=== PATIENT | female | born 1940 | race Caucasian/White ===

== ENCOUNTER 2016-07-25 11:01 | Inpatient (IN) | payer OTHER, MEDICARE ==
[~2016-07-25] VITALS: Ht 149.9 cm; Wt 68.0 kg
[~2016-07-25 11:01] MED LIST: ACEPHEN650 M1 PR; ATHENOL325 MG PO; AUGMENTIN 500-1 EACH PO; BISACODYL10 M1 RC; CEFTRIAXONE500 MG IM; FERROUS SULFAT325 M3 PO; FLEET ENEMA133 ML RC; GAS RELIEF125 M1 PO; GAS-X125 MG PO; GLUCAGON EMERGEN1 M1 IM; IPRAT-ALBUT 0.5-3 ML INH; JANUVIA100 M1 PO; LEVEMIR100 UNIT/1 SC; LEVOTHYROXINE25 MCG PO; LOSARTAN POTAS100 M1 PO; LYRICA75 M1 PO; MECLIZINE HCL12.5 M1 PO; METFORMIN HCL500 M3 PO; MILK OF MA400 MG/52 PO; MONTELUKAST SOD10 M1 PO; NOVOLOG100 UNIT/2 SC; OMEPRAZOLE20 M2 PO; PREDNISONE1 MG PO; SERTRALINE HCL25 MG PO; SERTRALINE HCL50 MG PO; SPIRIVA18 MCG INH; TRAZODONE HCL100 M1 PO; TRAZODONE HCL50 M1 PO; VERAPAMIL HCL120 M3 PO; VITAMIN D3400 UNI1 PO; XANAX0.25 M1 PO; ZOCOR10 M1 PO
--- NOTE | 2016-07-25 11:34 | ED GI/GU/ABDOMINAL COMPLAINT ---
History of Present Illness General Chief Complaint: General Adult Stated Complaint: BIBA FROM ECF FOR ABNORMAL LABS Source: patient, old records Exam Limitations: poor historian Allergies Coded Allergies: oxycodone (RASH 12/08/15) Triage Note: PT BROUGHT IN BY AMBULANCE BY F FOR ABNORMAL LABS AND WATTERY DIARRHEA X7 DAYS. PT OS O2 DEPENDENT AT 3L BY NA. Triage Nurses Notes Reviewed? yes ? N Is pt currently ? No Onset: Gradual Duration: constant Timing: recent history Quality/Severity: sharpness, severe, stabbing Severity Numbers: 8 Location: epigastric Radiation: no radiation HPI: Patient is a 76-year-old female with a past medical history of COPD currently on 3 L of oxygen at all times, CHF, diabetes, hypothyroidism and a recent admission 8 days ago and discharge to [facility] for concerns of altered mental status and encephalopathy secondary to urinary tract infection and sepsis. History is limited due to patient being a poor historian. Patient's presents to emergency room with persistent epigastric and generalized abdominal pain for the past 4 days and loose watery stool diarrhea production for the past 7 days patient currently is on outpatient antibiotics. Patient denies any fever chills is able tolerate by mouth. Denies any change in respiratory complaints denies any worsening shortness of breath chest pain and arm pain jaw pain nausea or vomiting. No blood or melena noted in stools. Patient does state that she has mild nonproductive cough (SANIA KING,MARILU) Vital Signs & Intake/Output Vital Signs & Intake/Output Vital Signs Date Time Temp Pulse Resp B/P Pulse O2 O2 Flow FiO2 Ox Delivery Rate 07/25 1934 97.9 93 16 135/65 95 Nasal 3.0L Cannula 07/25 1742 97.6 92 16 135/64 97 Nasal 3.0L Cannula 07/25 1531 97.6 93 16 140/65 97 Nasal 3.0L Cannula 07/25 1305 97.0 87 16 126/62 94 Nasal 3.0L Cannula 07/25 1111 94 Nasal 3.0L Cannula 07/25 1107 97.9 83 22 122/56 97 Nasal 3.0L Cannula Reconcile Medications Acetaminophen (Acephen) 650 MG SUPP.RECT 1 SUPP ME Q4H PRN PAIN/TEMP>/100 ( Reported) Acetaminophen (Athenol) 325 MG TABLET 2 TAB PO Q4H PRN PAIN/TEMP>/100 ( Reported) Alprazolam (Xanax) 0.25 MG TABLET 1 TAB PO Q6P PRN AGITATION AND ANXIETY ( Reported) Augmentin (Augmentin 500-125 Tablet) 500 MG-125 MG TABLET 1 TAB PO BID urine infection Bisacodyl 10 MG SUPP.RECT 1 SUP RC PRN CONSTIPATION (Reported) Cholecalciferol (Vitamin D3) (Vitamin D3) 400 UNIT TABLET 1 TAB PO DAILY SUPPLEMENT (Reported) Ferrous Sulfate 325 MG (65 MG IRON) TABLET 1 TAB PO DAILY SUPPLEMENT ( Reported) Glucagon,Human Recombinant (Glucagon Emergency Kit) 1 MG KIT 1 MG IM ONCE PRN HYPOGLYCEMIA (Reported) Insulin Aspart (Novolog) 100 UNIT/ML VIAL DM (Reported) based on sliding scale Insulin Detemir (Levemir) 100 UNIT/ML VIAL 30 UNITS SC QAM DM (Reported) Ipratropium/Albuterol Sulfate (Iprat-Albut 0.5-3(2.5) MG/3 Ml) 0.5 MG-3 MG (2.5 MG BASE)/3 ML AMPUL.NEB 3 ML INH Q4H PRN SOB/WHEEZE (Reported) Lactobacillus Acidophilus (Acidophilus) 1 EACH CAPSULE 1 CAP PO BID GI ( Reported) Levothyroxine Sodium 25 MCG TABLET 1 TAB PO DAILY AC THYROID (Reported) Losartan Potassium 100 MG TABLET 1 TAB PO DAILY UNKNOWN (Reported) Magnesium Hydroxide (Milk Of Magnesia) 400 MG/5 ML ORAL.SUSP 30 ML PO DAILY PRN CONSTIPATION (Reported) Meclizine HCl 12.5 MG TABLET 1 TAB PO Q6H PRN VERTIGO (Reported) Metformin HCl 500 MG TABLET 1 TAB PO TID DM (Reported) Montelukast Sodium 10 MG TABLET 1 TAB PO DAILY UNKNOWN (Reported) Na Phos,M-B/Na Phos,Di-Ba (Fleet Enema) 19 GRAM-7 GRAM/118 ML ENEMA 1 E RC DAILY PRN CONSTIPATION (Reported) Omeprazole 20 MG CAPSULE.DR 1 CAP PO DAILY GI (Reported) Prednisone 1 MG TABLET 1.5 TAB PO EOD STEROID (Reported) Pregabalin (Lyrica) 75 MG CAPSULE 1 CAP PO TID NEUROPATHY (Reported) Sertraline HCl 25 MG TABLET 1 TAB PO DAILY MENTAL HEALTH (Reported) Sertraline HCl 50 MG TABLET 1 TAB PO DAILY MENTAL HEALTH (Reported) Simethicone (Gas-X) 125 MG CAPSULE 1 TAB PO TID GAS (Reported) Simethicone (Gas Relief) 125 MG TAB.CHEW 1 TAB PO Q4-6H PRN ABD BLOATING & PAIN (Reported) Simvastatin (Zocor*) 10 MG TABLET 1 TAB PO QPM CHOLESTEROL (Reported) Sitagliptin Phosphate (Januvia) 100 MG TABLET 1 TAB PO DAILY DIABETES ( Reported) Tiotropium [place] (Spiriva) 18 MCG CAP.W.DEV 1 CAP INH DAILY COPD (Reported) Trazodone HCl 50 MG TABLET 1 TAB PO 0800 UNKNOWN (Reported) Trazodone HCl 100 MG TABLET 1 TAB PO QPM UNKNOWN (Reported) Trazodone HCl 50 MG TABLET 12.5 MG PO Q8H PRN ANXIETY (Reported) Verapamil HCl 120 MG TABLET 1 TAB PO DAILY UNKNOWN (Reported) (SEVERIANO ANDREWS,JEET Hernandez) Past History Travel History Traveled to [place] past 21 day No Medical History Any Pertinent Medical History? 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 FATHER (CAD). AUNT (Stroke). DAUGHTER ( from drug overdose). Hx Contributory? No (MARILU LOMBARDI) Review of Systems Review of Systems Constitutional: Reports: see HPI. Denies: chills. EENTM: Reports: no symptoms. Respiratory: Reports: see HPI, cough. Cardiovascular: Reports: no symptoms. GI: Reports: see HPI, abdominal pain, diarrhea. Denies: nausea. Genitourinary: Reports: no symptoms. Musculoskeletal: Reports: no symptoms. Skin: Reports: no symptoms. Neurological/Psychological: Reports: no symptoms. Hematologic/Endocrine: Reports: no symptoms. Immunologic/Allergic: Reports: no symptoms. All Other Systems: Reviewed and Negative (SANIA KING,MARILU) Physical Exam Physical Exam General Appearance: well developed/nourished, no apparent distress, alert Gastrointestinal: normal bowel sounds, soft, MILD EPIGASTRIC POINT TENDERNESS NO RIGHT LOWER QUADRANT TENDERNESS NO PERITONEAL SIGNS NO REBOUND TENDERNESS Comments: Well-developed well-nourished person in no acute distress HEENT: Normal EENT exam, Neck: Supple, no lymphadenopathy, normal range of motion without pain or tenderness Back: Nontender, no CVA tenderness. Cardiovascular: Regular rate and rhythms no murmurs rubs or gallops, normal JVP Respiratory: Chest nontender. No respiratory distress.breath sounds clear to auscultation bilaterally Extremity: No edema, no calf tenderness to palpation, normal and equal pulses. Neuro: Alert oriented, motor sensory normal, Skin: No appreciable rash on exposed skin, skin is warm and dry. Psych: Mood and affect is normal, memory and judgment is normal. Core Measures Severe Sepsis Present: No Septic Shock Present: No (SANIA KING,MARILU) Progress Differential Diagnosis: AAA, AMI, appendicitis, biliary colic, bowel obstruction , colon cancer, cholecystitis, diverticulitis, endometritis, esophageal varices, gastritis, hepatitis, hernia, hemorrhoids, ischemic bowel, inflamm bowel dis, kidney stone, Jihan-Gregorio tear, ovarian cyst, ovarian torsion, pancreatitis, PID/cervicitis, peptic ulcer, PUD/GERD, perforated viscous, SBO, threatened AB, UTI/pyelo Diagnostic Imaging: Viewed by Me: CT Scan. Radiology Impression: SEE COMMENTS Initial ED EK BPM , LAD Comments: PATIENT: KIMBERLY SHERIDAN PRESENT AGE: 76 PATIENT ACCOUNT NO: [id number] : 41 LOCATION: [facility] ORDERING PHYSICIAN: MARILU KING SERVICE DATE: 07/25/163341 EXAM TYPE: CAT - CT ABD & PELVIS W/O IV CONTRAS; CT CHEST WO IV CONTRAST EXAMINATION: CT ABD PELVIS W/O IV CONTRAS, CT CHEST WO IV CONTRAST CLINICAL INFORMATION: Abdominal pain. Acute kidney injury. 76-year-old female. COMPARISON: Chest x-rays done 08/06/2013 and 07/14/2016. CT the abdomen and pelvis on 03/06/2013. TECHNIQUE: Noncontrast enhanced CT of the chest abdomen and pelvis without IV contrast. Coronal and sagittal reformats obtained at the acquisition workstation. FINDINGS: Lungs: Both lungs demonstrate a mosaic subsegmental pattern of groundglass opacities consistent with small airways disease. There is early peripheral fibrosis involving the lower hemithoraces more pronounced on the right than left. No consolidation or mass lesion is detected. Mediastinum: There is multinodular enlargement of the left lobe of the thyroid gland. Small subcentimeter mediastinal nodes are present. The lulu are unremarkable. Coronary artery calcifications are seen in otherwise normal-appearing heart. Pleura: Posterolateral pleural thickening but no evident effusion. Chest wall: Small lymph nodes are seen in both axillae. Abdomen/pelvis: The liver shows no focal disease or bile duct dilatation. The patient's gallbladder is surgically removed. The extrahepatic biliary ducts are not dilated. The pancreas is normal. The spleen is unremarkable. Both adrenal glands are normal. Neither kidney shows evidence of hydronephrosis or stone formation. A 2 cm cyst arises from the mid polar region of the left kidney. Another exophytic cyst arises from the upper pole. This cyst measures 2.1 cm. There is mild bilateral perinephric streaking felt to be chronic. The ureters are unremarkable. The bladder is normal in appearance. The stomach is not distended. The small intestine is normal in caliber and appearance. The appendix is normal. The colon is normal. There is no evidence of lymphadenopathy. Calcific plaques are seen throughout the abdominal aorta as well as the thoracic aorta. Uterus is postmenopausal in size and shape. The adnexa are normal. No free air or free fluid is seen. Osseous system: There is complete collapse of the vertebral body at T8. (Vertebral plana. Associated endplate destruction with bony sclerosis involves both the superior endplate of T8 and the inferior endplate of T7. This appearance is consistent with discitis. There is no paraspinal soft tissue mass at this time. The last x-ray of the T-spine dated 08/07/2013 did not show these findings. There is chronic degenerative disc disease at L4-L5 with mild anterolisthesis of L4 on L5. IMPRESSION: 1. Normal appearance of the biliary system in a post cholecystectomy patient. 2. Small airways disease in both lungs. (Subsegmental was a groundglass opacities). 3. Renal cysts. Perinephric stranding right greater than left. 4. Multinodular enlargement of the left lobe of the thyroid gland. 5. Significant discitis at T7-T8 with vertebral plana at T8 and endplate bone destruction involving T7. A T-spine x-ray in 2013 was normal. (SANIA KING,MARILU) Plan of Care: Orders Procedure Date/time Status Regular Diet 07/26 B Active OXYGEN SETUP (GEN) 07/25 1934 Active Saline Lock 07/25 1934 Active Vital Signs 07/25 1934 Active Activity/Ambulation 07/25 1934 Active Code Status 07/25 1934 Active Patient Data 07/25 1838 Active Straight Cath 07/25 1809 Active Admit to inpatient 07/25 1747 Active BLOOD CULTURE 07/25 1622 Active EKG 07/25 1508 Active CULTURE,URINE 07/25 1501 Active URINALYSIS 07/25 1501 Complete LACTIC ACID 07/25 1437 Active Intake & Output 07/25 1252 Active CULTURE,STOOL 07/25 1137 Active C.DIFFICILE 07/25 1137 Active THYROID STIMULATING HORMONE 07/25 1137 Complete TROPONIN LEVEL 07/25 1137 Complete MAGNESIUM 07/25 1137 Complete LIPASE 07/25 1137 Complete LACTIC ACID 07/25 1137 Complete FREE T4 07/25 1137 Complete COMPREHENSIVE METABOLIC PANEL 07/25 1137 Complete CBC WITHOUT DIFFERENTIAL 07/25 1137 Complete AMYLASE 07/25 1137 Complete Laboratory Tests 07/25/16 1635: Urine Color YEL, Urine Clarity CLEAR, Urine pH 6.0, Ur Specific [place] >= 1.030 , Urine Protein TRACE H, Urine Ketones NEG, Urine Nitrite NEG, Urine Bilirubin NEG, Urine Urobilinogen 0.2, Ur Leukocyte Esterase NEG, Ur Microscopic SEDIMENT EXAMINED, Urine RBC 1-3, Urine WBC RARE, Urine Hemoglobin TRACE-INTACT, Urine Glucose NEG 07/25/16 1248: Anion Gap 11, Estimated GFR 21 L, BUN/Creatinine Ratio 8.3, Glucose 96, Lactic Acid 0.7, Calcium 7.7 L, Magnesium 1.3 L, Total Bilirubin 0.6, AST 27, ALT 37, Alkaline Phosphatase 118, Troponin I < 0.01, Total Protein 7.0, Albumin 3.2 L, Globulin 3.8, Albumin/Globulin Ratio 0.8 L, Amylase 37, Lipase 105, TSH 1.290, Free T4 1.32, CBC w Diff NO MAN DIFF REQ, RBC 3.92 L, MCV 83.2, MCH 26.7 L, RDW 15.7 H, MPV 9.1, Gran % 84.2 H, Lymphocytes % 11.5 L, Monocytes % 3.0, Eosinophils % 0.9, Basophils % 0.4, PUBS MCHC 32.1 L, Absolute Granulocytes 11.9 H, Absolute Lymphocytes 1.6, Absolute Monocytes 0.4, Absolute Eosinophils 0.1, Absolute Basophils 0.1 Microbiology 07/25 1650 BLOOD: Blood Culture - RECD 07/25 1639 BLOOD: Blood Culture - RECD 07/25 1635 URINE ROUT: Urine Culture - RECD 07/25 113 STOOL: Clostridium difficile Toxin A & B - ORD 07/25 1137 STOOL: Stool Culture - ORD Initially patient had epigastric tenderness in which she described as severe in which she was given morphine for her symptoms. Patient did note to have leukocytosis and mild concerns on CT chest of airspace [place] and airspace disease in which patient was given antibiotics. Patient also has concerns of acute kidney injury in which patient will be admitted for concerns of this. I discussed admission with power of assistant county attorney who is aware and I discussed personally 1 patient's power of assistant county attorney presented to the emergency room of concerns of acute kidney injury. I discussed patient's admission with Dr. TORRES who agrees with general medicine admission. C. difficile and stool cultures currently still pending. Patient currently is in no apparent distress prior to admission (MARILU LOMBARDI) Departure Departure Disposition: STILL A PATIENT Condition: Stable Clinical Impression Primary Impression: SOCORRO (acute kidney injury) Secondary Impressions: Pneumonia Referrals: SHANAE GARCIA MD (PCP/Family) Referred to [facility] as new patient No Departure Forms: Customer Survey General Discharge Information Admission Note Spoke With: YANETH TORRES MD Documentation of Exam: Documentation of any treatments & extenuating circumstances including Concerns Regarding Discharge (functional status, medication knowledge or non-compliance, living conditions, etc.) that warrant an admission rather than observation: [ Discussed patient with Dr. TORRES who agrees with general medicine admission for concerns of SOCORRO and pneumonia. Patient requires IV fluid resuscitation, gentle hydration, repeat labs, IV antibiotics, Outpatient treatment at this time would be medically harmful due to reoccurrence of kidney dysfunction] (MARILU LOMBARDI) PA/REPLACER Co-Sign Statement Statement: ED Attending supervision documentation- [X] I saw and evaluated the patient. I have also reviewed all the pertinent lab results and diagnostic results. I agree with the findings and the plan of care as documented in the PA's/REPLACER's documentation. [] I have reviewed the ED Record and agree with the PA's/REPLACER's documentation. [] Additions or exceptions (if any) to the PAs/REPLACER's note and plan are summarized below: [] (SEVERIANO ANDREWS,JEET Hernandez)
[2016-07-25] MEDS ORDERED: ACIDOPHILUS1 EACH PO (11:49)
--- NOTE | 2016-07-25 12:24 | NUR ---
RECEIVED PT FROM EMS, PER PAPERWORK PT HAS HAD WATERY DIARRHEA X7 DAYS. PT DENIES NAUSEA OR VOMITING. PT REPORTS ABDOMINAL PAIN WHEN PALPATED, WORSE IN EPIGASTRIC REGION.
--- NOTE | 2016-07-25 12:51 | NUR ---
IV ESTABLISHED IN LEFT A/C WITH #20. 500ML NORMAL SALINE STARTED.
[2016-07-25 12:54] LABS: ABSOLUTE BASOPHIL COUNT 0.1 /CUMM (0.0-0.2); ABSOLUTE EOSINOPHIL COUNT 0.1 /CUMM (0.0-0.7); ABSOLUTE GRANULOCYTE CT 11.9 /CUMM (1.4-6.5); ABSOLUTE LYMPH COUNT 1.6 /CUMM (1.2-3.4); ABSOLUTE MONOCYTE COUNT 0.4 /CUMM (0.10-0.60); BASOPHIL % 0.4 % (0.0-2.0); EOSINOPHIL % 0.9 % (0-5); HEMATOCRIT 32.6 % (37-47); MEAN CORPUSCULAR HGB 26.7 PG (27.0-31.0); MEAN CORPUSCULAR HGB CONC 32.1 G/DL (33.0-37.0); MEAN CORPUSCULAR VOLUME 83.2 FL (81.0-99.0); MEAN PLATELET VOLUME 9.1 FL (7.4-10.4); RBC DISTRIBUTION WIDTH 15.7 % (11.5-14.5); RED BLOOD CELL CT 3.92 /CUMM (4.20-5.40); WHITE BLOOD CELL COUNT 14.1 /CUMM (4.8-10.8)
[2016-07-25 13:07] LABS: GRANULOCYTE % 84.2 % (42.2-75.2); PLATELET COUNT 420 /CUMM (130-400)
--- NOTE | 2016-07-25 14:53 | NUR ---
PT SLEEPING BUT AWOKE WHEN SPOKEN TO. PT REPORTS BILATERAL KNEE PAIN /. PT REPORTS BEING THIRSTY. PT CALM AND COOPERATIVE.
--- NOTE | 2016-07-25 15:04 | NUR ---
PER FERNANDO LUI, DO NOT DO REPEAT LACTIC ACID
--- NOTE | 2016-07-25 15:13 | NUR ---
PT TO CAT SCAN
--- NOTE | 2016-07-25 16:09 | CT SCAN REPORT ---
EXAMINATION: CT ABD PELVIS W/O IV CONTRAS, CT CHEST WO IV CONTRAST CLINICAL INFORMATION: Abdominal pain. Acute kidney injury. 76-year-old female. COMPARISON: Chest x-rays done 08/06/2013 and 07/14/2016. CT the abdomen and pelvis on 03/06/2013. TECHNIQUE: Noncontrast enhanced CT of the chest abdomen and pelvis without IV contrast. Coronal and sagittal reformats obtained at the acquisition workstation. FINDINGS: Lungs: Both lungs demonstrate a mosaic subsegmental pattern of groundglass opacities consistent with small airways disease. There is early peripheral fibrosis involving the lower hemithoraces more pronounced on the right than left. No consolidation or mass lesion is detected. Mediastinum: There is multinodular enlargement of the left lobe of the thyroid gland. Small subcentimeter mediastinal nodes are present. The lulu are unremarkable. Coronary artery calcifications are seen in otherwise normal-appearing heart. Pleura: Posterolateral pleural thickening but no evident effusion. Chest wall: Small lymph nodes are seen in both axillae. Abdomen/pelvis: The liver shows no focal disease or bile duct dilatation. The patient's gallbladder is surgically removed. The extrahepatic biliary ducts are not dilated. The pancreas is normal. The spleen is unremarkable. Both adrenal glands are normal. Neither kidney shows evidence of hydronephrosis or stone formation. A 2 cm cyst arises from the mid polar region of the left kidney. Another exophytic cyst arises from the upper pole. This cyst measures 2.1 cm. There is mild bilateral perinephric streaking felt to be chronic. The ureters are unremarkable. The bladder is normal in appearance. The stomach is not distended. The small intestine is normal in caliber and appearance. The appendix is normal. The colon is normal. There is no evidence of lymphadenopathy. Calcific plaques are seen throughout the abdominal aorta as well as the thoracic aorta. Uterus is postmenopausal in size and shape. The adnexa are normal. No free air or free fluid is seen. Osseous system: There is complete collapse of the vertebral body at T8. (Vertebral plana. Associated endplate destruction with bony sclerosis involves both the superior endplate of T8 and the inferior endplate of T7. This appearance is consistent with discitis. There is no paraspinal soft tissue mass at this time. The last x-ray of the T-spine dated 08/07/2013 did not show these findings. There is chronic degenerative disc disease at L4-L5 with mild anterolisthesis of L4 on L5. IMPRESSION: 1. Normal appearance of the biliary system in a post cholecystectomy patient. 2. Small airways disease in both lungs. (Subsegmental was a groundglass opacities). 3. Renal cysts. Perinephric stranding right greater than left. 4. Multinodular enlargement of the left lobe of the thyroid gland. 5. Significant discitis at T7-T8 with vertebral plana at T8 and endplate bone destruction involving T7. A T-spine x-ray in 2012 was normal.
--- NOTE | 2016-07-25 16:39 | NUR ---
URINE TRIO SENT TO LAB
--- NOTE | 2016-07-25 16:54 | NUR ---
JADA [phone]
--- NOTE | 2016-07-25 17:44 | NUR ---
PT LYING ON STRETCHER DROWSY BUT AROUSABLE. PT CALM AND COOPERATIVE. PT REPORTS SHE IS THIRSTY.
--- NOTE | 2016-07-25 19:17 | NUR ---
PT'S GRANDDAUGHTER AT BEDSIDE. PT GIVEN PRINCE VIPLU. ROCEPHIN AND ZITHROMAX IV COMPLETE.
--- NOTE | 2016-07-25 19:49 | NUR ---
PT HAS BED ASSIGNMENT [phone]
--- NOTE | 2016-07-25 20:04 | History & Physical ---
RUDDY RIVAS 07/25/16 2003: General Information and HPI MD Statement: I have seen and personally examined KIMBERLY BLAND and documented this H&P. The patient is a 76 year old F who presented with a patient stated chief complaint of diarrhea and lethargy Source of Information: patient, family, old records, nurse at extended care facility Exam Limitations: clinical condition History of Present Illness: 76-year-old woman with past medical history of COPD on 3 L of home oxygen, stage II diastolic CHF, type 2 diabetes mellitus complicated with neuropathy and gastroparesis, hypothyroidism, arthritis, depression, hyperlipidemia, chronic renal failure, GERD, diverticulosis coli, recently admitted to [facility] on 07/14/16 for altered mental status secondary UTI and acute kidney injury and was discharged on 07/17/16 on course of augmentin, brought today by granddaughter for concerns of altered mental status. Per the nurse (Ally) taking care of her at [facility], patient has been having episodes of diarrhea since last . Yesterday she wasn't "herself" she was looking very lethargic and she was also incontinent of both bowel and bladder which is not like her. No fever was documented. Per the nurse her Augmentin was stopped due to diarrhea on Sunday, however the W10 states that she has completed the course. Granddaughter has concerns regarding her care at the extended care facility which was brought up during the last admission. Patient reports non radiating dull lower abdominal pain. Denies fever, chills, nausea, vomitting, dysuria, chest pain, shortness of breath. Allergies/Medications Allergies: Coded Allergies: oxycodone (RASH 12/08/15) Home Med list Acetaminophen (Acephen) 650 MG SUPP.RECT 1 SUPP TN Q4H PRN PAIN/TEMP>/100 ( Reported) Acetaminophen (Athenol) 325 MG TABLET 2 TAB PO Q4H PRN PAIN/TEMP>/100 ( Reported) Alprazolam (Xanax) 0.25 MG TABLET 1 TAB PO Q6P PRN AGITATION AND ANXIETY ( Reported) Augmentin (Augmentin 500-125 Tablet) 500 MG-125 MG TABLET 1 TAB PO BID urine infection Bisacodyl 10 MG SUPP.RECT 1 SUP RC PRN CONSTIPATION (Reported) Cholecalciferol (Vitamin D3) (Vitamin D3) 400 UNIT TABLET 1 TAB PO DAILY SUPPLEMENT (Reported) Ferrous Sulfate 325 MG (65 MG IRON) TABLET 1 TAB PO DAILY SUPPLEMENT ( Reported) Glucagon,Human Recombinant (Glucagon Emergency Kit) 1 MG KIT 1 MG IM ONCE PRN HYPOGLYCEMIA (Reported) Insulin Aspart (Novolog) 100 UNIT/ML VIAL DM (Reported) based on sliding scale Insulin Detemir (Levemir) 100 UNIT/ML VIAL 30 UNITS SC QAM DM (Reported) Ipratropium/Albuterol Sulfate (Iprat-Albut 0.5-3(2.5) MG/3 Ml) 0.5 MG-3 MG (2.5 MG BASE)/3 ML AMPUL.NEB 3 ML INH Q4H PRN SOB/WHEEZE (Reported) Lactobacillus Acidophilus (Acidophilus) 1 EACH CAPSULE 1 CAP PO BID GI ( Reported) Levothyroxine Sodium 25 MCG TABLET 1 TAB PO DAILY AC THYROID (Reported) Losartan Potassium 100 MG TABLET 1 TAB PO DAILY UNKNOWN (Reported) Magnesium Hydroxide (Milk Of Magnesia) 400 MG/5 ML ORAL.SUSP 30 ML PO DAILY PRN CONSTIPATION (Reported) Meclizine HCl 12.5 MG TABLET 1 TAB PO Q6H PRN VERTIGO (Reported) Metformin HCl 500 MG TABLET 1 TAB PO TID DM (Reported) Montelukast Sodium 10 MG TABLET 1 TAB PO DAILY UNKNOWN (Reported) Na Phos,M-B/Na Phos,Di-Ba (Fleet Enema) 19 GRAM-7 GRAM/118 ML ENEMA 1 E RC DAILY PRN CONSTIPATION (Reported) Omeprazole 20 MG CAPSULE.DR 1 CAP PO DAILY GI (Reported) Prednisone 1 MG TABLET 1.5 TAB PO EOD STEROID (Reported) Pregabalin (Lyrica) 75 MG CAPSULE 1 CAP PO TID NEUROPATHY (Reported) Sertraline HCl 50 MG TABLET 1 TAB PO DAILY MENTAL HEALTH (Reported) Simethicone (Gas Relief) 125 MG TAB.CHEW 1 TAB PO Q4-6H PRN ABD BLOATING & PAIN (Reported) Simvastatin (Zocor*) 10 MG TABLET 1 TAB PO QPM CHOLESTEROL (Reported) Sitagliptin Phosphate (Januvia) 100 MG TABLET 1 TAB PO DAILY DIABETES ( Reported) Tiotropium [place] (Spiriva) 18 MCG CAP.W.DEV 1 CAP INH DAILY COPD (Reported) Trazodone HCl 50 MG TABLET 1 TAB PO 0800 UNKNOWN (Reported) Trazodone HCl 100 MG TABLET 1 TAB PO QPM UNKNOWN (Reported) Trazodone HCl 50 MG TABLET 12.5 MG PO Q8H PRN ANXIETY (Reported) Verapamil HCl 120 MG TABLET 1 TAB PO DAILY UNKNOWN (Reported) Compliance With Home Meds: GOOD Past History Travel History Traveled to [place] past 21 day No Medical History Neurological: dizziness, vertigo, DEMENTIA-MILD EENT: allergies Cardiovascular: CHF Respiratory: COPD, emphysema Gastrointestinal: GERD, lactose intolerance Hepatic: NONE Renal: UTI Musculoskeletal: osteoporosis, ARTHRITIS Psychiatric: anxiety, bipolar disease, depression Endocrine: diabetes, hypothyroidism, obesity Blood Disorders: NONE Cancer(s): NONE LEAK DETECTOR/Reproductive: NONE History of MRSA: No History of VRE: No History of CDIFF: No Surgical History Surgical History: X3 SURGICAL PROCEDURE TO HEAD FOR VERTIGO TONSILLECTOMY Past Family/Social History Family History Relations & Conditions if any MOTHER (Alzheimers). FATHER (CAD). AUNT (Stroke). DAUGHTER ( from drug overdose). Psychosocial History Where do you live? Extended Care Facility Services at Home: Nursing Smoking Status: Former Smoker ETOH Use: denies use Functional Ability ADLs Needs Assist: dressing, eating, toileting, bathing. Ambulation: wheelchair Review of Systems Review of Systems Constitutional: Denies: chills, diaphoresis, fever, malaise, weakness, unexplained weight loss. Cardiovascular: Denies: chest pain, edema, orthopena, palpitations, peripheral edema, syncope. Respiratory: Denies: cough, hemoptysis, orthopnea, short of breath, sputum production, stridor, wheezing. GI: Denies: abdominal pain, bloating, constipation, diarrhea, distention, bowel incontinence, melena, nausea, bloody stool, changes in stool, vomiting, steatorrhea. Genitourinary: Denies: discharge, dysuria, frequency, hematuria, hesitation, nocturia, pain, urgency. Exam & Diagnostic Data Last 24 Hrs of Vital Signs/I&O Vital Signs Date Time Temp Pulse Resp B/P Pulse O2 O2 Flow FiO2 Ox Delivery Rate 07/25 2104 98.8 72 22 150/68 92 Nasal 3.0L Cannula 07/25 2043 Nasal 3.0L Cannula 07/25 1934 97.9 93 16 135/65 95 Nasal 3.0L Cannula 11/22 1742 97.6 92 16 135/64 97 Nasal 3.0L Cannula 07/25 1531 97.6 93 16 140/65 97 Nasal 3.0L Cannula 07/25 1305 97.0 87 16 126/62 94 Nasal 3.0L Cannula 07/25 1111 94 Nasal 3.0L Cannula 07/25 1107 97.9 83 22 122/56 97 Nasal 3.0L Cannula Intake & Output 07/25 1600 07/25 0800 07/25 0000 Intake Total 1000 Output Total Balance 1000 Intake, IV 1000 Physical Exam General Appearance Alert, Oriented X3, Cooperative, No Acute Distress HEENT Atraumatic, PERRLA, EOMI, Mucous Membr. moist/pink Neck Supple Cardiovascular Normal S1, Normal S2 Lungs Clear to Auscultation, Normal Air Movement Abdomen Soft, hyperactive bowel sounds, tenderness to palpation in Right and left lower quadrants Extremities No Edema Last 24 Hrs of Labs/Rehan: Laboratory Tests 07/25/16 1635: Urine Color YEL, Urine Clarity CLEAR, Urine pH 6.0, Ur Specific Ruth >= 1.030 , Urine Protein TRACE H, Urine Ketones NEG, Urine Nitrite NEG, Urine Bilirubin NEG, Urine Urobilinogen 0.2, Ur Leukocyte Esterase NEG, Ur Microscopic SEDIMENT EXAMINED, Urine RBC 1-3, Urine WBC RARE, Urine Hemoglobin TRACE-INTACT, Urine Glucose NEG 07/25/16 1437: Lactic Acid Cancelled 07/25/16 1248: Anion Gap 11, Estimated GFR 21 L, BUN/Creatinine Ratio 8.3, Glucose 96, Lactic Acid 0.7, Calcium 7.7 L, Magnesium 1.3 L, Total Bilirubin 0.6, AST 27, ALT 37, Alkaline Phosphatase 118, Troponin I < 0.01, Total Protein 7.0, Albumin 3.2 L, Globulin 3.8, Albumin/Globulin Ratio 0.8 L, Amylase 37, Lipase 105, TSH 1.290, Free T4 1.32, CBC w Diff NO MAN DIFF REQ, RBC 3.92 L, MCV 83.2, MCH 26.7 L, RDW 15.7 H, MPV 9.1, Gran % 84.2 H, Lymphocytes % 11.5 L, Monocytes % 3.0, Eosinophils % 0.9, Basophils % 0.4, PUBS MCHC 32.1 L, Absolute Granulocytes 11.9 H, Absolute Lymphocytes 1.6, Absolute Monocytes 0.4, Absolute Eosinophils 0.1, Absolute Basophils 0.1 Microbiology 07/25 1650 BLOOD: Blood Culture - RECD 07/25 1639 BLOOD: Blood Culture - RECD 07/25 1635 URINE ROUT: Urine Culture - RECD 07/25 1137 STOOL: Clostridium difficile Toxin A & B - ORD 07/25 113 STOOL: Stool Culture - ORD Diagnostic Data EKG Results NSR Other Results CT ABD & PELVIS W/O IV CONTRAS; CT CHEST WO IV CONTRAST IMPRESSION: 1. Normal appearance of the biliary system in a post cholecystectomy patient. 2. Small airways disease in both lungs. (Subsegmental was a groundglass opacities). 3. Renal cysts. Perinephric stranding right greater than left. 4. Multinodular enlargement of the left lobe of the thyroid gland. 5. Significant discitis at T7-T8 with vertebral plana at T8 and endplate bone destruction involving T7. A T-spine x-ray in 2013 was normal. Assessment/Plan Assessment: 76-year-old woman with past medical history of COPD on 3 L of home oxygen, stage II diastolic CHF, type 2 diabetes mellitus complicated with neuropathy and gastroparesis, hypothyroidism, arthritis, depression, hyperlipidemia, chronic renal failure, GERD, diverticulosis, brought today by granddaughter for concerns of altered mental status. As Ranked By This Provider Problem List: 1. Diarrhea Assessment/Plan Increased wbc, normal lactic acid, afebrile no pertinant findings on CTabd/pelvis d/d c.difficile vs gastroenteritis send for c.difficile, blood cultures will keep off antibiotics for now. hydration with IVF at 100ml/hr 2. Diabetes Assessment/Plan monitor fingersticks continue levemir and ISS diabetic diet 3. COPD Assessment/Plan continue supplemental oxygen TRC/nebs 4. SOCORRO (acute kidney injury) Assessment/Plan most likely pre renal azotemia will hydrate and continue to monitor BUN/creatinine. 5. Hyperkalemia Assessment/Plan possible secondary to SOCORRO continue to monitor. 6. Hypertension Assessment/Plan Losartan held in view of SOCORRO will continue with Verapamil 7. Hypothyroidism Assessment/Plan continue levothyroxine 8. DVT prophylaxis Assessment/Plan sc heparin 9. Full code status Core Measures/Miscellaneous Acute Coronary Syndrome ACS Diagnosis: No Cerebrovascular Accident CVA/TIA Diagnosis: No Congestive Heart Failure CHF Diagnosis: No Venous Thromboembolism VTE Risk Factors: Age > 40, Immobility, paresis VTE Prophylaxis Ordered Inpt: Mechanical (ALPS/TEDS) No Mech VTE prophylaxis d/t: No contraindications No VTE Pharm Prophylaxis d/t: No contraindications VTE Diagnosis: No VTE Type: NONE VTE Confirmed by (Test): NONE Severe Sepsis Severe Sepsis Present: No Septic Shock Septic Shock Present: No Miscellaneous Documentation Attending Case Discussed With: SUSHILA CASTELLANO MD Primary Care Physician: SHANAE GARCIA MD Patient sees these Specialists none Level of Patient Care: General Medicine DANIEL JOSEPH 07/25/162022: Resident Review Statement Resident Statement: examined this patient, discussed with management retail intern, agreed with management retail intern Other Findings: MS Bland is a 76-year-old woman With past medical history of COPD on 3 L of home oxygen, stage II diastolic CHF, type 2 diabetes mellitus complicated with neuropathy, hypothyroidism, arthritis, depression, hyperlipidemia, chronic renal failure, further disorder, GERD, diverticulosis coli, recently discharged from 07/14/2016 to 07/17/2016 after being treated for metabolic encephalopathy secondary to UTI, acute shortness of breath secondary to COPD exacerbation and acute kidney injury was [facility] for aabnormal labs and watery diarrhea for past 7 days. History is limited due to patient being a poor historian. Apparently the patient was discharged 07/17/2016 after being treated for COPD and acute, has been having persistent epigastric and generalized abdominal pain for last 4 days and loose watery stool for past 7 days, she was started on outpatient antibiotics however the diarrhea continued at the same constant rate. She denied any fever, chills, she is able to tolerate by mouth, denied nausea, vomiting, shortness of breath, chest pain, PND, constipation, melena. She does report that she has mild nonproductive cough. Vitals at the emergency department temperature of 97.9, pulse of 83, respiration of 20, blood pressure of 140/65, 94-97% on 3 L of nasal cannula. Labs white count of 14.1, H/H of 10.5/32.6, platelet count of 420. 11 chemistries potassium of 5.4, BUN/creatinine of 19/2.3 (baseline creatinine 1.3) lactic acid negative at 0.7, potassium of 7.7, magnesium of 1.3.Initial set of troponins less than 0.01. Ct Chest/Abdominal and Pelvis showed normal appearance of the biliary system status post cholecystectomy, small airway disease in bilateral lungs, some segmental versus groundglass opacities, perinephric stranding right renal region of the left renal area with renal cyst. Multilobular enlargement of the left lobe of the thyroid, significant discitis at T7-T8. Problem List alongwith Assesment and plan : Problem #1 Persistent diarrhea. Patient has been on antibiotic nitrofurantoin recently. We will check stool for C. difficile, stool culture and fluid, continue IV fluids. And tinea to monitor intake and output. Continue IV hydration. Continue monitor CBCs and electrolytes. #2 acute on chronic kidney disease stage IIIa And creatinine 2.3 (baseline 1.1), a CT PE renal secondary to dehydration. Next and continue IV hydration. We will hold losartan and metformin for today. Will not dose verapamil today however we will start verapamil from tomorrow. Avoid any nephrotoxic medications. Continue to monitor electrolytes and kidney functions. #3 thoracic discitis at T7-T8. Bed to previous x-ray, this is a new finding. We will check ESR and C-reactive protein. If elevated consider MRI of the spine to rule out osteomyelitis. #4 elevated white count. This is possibly secondary to chronic steroid use as well as reactive secondary to diarrhea. Patient does have some small airway disease on the chest x-ray but there was no evidence of any kind of infection pneumonia/consolidation. Patient did receive one time of IV ceftriaxone and azithromycin. We will not continue any more antibiotics for now as our suspicion for any kind of infection is not very high. Patient is afebrile as well. Continue to monitor white count. #4 hyperKalemia. Patient did have some mildly elevated T waves, however we think that the high potassium is secondary to a KI. We'll hold losartan for now. We'll continue to monitor potassium with a.m. labs. Continue IV hydration. #5 hypomagnesemia. We'll repeat IV magnesium. Continue to monitor #[address] steroids #7 multilobular left thyroid enlargement. Thyroid function tests are within normal limits. We will continue levothyroxine at the current dosage. Patient can follow up outpatient on discharge for further management of the thyroid lobe enlargement. #9 Continue sertraline,lyrica,xanax at home dosage. #10 Disposition plans : Granddaughter does not want the patient to get discharged to [facility] this time. She was very on P with the care given.. She said that she took her chances last time by sending her back but at admission she want to look into other options and does not want to her grandmother to go back to [facility]. Case management consult placed. We talked with the daughter at length and further seek Case management to discuss her grandmother's disposition plans. Dvt Px with heparin PP / FC Regular diet BRIAN ANDREWS, [facility] 07/26/16 0417: Attending MD Review Statement Attending Statement Attending MD Statement: examined this patient, discuss w/resident/PA/BLOCK MACHINE OPERATOR, agreed w/resident/PA/BLOCK MACHINE OPERATOR, discussed with family Attending Assessment/Plan: 76 yo F, resident of [facility], with h/o HTN, T2DM with neuropathy, dementia, CKD stage 3A, vertigo, temporal arteritis on prednisone, BPD, asthma/ COPD on 3L O2, diastolic dysfunction, discharged on Jul 17 from [facility] after being treated for AMS/UTI on Augmentin (Day 04/12), was sent in from [facility] today for diarrhea for past 1 week, abdominal discomfort, with poor PO intake, lethargy and leukocytosis on bloodwork. Patient does not provide accurate history. She apparently loves to eat ice-cream but is lactose intolerant, though the nurse at [facility] confirmed that the ice cream is lactose free. Patient is mostly wheelchair or bed bound. Granddaughter reports that patient had a fall last week, and another instance where patient was incontinent of urine/feces. VSS. Exam: AAO, dry mucous membranes, Chest b/l reduced air entry, Heart S1S2 regular, Abd soft, NT, Extremities: trace pedal edema. Neuro grossly intact, but limited exam and unable to assess her back for spinal tenderness. Labs: WBC 14.1, K 5.4, BUN 19, creat 2.3 (baseline 0.9 - 1.1), Ca 7.7, Mag 1.3, trop neg, lipase neg, TSH/free T4 normal. UA clear. CT C/A/P: small airways disease, early peripheral fibrosis, no consolidation. Multinodular enlargement left thyroid lobe. Renal cyst with perinephric stranding R>L. Thoracic discitis T7-8. EKG: SR. Echo (2013): EF > 65%, stage 2 diastolic dysfunction. 1. Diarrhea in the setting of recent antibiotic use. GM admit, IV fluids, check stool studies and Cdiff. Hold off further antibiotics. In case hypotensive, would consider stress dose steroids as patient is on chronic steroids. 2. Acute on CKD stage 3A 2/2 diarrhea and poor PO intake. IV fluids and trend renal functions. Hold losartan and metformin. 3. Leukocytosis in the setting of chronic steroid use. No evidence of pneumonia (small airway disease, but no consolidation). No UTI. Patient received IV ceftriaxone and azithro for possible pneumonia, would hold off on antibiotics for now. CT shows thoracic discitis (T7-8), no paraspinal soft tissue mass this finding is new, unclear chronicity, was not evident on Xray of 2013. Check ESR and CRP. Consider MRI or dedicated CT spine to further assess this. We need to discuss this further with patient's granddaughter as well. 4. Hyperkalemia 2/2 renal failure. 5. Hypomagnesemia. Please replete with IV mag. 6. Temporal arteritis. Continue prednisone. 7. Multinodular left thyroid lobe enlargement, normal TFTs. Continue synthroid. Outpatient follow up with Endocrine and possible thyroid ultrasound. 8. Recurrent falls. Maintain fall precautions, PT eval and therapy. Case management and social work consult. DVT ppx Hep SC. Full code. Granddaughter is very upset with the care at [facility] and had expressed this during the last admission as well. She would like to look at alternative options for ECF. She has some issues with the night staff at [facility]. She feels they do not offer help with meals although patient reports she is able to eat herself. Granddaughter plans to lodge a complaint with State about [facility].
--- NOTE | 2016-07-25 20:29 | NUR ---
CALLED REPORT TO 2NB, SPOKE WITH [facility] CALLED TRANSPORT
[2016-07-25 21:04] VITALS: BP 150/68
--- NOTE | 2016-07-25 23:02 | Admission Certification ---
Admission Certification Certification Statement - As attending physician, I certify that at the time of - admission, based on clinical presentation, severity of - symptoms, need for further diagnostic testing and - therapeutic interventions, and risk of adverse outcomes - without in-hospital treatment, in my clinical assessment, - this patient requires an acute hospital stay for a minimum - of two nights or longer. I have also considered psychsocial - factors such as support system, advanced age, financial - issues, cognitive issues, and failed out-patient treatments, - past re-admission history, safety of patient, and lack of - compliance as applicable. Specific rationale supporting this admission is: Acute on chronic renal failure, diarrhea.
--- NOTE | 2016-07-25 23:40 | NUR ---
NURSE NOTE: PT ARRIVED TO FLOOR AT 2042 FROM ED. REPORT RECIEVED FROM TERESA. PT CAME TO FLOOR WITH GRAND DAUGHTER AND TRANSPORT. PT ON 3LC NC. AAOX1 ORIENTED TO SELF ONLY. PT DENIES PAIN AT THIS TIME. ORIENTED TO THE ROOM AND FLOOR. VITALS: 150/68, HR 72, 98.8 TEMP, 22 RESP, AND O2 SAT 92% ON 3LNC. ASSESSMENT COMPETED. RAISED RASH TO R HIP, ASKED DOCTOR TO LOOK AT IT AND RULED OUT SHINGLES. PT STATES SHE IS COMFORTABLE.
[2016-07-25 23:46] VITALS: BP 148/72
--- NOTE | 2016-07-26 00:11 | NUR ---
NURSE NOTE: AT THIS TIME, PT REFUSES FLU AND PNA VACCINE. SAID SHE WOULD RATHER GET TOMORROW IN AM.
--- NOTE | 2016-07-26 06:42 | PN- Housestaff ---
Subjective Follow-up For: AMS Diarrhea Subjective: Patient was seen and examined this morning. She reports continued abdominal distention and discomfort. Patient states that she has pain in her back. Located in the thoracic area. Patient states that the pain is not new and has been present for the past few months. Patient also states that she's continued to have multiple bowel movements overnight. She is unable to keep track of how many bowel movements she had. Patient states she was brought in from [place] Patient denies any fever, chills, nausea, vomiting. Review of Systems Constitutional: Reports: see HPI. Objective Last 24 Hrs of Vital Signs/I&O Vital Signs Date Time Temp Pulse Resp B/P Pulse O2 O2 Flow FiO2 Ox Delivery Rate 07/26 1751 95 Nasal 3.0L Cannula 07/26 1032 87 150/70 07/26 0934 98.4 87 20 150/70 93 Nasal 3.0L Cannula 07/26 0800 Nasal 3.0L Cannula 07/26 0000 Nasal 3.0L Cannula 07/25 2346 98.2 74 20 148/72 96 Room Air 07/25 2104 98.8 72 22 150/68 92 Nasal 3.0L Cannula 07/25 2043 Nasal 3.0L Cannula 07/25 1934 97.9 93 16 135/65 95 Nasal 3.0L Cannula Intake & Output 07/26 1600 07/26 0800 07/26 0000 Intake Total 2260 1100 500 Output Total 400 Balance 1860 1100 500 Intake, IV 1000 500 500 Intake, Oral 1260 600 Number 5 Bowel Movements Output, Urine 400 Patient 68.039 kg Weight Physical Exam General Appearance: Alert, Oriented X3, Cooperative, Mild Distress Lymphatic: Cervical nl Cardiovascular: Regular Rate, Normal S1, Normal S2 Lungs: Clear to Auscultation Abdomen: Normal Bowel Sounds, Soft, No Tenderness, Distended Abdomen Neurological: Normal Speech Current Medications: Current Medications Sig/Desiree Start time Last Medication Dose Route Stop Time Status Admin Acetaminophen 650 MG Q6P PRN 07/25 2015 AC PO Alprazolam 0.25 MG Q6P PRN 07/25 2345 AC PO 08/01 2344 Atorvastatin Calcium 10 MG 1700 07/26 1700 AC 07/26 PO 1700 Azithromycin 500 MG Q24H 07/26 1000 DC Sodium Chloride 250 ML IV Ceftriaxone Sodium 1,000 MG DAILY 07/26 1000 CAN IV Cholecalciferol 400 IU DAILY 07/26 1000 AC 07/26 PO 1021 Ferrous Sulfate 325 MG DAILY 07/26 1000 AC 07/26 PO 1020 Heparin Sodium 5,000 UNIT Q8 07/25 2200 AC 07/26 (Porcine) SC 1458 Influenza Virus 0.5 ML 1000 07/26 1000 DC Vaccine IM 07/26 1001 Levothyroxine Sodium 0.025 MG DAILY AC 07/26 0700 AC 07/26 PO 0550 Magnesium Sulfate 1 GM Q2H 07/26 0545 DC 07/26 Dextrose/Water 100 ML IV 07/26 0944 1019 Montelukast Sodium 10 MG DAILY 07/26 1000 AC 07/26 PO 1020 Omeprazole 20 MG DAILY AC 07/26 0700 AC 07/26 PO 0550 Oxycodone HCl 5 MG Q6 PRN 07/25 2015 DC PO Patient Medication 1 ED .STK-MED ONE 07/26 1334 DC Teaching ED 07/26 1335 Pneumococcal 0.5 ML 1000 07/26 1000 DC Polyvalent Vaccine IM 07/26 1001 Prednisone 1.5 MG DAILY 07/26 1000 AC 07/26 PO 1021 Pregabalin 25 MG TID 07/25 2346 AC 07/26 PO 1700 Sertraline HCl 50 MG DAILY 07/26 1000 AC 07/26 PO 1021 Sodium Chloride 1,000 ML CONTINOUS INFUSION 07/25 2015 DC 07/26 IV 07/26 1614 0200 Sodium Chloride 500 ML BOLUS ONE 07/25 1815 DC 07/25 IV 07/25 1914 1809 Verapamil HCl 120 MG DAILY 07/26 1000 AC 07/26 PO 1032 Vitamin A/Vitamin D 1 LORENA BID PRN 07/25 2345 07/26 TOP 1019 Zinc Oxide 1 LORENA BID 07/25 2335 07/26 TOP 1019 Last 24 Hrs of Lab/Rehan Results Last 24 Hrs of Labs/Mics: Laboratory Tests 07/26/16 0700: Anion Gap 10, Estimated GFR 27 L, BUN/Creatinine Ratio 8.3, C-Reactive Prot, Quant 4.1 H, CBC w Diff NO MAN DIFF REQ, RBC 3.38 L, MCV 85.6, MCH 27.4, RDW 16.2 H, MPV 9.8, Gran % 68.1, Lymphocytes % 22.2, Monocytes % 6.7, Eosinophils % 2.3, Basophils % 0.7, PUBS MCHC 32.0 L, Absolute Granulocytes 7.0 H, Absolute Lymphocytes 2.3, Absolute Monocytes 0.7 H, Absolute Eosinophils 0.2, Absolute Basophils 0.1 Microbiology 07/26 7366 STOOL: Stool Culture - COLB 07/26 730 STOOL: Clostridium difficile Toxin A & B - RES 07/26 730 STOOL: Stool Culture - RES Orders Radiology Findings: EXAM TYPE: US - US-RENAL/KIDNEY EXAMINATION: US RETROPERITONEAL COMPLETE (RENAL) CLINICAL INFORMATION: Follow-up renal cysts. COMPARISON: CT abdomen and pelvis dated 07/25/2016; abdominal ultrasound dated 03/21/2010. TECHNIQUE: Real-time imaging of the kidneys and bladder. FINDINGS: RIGHT KIDNEY: 10.0 x 4.8 x 4.6 cm (SAG x AP x TRV). The kidney is normal in size, contour, and echogenicity. Renal cortical thickness is normal. No calculi or focal parenchymal lesions. No hydronephrosis. LEFT KIDNEY: 10.2 x 4.8 x 4.5 cm (SAG x AP x TRV). The kidney is normal in size, contour, and echogenicity. Renal cortical thickness is normal. At the interpolar aspect, a hypoechoic 2.3 x 2.0 x 2.6 cm cyst is seen. At the lower pole, a hypoechoic 2.5 x 2.3 x 2.1 cm cyst is seen. These were of both clearly of low, fluid attenuation on the recent CT examination (2:58 and 65). No calculi or hydronephrosis. BLADDER: Well-distended and normal. Bilateral ureteral jets are demonstrated. IMPRESSION: Bilateral renal simple cysts are redemonstrated, consistent with the CT findings dated 07/25/2016. Of note, these are of fluid attenuation on the CT examination. The cysts are somewhat suboptimally evaluated on the present ultrasound examination secondary to body habitus. DICTATED BY: JUN BE MD Assessment/Plan Assessment: 76-year-old patient was brought to the emergency department from [facility] after experiencing altered mental status change. Patient was recently discharged from [facility] where she was been treated for UTI. #Diarrhea 2/2 C differential versus gastroenteritis is enteritis versus lactose intolerant. Patiently was receiving on an antibiotic. We will discontinue any antibiotics and check for C. difficile. In the event that significant as needed would repeat stool cultures. Continue IV fluids. Monitor ins and outs. Continue IV hydration. On his CBC name and BEP in AM. Magnesium in Am. #Acute on chronic kidney disease stage IIIa And creatinine 2.3 (baseline 1.1), a CT PE renal secondary to dehydration. . Hold arm and metformin for 2 days asleep kidney to lactic acidosis. Reassess in the a.m. once creatinine function with a return to baseline. Avoid any nephrotoxic medications. Evidence from renal ultrasound did show simple cysts. Urologist consult has been obtained and Dr. Jiménez will see the patient in the a.m. #Thoracic discitis at T7-T8. Evidence from imaging on admission shows discitis. We will order a MRI to rule out any ostial myelitis. In the event that ostial myelitis is indeed found patient will need intervention by IR for aspirate. Monitor inflammatory markets markers ESR and CRP to rule out any inflammatory conditions. #Leukocytosis. Patient is chronically on prednisone 1.5 mg this is likely contribution into leukocytosis picture. We'll continue to monitor for any evidence in signs of infection. Patient currently is afebrile CBC in a.m. #Hypomagnesemia. We will repeat magnesium in AM. #Temporal arteirtis Continue steroids. 1.5 mg prednisone. #Multilobular left thyroid enlargement. Thyroid function tests are within normal limits. We will continue levothyroxine at the current dosage. Patient can follow up outpatient on discharge for further management of the thyroid lobe enlargement. #DVT prophylaxis Heparin subcutaneous #Diet Consistent carbohydrate #Code Full code Problem List: 1. Diarrhea 2. Chronic respiratory failure 3. Hyperkalemia 4. SOCORRO (acute kidney injury) Pain Ratin Pain Location: Thoracic Pain Goal: Remain pain free Pain Plan: Acetaminophne as needed Tomorrow's Labs & Rationales: BEP CBC Patient's Concerns: Problem #1 Persistent diarrhea. Patient has been on antibiotic nitrofurantoin recently. We will check stool for C. difficile, stool culture and fluid, continue IV fluids. And tinea to monitor intake and output. Continue IV hydration. Continue monitor CBCs and electrolytes. #2 acute on chronic kidney disease stage IIIa And creatinine 2.3 (baseline 1.1), a CT PE renal secondary to dehydration. Next and continue IV hydration. We will hold losartan and metformin for today. Will not dose verapamil today however we will start verapamil from tomorrow. Avoid any nephrotoxic medications. Continue to monitor electrolytes and kidney functions. #3 thoracic discitis at T7-T8. Bed to previous x-ray, this is a new finding. We will check ESR and C-reactive protein. If elevated consider MRI of the spine to rule out osteomyelitis. #4 elevated white count. This is possibly secondary to chronic steroid use as well as reactive secondary to diarrhea. Patient does have some small airway disease on the chest x-ray but there was no evidence of any kind of infection pneumonia/consolidation. Patient did receive one time of IV ceftriaxone and azithromycin. We will not continue any more antibiotics for now as our suspicion for any kind of infection is not very high. Patient is afebrile as well. Continue to monitor white count. #4 hyperKalemia. Patient did have some mildly elevated T waves, however we think that the high potassium is secondary to a KI. We'll hold losartan for now. We'll continue to monitor potassium with a.m. labs. Continue IV hydration. #5 hypomagnesemia. We'll repeat IV magnesium. Continue to monitor #[address] steroids #7 multilobular left thyroid enlargement. Thyroid function tests are within normal limits. We will continue levothyroxine at the current dosage. Patient can follow up outpatient on discharge for further management of the thyroid lobe enlargement. #9 Continue sertraline,lyrica,xanax at home dosage.
[2016-07-26 07:46] LABS: ABSOLUTE BASOPHIL COUNT 0.1 /CUMM (0.0-0.2); ABSOLUTE EOSINOPHIL COUNT 0.2 /CUMM (0.0-0.7); ABSOLUTE LYMPH COUNT 2.3 /CUMM (1.2-3.4); ABSOLUTE MONOCYTE COUNT 0.7 /CUMM (0.10-0.60); BASOPHIL % 0.7 % (0.0-2.0); EOSINOPHIL % 2.3 % (0-5); GRANULOCYTE % 68.1 % (42.2-75.2); MEAN CORPUSCULAR HGB 27.4 PG (27.0-31.0); MEAN CORPUSCULAR VOLUME 85.6 FL (81.0-99.0); MEAN PLATELET VOLUME 9.8 FL (7.4-10.4); PLATELET COUNT 330 /CUMM (130-400); RBC DISTRIBUTION WIDTH 16.2 % (11.5-14.5); RED BLOOD CELL CT 3.38 /CUMM (4.20-5.40); WHITE BLOOD CELL COUNT 10.3 /CUMM (4.8-10.8)
[2016-07-26 09:34] VITALS: BP 150/70
--- NOTE | 2016-07-26 10:23 | NUR ---
Physical Therapy: Consult received and chart reviewed. Pt is a retirement care resident at an [facility]. She is w/c bound at baseline. 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
--- NOTE | 2016-07-26 11:03 | NUR ---
NSG NOTE: PT HAD 5 BM THIS AM BUT HAS NOT VOIDED; THIS RN BLADDER SCANNED 110 ML; PT DENIES PAIN AT THIS TIME; WILL CONT TO MONITOR
--- NOTE | 2016-07-26 12:15 | NUR ---
NSG NOTE: PT LEFT FLOOR VIA STRETCHER ACCOMPANIED BY DISTRIBUTION; A/OX1, 3LNC, MAG SULFATE INFUSING AT 50 ML/HR; PT C/D/I AT THIS TIME; WILL AWAIT FOR PT RETURN;
--- NOTE | 2016-07-26 15:05 | PN- Att Addend ---
Attending Addendum Attending Brief Note Patient seen and examined, she did complain of some lower back pain. She 76- year-old female who was admitted with altered mental state likely secondary to metabolic encephalopathy from dehydration. She also had diarrhea but her C. difficile is negative. Vital Signs Date Time Temp Pulse Resp B/P Pulse O2 O2 Flow FiO2 Ox Delivery Rate 07/26 1032 87 150/70 07/26 0934 98.4 87 20 150/70 93 Nasal 3.0L Cannula 07/26 0000 Nasal 3.0L Cannula 07/25 2346 98.2 74 20 148/72 96 Room Air 07/25 2104 98.8 72 22 150/68 92 Nasal 3.0L Cannula 07/25 2043 Nasal 3.0L Cannula 07/25 1934 97.9 93 16 135/65 95 Nasal 3.0L Cannula 07/25 1742 97.6 92 16 135/64 97 Nasal 3.0L Cannula 07/25 1531 97.6 93 16 140/65 97 Nasal 3.0L Cannula on exam; awake, nad. cv; s1,s2, rrr. resp; clear. abd; soft, nt, bs+. ext; no edema. Laboratory Tests 07/26 07/25 0700 1635 Chemistry Sodium (137 - 145 mmol/L) 142 Potassium (3.5 - 5.1 mmol/L) 4.9 Chloride (98 - 107 mmol/L) 108 H Carbon Dioxide (22 - 30 mmol/L) 23 Anion Gap (5 - 16) 10 BUN (7 - 17 mg/dL) 15 Creatinine (0.5 - 1.0 mg/dL) 1.8 H Estimated GFR (>60 ml/min) 27 L BUN/Creatinine Ratio (7 - 25 %) 8.3 C-Reactive Prot, Quant (<1.0 mg/dL) 4.1 H Hematology CBC w Diff NO MAN DIFF REQ WBC (4.8 - 10.8 /CUMM) 10.3 RBC (4.20 - 5.40 /CUMM) 3.38 L Hgb (12.0 - 16.0 G/DL) 9.3 L Hct (37 - 47 %) 29.0 L MCV (81.0 - 99.0 FL) 85.6 MCH (27.0 - 31.0 PG) 27.4 RDW (11.5 - 14.5 %) 16.2 H Plt Count (130 - 400 /CUMM) 330 MPV (7.4 - 10.4 FL) 9.8 Gran % (42.2 - 75.2 %) 68.1 Lymphocytes % (20.5 - 51.1 %) 22.2 Monocytes % (1.7 - 9.3 %) 6.7 Eosinophils % (0 - 5 %) 2.3 Basophils % (0.0 - 2.0 %) 0.7 PUBS MCHC (33.0 - 37.0 G/DL) 32.0 L Immunology Absolute Granulocytes (1.4 - 6.5 /CUMM) 7.0 H Absolute Lymphocytes (1.2 - 3.4 /CUMM) 2.3 Absolute Monocytes (0.10 - 0.60 /CUMM) 0.7 H Absolute Eosinophils (0.0 - 0.7 /CUMM) 0.2 Absolute Basophils (0.0 - 0.2 /CUMM) 0.1 Urines Urine Color (YEL,AMB,STR) YEL Urine Clarity (CLEAR) CLEAR Urine pH (5.0 - 8.0) 6.0 Ur Specific [place] (1.001 - 1.035) >= 1.030 Urine Protein (NEG,<30 MG/DL) TRACE H Urine Ketones (NEG) NEG Urine Nitrite (NEG) NEG Urine Bilirubin (NEG) NEG Urine Urobilinogen (0.1 - 1.0 EU/dl) 0.2 Ur Leukocyte Esterase (NEG) NEG Ur Microscopic SEDIMENT EXAMINED Urine RBC (0 - 5 /HPF) 1-3 Urine WBC (0 - 2 /HPF) RARE Urine Hemoglobin (NEG) TRACE-INTACT Urine Glucose (N MG/DL) NEG A/p; 76 y/ F with pmh sig for ch resp failure, COPD on 3 L of home oxygen, stage II diastolic CHF, type 2 diabetes mellitus complicated with neuropathy and gastroparesis, hypothyroidism, arthritis, depression, hyperlipidemia, chronic renal failure, GERD, diverticulosis, admitted with altered mental status likely secondary to minimal encephalopathy from dehydration, acute on chronic renal failure, diarrhea. C. difficile negative. Follow-up another stool studies. Creatinine improving with IV gentle hydration. Reviewed results of CT abdomen and pelvis. There is a new renal cyst and there is a T7-T8 discitis. Renal ultrasound. If there is a cyst, patient will need a urology consult. We will get an MRI of the thoracic spine. If there is evidence of discitis, patient will need IR guided biopsy. I did speak with interventional radiologist about this. Continue other current meds. DVT prophylaxis: Heparin subcutaneous. Discussed with patient's granddaughter over the phone.
--- NOTE | 2016-07-26 15:31 | NUR ---
WOUND CARE: REQUESTED TO EVAL PT FOR SKIN ALTERATION TO BUTTOCKS, HIPS, AND COCCYX - HX REVIEWED WITH PT AND NURSING STAFF - PER STAFF PT HAS HAD MULTIPLE EPISODES OF LOOSE STOOLS AND URINARY INC - STOOL CULTURE PENDING UPON ASSESSMENT, PT NOTED WTIH EXCORIATION SIGNIFICANT TO INCONTINENT ASSOCIATED DERMATITIS TO ANI BUTTOCKS, RIGHT HIP AND THIGH, EXTENDING ACROSS COCCYX AREA - SKIN INTACT AT THIS TIME DESPITE BRIGHT REDF ERYTHEMA AND AREAS OF SATELITE LESIONS TO THE PERIPHERY - NO C/O VOICED IMPRESSION: EXCORIATION DUE TO IAD RECOMMEDNATION: APPLY DESITIN OINTMENT QS AND PRN AFTER INC EPISODES
--- NOTE | 2016-07-26 15:39 | NUR ---
NSG NOTE: PT LEFT FLOOR VIA MRI STRETCHER (TO MRI) ACCOMPANIED BY DISTRIBUTION; PT A/O (CONFUSED), 3LNC,IVF DISCONNECTED PER MRI PROTOCOL; PT TO GO TO ROOM 174-1 AFTER MRI DISTRIBUTION AWARE; PT BELONGINGS BAGGED AND SENT TO ROOM BY ASHLEIGH PONCE; REPORT TO BE GIVEN TO Sonya TENORIO
--- NOTE | 2016-07-26 16:08 | ULTRASOUND REPORT ---
EXAMINATION: US RETROPERITONEAL COMPLETE (RENAL) CLINICAL INFORMATION: Follow-up renal cysts. COMPARISON: CT abdomen and pelvis dated 07/25/2016; abdominal ultrasound dated 03/21/2010. TECHNIQUE: Real-time imaging of the kidneys and bladder. FINDINGS: RIGHT KIDNEY: 10.0 x 4.8 x 4.6 cm (SAG x AP x TRV). The kidney is normal in size, contour, and echogenicity. Renal cortical thickness is normal. No calculi or focal parenchymal lesions. No hydronephrosis. LEFT KIDNEY: 10.2 x 4.8 x 4.5 cm (SAG x AP x TRV). The kidney is normal in size, contour, and echogenicity. Renal cortical thickness is normal. At the interpolar aspect, a hypoechoic 2.3 x 2.0 x 2.6 cm cyst is seen. At the lower pole, a hypoechoic 2.5 x 2.3 x 2.1 cm cyst is seen. These were of both clearly of low, fluid attenuation on the recent CT examination (2:58 and 65). No calculi or hydronephrosis. BLADDER: Well-distended and normal. Bilateral ureteral jets are demonstrated. IMPRESSION: Bilateral renal simple cysts are redemonstrated, consistent with the CT findings dated 07/25/2016. Of note, these are of fluid attenuation on the CT examination. The cysts are somewhat suboptimally evaluated on the present ultrasound examination secondary to body habitus.
--- NOTE | 2016-07-26 16:28 | NUR ---
NSG NOTE: REPORT GIVEN TO SHAZIA TENORIO IN 1NORTH;
--- NOTE | 2016-07-26 17:33 | MRI REPORT ---
EXAMINATION: MR THORACIC SPINE WITHOUT CONTRAST Only senior communications specialist imaging was obtained. Patient refused to have the examination performed. When compared to the CT study from 07/25/2016, collapse of the superior endplate of T8 is again visible with bony retropulsion and erosion of the T7-T8 endplates from presumed age indeterminate discitis/osteomyelitis. The marrow signal is heterogeneous with fatty endplate changes. Thoracic kyphosis noted.
--- NOTE | 2016-07-26 19:35 | NUR ---
CALLED GABRIEL Mays/Gonzalez DU TO FINE OUT IF PT HAD FLU AND PNA VACCINE ALREADY. SHE PROMISED TO RETURN THE CALL TO HITESH.
[2016-07-26 23:00] VITALS: BP 142/72
[2016-07-27 07:53] LABS: ABSOLUTE BASOPHIL COUNT 0.1 /CUMM (0.0-0.2); ABSOLUTE EOSINOPHIL COUNT 0.2 /CUMM (0.0-0.7); ABSOLUTE GRANULOCYTE CT 5.6 /CUMM (1.4-6.5); ABSOLUTE LYMPH COUNT 2.2 /CUMM (1.2-3.4); ABSOLUTE MONOCYTE COUNT 0.6 /CUMM (0.10-0.60); BASOPHIL % 0.9 % (0.0-2.0); EOSINOPHIL % 2.1 % (0-5); GRANULOCYTE % 64.2 % (42.2-75.2); HEMATOCRIT 29.6 % (37-47); MEAN CORPUSCULAR HGB 27.5 PG (27.0-31.0); MEAN CORPUSCULAR HGB CONC 32.3 G/DL (33.0-37.0); MEAN CORPUSCULAR VOLUME 85.3 FL (81.0-99.0); MEAN PLATELET VOLUME 10.1 FL (7.4-10.4); PLATELET COUNT 359 /CUMM (130-400); RBC DISTRIBUTION WIDTH 15.8 % (11.5-14.5); RED BLOOD CELL CT 3.47 /CUMM (4.20-5.40); WHITE BLOOD CELL COUNT 8.8 /CUMM (4.8-10.8)
[2016-07-27 08:19] VITALS: BP 144/76
--- NOTE | 2016-07-27 08:20 | PN- Housestaff ---
JEREMY ANDREWS,[facility] 07/27/16 0819: Subjective Follow-up For: ?osteomyelitis diarrhea Subjective: Pt complained of left leg pain and right leg pain. Neuro exams normal in strength and sensation. 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 She just complains of pain everywhere including the back, right leg, left leg, and abdomen. Called for orthopedic consult. Dr Crum called back and was recommending neurosurgery involvement and biopsy. Discussed with neurosurgeon, whom reccommended CT guided biopsy, repeat BCX2, getting ESR, have ID on board, and hold abx pending cultures. We also considered IR for biopsy. However pt adamently refused biopsy at this point. Will try again tomorrow and will discuss with her daughter as well. Currently has glazier supervisor due to agitation and she keeps trying to get out of bed, then get back into bed. SHe appears very uncomfortable no matter what position she is in. She keeps saying she is cold. She had 5 episodes of green diarrhea since 7am, each time smaller bm than before. c diff negative. Review of Systems Constitutional: Reports: see HPI. Objective Last 24 Hrs of Vital Signs/I&O Vital Signs Date Time Temp Pulse Resp B/P Pulse O2 O2 Flow FiO2 Ox Delivery Rate 07/27 0819 97.7 86 20 144/76 97 Nasal 2.0L Cannula 07/27 0000 Nasal 3.0L Cannula 07/26 2300 98.9 88 24 142/72 98 Nasal 3.0L Cannula 07/26 1751 95 Nasal 3.0L Cannula 07/26 1032 87 150/70 Intake & Output 07/27 1600 07/27 0800 07/27 0000 Intake Total 100 400 Output Total 350 250 Balance -250 150 Intake, IV 0 0 Intake, Oral 100 400 Number 2 2 Bowel Movements Output, Urine 350 250 Physical Exam General Appearance: Moderate Distress Skin: redness on the perianal area HEENT: Atraumatic Cardiovascular: Normal S1, Normal S2 Lungs: Clear to Auscultation, Normal Air Movement Abdomen: Normal Bowel Sounds, tender to palpation Neurological: Strength at 5/5 X4 Ext, Sensation Intact Extremities: No Edema Vascular: Normal Pulses Current Medications: Current Medications Sig/Desiree Start time Last Medication Dose Route Stop Time Status Admin Acetaminophen 650 MG Q6P PRN 07/25 2015 AC PO Alprazolam 0.25 MG Q6P PRN 07/25 2345 AC PO 08/01 2344 Atorvastatin Calcium 10 MG 1700 07/26 1700 AC 07/26 PO 1700 Azithromycin 500 MG Q24H 07/26 1000 DC Sodium Chloride 250 ML IV Cholecalciferol 400 IU DAILY 07/26 1000 AC 07/26 PO 1021 Ferrous Sulfate 325 MG DAILY 07/26 1000 AC 07/26 PO 1020 Heparin Sodium 5,000 UNIT Q8 07/25 2200 AC 07/27 (Porcine) SC 0556 Influenza Virus 0.5 ML 1000 07/26 1000 DC Vaccine IM 07/26 1001 Levothyroxine Sodium 0.025 MG DAILY AC 07/26 0700 AC 07/27 PO 0557 Magnesium Sulfate 1 GM Q2H 07/26 0545 DC 07/26 Dextrose/Water 100 ML IV 07/26 0944 1019 Montelukast Sodium 10 MG DAILY 07/26 1000 AC 07/26 PO 1020 Omeprazole 20 MG DAILY AC 07/26 0700 AC 07/27 PO 0557 Patient Medication 1 ED .STK-MED ONE 07/26 1334 DC Teaching ED 07/26 1335 Pneumococcal 0.5 ML 1000 07/26 1000 DC Polyvalent Vaccine IM 07/26 1001 Prednisone 1.5 MG DAILY 07/26 1000 AC 07/26 PO 1021 Pregabalin 25 MG TID 07/25 2346 AC 07/26 PO 2138 Sertraline HCl 50 MG DAILY 07/26 1000 AC 07/26 PO 1021 Sodium Chloride 1,000 ML CONTINOUS INFUSION 07/25 2015 DC 07/26 IV 07/26 1614 0200 Verapamil HCl 120 MG DAILY 07/26 1000 AC 07/26 PO 1032 Vitamin A/Vitamin D 1 LORENA BID PRN 07/25 2345 AC 07/26 TOP 1019 Zinc Oxide 1 LORENA BID 07/25 2335 AC 07/26 TOP 2138 Last 24 Hrs of Lab/Rehan Results Last 24 Hrs of Labs/Mics: Laboratory Tests 07/27/16 0625: Anion Gap 11, Estimated GFR 40 L, BUN/Creatinine Ratio 7.7, Magnesium 1.5 L, CBC w Diff NO MAN DIFF REQ, RBC 3.47 L, MCV 85.3, MCH 27.5, RDW 15.8 H, MPV 10.1, Gran % 64.2, Lymphocytes % 25.6, Monocytes % 7.2, Eosinophils % 2.1, Basophils % 0.9, PUBS MCHC 32.3 L, Absolute Granulocytes 5.6, Absolute Lymphocytes 2.2, Absolute Monocytes 0.6, Absolute Eosinophils 0.2, Absolute Basophils 0.1 Microbiology 07/26 0690 STOOL: Stool Culture - COLB Assessment/Plan Assessment: 76-year-old patient was brought to the emergency department from [facility] after experiencing altered mental status change. Patient was recently discharged from [facility] where she was been treated for UTI. 07/27: Pt has inconsistent pain presentation, cannot describe her pain. She just complains of pain everywhere including the back, right leg, left leg, and abdomen. Called for orthopedic consult. Dr Crum called back and was recommending neurosurgery involvement and biopsy. Discussed with neurosurgeon, whom reccommended CT guided biopsy, repeat BCX2, getting ESR, have ID on board, and hold abx pending cultures. We also considered IR for biopsy. However pt adamently refused biopsy at this point. Will try again tomorrow and will discuss with her daughter as well. Currently has glazier supervisor due to agitation and she keeps trying to get out of bed, then get back into bed. SHe appears very uncomfortable no matter what position she is in. She keeps saying she is cold. She had 5 episodes of green diarrhea since 7am, each time smaller bm than before. c diff negative. Update 1230pm: pt now seems more agreeable to MRI and CT guided biopsy if necessary. I have put in the order for tomorrow, and will keep her NPO past midnight in anticipation of sedation need during procedure. Will give her IVF while she is NPO if she needs it. #Diarrhea 2/2 C differential versus gastroenteritis is enteritis versus lactose intolerant. Patiently was receiving on an antibiotic. We will discontinue any antibiotics and check for C. difficile. In the event that significant as needed would repeat stool cultures. Continue IV fluids. Monitor ins and outs. Continue IV hydration. On his CBC name and BEP in AM. Magnesium in Am. #Acute on chronic kidney disease stage IIIa And creatinine 2.3 (baseline 1.1), a CT PE renal secondary to dehydration. . Hold arm and metformin for 2 days asleep kidney to lactic acidosis. Reassess in the a.m. once creatinine function with a return to baseline. Avoid any nephrotoxic medications. Evidence from renal ultrasound did show simple cysts. Urologist consult has been obtained and Dr. Jiménez will see the patient in the a.m. #Thoracic discitis at T7-T8. Evidence from imaging on admission shows discitis. We will order a MRI to rule out any ostial myelitis. In the event that ostial myelitis is indeed found patient will need intervention by IR for aspirate. Monitor inflammatory markets markers ESR and CRP to rule out any inflammatory conditions. #Leukocytosis. Patient is chronically on prednisone 1.5 mg this is likely contribution into leukocytosis picture. We'll continue to monitor for any evidence in signs of infection. Patient currently is afebrile CBC in a.m. #Hypomagnesemia. We will repeat magnesium in AM. #Temporal arteirtis Continue steroids. 1.5 mg prednisone. #Multilobular left thyroid enlargement. Thyroid function tests are within normal limits. We will continue levothyroxine at the current dosage. Patient can follow up outpatient on discharge for further management of the thyroid lobe enlargement. #DVT prophylaxis Heparin subcutaneous #Diet Consistent carbohydrate #Code Full code Problem List: 1. Osteomyelitis 2. Discitis 3. Diarrhea Pain Ratin Pain Location: legs, back, abdomen Pain Goal: Pain 4 or less Pain Plan: tylenol gabapentin Tomorrow's Labs & Rationales: bep for hyperkalemia and henny mg for hypomag cbc for leukocytosis DVT/Prophylaxis: mechanical, pharmacological ELIA ANDREWS,[facility] 07/27/16 1148: Attending MD Review Statement Attending Statement Attending MD Statement: examined this patient, discuss w/resident/PA/THIRD GRADE TEACHER, agreed w/resident/PA/THIRD GRADE TEACHER, reviewed EMR data (avail), discussed with nursing, discussed with case mgmt, reviewed images, amended to note Attending Assessment/Plan: Patient seen and examined, still slightly confused. She sometimes complains of pain in her right otic 70 sometimes in the left otic stomach. She has chronic back pain. MRI of the thoracic spine was not a good study as patient did not cooperate well. Vital Signs Date Time Temp Pulse Resp B/P Pulse O2 O2 Flow FiO2 Ox Delivery Rate 07/27 0944 86 144/76 07/27 0819 97.7 86 20 144/76 97 Nasal 2.0L Cannula 07/27 0000 Nasal 3.0L Cannula 07/26 2300 98.9 88 24 142/72 98 Nasal 3.0L Cannula 07/26 1751 95 Nasal 3.0L Cannula on exam; awake, still somewaht confused. cv; s1,s2 rrr. resp; clear abd; soft, nt, bs+. ext; trace edema. Laboratory Tests 07/27 06 Chemistry Sodium (137 - 145 mmol/L) 142 Potassium (3.5 - 5.1 mmol/L) 4.9 Chloride (98 - 107 mmol/L) 108 H Carbon Dioxide (22 - 30 mmol/L) 23 Anion Gap (5 - 16) 11 BUN (7 - 17 mg/dL) 10 Creatinine (0.5 - 1.0 mg/dL) 1.3 H Estimated GFR (>60 ml/min) 40 L BUN/Creatinine Ratio (7 - 25 %) 7.7 Magnesium (1.6 - 2.3 mg/dL) 1.5 L Hematology CBC w Diff NO MAN DIFF REQ WBC (4.8 - 10.8 /CUMM) 8.8 RBC (4.20 - 5.40 /CUMM) 3.47 L Hgb (12.0 - 16.0 G/DL) 9.5 L Hct (37 - 47 %) 29.6 L MCV (81.0 - 99.0 FL) 85.3 MCH (27.0 - 31.0 PG) 27.5 RDW (11.5 - 14.5 %) 15.8 H Plt Count (130 - 400 /CUMM) 359 MPV (7.4 - 10.4 FL) 10.1 Gran % (42.2 - 75.2 %) 64.2 Lymphocytes % (20.5 - 51.1 %) 25.6 Monocytes % (1.7 - 9.3 %) 7.2 Eosinophils % (0 - 5 %) 2.1 Basophils % (0.0 - 2.0 %) 0.9 PUBS MCHC (33.0 - 37.0 G/DL) 32.3 L Immunology Absolute Granulocytes (1.4 - 6.5 /CUMM) 5.6 Absolute Lymphocytes (1.2 - 3.4 /CUMM) 2.2 Absolute Monocytes (0.10 - 0.60 /CUMM) 0.6 Absolute Eosinophils (0.0 - 0.7 /CUMM) 0.2 Absolute Basophils (0.0 - 0.2 /CUMM) 0.1 A/p: 76 y/ F with pmh sig for ch resp failure, COPD on 3 L of home oxygen, stage II diastolic CHF, type 2 diabetes mellitus complicated with neuropathy and gastroparesis, hypothyroidism, arthritis, depression, hyperlipidemia, chronic renal failure, GERD, diverticulosis, admitted with altered mental status likely secondary to minimal encephalopathy from dehydration, acute on chronic renal failure, diarrhea. n C. difficile negative. Renal ultrasound obtained for renal cyst shows simple renal cysts and neurology evaluation was obtained with mentions no further workup. 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 The marrow signal is heterogeneous with fatty endplate changes. Thoracic kyphosis noted. We consulted orthopedics and they did not recommend doing any intervention. Will consult neurosurgery and likely consult interventional radiology tomorrow. Patient remains afebrile and has no leukocytosis. Creatinine has improved significantly, IV fluids have been stopped. DVT px: hep sq.
--- NOTE | 2016-07-27 09:07 | Cons- Urology ---
General Information and HPI Consulting Request Date of Consult: 07/27/16 Requested By: medical BELA Liang MD Reason for Consult: Renal cysts Source of Information: old records Exam Limitations: unable to give history, not alert/orientated History of Present Illness: This patient, who has multiple medical problems, was admitted about 2 weeks ago with mental status changes felt to be due to UTI. She was treated with abx and improved. She is now admitted with diarrhea. A CT of the abd and pelvis showed bilateral renal lesions felt to be cysts and mild, chronic appearing, bilateral perinephric stranding R>L. The renal lesions were confirmed to be cysts on a f/ u renal ultrasound. Allergies/Medications Allergies: Coded Allergies: oxycodone (RASH 12/08/15) Home Med List: Acetaminophen (Acephen) 650 MG SUPP.RECT [address] Q4H PRN PAIN/TEMP>/100 ( Reported) Acetaminophen (Athenol) 325 MG TABLET 2 TAB PO Q4H PRN PAIN/TEMP>/100 ( Reported) Alprazolam (Xanax) 0.25 MG TABLET 1 TAB PO Q6P PRN AGITATION AND ANXIETY ( Reported) Augmentin (Augmentin 500-125 Tablet) 500 MG-125 MG TABLET 1 TAB PO BID urine infection Bisacodyl 10 MG SUPP.RECT 1 SUP RC PRN CONSTIPATION (Reported) Cholecalciferol (Vitamin D3) (Vitamin D3) 400 UNIT TABLET 1 TAB PO DAILY SUPPLEMENT (Reported) Ferrous Sulfate 325 MG (65 MG IRON) TABLET 1 TAB PO DAILY SUPPLEMENT ( Reported) Glucagon,Human Recombinant (Glucagon Emergency Kit) 1 MG KIT 1 MG IM ONCE PRN HYPOGLYCEMIA (Reported) Insulin Aspart (Novolog) 100 UNIT/ML VIAL DM (Reported) based on sliding scale Insulin Detemir (Levemir) 100 UNIT/ML VIAL 30 UNITS SC QAM DM (Reported) Ipratropium/Albuterol Sulfate (Iprat-Albut 0.5-3(2.5) MG/3 Ml) 0.5 MG-3 MG (2.5 MG BASE)/3 ML AMPUL.NEB 3 ML INH Q4H PRN SOB/WHEEZE (Reported) Lactobacillus Acidophilus (Acidophilus) 1 EACH CAPSULE 1 CAP PO BID GI ( Reported) Levothyroxine Sodium 25 MCG TABLET 1 TAB PO DAILY AC THYROID (Reported) Losartan Potassium 100 MG TABLET 1 TAB PO DAILY UNKNOWN (Reported) Magnesium Hydroxide (Milk Of Magnesia) 400 MG/5 ML ORAL.SUSP 30 ML PO DAILY PRN CONSTIPATION (Reported) Meclizine HCl 12.5 MG TABLET 1 TAB PO Q6H PRN VERTIGO (Reported) Metformin HCl 500 MG TABLET 1 TAB PO TID DM (Reported) Montelukast Sodium 10 MG TABLET 1 TAB PO DAILY UNKNOWN (Reported) Na Phos,M-B/Na Phos,Di-Ba (Fleet Enema) 19 GRAM-7 GRAM/118 ML ENEMA 1 E RC DAILY PRN CONSTIPATION (Reported) Omeprazole 20 MG CAPSULE.DR 1 CAP PO DAILY GI (Reported) Prednisone 1 MG TABLET 1.5 TAB PO EOD STEROID (Reported) Pregabalin (Lyrica) 75 MG CAPSULE 1 CAP PO TID NEUROPATHY (Reported) Sertraline HCl 50 MG TABLET 1 TAB PO DAILY MENTAL HEALTH (Reported) Simethicone (Gas Relief) 125 MG TAB.CHEW 1 TAB PO Q4-6H PRN ABD BLOATING & PAIN (Reported) Simvastatin (Zocor*) 10 MG TABLET 1 TAB PO QPM CHOLESTEROL (Reported) Sitagliptin Phosphate (Januvia) 100 MG TABLET 1 TAB PO DAILY DIABETES ( Reported) Tiotropium [place] (Spiriva) 18 MCG CAP.W.DEV 1 CAP INH DAILY COPD (Reported) Trazodone HCl 50 MG TABLET 1 TAB PO 0800 UNKNOWN (Reported) Trazodone HCl 100 MG TABLET 1 TAB PO QPM UNKNOWN (Reported) Trazodone HCl 50 MG TABLET 12.5 MG PO Q8H PRN ANXIETY (Reported) Verapamil HCl 120 MG TABLET 1 TAB PO DAILY UNKNOWN (Reported) Current Medications: Current Medications Sig/Desiree Start time Last Medication Dose Route Stop Time Status Admin Acetaminophen 650 MG Q6P PRN 07/25 2015 AC PO Alprazolam 0.25 MG Q6P PRN 07/25 2345 AC PO 08/01 2344 Atorvastatin Calcium 10 MG 1700 07/26 1700 AC 07/26 PO 1700 Azithromycin 500 MG Q24H 07/26 1000 DC Sodium Chloride 250 ML IV Cholecalciferol 400 IU DAILY 07/26 1000 AC 07/26 PO 1021 Ferrous Sulfate 325 MG DAILY 07/26 1000 AC 07/26 PO 1020 Heparin Sodium 5,000 UNIT Q8 07/25 2200 AC 11/24 (Porcine) [place] 0556 Influenza Virus 0.5 ML 1000 07/26 1000 DC Vaccine IM 07/26 1001 Levothyroxine Sodium 0.025 MG DAILY AC 07/26 0700 AC 07/27 PO 0557 Magnesium Sulfate 1 GM Q2H 07/26 0545 DC 07/26 Dextrose/Water 100 ML IV 07/26 0944 1019 Montelukast Sodium 10 MG DAILY 07/26 1000 AC 07/26 PO 1020 Omeprazole 20 MG DAILY AC 07/26 0700 AC 07/27 PO 0557 Patient Medication 1 ED .STK-MED ONE 07/26 1334 DC Teaching ED 07/26 1335 Pneumococcal 0.5 ML 1000 07/26 1000 DC Polyvalent Vaccine IM 07/26 1001 Prednisone 1.5 MG DAILY 07/26 1000 AC 07/26 PO 1021 Pregabalin 25 MG TID 07/25 2346 AC 07/26 PO 2138 Sertraline HCl 50 MG DAILY 07/26 1000 AC 07/26 PO 1021 Sodium Chloride 1,000 ML CONTINOUS INFUSION 07/25 2015 DC 07/26 IV 07/26 1614 0200 Verapamil HCl 120 MG DAILY 07/26 1000 AC 07/26 PO 1032 Vitamin A/Vitamin D 1 LORENA BID PRN 07/25 2345 AC 07/26 TOP 1019 Zinc Oxide 1 LORENA BID 07/25 2335 AC 07/26 TOP 2138 Past History Medical History Neurological: dizziness, vertigo, DEMENTIA-MILD EENT: allergies Cardiovascular: CHF Respiratory: COPD, emphysema Gastrointestinal: GERD, lactose intolerance Hepatic: NONE Renal: UTI Musculoskeletal: osteoporosis, ARTHRITIS Psychiatric: anxiety, bipolar disease, depression Endocrine: diabetes, hypothyroidism, obesity Blood Disorders: NONE Cancer(s): NONE LINE RUNNER/Reproductive: NONE Surgical History Pertinent Surgical History: X3 SURGICAL PROCEDURE TO HEAD FOR VERTIGO TONSILLECTOMY Family History Relations & Conditions If Any: MOTHER (Alzheimers). FATHER (CAD). AUNT (Stroke). DAUGHTER ( from drug overdose). Psychosocial History Where Do You Live? Extended Care Facility Services at Home: Nursing Smoking Status: Former Smoker ETOH Use: denies use Functional Ability ADLs Needs Assist: dressing, eating, toileting, bathing. Ambulation: wheelchair Exam & Diagnostic Data Vital Signs and I&O Vital Signs Date Time Temp Pulse Resp B/P Pulse O2 O2 Flow FiO2 Ox Delivery Rate 07/27 0819 97.7 86 20 144/76 97 Nasal 2.0L Cannula 07/27 0000 Nasal 3.0L Cannula 07/26 2300 98.9 88 24 142/72 98 Nasal 3.0L Cannula 07/26 1751 95 Nasal 3.0L Cannula 07/26 1032 87 150/70 07/26 0934 98.4 87 20 150/70 93 Nasal 3.0L Cannula Intake & Output 07/27 1600 07/27 0800 07/27 0000 07/26 1600 07/26 0800 07/26 0000 Intake Total 599 103 6146 1100 500 Output Total 350 250 400 Balance -761 015 1935 1100 500 Intake, IV 0 0 1000 500 500 Intake, Oral 906 929 8325 600 Number 2 2 5 Bowel Movements Output, Urine 350 250 400 Patient 150 lb Weight No acute distress Back: No CVA tenderness Abd: soft and nontender Laboratory Tests 07/27 0625 Chemistry Sodium (137 - 145 mmol/L) 142 Potassium (3.5 - 5.1 mmol/L) 4.9 Chloride (98 - 107 mmol/L) 108 H Carbon Dioxide (22 - 30 mmol/L) 23 Anion Gap (5 - 16) 11 BUN (7 - 17 mg/dL) 10 Creatinine (0.5 - 1.0 mg/dL) 1.3 H Estimated GFR (>60 ml/min) 40 L BUN/Creatinine Ratio (7 - 25 %) 7.7 Magnesium (1.6 - 2.3 mg/dL) 1.5 L Hematology CBC w Diff NO MAN DIFF REQ WBC (4.8 - 10.8 /CUMM) 8.8 RBC (4.20 - 5.40 /CUMM) 3.47 L Hgb (12.0 - 16.0 G/DL) 9.5 L Hct (37 - 47 %) 29.6 L MCV (81.0 - 99.0 FL) 85.3 MCH (27.0 - 31.0 PG) 27.5 RDW (11.5 - 14.5 %) 15.8 H Plt Count (130 - 400 /CUMM) 359 MPV (7.4 - 10.4 FL) 10.1 Gran % (42.2 - 75.2 %) 64.2 Lymphocytes % (20.5 - 51.1 %) 25.6 Monocytes % (1.7 - 9.3 %) 7.2 Eosinophils % (0 - 5 %) 2.1 Basophils % (0.0 - 2.0 %) 0.9 PUBS MCHC (33.0 - 37.0 G/DL) 32.3 L Immunology Absolute Granulocytes (1.4 - 6.5 /CUMM) 5.6 Absolute Lymphocytes (1.2 - 3.4 /CUMM) 2.2 Absolute Monocytes (0.10 - 0.60 /CUMM) 0.6 Absolute Eosinophils (0.0 - 0.7 /CUMM) 0.2 Absolute Basophils (0.0 - 0.2 /CUMM) 0.1 Urine C&S negative Assessment/Plan Assessment/Plan Imp: Bilateral renal cysts Hx of UTI Plan: No further w/u or treatment needed for renal cysts Consult Acknowledgment - Thank you for your consult request.
--- NOTE | 2016-07-27 12:02 | Cons- Neurosurgical ---
General Information and HPI Consulting Request Date of Consult: 07/27/16 Requested By: BELA RODRIGEZ MD Reason for Consult: discitis seen on CT scan Source of Information: EMS Exam Limitations: unable to give history History of Present Illness: Mrs. Bland is a 76 year old female with a past medical history significant for COPD on 3LNC oxygen, stage II diastolic CHF, DM-II with associated neuropathy and gastroparesis, hypothyroidism, arthritis, depression, hyperlipidemia, chronic renal failure, GERD, temporal arteritis on chronic prednisone therapy and diverticulosis. She was recently hospitalized at from 07/14/16-07/17/16 for a UTI/metabolic encephalopathy and was discharged on Augmentin. She returned to on 07/25/16 accompanied by her granddaughter with complaints of altered mental status/watery diarrhea. Ciff was negative on admission. A CT scan of the abdomen/pelvis on admission revealed discitis at T7-8 with associated bony destruction at T7. An MRI was unable to be performed due to patient non-compliance (unable to keep still), but dental technologist film taken did reveal indeterminite discitis/osteomyelitis. Neurosurgery called for evaluation. Unable to obtain interm history as patient has continued altered mental status. Of note, the patient received Zithromax and Ceftriaxone (one dose of each) in the emergency room on admission. Allergies/Medications Allergies: Coded Allergies: oxycodone (RASH 12/08/15) Home Med List: Acetaminophen (Acephen) 650 MG SUPP.RECT 1 SUPP CO Q4H PRN PAIN/TEMP>/100 ( Reported) Acetaminophen (Athenol) 325 MG TABLET 2 TAB PO Q4H PRN PAIN/TEMP>/100 ( Reported) Alprazolam (Xanax) 0.25 MG TABLET 1 TAB PO Q6P PRN AGITATION AND ANXIETY ( Reported) Augmentin (Augmentin 500-125 Tablet) 500 MG-125 MG TABLET 1 TAB PO BID urine infection Bisacodyl 10 MG SUPP.RECT 1 SUP RC PRN CONSTIPATION (Reported) Cholecalciferol (Vitamin D3) (Vitamin D3) 400 UNIT TABLET 1 TAB PO DAILY SUPPLEMENT (Reported) Ferrous Sulfate 325 MG (65 MG IRON) TABLET 1 TAB PO DAILY SUPPLEMENT ( Reported) Glucagon,Human Recombinant (Glucagon Emergency Kit) 1 MG KIT 1 MG IM ONCE PRN HYPOGLYCEMIA (Reported) Insulin Aspart (Novolog) 100 UNIT/ML VIAL DM (Reported) based on sliding scale Insulin Detemir (Levemir) 100 UNIT/ML VIAL 30 UNITS SC QAM DM (Reported) Ipratropium/Albuterol Sulfate (Iprat-Albut 0.5-3(2.5) MG/3 Ml) 0.5 MG-3 MG (2.5 MG BASE)/3 ML AMPUL.NEB 3 ML INH Q4H PRN SOB/WHEEZE (Reported) Lactobacillus Acidophilus (Acidophilus) 1 EACH CAPSULE 1 CAP PO BID GI ( Reported) Levothyroxine Sodium 25 MCG TABLET 1 TAB PO DAILY AC THYROID (Reported) Losartan Potassium 100 MG TABLET 1 TAB PO DAILY UNKNOWN (Reported) Magnesium Hydroxide (Milk Of Magnesia) 400 MG/5 ML ORAL.SUSP 30 ML PO DAILY PRN CONSTIPATION (Reported) Meclizine HCl 12.5 MG TABLET 1 TAB PO Q6H PRN VERTIGO (Reported) Metformin HCl 500 MG TABLET 1 TAB PO TID DM (Reported) Montelukast Sodium 10 MG TABLET 1 TAB PO DAILY UNKNOWN (Reported) Na Phos,M-B/Na Phos,Di-Ba (Fleet Enema) 19 GRAM-7 GRAM/118 ML ENEMA 1 E RC DAILY PRN CONSTIPATION (Reported) Omeprazole 20 MG CAPSULE.DR 1 CAP PO DAILY GI (Reported) Prednisone 1 MG TABLET 1.5 TAB PO EOD STEROID (Reported) Pregabalin (Lyrica) 75 MG CAPSULE 1 CAP PO TID NEUROPATHY (Reported) Sertraline HCl 50 MG TABLET 1 TAB PO DAILY MENTAL HEALTH (Reported) Simethicone (Gas Relief) 125 MG TAB.CHEW 1 TAB PO Q4-6H PRN ABD BLOATING & PAIN (Reported) Simvastatin (Zocor*) 10 MG TABLET 1 TAB PO QPM CHOLESTEROL (Reported) Sitagliptin Phosphate (Januvia) 100 MG TABLET 1 TAB PO DAILY DIABETES ( Reported) Tiotropium [place] (Spiriva) 18 MCG CAP.W.DEV 1 CAP INH DAILY COPD (Reported) Trazodone HCl 50 MG TABLET 1 TAB PO 0800 UNKNOWN (Reported) Trazodone HCl 100 MG TABLET 1 TAB PO QPM UNKNOWN (Reported) Trazodone HCl 50 MG TABLET 12.5 MG PO Q8H PRN ANXIETY (Reported) Verapamil HCl 120 MG TABLET 1 TAB PO DAILY UNKNOWN (Reported) Past History Medical History Neurological: dizziness, vertigo, DEMENTIA-MILD EENT: allergies Cardiovascular: CHF Respiratory: COPD, emphysema Gastrointestinal: GERD, lactose intolerance Hepatic: NONE Renal: UTI Musculoskeletal: osteoporosis, ARTHRITIS Psychiatric: anxiety, bipolar disease, depression Endocrine: diabetes, hypothyroidism, obesity Blood Disorders: NONE Cancer(s): NONE SECURITIES UNDERWRITER/Reproductive: NONE Surgical History Pertinent Surgical History: X3 SURGICAL PROCEDURE TO HEAD FOR VERTIGO TONSILLECTOMY Family History Relations & Conditions If Any: MOTHER (Alzheimers). FATHER (CAD). AUNT (Stroke). DAUGHTER ( from drug overdose). Psychosocial History Where Do You Live? Extended Care Facility Services at Home: Nursing Smoking Status: Former Smoker ETOH Use: denies use Functional Ability ADLs Needs Assist: dressing, eating, toileting, bathing. Ambulation: wheelchair Review of Systems Review of Systems: n/a Exam & Diagnostic Data Vital Signs and I&O Vital Signs Date Time Temp Pulse Resp B/P Pulse O2 O2 Flow FiO2 Ox Delivery Rate 07/27 0944 86 144/76 07/27 08 97.7 86 20 144 97 Nasal 2.0L Cannula 07/27 0000 Nasal 3.0L Cannula 07/26 2300 98.9 88 24 142/72 98 Nasal 3.0L Cannula 07/26 1751 95 Nasal 3.0L Cannula Intake & Output 07/27 1600 07/27 0800 07/27 0000 07/26 1600 07/26 0800 07/26 0000 Intake Total 278 733 0571 1100 500 Output Total 350 250 400 Balance -843 370 0418 1100 500 Intake, IV 0 0 1000 500 500 Intake, Oral 306 244 3358 600 Number 2 2 5 Bowel Movements Output, Urine 350 250 400 Patient 150 lb Weight Physical Exam: Gen: AAOx1 in NAD Cor: S1+S2+ Lungs: CTA leyda Abd: soft, NT, ND, +BS x4 Back: tenderness to palpation over spinal processes of lower back and over paraspinal muscles to both left and right. Ext: no edema or calf tenderness to leyda lower extremities. Palpable DP pulses leyda. Feet warm. Dorsi and plantar flexion intact. Sensation grossly intact leyda. Upper extremities grossly intact with motor/sensation exam. Imaging Results: EXAM TYPE: CAT - CT ABD & PELVIS W/O IV CONTRAS; CT CHEST WO IV CONTRAST EXAMINATION: CT ABD PELVIS W/O IV CONTRAS, CT CHEST WO IV CONTRAST CLINICAL INFORMATION: Abdominal pain. Acute kidney injury. 76-year-old female. COMPARISON: Chest x-rays done 08/06/2013 and 07/14/2016. CT the abdomen and pelvis on 03/06/2013. TECHNIQUE: Noncontrast enhanced CT of the chest abdomen and pelvis without IV contrast. Coronal and sagittal reformats obtained at the acquisition workstation. FINDINGS: Lungs: Both lungs demonstrate a mosaic subsegmental pattern of groundglass opacities consistent with small airways disease. There is early peripheral fibrosis involving the lower hemithoraces more pronounced on the right than left. No consolidation or mass lesion is detected. Mediastinum: There is multinodular enlargement of the left lobe of the thyroid gland. Small subcentimeter mediastinal nodes are present. The lulu are unremarkable. Coronary artery calcifications are seen in otherwise normal-appearing heart. Pleura: Posterolateral pleural thickening but no evident effusion. Chest wall: Small lymph nodes are seen in both axillae. Abdomen/pelvis: The liver shows no focal disease or bile duct dilatation. The patient's gallbladder is surgically removed. The extrahepatic biliary ducts are not dilated. The pancreas is normal. The spleen is unremarkable. Both adrenal glands are normal. Neither kidney shows evidence of hydronephrosis or stone formation. A 2 cm cyst arises from the mid polar region of the left kidney. Another exophytic cyst arises from the upper pole. This cyst measures 2.1 cm. There is mild bilateral perinephric streaking felt to be chronic. The ureters are unremarkable. The bladder is normal in appearance. The stomach is not distended. The small intestine is normal in caliber and appearance. The appendix is normal. The colon is normal. There is no evidence of lymphadenopathy. Calcific plaques are seen throughout the abdominal aorta as well as the thoracic aorta. Uterus is postmenopausal in size and shape. The adnexa are normal. No free air or free fluid is seen. Osseous system: There is complete collapse of the vertebral body at T8. (Vertebral plana. Associated endplate destruction with bony sclerosis involves both the superior endplate of T8 and the inferior endplate of T7. This appearance is consistent with discitis. There is no paraspinal soft tissue mass at this time. The last x-ray of the T-spine dated 08/07/2013 did not show these findings. There is chronic degenerative disc disease at L4-L5 with mild anterolisthesis of L4 on L5. IMPRESSION: 1. Normal appearance of the biliary system in a post cholecystectomy patient. 2. Small airways disease in both lungs. (Subsegmental was a groundglass opacities). 3. Renal cysts. Perinephric stranding right greater than left. 4. Multinodular enlargement of the left lobe of the thyroid gland. 5. Significant discitis at T7-T8 with vertebral plana at T8 and endplate bone destruction involving T7. A T-spine x-ray in 2013 was normal. DICTATED BY: TRIXIE QUINONEZ MD DATE/TIME DICTATED:07/25/161536 TRAFFIC SIGNAL MECHANIC:OPAL DATE/TIME TRANSCRIBED:07/25/161536 EXAM TYPE: MRI - MRI-THORACIC SPINE EXAMINATION: MR THORACIC SPINE WITHOUT CONTRAST Only dental technologist imaging was obtained. Patient refused to have the examination performed. When compared to the CT study from 07/25/2016, collapse of the superior endplate of T8 is again visible with bony retropulsion and erosion of the T7-T8 endplates from presumed age indeterminate discitis/osteomyelitis. The marrow signal is heterogeneous with fatty endplate changes. Thoracic kyphosis noted. DICTATED BY: ELEUTERIO BRADY MD DATE/TIME DICTATED:07/26/161725 TRAFFIC SIGNAL MECHANIC:OPAL DATE/TIME TRANSCRIBED:07/26/161725 CONFIDENTIAL, DO NOT COPY WITHOUT APPROPRIATE AUTHORIZATION. <Electronically signed in Other Vendor System> SIGNED BY: ELEUTERIO BRADY MD [id number] Assessment/Plan Assessment/Plan A: 76 year old female with a litany of medical history admitted on 07/25/16 for altered mental status. Initial working diagnosis was metabolic encephalopathy due to dehydration from diarrhea but CT scan of abd/pelvis revealed discitis with confirmation on MRI dental technologist film. AVSS at present. Patient did have one dose of both Zithromax and Ceftriaxone in ED on admission. Plan: Discussed with Dr. Burt. Would obtain ESR. CRP already performed. F/U AM CBC. NO antibiotics. Try to obtain MRI tomorrow morning with sedation. Consult IR for CT guided biopsy of disc space to eval for osteomyelitis. May be performed tomorrow-not imperative to be done today. F/U blood cultures. Would consult Infectious Disease for management. Please call with questions/concerns. Consult Acknowledgment - Thank you for your consult request.
--- NOTE | 2016-07-27 16:00 | NUR ---
ADDITION TO FIRST NURSING ENTRY: PT NOTED TO HAVE REDNESS TO R BUTTOCK, DESITIN CREAM APPLIED.
--- NOTE | 2016-07-27 16:00 | NUR ---
RECEIVED REPORT FROM DAY RN, UPON THIS RNS ASSESSMENT, PT A/V/OX1. PT CONFUSED AT BASELINE. ON RA 02 SAT 97%. NO RESP DISTRESS NOTED. +BS, TOLERATING DIET WELL. PT HAD ONE LOOSE GREEN BM, NEGATIVE GUAIC. PT STATES SHE HAS AN ACHING PAIN IN HER BACK. SITTER IN PLACE AND EDUCATED ON NEED FOR SITTER. PT HAS HX OF DIABETES, ACCUCHECKS STARTED ON PT. PT OFFERS NO COMPLAINTS, LAYING COMFORTABLY IN BED. WILL CONTINUE TO MONITOR.
[2016-07-27 16:08] VITALS: BP 138/64
--- NOTE | 2016-07-27 16:16 | NUR ---
Patient's history noted to have diabetic history. Accu checks ordered, diet changed, and insulin to be ordered per home/outpatient med schedule. Patient denies complaints. Continuing to monitor.
[2016-07-27 22:00] VITALS: BP 188/86
[2016-07-27 23:23] VITALS: BP 190/80
[2016-07-28] VITALS: BP 142/68
[2016-07-28 01:00] VITALS: BP 140/60
[2016-07-28 06:04] LABS: ABSOLUTE BASOPHIL COUNT 0.1 /CUMM (0.0-0.2); ABSOLUTE EOSINOPHIL COUNT 0.1 /CUMM (0.0-0.7); ABSOLUTE GRANULOCYTE CT 4.8 /CUMM (1.4-6.5); ABSOLUTE MONOCYTE COUNT 0.7 /CUMM (0.10-0.60); BASOPHIL % 0.9 % (0.0-2.0); EOSINOPHIL % 1.3 % (0-5); GRANULOCYTE % 55.4 % (42.2-75.2); HEMATOCRIT 30.3 % (37-47); MEAN CORPUSCULAR HGB 26.7 PG (27.0-31.0); MEAN CORPUSCULAR HGB CONC 31.8 G/DL (33.0-37.0); MEAN CORPUSCULAR VOLUME 83.9 FL (81.0-99.0); MEAN PLATELET VOLUME 9.2 FL (7.4-10.4); PLATELET COUNT 395 /CUMM (130-400); RBC DISTRIBUTION WIDTH 16.3 % (11.5-14.5); RED BLOOD CELL CT 3.61 /CUMM (4.20-5.40); WHITE BLOOD CELL COUNT 8.6 /CUMM (4.8-10.8)
--- NOTE | 2016-07-28 06:14 | PN- Housestaff ---
LIN ANDREWS,[facility] 07/28/16 0613: Subjective Follow-up For: ?Osteomylitis Diarrhea Subjective: She was seen twice this morning. First time visit she was asleep and so decided to come back. Upon the second time the patient was somewhat somnolent. She is alert however not oriented to place. She continues to complain of back pain. Pain is rated at an 8 out of 10 in severity. Described as a dull pain. Patient states nothing makes the pain better or worse. Patient states repeatedly that she is tired and would like to sleep. Patient reports no other complaints. She states that her diarrhea may have resolved however is unsure how many bowel movements she has had over the last 24 hours. Patient is currently nothing by mouth a she scheduled to go for an MRI. Patient declined to have a physical exam this morning stating that she was not comfortable and would like to rest. Review of Systems Constitutional: Reports: see HPI. Objective Last 24 Hrs of Vital Signs/I&O Vital Signs Date Time Temp Pulse Resp B/P Pulse O2 O2 Flow FiO2 Ox Delivery Rate 07/28 1418 Room Air 2.0L 07/28 1038 72 132/80 07/28 0800 98.6 83 20 140/80 93 Room Air 07/28 0100 140/60 07/28 0000 142/68 07/27 2323 80 190/80 07/27 2200 98.1 80 20 188/86 95 Room Air Intake & Output 07/28 1600 07/28 0800 07/28 0000 Intake Total 20 640 Output Total 200 Balance 20 440 Intake, Oral 20 640 Number 2 1 2 Bowel Movements Output, Urine 200 Physical Exam General Appearance: Alert, Cooperative Current Medications: Current Medications Sig/Desiree Start time Last Medication Dose Route Stop Time Status Admin Acetaminophen 650 MG .STK-MED ONE 07/27 231 DC PO 07/27 231 Acetaminophen 650 MG Q6P PRN 07/25 2015 AC 07/27 PO 231 Alprazolam 0.25 MG Q6P PRN 07/25 2345 AC 07/28 PO 08/01 2344 1513 Atorvastatin Calcium 10 MG 1700 07/26 1700 AC 07/27 PO 1659 Cholecalciferol 400 IU DAILY 07/26 1000 AC 07/28 PO 1032 Dextrose/Sodium 1,000 ML Q13H 07/28 0645 AC 07/28 Chloride IV 0700 Ferrous Sulfate 325 MG DAILY 07/26 1000 AC 07/28 PO 1032 Heparin Sodium 5,000 UNIT Q8 07/25 2200 AC 07/28 (Porcine) SC 1334 Insulin Aspart 0 TIDAC 07/27 1700 DC SC 07/27 1900 Insulin Human Regular 0 Q6 07/27 2359 AC 07/28 SC 1327 Levothyroxine Sodium 0.025 MG DAILY AC 07/26 0700 AC 07/28 PO 0610 Losartan Potassium 100 MG DAILY 07/29 1000 AC PO Magnesium Sulfate 1 GM Q2H 07/28 0915 DC 07/28 Dextrose/Water 100 ML IV 07/28 1314 1335 Metoprolol Tartrate 5 MG ONCE ONE 07/28 2345 CAN IV 07/28 2346 Montelukast Sodium 10 MG DAILY 07/26 1000 AC 07/28 PO 1032 Omeprazole 20 MG DAILY AC 07/26 0700 AC 07/28 PO 0610 Prednisone 1.5 MG DAILY 07/26 1000 AC 07/28 PO 1038 Pregabalin 25 MG TID 07/25 2346 AC 07/28 PO 1038 Sertraline HCl 50 MG DAILY 07/26 1000 AC 07/28 PO 1031 Verapamil HCl 120 MG DAILY 07/26 1000 AC 07/28 PO 1038 Vitamin A/Vitamin D 1 LORENA BID PRN 07/25 2345 07/26 TOP 1019 Zinc Oxide 1 LORENA BID 07/25 2335 07/28 TOP 1039 Last 24 Hrs of Lab/Rehan Results Last 24 Hrs of Labs/Mics: Laboratory Tests 07/28/16 1029: PT 12.1, INR 1.15 07/28/16 0525: Anion Gap 12, Estimated GFR 48 L, BUN/Creatinine Ratio 9.1, Magnesium 1.3 L, CBC w Diff NO MAN DIFF REQ, RBC 3.61 L, MCV 83.9, MCH 26.7 L, RDW 16.3 H, MPV 9.2, Gran % 55.4, Lymphocytes % 34.8, Monocytes % 7.6, Eosinophils % 1.3, Basophils % 0.9, PUBS MCHC 31.8 L, Absolute Granulocytes 4.8, Absolute Lymphocytes 3.0, Absolute Monocytes 0.7 H, Absolute Eosinophils 0.1, Absolute Basophils 0.1 Microbiology 07/28 1650 BODY FLUID: Body Fluid Culture - ORD 07/28 1650 BODY FLUID: Gram Stain - ORD Assessment/Plan Assessment: 76-year-old patient was brought to the emergency department from [facility] after experiencing altered mental status change. Patient was recently discharged from [facility] where she was been treated for UTI. 07/28: After extensive consultation the granddaughter all the patient Gerry was agreeable to the patient going for CT-guided biopsy under IR. The patient is currently at IR undergoing biopsy. Once we have the results of this biopsy and culture we will be able to adequately diagnose and treat based on appropriate antibiotic choices for questionable osteomyelitis. ID was consulted this morning states that it would be recommended that we have biopsy results prior to initiating antibiotic therapy. Given the patient was hypertensive overnight we will also continue losartan from 07/29/2016. If the patient is hypertensive overnight losartan can be started this evening. 07/27: Pt has inconsistent pain presentation, cannot describe her pain. She just complains of pain everywhere including the back, right leg, left leg, and abdomen. Called for orthopedic consult. Dr Crum called back and was recommending neurosurgery involvement and biopsy. Discussed with neurosurgeon, whom reccommended CT guided biopsy, repeat BCX2, getting ESR, have ID on board, and hold abx pending cultures. We also considered IR for biopsy. However pt adamently refused biopsy at this point. Will try again tomorrow and will discuss with her daughter as well. Currently has furnace repairer helper due to agitation and she keeps trying to get out of bed, then get back into bed. SHe appears very uncomfortable no matter what position she is in. She keeps saying she is cold. She had 5 episodes of green diarrhea since 7am, each time smaller bm than before. c diff negative. Update 1230pm: pt now seems more agreeable to MRI and CT guided biopsy if necessary. I have put in the order for tomorrow, and will keep her NPO past midnight in anticipation of sedation need during procedure. Will give her IVF while she is NPO if she needs it. #Diarrhea 2/2 C differential versus gastroenteritis is enteritis versus lactose intolerant. Patiently was receiving on an antibiotic. We will discontinue any antibiotics and check for C. difficile. In the event that significant as needed would repeat stool cultures. Continue IV fluids. Monitor ins and outs. Continue IV hydration. On his CBC name and BEP in AM. Magnesium in Am. #Acute on chronic kidney disease stage IIIa And creatinine 2.3 (baseline 1.1), a CT PE renal secondary to dehydration. . Hold arm and metformin for 2 days asleep kidney to lactic acidosis. Reassess in the a.m. once creatinine function with a return to baseline. Avoid any nephrotoxic medications. Evidence from renal ultrasound did show simple cysts. Urologist consult has been obtained and Dr. iJménez will see the patient in the a.m. #Thoracic discitis at T7-T8. Evidence from imaging on admission shows discitis. We will order a MRI to rule out any ostial myelitis. In the event that ostial myelitis is indeed found patient will need intervention by IR for aspirate. Monitor inflammatory markets markers ESR and CRP to rule out any inflammatory conditions. #Leukocytosis. Patient is chronically on prednisone 1.5 mg this is likely contribution into leukocytosis picture. We'll continue to monitor for any evidence in signs of infection. Patient currently is afebrile CBC in a.m. #Hypomagnesemia. We will repeat magnesium in AM. Magnesium was repleted this morning. We will check levels tomorrow. #Temporal arteirtis Continue steroids. 1.5 mg prednisone. #Multilobular left thyroid enlargement. Thyroid function tests are within normal limits. We will continue levothyroxine at the current dosage. Patient can follow up outpatient on discharge for further management of the thyroid lobe enlargement. #DVT prophylaxis Heparin subcutaneous #Diet Consistent carbohydrate #Code Full code Problem List: 1. Osteomyelitis 2. Discitis Pain Ratin Pain Location: Back. Thoracic Area Pain Goal: Remain pain free Pain Plan: Tylenol as needed Tomorrow's Labs & Rationales: CBC : Rule out worsening leukocytosis due to questionable osteomyelitis BEP monitor patient's creatinine given the fact the patient has Sakshi. Magnesium patient had low magnesium levels and will likely be need to be repleted. ELIA ANDREWS,BELA 07/28/16 1214: Attending MD Review Statement Attending Statement Attending MD Statement: examined this patient, discuss w/resident/PA/QUILL CLEANER, agreed w/resident/PA/QUILL CLEANER, discussed with family, reviewed EMR data (avail), discussed with nursing, discussed with case mgmt, reviewed images, amended to note Attending Assessment/Plan: Patient seen and examined, denies any complaints today. Her repeat MRI thoracic spine did show osteomyelitis/discitis. Vital Signs Date Time Temp Pulse Resp B/P Pulse O2 O2 Flow FiO2 Ox Delivery Rate 07/28 1038 72 132/80 07/28 0800 98.6 83 20 140/80 93 Room Air 07/28 0100 140/60 07/28 0000 142/68 07/27 2323 80 190/80 07/27 2200 98.1 80 20 188/86 95 Room Air 07/27 1645 95 Room Air 07/27 1608 97.8 88 20 138/64 93 on exam; aox3, nad. cv; s1,s2 rr. resp; clear abd; soft, nt, bs+. ext; no edema. Laboratory Tests 07/28 07/28 1029 0525 Chemistry Sodium (137 - 145 mmol/L) 143 Potassium (3.5 - 5.1 mmol/L) 4.6 Chloride (98 - 107 mmol/L) 107 Carbon Dioxide (22 - 30 mmol/L) 25 Anion Gap (5 - 16) 12 BUN (7 - 17 mg/dL) 10 Creatinine (0.5 - 1.0 mg/dL) 1.1 H Estimated GFR (>60 ml/min) 48 L BUN/Creatinine Ratio (7 - 25 %) 9.1 Magnesium (1.6 - 2.3 mg/dL) 1.3 L Coagulation PT (9.4 - 12.5 SEC) 12.1 INR (0.90 - 1.19) 1.15 Hematology CBC w Diff NO MAN DIFF REQ WBC (4.8 - 10.8 /CUMM) 8.6 RBC (4.20 - 5.40 /CUMM) 3.61 L Hgb (12.0 - 16.0 G/DL) 9.6 L Hct (37 - 47 %) 30.3 L MCV (81.0 - 99.0 FL) 83.9 MCH (27.0 - 31.0 PG) 26.7 L RDW (11.5 - 14.5 %) 16.3 H Plt Count (130 - 400 /CUMM) 395 MPV (7.4 - 10.4 FL) 9.2 Gran % (42.2 - 75.2 %) 55.4 Lymphocytes % (20.5 - 51.1 %) 34.8 Monocytes % (1.7 - 9.3 %) 7.6 Eosinophils % (0 - 5 %) 1.3 Basophils % (0.0 - 2.0 %) 0.9 PUBS MCHC (33.0 - 37.0 G/DL) 31.8 L Immunology Absolute Granulocytes (1.4 - 6.5 /CUMM) 4.8 Absolute Lymphocytes (1.2 - 3.4 /CUMM) 3.0 Absolute Monocytes (0.10 - 0.60 /CUMM) 0.7 H Absolute Eosinophils (0.0 - 0.7 /CUMM) 0.1 Absolute Basophils (0.0 - 0.2 /CUMM) 0.1 A/p: 76 y/ F with pmh sig for ch resp failure, COPD on 3 L of home oxygen, stage II diastolic CHF, type 2 diabetes mellitus complicated with neuropathy and gastroparesis, hypothyroidism, arthritis, depression, hyperlipidemia, chronic renal failure, GERD, diverticulosis, admitted with altered mental status likely secondary to metabolic encephalopathy from dehydration, acute on chronic renal failure, diarrhea. n C. difficile negative. Patient has T7-T8 osteomyelitis/ discitis as per thoracic spine MRI. Neurosurgery involved. They're recommending CT-guided biopsy. We also talked with Abelardo Quiñones MD. Patient's granddaughter who is her power of energy attorney is refusing the biopsy for now but she is going to think about it again. I spoke with infectious disease and no empiric and biotics should be started at this time. I also spoke with Dr. Burt from neurosurgery, he strongly recommend CT-guided biopsy. He will also speak with the patient's granddaughter. At this point we are going to watch her off of antibiotics. Magnesium will be repleted. Patient's granddaughter is against sending her to [place] [facility] again. She wants to speak with the case worker about finding another rehabilitation. 3;30 pm: spoke with grand daughter again who had sppoken with neurosurg as well as patient. Now she is willing for CT guided boen bx. Notified IR who is trying to arrang to the procedure today.
--- NOTE | 2016-07-28 06:35 | NUR ---
LATE ENTRY AT 2200 PT BP 188/86, MD FOX NOTIFIED AND BP RECHECKED AT 2320. FOUND TO BE 190/80. MD TO THE BEDSIDE, 5MG IV LOPRESSOR ORDERED. BP RECHECKED BY MD WITH LARGE CUFF AND FOUND TO BE 142/68. LOPRESSOR HELD. PT ASYMPTOMATIC. BP AT 0100 140/60 WITH LARGE CUFF. WILL CONTINUE TO CLOSELY MONITOR.
[2016-07-28 08:00] VITALS: BP 140/80
--- NOTE | 2016-07-28 10:05 | PN- Neurosurgical ---
Surgical Brief Attending Note Brief Attending Note: aware of ESR and CRP, which are concerning for infection. He is aware the MRI has been completed, which he has reviewed himself. He recommends CT guided biopsy, which apparentely is pending family discussion/consent. He recommended ID consult, which the resident informed me is involved. will f/u cxs and labs following d/w resident, pager #[phone]
--- NOTE | 2016-07-28 10:31 | MRI REPORT ---
EXAMINATION: MR THORACIC SPINE WITHOUT CONTRAST CLINICAL INFORMATION: CT scan showed evidence of discitis. COMPARISON: Chest CT from 07/25/2016. TECHNIQUE: MRI of the thoracic spine without contrast was obtained. FINDINGS: As noted on the recent studies there is severe vertebral body height loss at T8 with associated superior endplate erosion. There is marrow edema throughout the T8 vertebral body and there is mild superior T8 endplate retropulsion. There is also mild marrow edema, cortical irregularity, an inferior endplate cortical erosion at T7 that is better demonstrated on the recent CT study. No paravertebral soft tissue edema is appreciated. The remaining vertebral body heights are maintained. Severe disc volume loss at T7-T8. No additional bone marrow edema is appreciated within the thoracic spine. Thoracic cord morphology is normal. No thoracic cord signal abnormality is appreciated. The conus terminates at the L1-L2 disc level. There is a partially imaged large cyst or nodule within the left thyroid lobe measuring up to 2.8 cm in diameter that should be further assessed with a thyroid ultrasound. Superior endplate retropulsion at T8 contributes to mild to moderate central canal stenosis and severe bilateral foraminal stenosis at the T7-T8 level. No cord compression. No significant thoracic disc herniations are appreciated. IMPRESSION: - Severe superior endplate compression deformity at T8 with mild superior endplate retropulsion and marrow edema throughout the T8 vertebral body. As noted on the recent chest CT there are opposing endplate erosive changes at T7-T8 concerning for the presence of superimposed osteomyelitis discitis. No paravertebral collections are identified and there is no epidural abscess. - Superior endplate retropulsion at T8 contributes to mild to moderate central canal stenosis and severe bilateral foraminal stenosis at the T7-T8 level. No cord compression. - There is a partially imaged large cyst or nodule within the left thyroid lobe measuring up to 2.8 cm in diameter that should be further assessed with a thyroid ultrasound.
[2016-07-28 11:49] LABS: PT 12.1 SEC (9.4-12.5)
--- NOTE | 2016-07-28 13:46 | PN- Neurosurgical ---
Subjective Subjective: The patient was seen and examined at bedside with the patient's granddaughter present who is the [id number]. The CT scan and MRI findings along with a prolonged C reactive protein and ESR strongly suggest a disc space infection with osteo myelitis. Objective Vital Signs and I&Os Vital Signs Date Time Temp Pulse Resp B/P Pulse O2 O2 Flow FiO2 Ox Delivery Rate 07/28 1038 72 132/80 07/28 0800 98.6 83 20 140/80 93 Room Air 07/28 0100 140/60 07/28 0000 142/68 07/27 2323 80 190/80 07/27 2200 98.1 80 20 188/86 95 Room Air 07/27 1645 95 Room Air 07/27 1608 97.8 88 20 138/64 93 Intake & Output 07/28 1600 07/28 0807/28 0000 07/27 1600 07/27 0000 Intake Total 20 640 400 100 400 Output Total 200 350 350 250 Balance 20 440 50 -250 150 Intake, IV 0 0 Intake, Oral 20 640 400 100 400 Number 1 2 4 2 2 Bowel Movements Output, Urine 200 350 350 250 Physical Exam: The patient has tenderness in the thoracolumbar junction. Motor and sensation is intact in both lower extremities. Assessment/Plan Assessment/Plan I had a lengthy conversation with the patient's granddaughter about her current situation. I have strongly recommended that she undergo a CT scan guided biopsy before initiation of any further treatment. I have reviewed these risks and benefits of this procedure and the fact that this may need to be repeated if the results did not yield any suggestive findings. The granddaughter states that she will think about it and let us know her decision as soon as possible. Attending MD Review Statement Attending Statement Attending MD Statement: examined this patient, discussed with family
--- NOTE | 2016-07-28 15:41 | Event Note ---
Event Note Event Note: This is a 76 years old lady who was admitted 3 days ago from [facility] to rehabilitation facility presented with altered mental status diarrhea nausea and vomiting. She had a CT scan of abdomen and pelvis on admission which had incidental finding of discitis around T7-T8. Further imaging of the thoracic spine with MRI showed features highly suggestive of osteomyelitis. It was recommended for the patient to have CT-guided biopsy of the vertebral body to rule out osteomyelitis before starting antibiotics. The grand daughter of the patient who is the POA was told about the information and initially she requested more time to think about the decision. After multiple calls from the intervention radiologist, neurosurgeon on attending and house staff later in the course of the day around 2:40 PM she agreed for the procedure. The plan is to go ahead to try to get the biopsy while patient is still antibiotic free.
--- NOTE | 2016-07-28 16:35 | NUR ---
PATIENT OFF FLOOR FOR BONE BIOPSY; SITTER ACCOMPANYING PATIENT
--- NOTE | 2016-07-28 17:22 | CT SCAN REPORT ---
PROCEDURE: CT GUIDED BIOPSY, BONE/DISC HISTORY: 76-year-old female with imaging findings concerning for osteomyelitis discitis at T7/T8. Specimen requested culture. INTERVENTIONAL RADIOLOGIST: Stephen Connell M.D. MODERATE SEDATION: Moderate sedation was not required for today's procedure. 50 mcg of fentanyl was administered intravenously by dedicated radiology nurse under my direct supervision. 1% local lidocaine was also administered. DLP: 1089 PRIOR IMAGING: Same day thoracic spine MRI and CT of chest, abdomen and pelvis 07/25/2016 PROCEDURE IN DETAIL: Informed consent was obtained from the patient's granddaughter (power of litigation attorney associate) prior to the procedure. During this process, the procedure and potential alternatives were explained along with the intended outcome and benefits. The risks of the procedure including the possibility of an unsuccessful procedure, as well as the risk of not doing the procedure were discussed. The patient's granddaughter was given the opportunity to ask questions regarding the procedure and appeared competent to make decisions. A signed consent form which documents this discussion was placed in the medical record. A time out procedure was performed. Following informed consent, the patient was placed prone on the CT scanner table. Multiple preliminary images were obtained of the region of concern (T7/T8). The entry site was marked and then the area was prepped and draped in usual sterile fashion. Following the administration of 1% lidocaine, a 17-gauge coaxial biopsy needle was advanced via the left T7/T8 costovertebral junction. An 18-gauge core biopsy was attempted at this location, however, the [employer] biopsy was not strong enough to penetrate the bone at this location. For this reason, the 17-gauge coaxial biopsy needle was removed and an 11-gauge coaxial biopsy needle was introduced at the same location. The needle was followed throughout its course using CT imaging. The battery powered drill was used to advance the stylet into the vertebral/disc space. The inner stylette was removed and three 18-gauge core biopsies were then obtained utilizing the [employer] biopsy system. The specimen was sent to pathology for indicated analysis. The specimen was marked appropriately before sending to the laboratory. Final interpretation is pending. Pressure was held for approximately 5 minutes. Hemostasis was achieved. Dermabond and a sterile bandage were placed. No immediate complications. Patient was returned to the floor in stable condition. IMPRESSION: Successful CT guided bone/disc biopsy at T7/T8. Final pathologic interpretation is pending.
[2016-07-28 19:19] VITALS: BP 134/80
[2016-07-28 23:42] VITALS: BP 130/70
--- NOTE | 2016-07-29 06:41 | PN- Housestaff ---
LIN ANDREWS,[facility] [place] 07/29/16 0639: Subjective Follow-up For: OSTEOMYLITIS Subjective: Patient was seen and examined this morning. She is resting comfortably in bed. Patient states that she continues to have abdominal pain. Abdominal pains rated an 8 out of 10 in severity. Described as a dull pain. Patient states that this pain might be attributed due to increased gas. Patient states that over the last 24 hours she hasn't really felt any better or worse. Patient is unsure about how many bowels movements she had overnight. She is alert however not oriented to time or place. She denies any fever, chills, nausea, vomiting. Nurse looking after the patient the patient states that she normally is like this until later in the day. Review of Systems Constitutional: Reports: see HPI. Objective Last 24 Hrs of Vital Signs/I&O Vital Signs Date Time Temp Pulse Resp B/P Pulse O2 O2 Flow FiO2 Ox Delivery Rate 07/29 1611 98.0 63 18 158/72 93 Room Air 07/29 1136 98.6 154/72 07/29 0828 172/80 07/29 0828 172/80 07/29 0808 98.2 85 16 183/88 94 Room Air 07/28 2342 97.7 75 20 130/70 92 Room Air 07/28 1919 98.4 78 20 134/80 94 Intake & Output 07/29 1600 07/29 0800 07/29 0000 Intake Total 471 198 1907 Output Total Balance 027 563 7760 Intake, IV 600 600 Intake, Oral 120 120 480 Number 1 Bowel Movements Patient 68.039 kg Weight Physical Exam General Appearance: Alert, No Acute Distress, Limited Exam Due to Patient Condition Cardiovascular: Regular Rate, Normal S1, Normal S2 Lungs: Clear to Auscultation Abdomen: Normal Bowel Sounds, Soft, No Tenderness Neurological: Normal Speech Extremities: No Clubbing, No Cyanosis, No Edema Vascular: Normal Pulses Current Medications: Current Medications Sig/Desiree Start time Last Medication Dose Route Stop Time Status Admin Acetaminophen 650 MG Q6P PRN 07/25 2015 AC 07/29 PO 110 Alprazolam 0.25 MG Q6P PRN 07/255 AC 07/28 PO 08/01 234 1513 Atorvastatin Calcium 10 MG 1700 07/26 1700 AC 07/29 PO 1723 Cholecalciferol 400 IU DAILY 07/26 1000 AC 07/29 PO 0826 Dextrose/Sodium 1,000 ML Q13H 07/28 0645 AC 07/29 [place] 0610 Ferrous Sulfate 325 MG DAILY 07/26 1000 AC 07/29 PO 0826 Heparin Sodium 5,000 UNIT Q8 07/25 2200 AC 07/29 (Porcine) SC 1349 Insulin Aspart 0 TIDAC 07/29 0800 CAN SC Insulin Aspart 0 TIDAC 07/29 0800 AC 07/29 SC 0825 Insulin Aspart 0 AT BEDTIME 07/28 2200 AC SC Levothyroxine Sodium 0.025 MG DAILY AC 07/26 0700 AC 07/29 PO 0607 Losartan Potassium 100 MG DAILY 07/29 1000 AC 07/29 PO 0828 Magnesium Sulfate 1 GM Q2H 07/29 1015 DC 07/29 Dextrose/Water 100 ML IV 07/29 1414 1349 Montelukast Sodium 10 MG DAILY 07/26 1000 AC 07/29 PO 0826 Omeprazole 20 MG DAILY AC 07/26 0700 AC 07/29 PO 0607 Prednisone 1.5 MG DAILY 07/26 1000 AC 07/29 PO 0825 Pregabalin 25 MG TID 07/25 2346 AC 07/29 PO 1723 Sertraline HCl 50 MG DAILY 07/26 1000 AC 07/29 PO 0826 Verapamil HCl 120 MG DAILY 07/26 1000 AC 07/29 PO 0828 Vitamin A/Vitamin D 1 LORENA BID PRN 07/25 2345 AC 07/26 TOP 1019 Zinc Oxide 1 LORENA BID 07/25 2335 AC 07/29 TOP 0831 Last 24 Hrs of Lab/Rehan Results Last 24 Hrs of Labs/Mics: Laboratory Tests 07/29/16 0630: Anion Gap 12, Estimated GFR > 60, BUN/Creatinine Ratio 8.9, Magnesium 1.4 L, CBC w Diff NO MAN DIFF REQ, RBC 3.69 L, MCV 84.0, MCH 27.5, RDW 15.6 H, MPV 9.9, Gran % 76.3 H, Lymphocytes % 16.0 L, Monocytes % 6.7, Eosinophils % 0.4, Basophils % 0.6, PUBS MCHC 32.7 L, Absolute Granulocytes 8.3 H, Absolute Lymphocytes 1.7, Absolute Monocytes 0.7 H, Absolute Eosinophils 0, Absolute Basophils 0.1 Orders Miscellaneous Findings: PATIENT: KIMBERLY SHERIDAN PRESENT AGE: 76 PATIENT ACCOUNT NO: [id number] : 41 LOCATION: [facility] ORDERING PHYSICIAN: CINDI LUNA MD SERVICE DATE: 07/28/16 EXAM TYPE: CAT - CT BONE BIOPSY PROCEDURE: CT GUIDED BIOPSY, BONE/DISC HISTORY: 76-year-old female with imaging findings concerning for osteomyelitis discitis at T7/T8. Specimen requested culture. INTERVENTIONAL RADIOLOGIST: Naima Connell M.D. MODERATE SEDATION: Moderate sedation was not required for today's procedure. 50 mcg of fentanyl was administered intravenously by dedicated radiology nurse under my direct supervision. 1% local lidocaine was also administered. DLP: 1089 PRIOR IMAGING: Same day thoracic spine MRI and CT of chest, abdomen and pelvis 07/25/2016 PROCEDURE IN DETAIL: Informed consent was obtained from the patient's granddaughter (power of commercial litigation attorney) prior to the procedure. During this process, the procedure and potential alternatives were explained along with the intended outcome and benefits. The risks of the procedure including the possibility of an unsuccessful procedure, as well as the risk of not doing the procedure were discussed. The patient's granddaughter was given the opportunity to ask questions regarding the procedure and appeared competent to make decisions. A signed consent form which documents this discussion was placed in the medical record. A time out procedure was performed. Following informed consent, the patient was placed prone on the CT scanner table. Multiple preliminary images were obtained of the region of concern (T7/T8). The entry site was marked and then the area was prepped and draped in usual sterile fashion. Following the administration of 1% lidocaine, a 17-gauge coaxial biopsy needle was advanced via the left T7/T8 costovertebral junction. An 18-gauge core biopsy was attempted at this location, however, the Temno biopsy was not strong enough to penetrate the bone at this location. For this reason, the 17-gauge coaxial biopsy needle was removed and an 11-gauge coaxial biopsy needle was introduced at the same location. The needle was followed throughout its course using CT imaging. The battery powered drill was used to advance the stylet into the vertebral/disc space. The inner stylette was removed and three 18-gauge core biopsies were then obtained utilizing the [employer] biopsy system. The specimen was sent to pathology for indicated analysis. The specimen was marked appropriately before sending to the laboratory. Final interpretation is pending. Pressure was held for approximately 5 minutes. Hemostasis was achieved. Dermabond and a sterile bandage were placed. No immediate complications. Patient was returned to the floor in stable condition. IMPRESSION: Successful CT guided bone/disc biopsy at T7/T8. Final pathologic interpretation is pending. DICTATED BY: NAIMA CONNELL MD Assessment/Plan Assessment: 76-year-old patient was brought to the emergency department from [facility] after experiencing altered mental status change. Patient was recently discharged from [facility] where she was been treated for UTI. 07/29: Patient went in for CT-guided biopsy yesterday she tolerated the procedure well. We'll currently waiting for results and biopsy cultures to adequately guide appropriate management and antibiotic choice. 07/28: After extensive consultation the granddaughter all the patient Gerry was agreeable to the patient going for CT-guided biopsy under IR. The patient is currently at IR undergoing biopsy. Once we have the results of this biopsy and culture we will be able to adequately diagnose and treat based on appropriate antibiotic choices for questionable osteomyelitis. ID was consulted this morning states that it would be recommended that we have biopsy results prior to initiating antibiotic therapy. Given the patient was hypertensive overnight we will also continue losartan from 07/29/2016. If the patient is hypertensive overnight losartan can be started this evening. 07/27: Pt has inconsistent pain presentation, cannot describe her pain. She just complains of pain everywhere including the back, right leg, left leg, and abdomen. Called for orthopedic consult. Dr Crum called back and was recommending neurosurgery involvement and biopsy. Discussed with neurosurgeon, whom reccommended CT guided biopsy, repeat BCX2, getting ESR, have ID on board, and hold abx pending cultures. We also considered IR for biopsy. However pt adamently refused biopsy at this point. Will try again tomorrow and will discuss with her daughter as well. Currently has inner tube inserter due to agitation and she keeps trying to get out of bed, then get back into bed. SHe appears very uncomfortable no matter what position she is in. She keeps saying she is cold. She had 5 episodes of green diarrhea since 7am, each time smaller bm than before. c diff negative. Update 1230pm: pt now seems more agreeable to MRI and CT guided biopsy if necessary. I have put in the order for tomorrow, and will keep her NPO past midnight in anticipation of sedation need during procedure. Will give her IVF while she is NPO if she needs it. #Diarrhea 2/2 C differential versus gastroenteritis is enteritis versus lactose intolerant. Patiently was receiving on an antibiotic. We will discontinue any antibiotics and check for C. difficile. In the event that significant as needed would repeat stool cultures. Continue IV fluids. Monitor ins and outs. Continue IV hydration. On his CBC name and BEP in AM. Magnesium in Am. #Acute on chronic kidney disease stage IIIa And creatinine 2.3 (baseline 1.1), a CT PE renal secondary to dehydration. . Hold arm and metformin for 2 days asleep kidney to lactic acidosis. Reassess in the a.m. once creatinine function with a return to baseline. Avoid any nephrotoxic medications. Evidence from renal ultrasound did show simple cysts. Urologist consult has been obtained and Dr. Jiménez will see the patient in the a.m. #Thoracic discitis at T7-T8. Evidence from imaging on admission shows discitis. We will order a MRI to rule out any ostial myelitis. In the event that ostial myelitis is indeed found patient will need intervention by IR for aspirate. Monitor inflammatory markets markers ESR and CRP to rule out any inflammatory conditions. #Leukocytosis. Patient is chronically on prednisone 1.5 mg this is likely contribution into leukocytosis picture. We'll continue to monitor for any evidence in signs of infection. Patient currently is afebrile CBC in a.m. #Hypomagnesemia. We will repeat magnesium in AM. Magnesium was repleted this morning. We will check levels tomorrow. #Temporal arteirtis Continue steroids. 1.5 mg prednisone. #Multilobular left thyroid enlargement. Thyroid function tests are within normal limits. We will continue levothyroxine at the current dosage. Patient can follow up outpatient on discharge for further management of the thyroid lobe enlargement. #DVT prophylaxis Heparin subcutaneous #Diet Consistent carbohydrate #Code Full code Problem List: 1. Discitis 2. Osteomyelitis 3. Diarrhea Pain Ratin Pain Location: Abdomen Pain Goal: Remain pain free Pain Plan: TYLENOL NEEDED Tomorrow's Labs & Rationales: CBC: Monitor signs of infection, osteo vs Discitis BEP: Monitor electrolyte derangements 2/2 ams MG: patient was hypomagnesemic ELIA ANDREWS,BELA 07/29/16 1410: Attending MD Review Statement Attending Statement Attending MD Statement: examined this patient, discuss w/resident/PA/DIRECTOR TALENT, agreed w/resident/PA/DIRECTOR TALENT, reviewed EMR data (avail), discussed with nursing, discussed with case mgmt, reviewed images, amended to note Attending Assessment/Plan: Patient seen and examined, did not offer any complaints this morning. She just wanted to sleep. Her blood pressure was slightly high this morning but he was receiving her blood pressure medications. She had CT-guided thoracic spine biopsy done yesterday. So far cultures are pending. No antibiotics have been started. Will consult she's tomorrow. We will wait for the culture results. Continue all other current medications. Has a slight increase in white blood cell count today, will monitor. Patient is on heparin subcutaneous for DVT prophylaxis.
[2016-07-29 08:08] VITALS: BP 183/88
[2016-07-29 08:44] LABS: ABSOLUTE BASOPHIL COUNT 0.1 /CUMM (0.0-0.2); ABSOLUTE EOSINOPHIL COUNT 0 /CUMM (0.0-0.7); ABSOLUTE GRANULOCYTE CT 8.3 /CUMM (1.4-6.5); ABSOLUTE LYMPH COUNT 1.7 /CUMM (1.2-3.4); ABSOLUTE MONOCYTE COUNT 0.7 /CUMM (0.10-0.60); BASOPHIL % 0.6 % (0.0-2.0); EOSINOPHIL % 0.4 % (0-5); GRANULOCYTE % 76.3 % (42.2-75.2); MEAN CORPUSCULAR HGB 27.5 PG (27.0-31.0); MEAN CORPUSCULAR HGB CONC 32.7 G/DL (33.0-37.0); MEAN PLATELET VOLUME 9.9 FL (7.4-10.4); PLATELET COUNT 430 /CUMM (130-400); RBC DISTRIBUTION WIDTH 15.6 % (11.5-14.5); RED BLOOD CELL CT 3.69 /CUMM (4.20-5.40); WHITE BLOOD CELL COUNT 10.9 /CUMM (4.8-10.8)
[2016-07-29 11:36] VITALS: BP 154/72
--- NOTE | 2016-07-29 11:37 | NUR ---
PATIENT REPORTS ABD PAIN; UNABLE TO QUANTIFY OR DESCRIBE; STATES "I JUST WANT TO LIE DOWN AND SLEEP"; FAMILY AT BEDSIDE; DR. ADAM CEBALLOS NOTIFIED AND WILL COME TO REASSESS PATIENT; WILL MONITOR
[2016-07-29 16:11] VITALS: BP 158/72
--- NOTE | 2016-07-29 23:20 | NUR ---
NURSING NOTE: PT ARRIVED TO FLOOR @ 2200 FROM 1NA. A/CONFUSED, VSS, IVF PER ORDER, SITTER AT BEDSIDE, BED ALARM IN PLACE. WILL CONTINUE TO MONITOR.
[2016-07-30 00:03] VITALS: BP 170/82
--- NOTE | 2016-07-30 00:23 | NUR ---
NURSING NOTE: MOD # 299 MADE AWARE OF PT'S BP 170/82. WILL CONTINUE TO MONITOR
[2016-07-30 00:29] VITALS: BP 160/78
--- NOTE | 2016-07-30 07:00 | PN- Housestaff ---
LIN ANDREWS,[facility] 07/30/16 0659: Subjective Follow-up For: Ostemylitis Vs Discitis Subjective: Patient was seen and examined this morning. She is resting comfortably in bed. Patient is alert however continues to be not oriented to time place or person. Patient continues to state that she has abdominal pain, back pain, and right eye pain. Patient states that the pain has largely been unchanged over the last 24 hours. Patient states that the back pain is worse than the abdominal pain. Patient states that the back pain is rated at an 8 out of 10 in severity. Located in the mid back. Patient does not report any appetite and would like to rest. Patient denies any fever, chills, nausea, vomiting or shortness of breath. Review of Systems Constitutional: Denies: chills, fever, weakness. Cardiovascular: Denies: chest pain, orthopena, palpitations. Respiratory: Denies: cough, short of breath, sputum production. Gastrointestinal: Reports: abdominal pain. Denies: constipation, diarrhea, distention, nausea, vomiting. Genitourinary: Denies: discharge, dysuria, frequency. Musculoskeletal: Reports: back pain. Objective Last 24 Hrs of Vital Signs/I&O Vital Signs Date Time Temp Pulse Resp B/P Pulse O2 O2 Flow FiO2 Ox Delivery Rate 07/30 0800 97.4 76 20 132/80 93 Room Air 07/30 0029 160/78 07/30 0003 97.6 75 20 170/82 92 07/29 1611 98.0 63 18 158/72 93 Room Air 07/29 1136 98.6 154/72 Intake & Output 07/30 1600 07/30 0800 07/30 0000 Intake Total 720 75 Output Total 350 Balance 370 75 Intake, IV 600 75 Intake, Oral 120 Output, Urine 350 Physical Exam General Appearance: Alert, Cooperative, No Acute Distress Cardiovascular: Regular Rate, Normal S1, Normal S2 Lungs: Clear to Auscultation Abdomen: Normal Bowel Sounds, Soft, Tenderness in Right Upper Quadrant. No Rigidity. No guarding. Neurological: Normal Speech Extremities: No Cyanosis, No Edema Vascular: Normal Pulses Current Medications: Current Medications Sig/Desiree Start time Last Medication Dose Route Stop Time Status Admin Acetaminophen 650 MG .STK-MED ONE 07/29 1921 DC PO 07/29 1922 Acetaminophen 650 MG Q6P PRN 07/25 2015 AC 07/29 PO 1924 Alprazolam 0.25 MG Q6P PRN 07/25 2345 AC 07/28 PO 08/01 2344 1513 Atorvastatin Calcium 10 MG 1700 07/26 1700 AC 07/29 PO 1723 Cholecalciferol 400 IU DAILY 07/26 1000 AC 07/29 PO 0826 Dextrose/Sodium 1,000 ML Q13H 07/28 0645 AC 07/29 Chloride IV 2228 Ferrous Sulfate 325 MG DAILY 07/26 1000 AC 07/29 PO 0826 Heparin Sodium 5,000 UNIT Q8 07/25 2200 AC 07/30 (Porcine) SC 0602 Insulin Aspart 0 TIDAC 07/29 0800 AC 07/29 SC 0825 Insulin Aspart 0 AT BEDTIME 07/28 2200 AC SC Levothyroxine Sodium 0.025 MG DAILY AC 07/26 0700 AC 07/30 PO 0559 Losartan Potassium 100 MG DAILY 07/29 1000 AC 07/29 PO 0828 Magnesium Sulfate 1 GM Q2H 07/29 1015 DC 07/29 Dextrose/Water 100 ML IV 07/29 1414 1349 Montelukast Sodium 10 MG DAILY 07/26 1000 AC 07/29 PO 0826 Omeprazole 20 MG DAILY AC 07/26 0700 AC 07/30 PO 0559 Prednisone 1.5 MG DAILY 07/26 1000 AC 07/29 PO 0825 Pregabalin 25 MG TID 07/25 2346 AC 07/29 PO 205 Sertraline HCl 50 MG DAILY 07/26 1000 AC 07/29 PO 0826 Verapamil HCl 120 MG DAILY 07/26 1000 AC 07/29 PO 0828 Vitamin A/Vitamin D 1 LORENA BID PRN 07/25 2345 AC 07/26 TOP 1019 Zinc Oxide 1 LORENA BID 07/25 2335 AC 07/29 TOP 205 Last 24 Hrs of Lab/Rehan Results Last 24 Hrs of Labs/Mics: Laboratory Tests 07/30/16 0625: Sodium Pending, Potassium Pending, Chloride Pending, Carbon Dioxide Pending, Anion Gap Pending, BUN Pending, Creatinine Pending, BUN/Creatinine Ratio Pending , Magnesium Pending, CBC w Diff Pending, WBC Pending, RBC Pending, Hgb Pending, Hct Pending, MCV Pending, MCH Pending, RDW Pending, Plt Count Pending, MPV Pending, PUBS MCHC Pending Assessment/Plan Assessment: 76-year-old patient was brought to the emergency department from [facility] after experiencing altered mental status change. Patient was recently discharged from [facility] where she was been treated for UTI. 07/30/2016: We scheduled the patient for an abdominal ultrasound. This showed no acute pathology and ruled out any intra-abdominal acute changes. Patient's LFTs were also within normal limits. Spoke with the granddaughter extensively this afternoon who was concerned that the patient's grandmother continues to be somnolent (She is also concerned about disposition plans and is very hesitant about sending the patient back to [place]. ) Assured her that we waiting for culture and sensitivities after CT-guided biopsy prior to initiating any antibiotics. The patient was able to tolerate minor by mouth intake we have discontinued the patient's IV fluids. 07/29: Patient went in for CT-guided biopsy yesterday she tolerated the procedure well. We'll currently waiting for results and biopsy cultures to adequately guide appropriate management and antibiotic choice. 07/28: After extensive consultation the granddaughter all the patient Gerry was agreeable to the patient going for CT-guided biopsy under IR. The patient is currently at IR undergoing biopsy. Once we have the results of this biopsy and culture we will be able to adequately diagnose and treat based on appropriate antibiotic choices for questionable osteomyelitis. ID was consulted this morning states that it would be recommended that we have biopsy results prior to initiating antibiotic therapy. Given the patient was hypertensive overnight we will also continue losartan from 07/29/2016. If the patient is hypertensive overnight losartan can be started this evening. 07/27: Pt has inconsistent pain presentation, cannot describe her pain. She just complains of pain everywhere including the back, right leg, left leg, and abdomen. Called for orthopedic consult. Dr Crum called back and was recommending neurosurgery involvement and biopsy. Discussed with neurosurgeon, whom reccommended CT guided biopsy, repeat BCX2, getting ESR, have ID on board, and hold abx pending cultures. We also considered IR for biopsy. However pt adamently refused biopsy at this point. Will try again tomorrow and will discuss with her daughter as well. Currently has equipment monitor phototypesetting due to agitation and she keeps trying to get out of bed, then get back into bed. SHe appears very uncomfortable no matter what position she is in. She keeps saying she is cold. She had 5 episodes of green diarrhea since 7am, each time smaller bm than before. c diff negative. Update 1230pm: pt now seems more agreeable to MRI and CT guided biopsy if necessary. I have put in the order for tomorrow, and will keep her NPO past midnight in anticipation of sedation need during procedure. Will give her IVF while she is NPO if she needs it. #Diarrhea 2/2 C differential versus gastroenteritis is enteritis versus lactose intolerant. Patiently was receiving on an antibiotic. We will discontinue any antibiotics and check for C. difficile. In the event that significant as needed would repeat stool cultures. Simethicone for flatulence #Acute on chronic kidney disease stage IIIa And creatinine 2.3 (baseline 1.1), a CT PE renal secondary to dehydration. . Hold arm and metformin for 2 days asleep kidney to lactic acidosis. Reassess in the a.m. once creatinine function with a return to baseline. Avoid any nephrotoxic medications. Evidence from renal ultrasound did show simple cysts. Urologist consult has been obtained and Dr. Jiménez will see the patient in the a.m. #Thoracic discitis at T7-T8. Evidence from imaging on admission shows discitis. We will order a MRI to rule out any ostial myelitis. In the event that ostial myelitis is indeed found patient will need intervention by IR for aspirate. Monitor inflammatory markets markers ESR and CRP to rule out any inflammatory conditions. #Leukocytosis. Patient is chronically on prednisone 1.5 mg this is likely contribution into leukocytosis picture. We'll continue to monitor for any evidence in signs of infection. Patient currently is afebrile CBC in a.m. #Hypomagnesemia. We will repeat magnesium in AM. Magnesium was repleted this morning. We will check levels tomorrow. #Temporal arteirtis Continue steroids. 1.5 mg prednisone. #Multilobular left thyroid enlargement. Thyroid function tests are within normal limits. We will continue levothyroxine at the current dosage. Patient can follow up outpatient on discharge for further management of the thyroid lobe enlargement. #DVT prophylaxis Heparin subcutaneous #Diet Consistent carbohydrate #Code Full code Problem List: 1. Discitis 2. Osteomyelitis 3. Diarrhea Pain Ratin Pain Location: Abdomen/ Back Pain Goal: Remain pain free Pain Plan: Tylenol As needed Tomorrow's Labs & Rationales: CBC monitor H&H due to infection. BEP monitor any electrolyte derangements due to decreased oral intake. MG patient has been hypomagnesemic. ELIA ANDREWS,BELA 07/30/16 1238: Attending MD Review Statement Attending Statement Attending MD Statement: examined this patient, discuss w/resident/PA/INSULATION POWER UNIT TENDER, agreed w/resident/PA/INSULATION POWER UNIT TENDER, reviewed EMR data (avail), discussed with nursing, discussed with case mgmt, reviewed images, amended to note Attending Assessment/Plan: Patient seen and examined, was complaining of some abdominal pain this morning. She was containing of pain in the right upper quadrant and it was slightly tender in the right upper quadrant. Vital signs are stable. Patient still has some pain in the back. A/p: 76 y/o F with pmh sig for ch resp failure, COPD on 3 L of home oxygen, stage II diastolic CHF, type 2 diabetes mellitus complicated with neuropathy and gastroparesis, hypothyroidism, arthritis, depression, hyperlipidemia, chronic renal failure, GERD, diverticulosis, admitted with altered mental status likely secondary to minimal encephalopathy from dehydration, acute on chronic renal failure, diarrhea. C. difficile was negative. On imaging studies, patient found to have T7-T8 vertebral discitis/possible ostial myelitis. Patient is status post vertebral biopsy 2 days ago. So far cultures are negative. We obtained a right upper quadrant ultrasound and LFTs secondary to patient's complaint. Those studies did not show anything but fatty liver. LFTs are also normal. Please resume her simethicone that she takes at home for gas. Please consult infectious disease. Encourage by mouth intake and DC IV fluids. Continue all other current medications. DVT prophylaxis: Heparin subcutaneous.
--- NOTE | 2016-07-30 07:45 | NUR ---
PT C/O ABDOMINAL PAIN 9/10 ON PAIN SCALE. +BS X4. ABDOMEN DISTENDED BUT SOFT- OBESE. LBM NOTED 07/29/16. REPORTS TENDERNESS TO RLQ. POOR APPETITE CONTINUES. DR. CEBALLOS NOTIFIED. SNO. WILL CONT TO MONITOR.
[2016-07-30 08:00] VITALS: BP 132/80
[2016-07-30 08:47] LABS: ABSOLUTE BASOPHIL COUNT 0.1 /CUMM (0.0-0.2); ABSOLUTE EOSINOPHIL COUNT 0.1 /CUMM (0.0-0.7); ABSOLUTE GRANULOCYTE CT 7.3 /CUMM (1.4-6.5); ABSOLUTE LYMPH COUNT 2.2 /CUMM (1.2-3.4); ABSOLUTE MONOCYTE COUNT 0.7 /CUMM (0.10-0.60); BASOPHIL % 0.7 % (0.0-2.0); EOSINOPHIL % 0.8 % (0-5); GRANULOCYTE % 70.2 % (42.2-75.2); HEMATOCRIT 31.6 % (37-47); MEAN CORPUSCULAR HGB 27.6 PG (27.0-31.0); MEAN CORPUSCULAR HGB CONC 32.8 G/DL (33.0-37.0); MEAN CORPUSCULAR VOLUME 84.3 FL (81.0-99.0); MEAN PLATELET VOLUME 9.8 FL (7.4-10.4); PLATELET COUNT 396 /CUMM (130-400); RBC DISTRIBUTION WIDTH 15.8 % (11.5-14.5); RED BLOOD CELL CT 3.75 /CUMM (4.20-5.40); WHITE BLOOD CELL COUNT 10.4 /CUMM (4.8-10.8)
--- NOTE | 2016-07-30 09:40 | PN- Neurosurgical ---
Subjective Subjective: Awaiting Bx and Cx results from 07/28. Review of Systems Constitutional: Reports: see HPI. Objective Vital Signs and I&Os Vital Signs Date Time Temp Pulse Resp B/P Pulse O2 O2 Flow FiO2 Ox Delivery Rate 07/30 08 97.4 76 20 132/80 93 Room Air 07/30 0029 160/78 07/30 0003 97.6 75 20 170/82 92 07/29 1611 98.0 63 18 158/72 93 Room Air 07/29 1136 98.6 154/72 Intake & Output 07/30 1600 07/30 0800 07/30 0000 07/29 1600 07/29 0800 07/29 0000 Intake Total 720 75 746 816 3893 Output Total 350 Balance 370 75 704 752 2499 Intake, IV 600 75 600 600 Intake, Oral 120 120 120 480 Number 1 Bowel Movements Output, Urine 350 Patient 150 lb Weight Physical Exam: unchanged Assessment/Plan Assessment/Plan Awaiting Bx and Cx results Problem List: 1. Osteomyelitis 2. Discitis Attending MD Review Statement Attending Statement Attending MD Statement: discuss w/resident/PA/SHOPFITTER, agreed w/resident/PA/SHOPFITTER Attending Assessment/Plan: Awaiting Bx and Cx results, ID consult
--- NOTE | 2016-07-30 11:23 | NUR ---
PT OFF THE FLOOR FOR U/S ABDOMEN. SITTER REMAINS AT SIDE FOR SAFETY. WILL CONT TO MONITOR.
--- NOTE | 2016-07-30 12:14 | ULTRASOUND REPORT ---
EXAMINATION: US ABDOMEN COMPLETE CLINICAL INFORMATION: Abdominal pain and right upper quadrant tenderness. COMPARISON: Renal ultrasound dated 07/26/2016; CT abdomen and pelvis dated 03/06/2013 and the abdominal ultrasound dated 03/21/2010. TECHNIQUE: Real-time imaging of the abdominal viscera. Limited examination secondary to body habitus and inability of the patient to fully comply with the technologist's breathing instructions. FINDINGS: PANCREAS: The visualized pancreatic head and proximal body are normal in appearance. The remainder of the pancreas is obscured from visualization by the overlying bowel gas. ABDOMINAL AORTA: The proximal segment is normal in caliber. INFERIOR VENA CAVA: Visualized portions are normal. LIVER: The liver demonstrates normal size, contour and generalized increase in echogenicity. No focal lesion or intrahepatic biliary duct dilatation. GALLBLADDER: Surgically absent. COMMON BILE DUCT: Nonvisualized with certainty secondary to artifact from overlapping bowel gas. RIGHT KIDNEY: Normal. No hydronephrosis. No renal calculi or focal parenchymal lesions. The kidney measures 10.1 cm in maximum dimension. LEFT KIDNEY: At the interpolar aspect, a 2.0 cm simple cyst is seen, and at the lower pole 2.2 cm of simple cyst is seen. No hydronephrosis. No renal calculi or focal parenchymal lesions. The kidney measures 9.3 cm in maximum dimension. SPLEEN: Normal. The spleen measures 10.8 cm in maximum dimension. FREE FLUID: None. IMPRESSION: 1. There is generalized increase in hepatic echotexture, consistent with fatty infiltration or hepatocellular disease. Please correlate clinically. No focal hepatic mass or intrahepatic biliary dilatation is seen. 2. Simple left renal cysts are incidentally noted. 3. Limited ultrasound examination of the pancreas and common bile duct.
--- NOTE | 2016-07-30 13:37 | Cons- Infect Disease ---
General Information and HPI Consulting Request Date of Consult: 07/30/16 Requested By: BELA RODRIGEZ MD Reason for Consult: Rule out discitis/osteomyelitis T7-T8 Source of Information: patient, old records Exam Limitations: unable to give history, poor historian History of Present Illness: This is a 76-year-old woman, correction resident, with COPD, maintained on 3 L of oxygen, diabetes with neuropathy and gastroparesis, polymyalgia rheumatica, maintained on prednisone 1.5 mg every 24-48 hours, hospitalized 10 days prior to admission with sepsis of urologic origin secondary to Escherichia coli, with one blood culture positive for coag negative Staph, treated with Ceftriaxone and discharged on Augmentin, which was apparently discontinued several days prior to admission because of diarrhea, status post a fall approximately one week prior to admission, admitted on July 25 after she was sent to the emergency room with 5 days of diarrhea, incontinence of stool and urine, and lethargy. On admission she was afebrile. Laboratory data revealed a white blood cell count of 14,000, BUN/creatinine 19 and 2.3, with normal liver enzymes. Urinalysis 1-3 RBC/rare WBCs. CT of the chest, abdomen and pelvis revealed small airway disease in both lungs, perinephric stranding right greater than left and significant discitis at T7-T8, with complete collapse of the vertebral body at T8 with endplate destruction with bony sclerosis involving both the superior endplate of T8 and inferior endplate of T7, with no paraspinal soft tissue mass. She was given Ceftriaxone and Azithromycin in the emergency room, but this was discontinued by the next day and she has been followed off antibiotics since. On July 28 she underwent an MRI of the thoracic spine which confirmed the suspicion on CT of a discitis/osteomyelitis T7-T8, and she underwent a biopsy of the T7-T8 vertebra/disc space. Her white blood cell count normalized on July 26 and she has remained afebrile since admission. She has had intermittent diarrhea. She reports multiple complaints including low back pain, right knee pain and eye pain. Allergies/Medications Allergies: Coded Allergies: oxycodone (RASH 12/08/15) Home Med List: Acetaminophen (Acephen) 650 MG SUPP.RECT 1 SUPP NE Q4H PRN PAIN/TEMP>/100 ( Reported) Acetaminophen (Athenol) 325 MG TABLET 2 TAB PO Q4H PRN PAIN/TEMP>/100 ( Reported) Alprazolam (Xanax) 0.25 MG TABLET 1 TAB PO Q6P PRN AGITATION AND ANXIETY ( Reported) Augmentin (Augmentin 500-125 Tablet) 500 MG-125 MG TABLET 1 TAB PO BID urine infection Bisacodyl 10 MG SUPP.RECT 1 SUP RC PRN CONSTIPATION (Reported) Cholecalciferol (Vitamin D3) (Vitamin D3) 400 UNIT TABLET 1 TAB PO DAILY SUPPLEMENT (Reported) Ferrous Sulfate 325 MG (65 MG IRON) TABLET 1 TAB PO DAILY SUPPLEMENT ( Reported) Glucagon,Human Recombinant (Glucagon Emergency Kit) 1 MG KIT 1 MG IM ONCE PRN HYPOGLYCEMIA (Reported) Insulin Aspart (Novolog) 100 UNIT/ML VIAL DM (Reported) based on sliding scale Insulin Detemir (Levemir) 100 UNIT/ML VIAL 30 UNITS SC QAM DM (Reported) Ipratropium/Albuterol Sulfate (Iprat-Albut 0.5-3(2.5) MG/3 Ml) 0.5 MG-3 MG (2.5 MG BASE)/3 ML AMPUL.NEB 3 ML INH Q4H PRN SOB/WHEEZE (Reported) Lactobacillus Acidophilus (Acidophilus) 1 EACH CAPSULE 1 CAP PO BID GI ( Reported) Levothyroxine Sodium 25 MCG TABLET 1 TAB PO DAILY AC THYROID (Reported) Losartan Potassium 100 MG TABLET 1 TAB PO DAILY UNKNOWN (Reported) Magnesium Hydroxide (Milk Of Magnesia) 400 MG/5 ML ORAL.SUSP 30 ML PO DAILY PRN CONSTIPATION (Reported) Meclizine HCl 12.5 MG TABLET 1 TAB PO Q6H PRN VERTIGO (Reported) Metformin HCl 500 MG TABLET 1 TAB PO TID DM (Reported) Montelukast Sodium 10 MG TABLET 1 TAB PO DAILY UNKNOWN (Reported) Na Phos,M-B/Na Phos,Di-Ba (Fleet Enema) 19 GRAM-7 GRAM/118 ML ENEMA 1 E RC DAILY PRN CONSTIPATION (Reported) Omeprazole 20 MG CAPSULE.DR 1 CAP PO DAILY GI (Reported) Prednisone 1 MG TABLET 1.5 TAB PO EOD STEROID (Reported) Pregabalin (Lyrica) 75 MG CAPSULE 1 CAP PO TID NEUROPATHY (Reported) Sertraline HCl 50 MG TABLET 1 TAB PO DAILY MENTAL HEALTH (Reported) Simethicone (Gas Relief) 125 MG TAB.CHEW 1 TAB PO Q4-6H PRN ABD BLOATING & PAIN (Reported) Simvastatin (Zocor*) 10 MG TABLET 1 TAB PO QPM CHOLESTEROL (Reported) Sitagliptin Phosphate (Januvia) 100 MG TABLET 1 TAB PO DAILY DIABETES ( Reported) Tiotropium Foreman (Spiriva) 18 MCG CAP.W.DEV 1 CAP INH DAILY COPD (Reported) Trazodone HCl 50 MG TABLET 1 TAB PO 0800 UNKNOWN (Reported) Trazodone HCl 100 MG TABLET 1 TAB PO QPM UNKNOWN (Reported) Trazodone HCl 50 MG TABLET 12.5 MG PO Q8H PRN ANXIETY (Reported) Verapamil HCl 120 MG TABLET 1 TAB PO DAILY UNKNOWN (Reported) Past History Travel History Traveled to [place] past 21 day No Medical History Neurological: dementia, dizziness, vertigo, DEMENTIA-MILD EENT: allergies Cardiovascular: CHF, hypertension Respiratory: COPD, emphysema Gastrointestinal: GERD, lactose intolerance Hepatic: NONE Renal: chronic kidney disease, UTI Musculoskeletal: osteoporosis, ARTHRITIS, polymyalgia rheumatica Psychiatric: anxiety, bipolar disease, depression Endocrine: diabetes, hypothyroidism, obesity, B12 deficiency Blood Disorders: NONE Cancer(s): NONE 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 FATHER (CAD). AUNT (Stroke). DAUGHTER ( from drug overdose). Psychosocial History Where Do You Live? Extended Care Facility Services at Home: Nursing Smoking Status: Former Smoker ETOH Use: denies use Functional Ability ADLs Needs Assist: dressing, eating, toileting, bathing. Ambulation: wheelchair Review of Systems Review of Systems EENTM: Reports: eye pain. Respiratory: Reports: no symptoms. Genitourinary: Reports: no symptoms. Musculoskeletal: Reports: back pain, joint pain. Neurological/Psychological: Reports: headache. All Other Systems: Reviewed and Negative Exam & Diagnostic Data Last 24 Hrs of Vital Signs/I&O Vital Signs Date Time Temp Pulse Resp B/P Pulse O2 O2 Flow FiO2 Ox Delivery Rate 07/30 0935 76 132/80 07/30 0935 76 132/80 07/30 0800 97.4 76 20 132/80 93 Room Air 07/30 0029 160/78 07/30 0003 97.6 75 20 170/82 92 07/29 1611 98.0 63 18 158/72 93 Room Air Intake & Output 07/30 1600 07/30 0800 07/30 0000 Intake Total 720 75 Output Total 350 Balance 370 75 Intake, IV 600 75 Intake, Oral 120 Output, Urine 350 Physical Exam Other Physical Findings: She is awake and alert in no acute distress. She is afebrile on steroids. Skin reveals no rash. HEENT exam is negative. Neck is supple with no adenopathy. Lungs are clear. Heart regular rhythm with no murmur. Abdomen is soft, questionable tenderness on palpation diffusely, with no guarding or rebound, positive bowel sounds. Back no CVA tenderness. Extremities no cyanosis, clubbing or edema; no joint inflammation. Neuro is without focality. Last 24 Hours of Lab Results: Laboratory Tests 07/30 0625 Chemistry Sodium (137 - 145 mmol/L) 140 Potassium (3.5 - 5.1 mmol/L) 3.8 Chloride (98 - 107 mmol/L) 105 Carbon Dioxide (22 - 30 mmol/L) 24 Anion Gap (5 - 16) 11 BUN (7 - 17 mg/dL) 7 Creatinine (0.5 - 1.0 mg/dL) 1.3 H Estimated GFR (>60 ml/min) 40 L BUN/Creatinine Ratio (7 - 25 %) 5.4 L Magnesium (1.6 - 2.3 mg/dL) 1.7 Total Bilirubin (0.2 - 1.3 mg/dL) 0.4 Direct Bilirubin (< 0.4 mg/dL) 0.3 AST (14 - 36 U/L) 20 ALT (9 - 52 U/L) 31 Alkaline Phosphatase (<127 U/L) 122 Total Protein (6.3 - 8.2 g/dL) 6.6 Albumin (3.5 - 5.0 g/dL) 3.0 L Hematology CBC w Diff NO MAN DIFF REQ WBC (4.8 - 10.8 /CUMM) 10.4 RBC (4.20 - 5.40 /CUMM) 3.75 L Hgb (12.0 - 16.0 G/DL) 10.4 L Hct (37 - 47 %) 31.6 L MCV (81.0 - 99.0 FL) 84.3 MCH (27.0 - 31.0 PG) 27.6 RDW (11.5 - 14.5 %) 15.8 H Plt Count (130 - 400 /CUMM) 396 MPV (7.4 - 10.4 FL) 9.8 Gran % (42.2 - 75.2 %) 70.2 Lymphocytes % (20.5 - 51.1 %) 21.2 Monocytes % (1.7 - 9.3 %) 7.1 Eosinophils % (0 - 5 %) 0.8 Basophils % (0.0 - 2.0 %) 0.7 PUBS MCHC (33.0 - 37.0 G/DL) 32.8 L Immunology Absolute Granulocytes (1.4 - 6.5 /CUMM) 7.3 H Absolute Lymphocytes (1.2 - 3.4 /CUMM) 2.2 Absolute Monocytes (0.10 - 0.60 /CUMM) 0.7 H Absolute Eosinophils (0.0 - 0.7 /CUMM) 0.1 Absolute Basophils (0.0 - 0.2 /CUMM) 0.1 Last 24 Hours of Rehan Results: Blood cultures July 25 negative Blood cultures July 27 negative Stool C. difficile July 26 negative Urine culture July 25 greater than 100,000 colonies of yeast T7-T8 disc space culture July 28 no growth after 2 days, with gram stain revealing rare white blood cells and no organisms Diagnostic Data Recent Imaging Findings: CT of the chest, abdomen and pelvis July 25 revealed small airway disease in both lungs, perinephric stranding, right greater than left, and significant discitis at T7-T8, with complete collapse of the vertebral body at T8 with endplate destruction with bony sclerosis involving both the superior endplate of T8 and inferior endplate of T7, with no paraspinal soft tissue mass. MRI of the thoracic spine July 28 revealed severe superior endplate compression deformity at T8 with mild superior endplate retropulsion and marrow edema throughout the vertebral body, with opposing endplate erosive changes at T7-T8 concerning for superimposed osteomyelitis/discitis; no paravertebral collections or epidural abscess Abdominal ultrasound July 30 no acute process Assessment/Plan Assessment/Plan Impression: This is a 76-year-old woman with COPD, maintained on 3 L of oxygen, polymyalgia rheumatica, maintained on low-dose prednisone, diabetes, and chronic back pain, recently hospitalized with sepsis of urologic origin, with urine culture positive for Escherichia coli and blood culture x1 positive for coag negative Staph, admitted on July 25 with diarrhea and abdominal pain, found to be afebrile with a mild leukocytosis, which has resolved, and with an incidental finding on CT scan of the abdomen and pelvis of a discitis/osteomyelitis T7-T8. The significance of this finding is unclear. The possibility of seeding from her recent sepsis must be considered, though seeding by a gram-negative bacteria is unusual and the coag-negative Staph from one blood culture likely represented a contaminant. There was a report of a recent fall, which could have resulted in direct seeding of the spine, though there is no report or evidence of any break in the skin to support this. A noninfectious process could also be considered, particularly with her history of polymyalgia rheumatica, for which she is on steroids. The culture of the recent biopsy is so far negative, and pathology, if sent, is pending. At this point she is stable and can be followed off antibiotics. Note she was on Augmentin prior to admission and received Ceftriaxone and Azithromycin on admission, which could have affected the results ; therefore if the final culture of the disc space is negative a repeat aspiration/biopsy will be necessary. The candiduria likely represent contamination or colonization and should not require treatment. Suggestion: 1. Follow-up final culture of the T7-T8 disc space aspirate 2. Follow-up pathology from the recent aspirate if submitted 3. Will need to consider repeat aspiration/biopsy if the final culture is negative 4. Continue to follow off antibiotics pending above Consult Acknowledgment - Thank you for your consult request.
--- NOTE | 2016-07-30 14:57 | NUR ---
LATE ENTRY NOTE: PT MEDICATED YESTERDAY WITH 650MG TYLENOL. PT C/O HEADACHE 04/12. NO OTHER ANALGESICS ON EMAR. PT WAS DROSWY AND CONFUSED THROUGHOUT THE DAY, AND UNABLE TO FOLLOW DIRECTIONS. UPON REASSESSMENT, PT WAS SLEEPING. NO FURTHER COMPLAINTS OF PAIN FOR REST OF SHIFT.
[2016-07-30 15:33] VITALS: BP 162/90
--- NOTE | 2016-07-30 15:54 | NUR ---
LATE ENTRY: PT REFUSING ALPS. RISKS DISCUSSED. DR. CEBALLOS NOTIFIED. ALSO, PT'S IV FLUIDS NOTED TO BE D/C'D. PT WITH POOR PO INTAKE. DR. CEBALLOS CONTACTED. PENDING CALL BACK. EVENING RN TO FOLLOW.
--- NOTE | 2016-07-30 15:55 | NUR ---
PT'S [facility] STATING SHE HAD BROUGHT IN "[employer]OSSW[employer]OOKS AND CHOCOLATE"- PT TRANSFERRED FROM TELE LAST NIGHT. NO ITEMS MENTIONED NOTED IN ROOM. RN CONTACTED TELE X2 REGARDING THE REPORTED MISSING ITEMS, PENDING RETURN CALL. FAMILY UPDATED. WILL CONT TO MONITOR.
[2016-07-30 23:35] VITALS: BP 174/102
[2016-07-31 05:34] VITALS: BP 160/80
--- NOTE | 2016-07-31 05:46 | PN- Housestaff ---
See Addendum Subjective Follow-up For: Discitis Vs Ostemylitis Subjective: Patient seen and examined this morning. Resting comfortably in bed. Patient continues to be somnolent and asks to be revisited. Upon second visit patient still continues to be somnolent and states that she would like to sleep. She denies the presence of any acute events overnight although states that her head, back, abdomen still continue to pain. States the head is rated at a 10 out of 10 in severity. Patient states that she is not hungry and states that she absolutely has no appetite. Patient does report that she's very cold. Patient's denies any fever, chills, nausea, vomiting. Review of Systems Constitutional: Reports: see HPI. Objective Last 24 Hrs of Vital Signs/I&O Vital Signs Date Time Temp Pulse Resp B/P Pulse O2 O2 Flow FiO2 Ox Delivery Rate 07/31 0808 97.9 73 20 154/84 92 Room Air 07/31 0534 160/80 07/30 2335 98.4 71 19 174/102 93 Room Air 07/30 1533 98.2 73 20 162/90 93 07/30 0935 76 132/80 07/30 0935 76 132/80 Intake & Output 07/31 1600 07/31 0800 07/31 0000 Intake Total 50 600 Output Total 400 Balance 50 200 Intake, IV 525 Intake, Oral 50 75 Output, Urine 400 Physical Exam General Appearance: Alert, Cooperative, No Acute Distress Cardiovascular: Regular Rate, Normal S1, Normal S2, No Murmurs Lungs: Clear to Auscultation Abdomen: Normal Bowel Sounds, Soft, No Tenderness Neurological: Normal Speech Extremities: No Clubbing, No Cyanosis, No Edema Current Medications: Current Medications Sig/Desiree Start time Last Medication Dose Route Stop Time Status Admin Acetaminophen 650 MG .STK-MED ONE 07/30 2250 DC PO 07/30 225 Acetaminophen 650 MG .STK-MED ONE 07/30 0945 DC PO 07/30 0946 Acetaminophen 650 MG Q6P PRN 07/25 2015 AC 07/30 PO 225 Alprazolam 0.25 MG Q6P PRN 07/25 2345 AC 07/28 PO 08/01 2344 1513 Atorvastatin Calcium 10 MG 1700 07/26 1700 AC 07/30 PO 1700 Cholecalciferol 400 IU DAILY 07/26 1000 AC 07/30 PO 0933 Dextrose/Sodium 1,000 ML Q13H 07/30 1800 DC 07/30 Chloride IV 07/31 0659 1757 Dextrose/Sodium 1,000 ML Q13H 07/28 0645 DC 07/30 Chloride IV 1217 Ferrous Sulfate 325 MG DAILY 07/26 1000 AC 07/30 PO 0935 Heparin Sodium 5,000 UNIT Q8 07/25 2200 AC 07/31 (Porcine) SC 0624 Insulin Aspart 0 TIDAC 07/29 0800 AC 07/30 SC 1700 Insulin Aspart 0 AT BEDTIME 07/28 2200 AC SC Levothyroxine Sodium 0.025 MG DAILY AC 07/26 0700 AC 07/31 PO 0634 Losartan Potassium 100 MG DAILY 07/29 1000 AC 07/30 PO 0935 Montelukast Sodium 10 MG DAILY 07/26 1000 AC 07/30 PO 0933 Omeprazole 20 MG DAILY AC 07/26 0700 AC 07/31 PO 0634 Prednisone 1.5 MG Q48 07/31 1000 AC PO Prednisone 1.5 MG DAILY 07/26 1000 DC 07/29 PO 0825 Pregabalin 25 MG TID 07/25 2346 AC 07/30 PO 2114 Sertraline HCl 50 MG DAILY 07/26 1000 AC 07/30 PO 0934 Simethicone 80 MG Q6P PRN 07/30 1339 AC 07/30 PO 1445 Verapamil HCl 120 MG DAILY 07/26 1000 AC 07/30 PO 0935 Vitamin A/Vitamin D 1 LORENA BID PRN 07/25 2345 AC 07/26 TOP 1019 Zinc Oxide 1 LORENA BID 07/25 2335 07/30 TOP 2116 Last 24 Hrs of Lab/Rehan Results Last 24 Hrs of Labs/Mics: Laboratory Tests 07/31/16 0710: Anion Gap 10, Estimated GFR 44 L, BUN/Creatinine Ratio 5.0 L, Magnesium 1.3 L , CBC w Diff NO MAN DIFF REQ, RBC 3.86 L, MCV 84.0, MCH 27.3, RDW 16.2 H, MPV 9.1, Gran % 57.3, Lymphocytes % 32.1, Monocytes % 8.5, Eosinophils % 1.5, Basophils % 0.6, PUBS MCHC 32.5 L, Absolute Granulocytes 4.9, Absolute Lymphocytes 2.8, Absolute Monocytes 0.7 H, Absolute Eosinophils 0.1, Absolute Basophils 0 Orders Miscellaneous Findings: 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 Head CT from 08/06/2013. TECHNIQUE: Contiguous axial imaging was performed from the skull base to vertex without intravenous administration of contrast. DLP: 529 mGy-cm. FINDINGS: There is equivocal asymmetric hypoattenuation involving the cortex and subcortical white matter in the right occipital lobe. A small evolving infarct in this locale would be hard to exclude. This was not present on the 2012 study. Some progressive hypoattenuation in the high left frontoparietal subcortical white matter also appears new from the prior. There is stable mild generalized volume loss with prominence of the ventricles, sulci, and extra-axial CSF spaces. There is scattered hypoattenuation in the periventricular, deep, and subcortical white matter. The posterior fossa appears grossly unremarkable. No extra-axial collections, significant mass effect, or shift of the normally midline structures. No acute osseous abnormalities. The imaged paranasal sinuses, mastoid air cells and middle ear cavities are clear. The temporal mid tibial joints articulate normally. No acute soft tissue abnormalities. There have been bilateral ocular lens extractions. The patient is edentulous. IMPRESSION: Vague hypoattenuation in the right lateral occipital lobe, new from 2013. New asymmetric hypoattenuation in the subcortical high left frontoparietal lobe. If there is concern for acute brain ischemia, further evaluation with MRI of the brain is suggested. Mild chronic microangiopathy and volume loss. No intracranial hemorrhage. DICTATED BY: TRACEY BEATTY MD Assessment/Plan Assessment: 76-year-old patient was brought to the emergency department from [facility] after experiencing altered mental status change. Patient was recently discharged from [facility] where she was been treated for UTI. 08/01/2016. Patient conitnued to be somnolent and complaining of a headache. CT Scan revealed no intracranial acute pathology, we have ordered an MRI for additional guidance regarding patients delierium Culture results still pending. Pathology of the bone (cytology) ordered and are expected on 08/01/2016. We are continuing to watch the patient off ABX. 07/30/2016: We scheduled the patient for an abdominal ultrasound. This showed no acute pathology and ruled out any intra-abdominal acute changes. Patient's LFTs were also within normal limits. Spoke with the granddaughter extensively this afternoon who was concerned that the patient's grandmother continues to be somnolent (She is also concerned about disposition plans and is very hesitant about sending the patient back to [place]. ) Assured her that we waiting for culture and sensitivities after CT-guided biopsy prior to initiating any antibiotics. The patient was able to tolerate minor by mouth intake we have discontinued the patient's IV fluids. 07/29: Patient went in for CT-guided biopsy yesterday she tolerated the procedure well. We'll currently waiting for results and biopsy cultures to adequately guide appropriate management and antibiotic choice. 07/28: After extensive consultation the granddaughter all the patient Gerry was agreeable to the patient going for CT-guided biopsy under IR. The patient is currently at IR undergoing biopsy. Once we have the results of this biopsy and culture we will be able to adequately diagnose and treat based on appropriate antibiotic choices for questionable osteomyelitis. ID was consulted this morning states that it would be recommended that we have biopsy results prior to initiating antibiotic therapy. Given the patient was hypertensive overnight we will also continue losartan from 07/29/2016. If the patient is hypertensive overnight losartan can be started this evening. 07/27: Pt has inconsistent pain presentation, cannot describe her pain. She just complains of pain everywhere including the back, right leg, left leg, and abdomen. Called for orthopedic consult. Dr Crum called back and was recommending neurosurgery involvement and biopsy. Discussed with neurosurgeon, whom reccommended CT guided biopsy, repeat BCX2, getting ESR, have ID on board, and hold abx pending cultures. We also considered IR for biopsy. However pt adamently refused biopsy at this point. Will try again tomorrow and will discuss with her daughter as well. Currently has campus monitor due to agitation and she keeps trying to get out of bed, then get back into bed. SHe appears very uncomfortable no matter what position she is in. She keeps saying she is cold. She had 5 episodes of green diarrhea since 7am, each time smaller bm than before. c diff negative. Update 1230pm: pt now seems more agreeable to MRI and CT guided biopsy if necessary. I have put in the order for tomorrow, and will keep her NPO past midnight in anticipation of sedation need during procedure. Will give her IVF while she is NPO if she needs it. #Diarrhea 2/2 C differential versus gastroenteritis is enteritis versus lactose intolerant. Patiently was receiving on an antibiotic. We will discontinue any antibiotics and check for C. difficile. In the event that significant as needed would repeat stool cultures. Simethicone for flatulence #Acute on chronic kidney disease stage IIIa And creatinine 2.3 (baseline 1.1), a CT PE renal secondary to dehydration. . Hold arm and metformin for 2 days asleep kidney to lactic acidosis. Reassess in the a.m. once creatinine function with a return to baseline. Avoid any nephrotoxic medications. Evidence from renal ultrasound did show simple cysts. Urologist consult has been obtained and Dr. Jiménez will see the patient in the a.m. #Thoracic discitis at T7-T8. Evidence from imaging on admission shows discitis. We will order a MRI to rule out any ostial myelitis. In the event that ostial myelitis is indeed found patient will need intervention by IR for aspirate. Monitor inflammatory markets markers ESR and CRP to rule out any inflammatory conditions. #Leukocytosis. Patient is chronically on prednisone 1.5 mg this is likely contribution into leukocytosis picture. We'll continue to monitor for any evidence in signs of infection. Patient currently is afebrile CBC in a.m. #Hypomagnesemia. We will repeat magnesium in AM. Magnesium was repleted this morning. We will check levels tomorrow. #Temporal arteirtis Continue steroids. 1.5 mg prednisone. #Multilobular left thyroid enlargement. Thyroid function tests are within normal limits. We will continue levothyroxine at the current dosage. Patient can follow up outpatient on discharge for further management of the thyroid lobe enlargement. #DVT prophylaxis Heparin subcutaneous #Diet Consistent carbohydrate #Code Full code Problem List: 1. Discitis 2. Osteomyelitis 3. Chronic respiratory failure 4. Delirium Pain Ratin Pain Location: Back Pain Goal: Remain pain free Pain Plan: tylenol as needed Tomorrow's Labs & Rationales: BEP: Due to hypokalemia and Hypomagnesemia
[2016-07-31 07:54] LABS: ABSOLUTE BASOPHIL COUNT 0 /CUMM (0.0-0.2); ABSOLUTE EOSINOPHIL COUNT 0.1 /CUMM (0.0-0.7); ABSOLUTE GRANULOCYTE CT 4.9 /CUMM (1.4-6.5); ABSOLUTE LYMPH COUNT 2.8 /CUMM (1.2-3.4); ABSOLUTE MONOCYTE COUNT 0.7 /CUMM (0.10-0.60); BASOPHIL % 0.6 % (0.0-2.0); EOSINOPHIL % 1.5 % (0-5); GRANULOCYTE % 57.3 % (42.2-75.2); HEMATOCRIT 32.4 % (37-47); MEAN CORPUSCULAR HGB 27.3 PG (27.0-31.0); MEAN CORPUSCULAR HGB CONC 32.5 G/DL (33.0-37.0); MEAN PLATELET VOLUME 9.1 FL (7.4-10.4); PLATELET COUNT 379 /CUMM (130-400); RBC DISTRIBUTION WIDTH 16.2 % (11.5-14.5); RED BLOOD CELL CT 3.86 /CUMM (4.20-5.40); WHITE BLOOD CELL COUNT 8.6 /CUMM (4.8-10.8)
[2016-07-31 08:08] VITALS: BP 154/84
--- NOTE | 2016-07-31 10:06 | Discharge Summary ---
Visit Information Visit Dates Admission Date: 07/25/16 Discharge Date: 08/30/16 Hospital Course Course Attending Physician: Dr. Mcdaniel Primary Care Physician: SHANAE GARCIA MD Other Care Providers: Dr. Quiñones Consulting Request: 1 Consulting Specialty: Infectious Disease Consulting Physician: Dr. Quiñones Reason for Consult: Discitis/Osteomyelitis Consulting Request: 2 Consulting Specialty: Neurosurgery Consulting Physician: Discitis/Osteomyelitis T7-8 Reason for Consult: Dr. Burt Consulting Request: 3 Consulting Specialty: Neurology Consulting Physician: Reason for Consult: Posterior Reversible Encephalopathy Syndrome Hospital Course: 76-year-old woman with past medical history of COPD on 3 L of home oxygen, stage II diastolic CHF, type 2 diabetes mellitus complicated with neuropathy and gastroparesis, hypothyroidism, arthritis, depression, hyperlipidemia, chronic renal failure, GERD, diverticulosis, brought by granddaughter from extended living facility for concerns of altered mental status on presentation. She was found to have discitis/osteomyelitis of the thoracic spine and underwent CT guided biopsy. She was transferred to [facility] on Aug 01 due to headaches and BP of 220/110 with MRI findings consistent with PRES. Upon arrival to the telemetry floor she developed seizures proceeded by right arm weakness and right eyelid droop. She was transferred to the ICU for further monitoring and BP control. The patient spent 3 days in the ICU before been transferred back to Telemetry where she spent two days before transfer back to General Medicine floor. Posterior Reversible Encephalopathy Syndrome (PRES) Presented with seizure, right arm weakness and right eyelid droop in the setting of elevated BP, with MRI consistent with PRES. Per neurology the patient was started on Keppra loading dose and then maintained on 750 twice a day with tight blood pressure control (with the goal of 140-160). EEG was normal, prolactin elevated. Doppler of the carotids did not reveal significant stenosis. Cardiology was consulted for further management of uncontrolled BP. Weakness in the right arm as well as right eyelid droop resolved over the 48h period. The patient had a repeat MRI which showed improvement of the PRES phenomenon. She also has a significant improvement on the PRES phenomena. Patient will need to follow with neurologist postdischarge . Antiseizure medication was stopped per neurology recommendations Uncontrolled BP Patient takes losartan and verapamil at home. After diagnosis of breast the patient's blood pressure was very high and remained to be very high. Her antihypertensive medication was finished with increase her amlodipine to 10 mg daily she was started on hydralazine 25 mg 3 times a day and Labetolol 100 mg twice a day. Subsequent days blood pressure was more controlled and remained fairly stable. She was reviewed by plasma center nurse Dr. Ayon during this admission. Patient will be discharged on these new medications for control of hypertension. Altered mental status on presentation the granddaughter reported that the patient mentation had deteriorated from baseline. We initially thought that this can be a result of infection however her UA was negative and did not had any active foci of infection. Patient mentation improved slightly throughout the course of the state to her baseline. We'll continue to avoid delirium inducing medications at some point the patient required a quality assurance monitor body because of unsafe behavior. Her behavior is much better and she is much more calm and cooperative now. She was seen by psychiatry and she is on Depakene 750 twice a day for mood stabilization. Diarrhea 2/2 C differential versus gastroenteritis is enteritis versus lactose intolerant. Patiently had recent history of antibiotic exposure which puts her at risk for development C. difficile. However on assessment of stool for C. difficile which was negative. Patient was not treated for C. difficile during the course of this admission. She had slightly increased WBC of 14.1 on admission however on the next day decreased swiftly to normal level of 10.3. The diarrhea resolved and the patient continued to have normal bowel movements. Acute on chronic kidney disease Patient who was admitted with creatinine of 2. [address] above her baseline of 1.1. She received IV hydration for fluid replacement and had progressive decrease of creatinine to her baseline values. During the course of the admission we have avoided nephrotoxic medications. CT scan of the abdomen showed features suggestive of a renal cyst and during the course of this admission the patient had renal ultrasound which showed the cyst clearly. The patient was reviewed by urologist Dr. Jiménez who determined that the cyst does not require more follow-up post discharge. Thoracic discitis at T7-T8. Evidence from imaging on admission shows discitis. The inflammatory markers ESR was raised at 112 and CRP was high at 4.1. Patient had an MRI which confirmed presence of discitis/osteomyelitis and because of this the patient had a CT- guided vertebral biopsy and sample was sent for microbiology and histology. There was no evidence of osteomyelitis from the bone biopsy. Patient was seen by ROLAND Quiñones MD who recommended a repeat of the bone biopsy and the family rejected the idea of repeating biopsy site in that the patient mentation has improved and does not warrant any further workup. Consider repeat an MRI in 3-4 weeks to look at the T7-T8 area and follow-up on the suspected questionable discitis Hypomagnesemia. On admission the patient had hypomagnesemia and through the course of admission and required multiple doses of magnesium. She was kept on low-dose maintenance magnesium and will discharge the patient on this medication to ensure adequate magnesium levels. Hypothyroidism. Thyroid function tests are within normal limits. We continued levothyroxine at her current dosage. There was an incidental finding of thyroid nodule. Patient has been given instruction to follow up with nuclear technologist for further workup of the thyroid nodule. Anxiety Patient has history of anxiety and is on Depakene and trazodone. Benzos were weaned off and she needs close outpatient psychiatry follow-up. Giant cell arteritis Patient has history of giant cell arteritis and is on 1.5 mg of prednisone on a every 48 hours as medication. We continued the medication during the course of the admission and patient is discharged home on the same dose. Complications: None Allergies: Coded Allergies: oxycodone (RASH 12/08/15) Disposition Summary Disposition Principal Diagnosis: Altered mental status, neurocognitive decline with delerium Posterior reversible encephalopathy syndrome Suspected Discitis Diarrhea Hypomagnesemia Additional Diagnosis: Giant cell arteritis with low dose steroid dependance Diabetes mellitus Hypertension Discharge Disposition: SNF Discharge Instructions General Discharge Information Code Status: Full Code Patient's Diet: Heart health diet Patient's Activity: As tolerated Follow-Up Instructions/Appts: 1. Please call and make a follow-up with your nuclear technologist for assessment of thyroid nodules. 2. Please don't neurology follow-up for follow-up of PRES 3. Patient needs a follow-up MRI in about 3-4 weeks to follow-up on the area of suspected discitis. 4. Patient needs close outpatient psychiatry/geropsychiatry follow-up. Medications at Discharge Discharge Medications: Stop taking the following medications: Losartan Potassium (Losartan Potassium) 100 MG TABLET ORAL DAILY Qty = 30 Verapamil HCl (Verapamil HCl) 120 MG TABLET ORAL DAILY Qty = 30 Sertraline HCl (Sertraline HCl) 50 MG TABLET ORAL DAILY Qty = 30 Insulin Detemir (Levemir) 100 UNIT/ML VIAL Inject into fatty tissue Every Morning Trazodone HCl (Trazodone HCl) 50 MG TABLET ORAL DAILY @8 AM Metformin HCl (Metformin HCl) 500 MG TABLET ORAL THREE TIMES DAILY Qty = 90 Pregabalin (Lyrica) 75 MG CAPSULE ORAL THREE TIMES DAILY Trazodone HCl (Trazodone HCl) 100 MG TABLET ORAL Every night Trazodone HCl (Trazodone HCl) 50 MG TABLET ORAL Q8H as needed for ANXIETY Sitagliptin Phosphate (Januvia) 100 MG TABLET ORAL DAILY Alprazolam (Xanax) 0.25 MG TABLET ORAL EVERY SIX HOURS NEEDED as needed for AGITATION AND ANXIETY Augmentin (Augmentin 500-125 Tablet) 500 MG-125 MG TABLET ORAL TWICE DAILY Qty = 20 Continue taking these medications: Insulin Aspart (Novolog) 100 UNIT/ML VIAL Units Inject into fatty tissue THREE TIMES DAILY Instructions: based on sliding scale Comments: Last Taken: 07/18/16 Time: 0800AM Omeprazole (Omeprazole) 20 MG CAPSULE.DR 1 Capsule ORAL DAILY Qty = 30 Comments: Last Taken: 07/18/16 Time: 9AM Levothyroxine Sodium (Levothyroxine Sodium) 25 MCG TABLET 1 Tablet ORAL DAILY BEFORE BREAKFAST Qty = 14 Comments: Last Taken: 07/18/16 Time: 630AM Montelukast Sodium (Montelukast Sodium) 10 MG TABLET 1 Tablet ORAL DAILY Qty = 30 Comments: Last Taken: 07/18/16 Time: 9AM Tiotropium [place] (Spiriva) 18 MCG CAP.W.DEV 1 Capsule Inhale through mouth DAILY Qty = 30 Comments: Last Taken: 07/18/16 Time: 9AM Cholecalciferol (Vitamin D3) (Vitamin D3) 400 UNIT TABLET 1 Tablet ORAL DAILY Comments: NOT GIVEN IN HOSPITAL Ferrous Sulfate (Ferrous Sulfate) 325 MG (65 MG IRON) TABLET 1 Tablet ORAL DAILY Comments: NOT GIVEN IN HOSPITAL Prednisone (Prednisone) 1 MG TABLET 1.5 Tablet ORAL Every other day Comments: Last Taken: 07/17/16 Time: 9AM Simvastatin (Zocor*) 10 MG TABLET 1 Tablet ORAL Every night Comments: Last Taken: 07/17/16 Time: 1640PM Acetaminophen (Acephen) 650 MG SUPP.RECT 1 SUPPOSITORY RECTALLY Q4H as needed for PAIN/TEMP>/100 Comments: NOT GIVEN IN HOSPITAL Acetaminophen (Athenol) 325 MG TABLET 2 Tablet ORAL Q4H as needed for PAIN/TEMP>/100 Comments: Last Taken: 07/18/16 Time: 630AM Na Phos,M-B/Na Phos,Di-Ba (Fleet Enema) 19 GRAM-7 GRAM/118 ML ENEMA 1 Enema RECTAL DAILY as needed for CONSTIPATION Comments: NOT GIVEN IN HOSPITAL Bisacodyl (Bisacodyl) 10 MG SUPP.RECT 1 Suppository RECTAL as needed for CONSTIPATION Comments: NOT GIVEN IN HOSPITAL Magnesium Hydroxide (Milk Of Magnesia) 400 MG/5 ML ORAL.SUSP 30 Milliliters ORAL DAILY as needed for CONSTIPATION Comments: NOT GIVEN IN HOSPITAL Meclizine HCl (Meclizine HCl) 12.5 MG TABLET 1 Tablet ORAL Q6H as needed for VERTIGO Comments: NOT GIVEN IN HOSPITAL Ipratropium/Albuterol Sulfate (Iprat-Albut 0.5-3(2.5) MG/3 Ml) 0.5 MG-3 MG (2.5 MG BASE)/3 ML AMPUL.NEB 3 Milliliters Inhale through mouth Q4H as needed for SOB/WHEEZE Comments: NOT GIVEN IN HOSPITAL Simethicone (Gas Relief) 125 MG TAB.CHEW 1 Tablet ORAL Q4-6H as needed for ABD BLOATING & PAIN Comments: NOT GIVEN IN HOSPITAL Glucagon,Human Recombinant (Glucagon Emergency Kit) 1 MG KIT 1 Milligram INTRAMUSC GIVE ONCE as needed for HYPOGLYCEMIA Comments: NOT GIVEN IN HOSPITAL Lactobacillus Acidophilus (Acidophilus) 1 EACH CAPSULE 1 Capsule ORAL TWICE DAILY Start taking the following new medications: Hydralazine HCl (Hydralazine HCl) 25 MG TABLET 25 Milligram ORAL THREE TIMES DAILY Days = 30 No Refills Labetalol HCl (Labetalol HCl) 100 MG TABLET 100 Milligram ORAL TWICE DAILY Days = 30 No Refills Amlodipine Besylate (Norvasc) 10 MG TABLET 10 Milligram ORAL DAILY Days = 30 No Refills Tramadol HCl (Tramadol HCl) 50 MG TABLET 50 Milligram ORAL EVERY SIX HOURS as needed for arthritis pain Qty = 10 No Refills Trazodone HCl (Trazodone HCl) 50 MG TABLET 50 Milligram ORAL AT BEDTIME NEEDED as needed for SLEEP Days = 30 No Refills Albuterol Sulfate (Albuterol Sulfate) 2.5 MG/3 ML (0.083 %) VIAL.NEB 3 Milliliters Inhale through mouth EVERY 4 HOURS NEEDED as needed for WHEEZING Qty = 30 No Refills Gabapentin (Gabapentin) 300 MG CAPSULE 300 Milligram ORAL THREE TIMES DAILY Qty = 30 No Refills Valproic Acid (As Sodium Salt) (Valproic Acid) 250 MG/5 ML (5 ML) SOLUTION 750 Milligram ORAL TWICE DAILY Qty = 30 No Refills Magnesium Chloride (Slow-Mag) 71.5 MG TABLET. 128 Milligram ORAL TWICE DAILY Qty = 30 No Refills Copies To: JOANNE ANDREWS,SHAUN; CHUCK ANDREWS,[place]IR[place]; LISA ANDREWS,CAMILLE Arteaga; MEG ANDREWS,ADITYA
--- NOTE | 2016-07-31 11:25 | NUR ---
NSG NOTE: PT REMAINS A/OX1-2 W/ CONFUSION; VSS, CONTINUES TO BE LETHARGIC; PT CONTINUES TO HAVE VERY POOR PO INTAKE; PT STATES SHE HAS A HEADACHE BUT DOES NOT WANT TYLENOL; PT DOWN FOR CT SCAN OF HEAD W/O CONTRAST AT THIS TIME; THIS RN PAGED HANIF #[phone] REGARDING PATIENT SITTER (DIRECTOR ELECTRICAL ENGINEERING); REPORT GIVEN TO AIDA TENORIO AND WILL CONT TO MONITOR;
--- NOTE | 2016-07-31 12:02 | CT SCAN REPORT ---
EXAMINATION: CT HEAD WITHOUT CONTRAST CLINICAL INFORMATION: Altered mental status COMPARISON: MRI of the brain from 08/07/2013. Head CT from 08/06/2013. TECHNIQUE: Contiguous axial imaging was performed from the skull base to vertex without intravenous administration of contrast. DLP: 529 mGy-cm. FINDINGS: There is equivocal asymmetric hypoattenuation involving the cortex and subcortical white matter in the right occipital lobe. A small evolving infarct in this locale would be hard to exclude. This was not present on the 2013 study. Some progressive hypoattenuation in the high left frontoparietal subcortical white matter also appears new from the prior. There is stable mild generalized volume loss with prominence of the ventricles, sulci, and extra-axial CSF spaces. There is scattered hypoattenuation in the periventricular, deep, and subcortical white matter. The posterior fossa appears grossly unremarkable. No extra-axial collections, significant mass effect, or shift of the normally midline structures. No acute osseous abnormalities. The imaged paranasal sinuses, mastoid air cells and middle ear cavities are clear. The temporal mid tibial joints articulate normally. No acute soft tissue abnormalities. There have been bilateral ocular lens extractions. The patient is edentulous. IMPRESSION: Vague hypoattenuation in the right lateral occipital lobe, new from 2013. New asymmetric hypoattenuation in the subcortical high left frontoparietal lobe. If there is concern for acute brain ischemia, further evaluation with MRI of the brain is suggested. Mild chronic microangiopathy and volume loss. No intracranial hemorrhage.
--- NOTE | 2016-07-31 12:56 | NUR ---
CT SCAN RESULTS NOTED. DR. CEBALLOS NOTIFIED. WILL CONT TO MONITOR.
--- NOTE | 2016-07-31 14:24 | NUR ---
PT REFUSING ALPS. DR. CEBALLOS NOTIFIED. PT EDUCATED OF RISKS.
--- NOTE | 2016-07-31 15:00 | NUR ---
LATE ENTRY: U/A NEEDED ON PT. RN PLACED HAT IN PT'S BSC. PT UP TO USE BEDSIDE COMMODE BUT VOIDED AND HAD SOME STOOL PASS IN HAT WELL. DR. CEBALLOS AWARE. TO CONT TO ATTEMPT URINE COLLECTION FOR U/A.
--- NOTE | 2016-07-31 15:36 | PN- Infect Dx ---
Subjective Subjective: Afebrile. She complains of eye pain and low back pain. Objective Last 24 Hrs of Vital Signs/I&O Vital Signs Date Time Temp Pulse Resp B/P Pulse O2 O2 Flow FiO2 Ox Delivery Rate 07/31 0915 73 154/84 07/31 0915 73 154/84 07/31 0808 97.9 73 20 154/84 92 Room Air 07/31 0800 92 Room Air 07/31 0534 160/80 07/30 2335 98.4 71 19 174/102 93 Room Air 07/30 1533 98.2 73 20 162/90 93 Intake & Output 07/31 1600 07/31 0800 07/31 0000 Intake Total 160 50 600 Output Total 400 Balance 160 50 200 Intake, IV 10 525 Intake, Oral 150 50 75 Output, Urine 400 Physical Exam Other Physical Findings: She is lethargic, but arousable, in no acute distress HEENT questionable photophobia Back no thoracic tenderness Results Last 24 Hours of Lab Results: Laboratory Tests 07/31 0710 Chemistry Sodium (137 - 145 mmol/L) 141 Potassium (3.5 - 5.1 mmol/L) 3.6 Chloride (98 - 107 mmol/L) 107 Carbon Dioxide (22 - 30 mmol/L) 25 Anion Gap (5 - 16) 10 BUN (7 - 17 mg/dL) 6 L Creatinine (0.5 - 1.0 mg/dL) 1.2 H Estimated GFR (>60 ml/min) 44 L BUN/Creatinine Ratio (7 - 25 %) 5.0 L Magnesium (1.6 - 2.3 mg/dL) 1.3 L Hematology CBC w Diff NO MAN DIFF REQ WBC (4.8 - 10.8 /CUMM) 8.6 RBC (4.20 - 5.40 /CUMM) 3.86 L Hgb (12.0 - 16.0 G/DL) 10.5 L Hct (37 - 47 %) 32.4 L MCV (81.0 - 99.0 FL) 84.0 MCH (27.0 - 31.0 PG) 27.3 RDW (11.5 - 14.5 %) 16.2 H Plt Count (130 - 400 /CUMM) 379 MPV (7.4 - 10.4 FL) 9.1 Gran % (42.2 - 75.2 %) 57.3 Lymphocytes % (20.5 - 51.1 %) 32.1 Monocytes % (1.7 - 9.3 %) 8.5 Eosinophils % (0 - 5 %) 1.5 Basophils % (0.0 - 2.0 %) 0.6 PUBS MCHC (33.0 - 37.0 G/DL) 32.5 L Immunology Absolute Granulocytes (1.4 - 6.5 /CUMM) 4.9 Absolute Lymphocytes (1.2 - 3.4 /CUMM) 2.8 Absolute Monocytes (0.10 - 0.60 /CUMM) 0.7 H Absolute Eosinophils (0.0 - 0.7 /CUMM) 0.1 Absolute Basophils (0.0 - 0.2 /CUMM) 0 Last 24 Hours of Rehan Results: Aspiration/biopsy of T7-T8 disc space/bone culture July 28 negative Blood cultures July 27 negative Blood cultures July 25 negative Recent Imaging Studies: CT of the head July 31 vague hypoattenuation in the right lateral occipital lobe, with new asymmetric hypoattenuation in the subcortical high left frontoparietal lobe Assessment/Plan Impression: Overall stable off antibiotics with temperatures and white blood cell count remaining normal. The etiology of the findings on MRI involving the T7-T8 disc space is unclear, with the recent aspirate negative and with no history of trauma or focus of infection elsewhere to suggest an infection; nevertheless the yield of CT-guided aspirates is often low and, therefore, a repeat procedure may be necessary. Empiric antibiotics cannot be recommended given the absence of a diagnosis. Suggestion: 1. Follow-up pathology from the recent aspirate 2. Repeat T7-T8 aspirate/biopsy by IR if pathology suggests osteomyelitis 3. Continue to follow off antibiotics pending above
[2016-07-31 16:14] VITALS: BP 172/84
--- NOTE | 2016-07-31 16:28 | NUR ---
PT OFF THE FLOOR FOR MRI. PENDING RETURN TO FLOOR.
--- NOTE | 2016-07-31 16:30 | NUR ---
PT OFF THE FLOOR TO MRI. PENDING RETURN TO FLOOR.
--- NOTE | 2016-07-31 17:26 | NUR ---
PT RETURNED TO FLOOR FROM MRI. PENDING RESULTS.
--- NOTE | 2016-07-31 18:07 | MRI REPORT ---
EXAMINATION: MR BRAIN WITHOUT AND WITH CONTRAST CLINICAL INFORMATION: Confusion and headaches with worsening pain. COMPARISON: Head CT from earlier in the afternoon on the same day. TECHNIQUE: Multiplanar, multisequence imaging of the brain was performed before and after the intravenous administration of 14 mL of OptiMARK. FINDINGS: There is patchy and confluent T2 hyperintense signal change in the subcortical white matter involving the left frontoparietal lobes at the vertex on the left side and also affecting the parietal-occipital lobes is asymmetric distribution from the high convexity to the level of the tentorium inferiorly. No mass effect is seen. No acute ischemic changes are identified on diffusion imaging. T2 shine through phenomenon is noted on diffusion imaging at sites of aforementioned signal abnormality. The ventricles are normal in size. No mass effect or midline shift is seen. Mild chronic white matter microangiopathic changes are noted with generalized parenchymal volume loss. No extra-axial fluid collections are seen. The brainstem and cerebellum are normal. Although significantly limited due to motion artifacts, no definite abnormal parenchymal or leptomeningeal enhancement is seen. A small chronic focus of presumed hemosiderin versus mineralization is again noted in the high left frontal lobe without change. The craniovertebral junction, marrow signal, and midline structures are normal. The major intracranial flow voids at the level of the hoh of Miguel are preserved. The dural venous sinus flow voids are maintained. There is a mild amount of mucosal thickening in the ethmoid sinuses. There is trace fluid in the mastoid air cells. IMPRESSION: Imaging findings suspected to be due to posterior reversible encephalopathy syndrome. Please note that postcontrast imaging is fairly motion degraded and limited for evaluation. Findings discussed with Dr. Asencio at 6:00 PM on 07/31/2016.
--- NOTE | 2016-07-31 20:01 | NUR ---
MRI RESULTS NOTED. MD FOX PAGED TO DISCUSS RESULTS. PENDING RETURN CALL. NIGHT COBY DE LOS SANTOS TO FOLLOW.
--- NOTE | 2016-07-31 20:08 | NUR ---
MD HARDING COVERING FOR MD FOX. RN NOTIFIED MD OF CONCERNS R/T PT AND MRI RESULTS. NIGHT RN TO FOLLOW.
[2016-07-31 21:24] VITALS: BP 196/88
[2016-07-31 22:15] VITALS: BP 186/78
--- NOTE | 2016-07-31 22:32 | NUR ---
PTS BLOOD PRESSURE HAS BEEN TRENDING UPWARD OVER THE LAST SEVERAL DAYS. UPON COMING ONTO SHIFT PTS BLOOD PRESSURE WAS 196/88. MD LI MADE AWARE. HYDRALAZINE WAS ORDERED AND GIVEN. BP WAS RECHECKED WITHIN 30 MIN AND WAS 186/78. MD LI CALLED AGAIN AND WILL BE COMING UP TO FLOOR TO ASSESS PT. PT PULLED HER IV OUT AND A NEW ONE WAS PLACED BY HYDROMETALLURGICAL ENGINEER. AFTER 1 HOUR PT WAS AGITATED AND PULLED IV OUT AGAIN. PT REFUSING TO ALLOW FOR A NEW IV TO BE PLACED. MD LI WAS MADE AWARE OF THIS EVENT AND WILL BE COMING UP TO FLOOR TO TALK TO PT. SAFETY MONITOR AT BEDSIDE, CALL العلي IN REACH, WILL CONTINUE TO MONITOR.
[2016-07-31 23:00] VITALS: BP 174/68
[2016-08-01 00:13] VITALS: BP 180/90
[2016-08-01 01:00] VITALS: BP 220/100
--- NOTE | 2016-08-01 03:08 | Event Note ---
Event Note Event Note: Patient was admitted for altered mental status, diarrhea, acute kidney injury. * Patient was transferred to telemetry from general medicine floor around 1:45 AM because of uncontrolled blood pressure, headache, MRI findings alarming for progressive reversible encephalopathy syndrome. Blood pressure was 170/90 at around 9:30pm and patient received 10 mg oral hydralazine. Blood pressures were still uncontrolled 220/110. So the patient was transferred to telemetry. * In the telemetry floor patient blood pressure was 212/102, received IV hydralazine 5 mg 1 dose at 2.05 AM. Rapid response was called at 2:15 AM. Patient had an episode of tonic-clonic seizure around 2:15 AM. Lasted for 1 minute. She was shaking her right arm. After that she couldn't lift her right arm and she couldn't open right eye. right side upgoing plantars. remaining neuro exam was normal. After 5 minutes patient had one more episode of tonic - clonic seizure which lasted for couple of minutes and she was shaking her right arm again. She did receive 1 mg of Ativan after the second episode. Blood pressure was 190/90. Stroke alert was anounced. Spoke with Dr. Silver neurologist supervisor education. He thought it could be todds paralysis and hypertensive encephalopathy. According to his recommendations, * Transfer to ICU * Recommended CAT scan head stat. Patient was taken for cat scan immediately. * Advised to start Keppra loading dose and maintenance dose if patient experiences next seizure. * lorazepam PRN FOR SEIZURES. * NO TPA. * Goal blood pressure - systolic bp 160. Attending Dr. Cheng was also there at that time and according to her recommendations, * Aspirin 300 mg per rectum if CT HEAD NEGATIVE FOR BLEED. * Atorvastatin dose was increased to 80 mg from 10 mg. * Nothing by mouth * Swallow evaluation * Echocardiogram * EEG * Cardiology consult for uncontrolled blood pressure. * pt/ot evaluation * fall/seizure precautions. Patient was transferred to ICU. * She had one more episode of seizure. * Received IV 1 mg Ativan. * patient was started on IV Keppra loading dose thousand milligrams IV once and maintenance dose Keppra 500 mg twice a day IV. * Given IV labetalol 10 mg once as BP was 212/104. * CAT scan head was negative, aspirin 300 mg per rectum was given. Patients granddaughter was notified immediately about all the events. General medicine resident spoke with granddaughter in detail and explained to her about the current situation. She was notified about the elevated blood pressure, seizure episode and MRI head findings. ICU resident spoke with granddaughter again in detail at 3.45 am in the morning. Will keep her updated.
--- NOTE | 2016-08-01 03:08 | CT SCAN REPORT ---
EXAMINATION: CT HEAD WITHOUT CONTRAST CLINICAL INFORMATION: Right arm weakness. Altered mental status. COMPARISON: 07/31/2016. TECHNIQUE: Contiguous helical images of the brain were obtained without IV contrast. Multiplanar reconstructions were performed. DLP: 1201 mGy-cm. FINDINGS: There are no pathologic extra-axial fluid collections. The lateral, third, fourth ventricles are mildly prominent, but stable, age-appropriate and concordant with the appearance of the sulci. There is no evidence for acute intraparenchymal hemorrhage or infarct. There is periventricular low-attenuation present indicative of small vessel disease. There is neither mass nor mass effect. There is no shift of midline structures. The paranasal sinuses and mastoid air cells are clear. There are no osseous lesions. IMPRESSION: No evidence for acute intracranial injury. Stable age-appropriate appearance of the brain.
--- NOTE | 2016-08-01 03:17 | NUR ---
PT TRANSFERRED FROM [facility] FOR HTN, ABOUT 10 MINUTES AFTER ARRIVAL, RAPID RESPONSE CALLED WHEN PT HAD SEIZURE LIKE ACTIVITY, WHICH LASTED FOR ABOUT ONE MINUTE. PT UNABLE TO OPEN EYES, TURN HEAD TO THE LEFT OR MOVE RIGHT ARM. SECOND SEIZURE WITNESSED DURING RAPID RESPONSE, IV ATIVAN GIVEN WITH RELIEF OF SYMPTOMS. PT TAKEN FOR CT OF HEAD STAT VIA STRETCHER AND BROUGHT TO ICU ROOM 108. REPORT GIVEN TO COBY VALENZUELA.
[2016-08-01 04:53] LABS: ABSOLUTE BASOPHIL COUNT 0 /CUMM (0.0-0.2); ABSOLUTE EOSINOPHIL COUNT 0.1 /CUMM (0.0-0.7); ABSOLUTE GRANULOCYTE CT 5.4 /CUMM (1.4-6.5); ABSOLUTE LYMPH COUNT 1.9 /CUMM (1.2-3.4); ABSOLUTE MONOCYTE COUNT 0.7 /CUMM (0.10-0.60); BASOPHIL % 0.6 % (0.0-2.0); GRANULOCYTE % 66.5 % (42.2-75.2); HEMATOCRIT 29.9 % (37-47); MEAN CORPUSCULAR HGB 27.4 PG (27.0-31.0); MEAN CORPUSCULAR HGB CONC 32.8 G/DL (33.0-37.0); MEAN CORPUSCULAR VOLUME 83.8 FL (81.0-99.0); PLATELET COUNT 349 /CUMM (130-400); RBC DISTRIBUTION WIDTH 16.6 % (11.5-14.5); RED BLOOD CELL CT 3.57 /CUMM (4.20-5.40); WHITE BLOOD CELL COUNT 8.1 /CUMM (4.8-10.8)
--- NOTE | 2016-08-01 05:04 | NUR ---
@0252 PT ARRIVED IN UNIT S/P RR ON 1NORTH FROM CT SCAN OF HEAD TO R/O STROKE. PT ARRIVES ALERT TO PERSON AND PLACE OFF ON TIME, PT MOVING ALL EXTREMETIES EXCEPT RIGHT ARM, NIH SCALE 13 MD AWARE. BP ON ARRIVAL 228/108 HR SR 80'S, PT BEGAN TO HAVE SLIGHT TWITCHING WHICH BECAME MORE PRONOUNCED MORE LIKE SEIZURE ACTIVITY BUT SPEAKING THROUGHOUT "HELP ME STOP SHAKING", MD ODOM AND AIDEE PAGED AND TO BEDSIDE, ATIVAN 1MG IV GIVEN WITH GOOD EFFECT. DISCUSSED WITH NEUROLOGIST PET TRAINER DR. BRASHER, SEE EMAR FOR MEDS GIVEN. PT WAS INCONTINENT OF URINE AND PERIAREA VERY EXCORIATED. PT HAS SAFETY MONITOR FOR AGITATION AND ATTEMPTING TO GET OUT OF BED. PT TRANSFERED SAFELY.
--- NOTE | 2016-08-01 05:17 | NUR ---
PT BECOMING MORE AGITATED ATTEMPTING TO GET OUT OF BED, "I HAVE TO GET OUT OF BED", EXPLAINED MULTIPLE TIMES TO PATIENT THAT AT THIS TIME IT IS NOT SAFE WITH RECENT EVENTS. PT VERY DISGRUNTLED SWEARING AT STAFF. PLACED PT ON BEDPAN, DID NOT GO, THEN BECAME INCONTINENT OF BOTH URINE AND STOOL, CLEANSED AND MOUTH CARE DONE, DENTURES BRUSHED AND PLACED BACK IN. PT CONTINUES TO ATTEMPT TO GET OUT OF BED, NOTIFIED MD HOSKINS, ATIVAN 1MG IV ORDERED WITH MINIMAL EFFECT.
--- NOTE | 2016-08-01 06:13 | PN- Housestaff ---
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 after experiencing altered mental status change. Patient was recently discharged from [facility] where she was been treated for UTI. 08/01/2016. Patient conitnued to be somnolent and complaining of a headache. CT Scan revealed no intracranial acute pathology, we have ordered an MRI for additional guidance regarding patients delierium Culture results still pending. Pathology of the bone (cytology) ordered and are expected on 08/01/2016. We are continuing to watch the patient off ABX. 07/30/2016: We scheduled the patient for an abdominal ultrasound. This showed no acute pathology and ruled out any intra-abdominal acute changes. Patient's LFTs were also within normal limits. Spoke with the granddaughter extensively this afternoon who was concerned that the patient's grandmother continues to be somnolent (She is also concerned about disposition plans and is very hesitant about sending the patient back to [place]. ) Assured her that we waiting for culture and sensitivities after CT-guided biopsy prior to initiating any antibiotics. The patient was able to tolerate minor by mouth intake we have discontinued the patient's IV fluids. 07/29: Patient went in for CT-guided biopsy yesterday she tolerated the procedure well. We'll currently waiting for results and biopsy cultures to adequately guide appropriate management and antibiotic choice. 07/28: After extensive consultation the granddaughter all the patient Gerry was agreeable to the patient going for CT-guided biopsy under IR. The patient is currently at IR undergoing biopsy. Once we have the results of this biopsy and culture we will be able to adequately diagnose and treat based on appropriate antibiotic choices for questionable osteomyelitis. ID was consulted this morning states that it would be recommended that we have biopsy results prior to initiating antibiotic therapy. Given the patient was hypertensive overnight we will also continue losartan from 07/29/2016. If the patient is hypertensive overnight losartan can be started this evening. 07/27: Pt has inconsistent pain presentation, cannot describe her pain. She just complains of pain everywhere including the back, right leg, left leg, and abdomen. Called for orthopedic consult. Dr Crum called back and was recommending neurosurgery involvement and biopsy. Discussed with neurosurgeon, whom reccommended CT guided biopsy, repeat BCX2, getting ESR, have ID on board, and hold abx pending cultures. We also considered IR for biopsy. However pt adamently refused biopsy at this point. Will try again tomorrow and will discuss with her daughter as well. Currently has sld inclusion teacher due to agitation and she keeps trying to get out of bed, then get back into bed. SHe appears very uncomfortable no matter what position she is in. She keeps saying she is cold. She had 5 episodes of green diarrhea since 7am, each time smaller bm than before. c diff negative. Update 1230pm: pt now seems more agreeable to MRI and CT guided biopsy if necessary. I have put in the order for tomorrow, and will keep her NPO past midnight in anticipation of sedation need during procedure. Will give her IVF while she is NPO if she needs it. #Diarrhea 2/2 C differential versus gastroenteritis is enteritis versus lactose intolerant. Patiently was receiving on an antibiotic. We will discontinue any antibiotics and check for C. difficile. In the event that significant as needed would repeat stool cultures. Simethicone for flatulence #Acute on chronic kidney disease stage IIIa And creatinine 2.3 (baseline 1.1), a CT PE renal secondary to dehydration. . Hold arm and metformin for 2 days asleep kidney to lactic acidosis. Reassess in the a.m. once creatinine function with a return to baseline. Avoid any nephrotoxic medications. Evidence from renal ultrasound did show simple cysts. Urologist consult has been obtained and Dr. Jiménez will see the patient in the a.m. #Thoracic discitis at T7-T8. Evidence from imaging on admission shows discitis. We will order a MRI to rule out any ostial myelitis. In the event that ostial myelitis is indeed found patient will need intervention by IR for aspirate. Monitor inflammatory markets markers ESR and CRP to rule out any inflammatory conditions. #Leukocytosis. Patient is chronically on prednisone 1.5 mg this is likely contribution into leukocytosis picture. We'll continue to monitor for any evidence in signs of infection. Patient currently is afebrile CBC in a.m. #Hypomagnesemia. We will repeat magnesium in AM. Magnesium was repleted this morning. We will check levels tomorrow. #Temporal arteirtis Continue steroids. 1.5 mg prednisone. #Multilobular left thyroid enlargement. Thyroid function tests are within normal limits. We will continue levothyroxine at the current dosage. Patient can follow up outpatient on discharge for further management of the thyroid lobe enlargement. #DVT prophylaxis Heparin subcutaneous #Diet Consistent carbohydrate #Code Full code Consulting Request: Consulting Specialty: Neurosurgery Consulting Physician: Discitis/Osteomyelitis T7-8 Reason for Consult: Dr. Burt
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
[2016-08-01 08:00] VITALS: BP 120/62
--- NOTE | 2016-08-01 12:02 | ULTRASOUND REPORT ---
EXAMINATION: DUPLEX BILATERAL CAROTID ULTRASOUND CLINICAL INFORMATION: Right upper extremity weakness. COMPARISON: None. TECHNIQUE: Duplex bilateral carotid US was performed using real-time ultrasound and Doppler techniques (integrating B-mode 2D vascular images, Doppler spectral analysis and color flow Doppler imaging). These techniques were utilized to interrogate the extracranial carotid and vertebral arteries bilaterally. The degree of stenosis is based off criteria similar to NASCET. Note: Very limited exam. The patient requested to terminate exam midway through evaluation of the right carotid system. Limited evaluation of the left carotid system, due to patient's inability to tolerate the exam. FINDINGS: Limited evaluation demonstrates no clear plaque is identified at the carotid bifurcations or within the internal carotid arteries. Within the limits of the exam, velocities appear to be within normal limits. The vertebral arteries were not sufficiently evaluated. IMPRESSION: Limited exam due to patient's inability to tolerate the procedure. No clear hemodynamically significant stenoses are identified on this limited exam. Recommend repeat exam when patient is able to tolerate the procedure.
--- NOTE | 2016-08-01 14:09 | Event Note ---
Event Note Event Note: I talked to the patient's granddaughter on the phone this morning (Gerry [phone]), she is the power of state attorney. I updated her about the events overnight and patient's current status. She initially asked us to transfer the patient to [facility]. Dr. Bailey contacted [facility], however they did not have an available bed in the ICU today. I informed Gerry about this and offered if she wanted us to call [facility] for a transfer to their ICU. Also updated her about the patient's status (BP, mental status and neurologic findings). She agreed to keep the patient at [facility] for now. (Per the trimming caser, estimated cost for the patient in case of transfer according to the family's decision would be $1092 - for the ambulance from [facility] to [facility]). Please call Gerry in case of any changes in the patient's mental status or any event. Also, Dr. Hopson saw the patient this evening and talked to Gerry regarding her condition (PRES syndrome, causes and prognosis for the recovery of neurologic symptoms).
--- NOTE | 2016-08-01 14:32 | PN- Infect Dx ---
Subjective Subjective: Afebrile. Recent events noted with MRI findings suggestive of PRES and with seizure activity prompting transfer to the ICU. She is currently sedated on Ativan. Objective Last 24 Hrs of Vital Signs/I&O Vital Signs Date Time Temp Pulse Resp B/P Pulse O2 O2 Flow FiO2 Ox Delivery Rate 08/01 1052 74 181/66 08/01 1052 75 181/66 08/01 0400 96 Nasal 2.0L Cannula 08/01 0327 74 197/92 08/01 0205 72 212/102 08/01 0100 84 220/100 08/01 0013 98.5 81 20 180/90 93 Room Air 07/31 2300 98.5 52 20 174/68 91 Room Air 07/31 2215 186/78 07/31 2128 196/88 07/31 2124 196/88 07/31 1614 98.1 73 18 172/84 91 Room Air Intake & Output 08/01 1600 08/01 0800 08/01 0000 Intake Total 140 120 Output Total Balance 140 120 Intake, IV 140 Intake, Oral 0 120 Number 1 2 Bowel Movements Physical Exam Other Physical Findings: She is minimally responsive on sedation Neck is supple Lungs are clear Neuro right arm flaccid Results Last 24 Hours of Lab Results: Laboratory Tests 08/01 08/01 0600 0407 Chemistry Sodium (137 - 145 mmol/L) 143 Potassium (3.5 - 5.1 mmol/L) 3.2 L Chloride (98 - 107 mmol/L) 107 Carbon Dioxide (22 - 30 mmol/L) 24 Anion Gap (5 - 16) 12 BUN (7 - 17 mg/dL) 8 Creatinine (0.5 - 1.0 mg/dL) 1.2 H Estimated GFR (>60 ml/min) 44 L Glucose (65 - 99 mg/dL) 126 H Calcium (8.4 - 10.2 mg/dL) 7.9 L Phosphorus (2.5 - 4.5 mg/dL) 4.9 H Magnesium (1.6 - 2.3 mg/dL) Cancelled 1.2 L Total Bilirubin (0.2 - 1.3 mg/dL) 0.4 AST (14 - 36 U/L) 24 ALT (9 - 52 U/L) 31 Albumin (3.5 - 5.0 g/dL) 2.7 L Prolactin (3.0 - 18.6 ng/mL) 22.3 H Hematology CBC w Diff NO MAN DIFF REQ WBC (4.8 - 10.8 /CUMM) 8.1 RBC (4.20 - 5.40 /CUMM) 3.57 L Hgb (12.0 - 16.0 G/DL) 9.8 L Hct (37 - 47 %) 29.9 L MCV (81.0 - 99.0 FL) 83.8 MCH (27.0 - 31.0 PG) 27.4 RDW (11.5 - 14.5 %) 16.6 H Plt Count (130 - 400 /CUMM) 349 MPV (7.4 - 10.4 FL) 9.0 Gran % (42.2 - 75.2 %) 66.5 Lymphocytes % (20.5 - 51.1 %) 23.8 Monocytes % (1.7 - 9.3 %) 8.1 Eosinophils % (0 - 5 %) 1.0 Basophils % (0.0 - 2.0 %) 0.6 PUBS MCHC (33.0 - 37.0 G/DL) 32.8 L Immunology Absolute Granulocytes (1.4 - 6.5 /CUMM) 5.4 Absolute Lymphocytes (1.2 - 3.4 /CUMM) 1.9 Absolute Monocytes (0.10 - 0.60 /CUMM) 0.7 H Absolute Eosinophils (0.0 - 0.7 /CUMM) 0.1 Absolute Basophils (0.0 - 0.2 /CUMM) 0 Last 24 Hours of Rehan Results: No recent cultures Recent Imaging Studies: MRI of the head July 31 reveals findings consistent with posterior reversible encephalopathy syndrome (PRES) Assessment/Plan Impression: Recent events noted with hypertension and seizures and with MRI suggestive of posterior reversible encephalopathy syndrome. She remains afebrile off antibiotics with temperatures and white blood cell count remaining normal, status post aspiration of the T7-T8 disc space for MRI findings suggestive of discitis/osteomyelitis, with culture negative. Suggestion: 1. Further management of PRES per Medicine 2. Follow-up pathology from the recent aspirate 3. Will need to consider repeat T7-T8 aspirate/biopsy by IR 4. Continue to follow off antibiotics
--- NOTE | 2016-08-01 15:49 | RADIOLOGY REPORT ---
EXAMINATION: XR SHOULDER, RIGHT CLINICAL INFORMATION: Bruising and pain. COMPARISON: CXR from 07/14/2016 TECHNIQUE: Right shoulder, 3 views FINDINGS: Large body habitus. The acromioclavicular joint measures up to 1.2 cm wide, and it was widened on the chest radiograph of 07/14/2016, as well. Therefore, this may lack significance for the current presentation and could be a sign of a more remote acromiocoracoid sprain. The coracoclavicular and acromiohumeral distances are normal. The humeral head is well-positioned over the intact glenoid. Mild osteophyte formation of the glenohumeral joint. No acute fracture. IMPRESSION: 1. Mild osteoarthritis of the glenohumeral joint. 2. Acromioclavicular joint space measures up to 1.2 cm wide, and it was also widened on the recent chest radiograph of 07/14/2016, which raises the question regarding its significance on the current presentation.
[2016-08-01 16:00] VITALS: BP 160/80
--- NOTE | 2016-08-01 16:17 | Cons- Neurology ---
General Information and HPI Consulting Request Date of Consult: 08/01/16 Requested By: BELA RODRIGEZ MD History of Present Illness: 75-year-old female who yesterday seizure and right sided weakness Patient was originally admitted to [facility] 14 of July due to mental status change secondary to UTI She was readmitted 111 with mental status change Is also a persistent diarrhea. The hospital she developed uncontrolled blood pressure complained of headache She then was observed to have a number of episodes of seizure and right upper extremity shaking Was elevated blood pressure systolic of 190 She was transferred to ICU for improved blood pressure control; she had one subsequent episode of seizure and was loaded with intravenous is compatible with breast syndrome levetiracetam Allergies/Medications Allergies: Coded Allergies: oxycodone (RASH 12/08/15) Home Med List: Acetaminophen (Acephen) 650 MG SUPP.RECT 1 SUPP LA Q4H PRN PAIN/TEMP>/100 ( Reported) Acetaminophen (Athenol) 325 MG TABLET 2 TAB PO Q4H PRN PAIN/TEMP>/100 ( Reported) Alprazolam (Xanax) 0.25 MG TABLET 1 TAB PO Q6P PRN AGITATION AND ANXIETY ( Reported) Augmentin (Augmentin 500-125 Tablet) 500 MG-125 MG TABLET 1 TAB PO BID urine infection Bisacodyl 10 MG SUPP.RECT 1 SUP RC PRN CONSTIPATION (Reported) Cholecalciferol (Vitamin D3) (Vitamin D3) 400 UNIT TABLET 1 TAB PO DAILY SUPPLEMENT (Reported) Ferrous Sulfate 325 MG (65 MG IRON) TABLET 1 TAB PO DAILY SUPPLEMENT ( Reported) Glucagon,Human Recombinant (Glucagon Emergency Kit) 1 MG KIT 1 MG IM ONCE PRN HYPOGLYCEMIA (Reported) Insulin Aspart (Novolog) 100 UNIT/ML VIAL DM (Reported) based on sliding scale Insulin Detemir (Levemir) 100 UNIT/ML VIAL 30 UNITS SC QAM DM (Reported) Ipratropium/Albuterol Sulfate (Iprat-Albut 0.5-3(2.5) MG/3 Ml) 0.5 MG-3 MG (2.5 MG BASE)/3 ML AMPUL.NEB 3 ML INH Q4H PRN SOB/WHEEZE (Reported) Lactobacillus Acidophilus (Acidophilus) 1 EACH CAPSULE 1 CAP PO BID GI ( Reported) Levothyroxine Sodium 25 MCG TABLET 1 TAB PO DAILY AC THYROID (Reported) Losartan Potassium 100 MG TABLET 1 TAB PO DAILY UNKNOWN (Reported) Magnesium Hydroxide (Milk Of Magnesia) 400 MG/5 ML ORAL.SUSP 30 ML PO DAILY PRN CONSTIPATION (Reported) Meclizine HCl 12.5 MG TABLET 1 TAB PO Q6H PRN VERTIGO (Reported) Metformin HCl 500 MG TABLET 1 TAB PO TID DM (Reported) Montelukast Sodium 10 MG TABLET 1 TAB PO DAILY UNKNOWN (Reported) Na Phos,M-B/Na Phos,Di-Ba (Fleet Enema) 19 GRAM-7 GRAM/118 ML ENEMA 1 E RC DAILY PRN CONSTIPATION (Reported) Omeprazole 20 MG CAPSULE.DR 1 CAP PO DAILY GI (Reported) Prednisone 1 MG TABLET 1.5 TAB PO EOD STEROID (Reported) Pregabalin (Lyrica) 75 MG CAPSULE 1 CAP PO TID NEUROPATHY (Reported) Sertraline HCl 50 MG TABLET 1 TAB PO DAILY MENTAL HEALTH (Reported) Simethicone (Gas Relief) 125 MG TAB.CHEW 1 TAB PO Q4-6H PRN ABD BLOATING & PAIN (Reported) Simvastatin (Zocor*) 10 MG TABLET 1 TAB PO QPM CHOLESTEROL (Reported) Sitagliptin Phosphate (Januvia) 100 MG TABLET 1 TAB PO DAILY DIABETES ( Reported) Tiotropium Jolley (Spiriva) 18 MCG CAP.W.DEV 1 CAP INH DAILY COPD (Reported) Trazodone HCl 50 MG TABLET 1 TAB PO 0800 UNKNOWN (Reported) Trazodone HCl 100 MG TABLET 1 TAB PO QPM UNKNOWN (Reported) Trazodone HCl 50 MG TABLET 12.5 MG PO Q8H PRN ANXIETY (Reported) Verapamil HCl 120 MG TABLET 1 TAB PO DAILY UNKNOWN (Reported) Current Medications: Current Medications Sig/Desiree Start time Last Medication Dose Route Stop Time Status Admin Acetaminophen 1,000 MG ONCE ONE 08/01 0645 VT 08/01 N/A 1 UNIT IV 08/01 0659 0638 Acetaminophen 650 MG .STK-MED ONE 08/01 0209 DC PO 08/01 0210 Acetaminophen 650 MG .STK-MED ONE 07/31 2130 DC PO 07/31 2131 Acetaminophen 650 MG .STK-MED ONE 07/31 174 DC PO 07/31 174 Acetaminophen 650 MG Q6P PRN 07/25 2015 AC 07/31 PO 174 Alprazolam 0.25 MG Q6P PRN 07/25 2345 AC 07/28 PO 08/01 2344 1513 Aspirin 300 MG ONCE ONE 08/01 0330 DC 08/01 LA 08/01 0331 0426 Atorvastatin Calcium 80 MG 1700 08/01 1700 AC PO Atorvastatin Calcium 10 MG 1700 07/26 1700 DC 07/31 PO 1747 Cholecalciferol 400 IU DAILY 07/26 1000 AC 08/01 PO 1153 Ferrous Sulfate 325 MG DAILY 07/26 1000 AC 08/01 PO 1153 Heparin Sodium 5,000 UNIT Q8 07/25 2200 AC 08/01 (Porcine) SC 1357 Hydralazine HCl 5 MG ONCE ONE 08/01 0200 DC 08/01 IV 08/01 0201 0205 Hydralazine HCl 10 MG ONCE ONE 07/315 DC 07/31 PO 07/31 Insulin Aspart 0 TIDAC 07/29 0800 AC 07/31 SC 1321 Insulin Aspart 0 AT BEDTIME 07/28 2200 AC SC Ketorolac 15 MG ONCE ONE 08/01 1245 DC 08/01 Tromethamine IV 08/01 1246 1301 Labetalol HCl 10 MG ONCE ONE 08/01 0315 DC 08/01 IV 08/01 0316 0327 Levetiracetam 500 MG BID 08/01 1000 AC 08/01 Sodium Chloride 100 ML IV 1054 Levetiracetam 1,000 MG ONCE ONE 08/01 0330 CAN IV 08/01 0331 Levetiracetam 1,000 MG ONCE ONE 08/01 0330 DC 08/01 N/A 1 UNIT IV 08/01 0343 0327 Levothyroxine Sodium 0.025 MG DAILY AC 07/26 0700 AC 07/31 PO 0634 Lorazepam 1 MG ONCE ONE 08/01 0515 DC 08/01 IV 08/01 0516 0502 Lorazepam 1 MG Q6-PRN PRN 08/01 0245 AC 08/01 IV 0310 Lorazepam 1 MG ONCE ONE 08/01 0230 DC 08/01 IV 08/01 0231 0231 Losartan Potassium 100 MG DAILY 07/29 1000 AC 08/01 PO 1052 Magnesium Chloride 64 MG DAILY 07/31 1115 AC 07/31 PO 1322 Magnesium Sulfate 1 GM Q2H 08/01 0815 DC 08/01 Dextrose/Water 100 ML IV 08/01 1214 1357 Magnesium Sulfate 1 GM ONCE ONE 08/01 0800 DC 08/01 N/A 1 UNIT IV 08/01 0959 1040 Magnesium Sulfate 2 GM ONCE ONE 08/01 0800 CAN Dextrose/Water 250 ML IV 08/01 1159 Magnesium Sulfate 1 GM ONCE ONE 08/01 0600 DC 08/01 N/A 1 UNIT IV 08/01 0759 0845 Montelukast Sodium 10 MG DAILY 07/26 1000 AC 08/01 PO 1051 Omeprazole 20 MG DAILY AC 07/26 0700 AC 07/31 PO 0634 Potassium Chloride 10 MEQ Q1H 08/01 0745 DC 08/01 IV 08/01 0846 1248 Potassium Chloride 10 MEQ Q1H 08/01 0545 DC 08/01 IV 08/01 0646 0828 Prednisone 1.5 MG Q48 07/31 1000 AC 07/31 PO 0915 Pregabalin 75 MG TID 08/01 1600 CAN PO Pregabalin 25 MG TID 07/25 2346 DC 08/01 PO 1051 Sertraline HCl 50 MG DAILY 07/26 1000 AC 08/01 PO 1051 Simethicone 80 MG Q6P PRN 07/30 1339 AC 07/31 PO 1537 Tramadol HCl 50 MG Q6 PRN 08/01 1230 DC PO Verapamil HCl 120 MG DAILY 07/26 1000 AC 08/01 PO 1052 Vitamin A/Vitamin D 1 LORENA BID PRN 07/25 2345 AC 08/01 TOP 1052 Zinc Oxide 1 LORENA Q8 08/01 2200 AC TOP Zinc Oxide 1 LORENA BID PRN 08/01 1512 AC TOP Zinc Oxide 1 LORENA BID 08/01 1434 DC TOP Zinc Oxide 1 LORENA BID 07/25 2335 DC 08/01 TOP 1054 Review of Systems Review of Systems: Patient complains of low back pain, chest wall pain, mild SOB no vomitting, swelling denies focal weakness walks with cane no diplopia or vertigo\other systems not reliable Past History Travel History Traveled to [place] past 21 day No Medical History Neurological: dementia, dizziness, vertigo, DEMENTIA-MILD EENT: allergies Cardiovascular: CHF, hypertension Respiratory: COPD, emphysema Gastrointestinal: GERD, lactose intolerance Hepatic: NONE Renal: chronic kidney disease, UTI Musculoskeletal: osteoporosis, ARTHRITIS polymyalgia rheumatica Psychiatric: anxiety, bipolar disease, depression Endocrine: diabetes, hypothyroidism, obesity, B12 deficiency Blood Disorders: NONE Cancer(s): NONE 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 FATHER (CAD). AUNT (Stroke). DAUGHTER ( from drug overdose). Psychosocial History Where Do You Live? Extended Care Facility Services at Home: Nursing Smoking Status: Former Smoker ETOH Use: denies use Functional Ability ADLs Needs Assist: dressing, eating, toileting, bathing. Ambulation: wheelchair Exam & Diagnostic Data Vital Signs and I&O Vital Signs Date Time Temp Pulse Resp B/P Pulse O2 O2 Flow FiO2 Ox Delivery Rate 08/01 1052 74 181/66 08/01 1052 75 181/66 08/01 0400 96 Nasal 2.0L Cannula 08/01 0327 74 197/92 08/01 0205 72 212/102 08/01 0100 84 220/100 08/01 0013 98.5 81 20 180/90 93 Room Air 07/31 2300 98.5 52 20 174/68 91 Room Air 07/31 2215 186/78 07/31 2128 196/88 07/31 2124 196/88 07/31 1614 98.1 73 18 172/84 91 Room Air Intake & Output 08/01 1600 08/01 0800 08/01 0000 Intake Total 140 120 Output Total Balance 140 120 Intake, IV 140 Intake, Oral 0 120 Number 1 2 Bowel Movements awake, mildly uncomfortable initially states she is in [place]; easily reoriended does not know age recall poor EOM: gaze preference to right, pupils reactive equall, morgan: mild neglect to right, no facial weakness, fundi difficult to evaluate, tongue, palate normal; hearing grossly intact Strenght/tone normal, not move rt upper extremity well intact sensation bilat\DTR 1+ bilat coord grossly intact on bed rest Last 48 Hours of Lab Results: Laboratory Tests 08/01 08/01 08/01 1400 0600 0407 Chemistry Sodium (137 - 145 mmol/L) 143 Potassium (3.5 - 5.1 mmol/L) 3.2 L Chloride (98 - 107 mmol/L) 107 Carbon Dioxide (22 - 30 mmol/L) 24 Anion Gap (5 - 16) 12 BUN (7 - 17 mg/dL) 8 Creatinine (0.5 - 1.0 mg/dL) 1.2 H Estimated GFR (>60 ml/min) 44 L Glucose (65 - 99 mg/dL) 126 H Calcium (8.4 - 10.2 mg/dL) 7.9 L Phosphorus (2.5 - 4.5 mg/dL) 4.9 H Magnesium (1.6 - 2.3 mg/dL) Cancelled Cancelled 1.2 L Total Bilirubin (0.2 - 1.3 mg/dL) 0.4 AST (14 - 36 U/L) 24 ALT (9 - 52 U/L) 31 Albumin (3.5 - 5.0 g/dL) 2.7 L Prolactin (3.0 - 18.6 ng/mL) 22.3 H Hematology CBC w Diff NO MAN DIFF REQ WBC (4.8 - 10.8 /CUMM) 8.1 RBC (4.20 - 5.40 /CUMM) 3.57 L Hgb (12.0 - 16.0 G/DL) 9.8 L Hct (37 - 47 %) 29.9 L MCV (81.0 - 99.0 FL) 83.8 MCH (27.0 - 31.0 PG) 27.4 RDW (11.5 - 14.5 %) 16.6 H Plt Count (130 - 400 /CUMM) 349 MPV (7.4 - 10.4 FL) 9.0 Gran % (42.2 - 75.2 %) 66.5 Lymphocytes % (20.5 - 51.1 %) 23.8 Monocytes % (1.7 - 9.3 %) 8.1 Eosinophils % (0 - 5 %) 1.0 Basophils % (0.0 - 2.0 %) 0.6 PUBS MCHC (33.0 - 37.0 G/DL) 32.8 L Immunology Absolute Granulocytes (1.4 - 6.5 /CUMM) 5.4 Absolute Lymphocytes (1.2 - 3.4 /CUMM) 1.9 Absolute Monocytes (0.10 - 0.60 /CUMM) 0.7 H Absolute Eosinophils (0.0 - 0.7 /CUMM) 0.1 Absolute Basophils (0.0 - 0.2 /CUMM) 0 07/31 07/31 1013 0710 Chemistry Sodium (137 - 145 mmol/L) 141 Potassium (3.5 - 5.1 mmol/L) 3.6 Chloride (98 - 107 mmol/L) 107 Carbon Dioxide (22 - 30 mmol/L) 25 Anion Gap (5 - 16) 10 BUN (7 - 17 mg/dL) 6 L Creatinine (0.5 - 1.0 mg/dL) 1.2 H Estimated GFR (>60 ml/min) 44 L BUN/Creatinine Ratio (7 - 25 %) 5.0 L Magnesium (1.6 - 2.3 mg/dL) 1.3 L Hematology CBC w Diff NO MAN DIFF REQ WBC (4.8 - 10.8 /CUMM) 8.6 RBC (4.20 - 5.40 /CUMM) 3.86 L Hgb (12.0 - 16.0 G/DL) 10.5 L Hct (37 - 47 %) 32.4 L MCV (81.0 - 99.0 FL) 84.0 MCH (27.0 - 31.0 PG) 27.3 RDW (11.5 - 14.5 %) 16.2 H Plt Count (130 - 400 /CUMM) 379 MPV (7.4 - 10.4 FL) 9.1 Gran % (42.2 - 75.2 %) 57.3 Lymphocytes % (20.5 - 51.1 %) 32.1 Monocytes % (1.7 - 9.3 %) 8.5 Eosinophils % (0 - 5 %) 1.5 Basophils % (0.0 - 2.0 %) 0.6 PUBS MCHC (33.0 - 37.0 G/DL) 32.5 L Immunology Absolute Granulocytes (1.4 - 6.5 /CUMM) 4.9 Absolute Lymphocytes (1.2 - 3.4 /CUMM) 2.8 Absolute Monocytes (0.10 - 0.60 /CUMM) 0.7 H Absolute Eosinophils (0.0 - 0.7 /CUMM) 0.1 Absolute Basophils (0.0 - 0.2 /CUMM) 0 Urines Urine Color Cancelled Urine Clarity Cancelled Urine pH Cancelled Ur Specific [place] Cancelled Urine Protein Cancelled Urine Ketones Cancelled Urine Nitrite Cancelled Urine Bilirubin Cancelled Urine Urobilinogen Cancelled Ur Leukocyte Esterase Cancelled Ur Microscopic Cancelled Urine Hemoglobin Cancelled Urine Glucose Cancelled Imaging/Other Studies: MRI Brain: IMPRESSION: Imaging findings suspected to be due to posterior reversible encephalopathy syndrome. Please note that postcontrast imaging is fairly motion degraded and limited for evaluation. Assessment/Plan Assessment: seizure, headache,MRI scan all suggestive of PRES syndrome Recommendations: BP control, systolic 140-160 urine or serum for catecholamines continue levetiracetam 750 Q12HR PT Consult Acknowledgment - Thank you for your consult request.
--- NOTE | 2016-08-01 16:43 | Cons- Cardiology ---
General Information and HPI Consulting Request Date of Consult: 08/01/16 Requested By: BELA RODRIGEZ MD Reason for Consult: Poorly controlled hypertension. Source of Information: patient, old records Exam Limitations: clinical condition, poor historian History of Present Illness: Ms. Gabi Bland is a 76-year-old female prison resident with a history of morbid obesity, bipolar disorder, COPD on 3 L of oxygen, hypertension, dyslipidemia, diabetes mellitus with neuropathy/gastroparesis, polymyalgia rheumatica for which she is on prednisone 1.5 mg every 24-48 hours was recently hospitalized here (07/14-07/18/2016) with sepsis of urologic origin (Escherichia coli), with one blood culture positive (coagulase-negative Staphylococcus aureus) that was treated with appropriate antimicrobial therapy which was reportedly discontinued several days prior to admission secondary to diarrhea who again presented to the emergency department on 07/25/2016 with altered mental status, lethargy, poor by mouth intake, diarrhea, incontinence, etc. She also reportedly had a a fall approximately one week prior to presentation. She was initially found to be afebrile with an elevated WBC count and to have an elevated BUN/creatinine. A CT of the chest, abdomen and pelvis revealed significant thoracic spine discitis and was given antimicrobial therapy in the ED which was discontinued the following day . On 07/28/2016 an MRI of the thoracic spine was performed which confirmed the suspicion of a thoracic spine discitis/osteomyelitis and a biopsy was performed. On 07/31/2016 an MRI of the brain was performed given complaints of persistent headache that revealed progressive reversible encephalopathy syndrome (PRES). Her blood pressure was also found to be markedly elevated (212/102 mmHg) which prompted transfer to the telemetry unit for further evaluation/management of her hypertension. At 2:15 AM today she was transferred to the ICU after two tonic-clonic seizures and persistent poorly controlled hypertension. She had been on verapamil 120 mg daily and losartan 100 mg daily as an outpatient, according to the house staff. She received IV hydralazine 10 mg at approximately 9:30 PM last night and another 5 mg at around 2 AM this morning. She also received IV labetalol 10 mg at around 3 AM. After passing a swallowing evaluation she received her verapamil and losartan at approximately 11 AM. At present, she remains confused and her most recent blood pressure is 160/80 mmHg with a regular pulse of 80 bpm. Allergies/Medications Allergies: Coded Allergies: oxycodone (RASH 12/08/15) Home Med List: Acetaminophen (Acephen) 650 MG SUPP.RECT 1 SUPP IL Q4H PRN PAIN/TEMP>/100 ( Reported) Acetaminophen (Athenol) 325 MG TABLET 2 TAB PO Q4H PRN PAIN/TEMP>/100 ( Reported) Alprazolam (Xanax) 0.25 MG TABLET 1 TAB PO Q6P PRN AGITATION AND ANXIETY ( Reported) Augmentin (Augmentin 500-125 Tablet) 500 MG-125 MG TABLET 1 TAB PO BID urine infection Bisacodyl 10 MG SUPP.RECT 1 SUP RC PRN CONSTIPATION (Reported) Cholecalciferol (Vitamin D3) (Vitamin D3) 400 UNIT TABLET 1 TAB PO DAILY SUPPLEMENT (Reported) Ferrous Sulfate 325 MG (65 MG IRON) TABLET 1 TAB PO DAILY SUPPLEMENT ( Reported) Glucagon,Human Recombinant (Glucagon Emergency Kit) 1 MG KIT 1 MG IM ONCE PRN HYPOGLYCEMIA (Reported) Insulin Aspart (Novolog) 100 UNIT/ML VIAL DM (Reported) based on sliding scale Insulin Detemir (Levemir) 100 UNIT/ML VIAL 30 UNITS SC QAM DM (Reported) Ipratropium/Albuterol Sulfate (Iprat-Albut 0.5-3(2.5) MG/3 Ml) 0.5 MG-3 MG (2.5 MG BASE)/3 ML AMPUL.NEB 3 ML INH Q4H PRN SOB/WHEEZE (Reported) Lactobacillus Acidophilus (Acidophilus) 1 EACH CAPSULE 1 CAP PO BID GI ( Reported) Levothyroxine Sodium 25 MCG TABLET 1 TAB PO DAILY AC THYROID (Reported) Losartan Potassium 100 MG TABLET 1 TAB PO DAILY UNKNOWN (Reported) Magnesium Hydroxide (Milk Of Magnesia) 400 MG/5 ML ORAL.SUSP 30 ML PO DAILY PRN CONSTIPATION (Reported) Meclizine HCl 12.5 MG TABLET 1 TAB PO Q6H PRN VERTIGO (Reported) Metformin HCl 500 MG TABLET 1 TAB PO TID DM (Reported) Montelukast Sodium 10 MG TABLET 1 TAB PO DAILY UNKNOWN (Reported) Na Phos,M-B/Na Phos,Di-Ba (Fleet Enema) 19 GRAM-7 GRAM/118 ML ENEMA 1 E RC DAILY PRN CONSTIPATION (Reported) Omeprazole 20 MG CAPSULE.DR 1 CAP PO DAILY GI (Reported) Prednisone 1 MG TABLET 1.5 TAB PO EOD STEROID (Reported) Pregabalin (Lyrica) 75 MG CAPSULE 1 CAP PO TID NEUROPATHY (Reported) Sertraline HCl 50 MG TABLET 1 TAB PO DAILY MENTAL HEALTH (Reported) Simethicone (Gas Relief) 125 MG TAB.CHEW 1 TAB PO Q4-6H PRN ABD BLOATING & PAIN (Reported) Simvastatin (Zocor*) 10 MG TABLET 1 TAB PO QPM CHOLESTEROL (Reported) Sitagliptin Phosphate (Januvia) 100 MG TABLET 1 TAB PO DAILY DIABETES ( Reported) Tiotropium [place] (Spiriva) 18 MCG CAP.W.DEV 1 CAP INH DAILY COPD (Reported) Trazodone HCl 50 MG TABLET 1 TAB PO 0800 UNKNOWN (Reported) Trazodone HCl 100 MG TABLET 1 TAB PO QPM UNKNOWN (Reported) Trazodone HCl 50 MG TABLET 12.5 MG PO Q8H PRN ANXIETY (Reported) Verapamil HCl 120 MG TABLET 1 TAB PO DAILY UNKNOWN (Reported) Review of Systems Review of Systems: Unobtainable as patient cannot give a reliable history at this time. 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 FATHER (CAD). AUNT (Stroke). DAUGHTER ( from drug overdose). Psychosocial History Where Do You Live? Extended Care Facility Services at Home: Nursing Smoking Status: Former Smoker ETOH Use: denies use Functional Ability ADLs Needs Assist: dressing, eating, toileting, bathing. Ambulation: wheelchair Exam & Diagnostic Data Vital Signs and I&O Vital Signs Date Time Temp Pulse Resp B/P Pulse O2 O2 Flow FiO2 Ox Delivery Rate 08/01 1052 74 181/66 08/01 1052 75 181/66 08/01 0400 96 Nasal 2.0L Cannula 08/01 0327 74 197/92 08/01 0205 72 212/102 08/01 0100 84 220/100 08/01 0013 98.5 81 20 180/90 93 Room Air 07/31 2300 98.5 52 20 174/68 91 Room Air 07/31 2215 186/78 07/31 2128 196/88 07/31 2124 19688 Intake & Output 08/01 1600 08/01 0800 08/01 0000 07/31 1600 07/31 0800 07/31 0000 Intake Total 140 120 160 50 600 Output Total 400 Balance 140 120 160 50 200 Intake, IV 140 10 525 Intake, Oral 0 120 150 50 75 Number 1 2 Bowel Movements Output, Urine 400 Physical Exam: Morbidly obese, elderly female in no acute distress with nasal oxygen in place. Vital signs: See above. HEENT: Normocephalic, atraumatic, EOMI, slightly dry mucous membranes. Neck: No JVD, no bruits. Lungs: Clear to auscultation. Heart: S1, S2 (both distant) with no murmur, gallop, or rub appreciated. Abdomen: Soft, nontender, positive bowel sounds. Extremities: No edema. Labs/Rehan Results: Laboratory Tests 08/01 08/01 08/01 1704 1400 0600 Chemistry Magnesium Pending Cancelled Cancelled 08/01 07/31 0407 1013 Chemistry Sodium (137 - 145 mmol/L) 143 Potassium (3.5 - 5.1 mmol/L) 3.2 L Chloride (98 - 107 mmol/L) 107 Carbon Dioxide (22 - 30 mmol/L) 24 Anion Gap (5 - 16) 12 BUN (7 - 17 mg/dL) 8 Creatinine (0.5 - 1.0 mg/dL) 1.2 H Estimated GFR (>60 ml/min) 44 L Glucose (65 - 99 mg/dL) 126 H Calcium (8.4 - 10.2 mg/dL) 7.9 L Phosphorus (2.5 - 4.5 mg/dL) 4.9 H Magnesium (1.6 - 2.3 mg/dL) 1.2 L Total Bilirubin (0.2 - 1.3 mg/dL) 0.4 AST (14 - 36 U/L) 24 ALT (9 - 52 U/L) 31 Albumin (3.5 - 5.0 g/dL) 2.7 L Prolactin (3.0 - 18.6 ng/mL) 22.3 H Hematology CBC w Diff NO MAN DIFF REQ WBC (4.8 - 10.8 /CUMM) 8.1 RBC (4.20 - 5.40 /CUMM) 3.57 L Hgb (12.0 - 16.0 G/DL) 9.8 L Hct (37 - 47 %) 29.9 L MCV (81.0 - 99.0 FL) 83.8 MCH (27.0 - 31.0 PG) 27.4 RDW (11.5 - 14.5 %) 16.6 H Plt Count (130 - 400 /CUMM) 349 MPV (7.4 - 10.4 FL) 9.0 Gran % (42.2 - 75.2 %) 66.5 Lymphocytes % (20.5 - 51.1 %) 23.8 Monocytes % (1.7 - 9.3 %) 8.1 Eosinophils % (0 - 5 %) 1.0 Basophils % (0.0 - 2.0 %) 0.6 PUBS MCHC (33.0 - 37.0 G/DL) 32.8 L Immunology Absolute Granulocytes (1.4 - 6.5 /CUMM) 5.4 Absolute Lymphocytes (1.2 - 3.4 /CUMM) 1.9 Absolute Monocytes (0.10 - 0.60 /CUMM) 0.7 H Absolute Eosinophils (0.0 - 0.7 /CUMM) 0.1 Absolute Basophils (0.0 - 0.2 /CUMM) 0 Urines Urine Color Cancelled Urine Clarity Cancelled Urine pH Cancelled Ur Specific [place] Cancelled Urine Protein Cancelled Urine Ketones Cancelled Urine Nitrite Cancelled Urine Bilirubin Cancelled Urine Urobilinogen Cancelled Ur Leukocyte Esterase Cancelled Ur Microscopic Cancelled Urine Hemoglobin Cancelled Urine Glucose Cancelled 07/31 0710 Chemistry Sodium (137 - 145 mmol/L) 141 Potassium (3.5 - 5.1 mmol/L) 3.6 Chloride (98 - 107 mmol/L) 107 Carbon Dioxide (22 - 30 mmol/L) 25 Anion Gap (5 - 16) 10 BUN (7 - 17 mg/dL) 6 L Creatinine (0.5 - 1.0 mg/dL) 1.2 H Estimated GFR (>60 ml/min) 44 L BUN/Creatinine Ratio (7 - 25 %) 5.0 L Magnesium (1.6 - 2.3 mg/dL) 1.3 L Hematology CBC w Diff NO MAN DIFF REQ WBC (4.8 - 10.8 /CUMM) 8.6 RBC (4.20 - 5.40 /CUMM) 3.86 L Hgb (12.0 - 16.0 G/DL) 10.5 L Hct (37 - 47 %) 32.4 L MCV (81.0 - 99.0 FL) 84.0 MCH (27.0 - 31.0 PG) 27.3 RDW (11.5 - 14.5 %) 16.2 H Plt Count (130 - 400 /CUMM) 379 MPV (7.4 - 10.4 FL) 9.1 Gran % (42.2 - 75.2 %) 57.3 Lymphocytes % (20.5 - 51.1 %) 32.1 Monocytes % (1.7 - 9.3 %) 8.5 Eosinophils % (0 - 5 %) 1.5 Basophils % (0.0 - 2.0 %) 0.6 PUBS MCHC (33.0 - 37.0 G/DL) 32.5 L Immunology Absolute Granulocytes (1.4 - 6.5 /CUMM) 4.9 Absolute Lymphocytes (1.2 - 3.4 /CUMM) 2.8 Absolute Monocytes (0.10 - 0.60 /CUMM) 0.7 H Absolute Eosinophils (0.0 - 0.7 /CUMM) 0.1 Absolute Basophils (0.0 - 0.2 /CUMM) 0 Diagnostic Data EKG Results (07/25/2016) sinus rhythm, borderline leftward axis, and otherwise unremarkable. Assessment/Plan Assessment/Plan Poorly controlled hypertension in this elderly female with multiple other medical issues. Fortunately, while still elevated at pressure has much improved. As she reportedly gets bradycardic when sleeping and needs better blood pressure control would consider switching from the non-dihydropyridine calcium channel antagonist, verapamil 120 mg daily to the dihydropyridine calcium channel antagonist, amlodipine at 5 mg daily to start. This should not cause significant bradycardia and can be titrated up to amlodipine 10 mg daily. Naturally, IV hydralazine can be used for further fine tuning of her blood pressure as needed. Allograft would avoid IV labetalol given concerns of previous bradycardia, unless her pulse is running on the high side. Would also obtain an echocardiogram to assess for left ventricular hypertrophy, left ventricular systolic function, RV function, PA pressures, etc. She did have ventricular ectopy with couplets, and 4 beat run of NSVT noted earlier while on telemetry. It should be noted that both her potassium and magnesium were on the low side earlier. Naturally, her potassium should be repleted with a goal of 4.0-4.5 mg/L. Magnesium should also be repleted and maintain at or above 2.0 per liter. Given her risk equivalent and multiple risk factors for coronary artery disease one has to be concerned about underlying ischemia and this should be further evaluated once her present medical issues have been adequately managed. Consult Acknowledgment - Thank you for your consult request.
--- NOTE | 2016-08-01 17:30 | ECHOCARDIOGRAM REPORT ---
KIMBERLY SHERIDAN Age: 76 : 1940 Gender: F Exam Date: 08/01/2016 10:09 Exam Location: [facility] Ht (in): 59 Wt (lb): 150 BSA: 1.71 BP: 197 / 92 Ordering Physician: SARAH HUDDLESTON MD Referring Physician: SARAH HUDDLESTON MD Technologist: Anand Goodrich LÁZARO Room Number: 108 Indications: STROKE Rhythm: Sinus Technical Quality: poor FINDINGS Left Ventricle Normal global left ventricular size, wall thickness, systolic function with no obvious regional wall motion abnormalities. Normal left ventricular ejection fraction estimated at 60-65%. Right Ventricle Normal right ventricular size and function. Right Atrium Normal right atrial size. Left Atrium Normal left atrial size. Mitral Valve Moderate mitral annular calcification. Trace to mild mitral regurgitation. Aortic Valve Aortic sclerosis. Tricuspid Valve Tricuspid valve not well visualized, grossly normal. Mild tricuspid regurgitation. Pulmonic Valve Pulmonic valve not well visualized, grossly normal. Pericardium No pericardial effusion. Great Vessels Normal size aortic root. CONCLUSIONS Suboptimal Echo window. Normal left and right ventricular systolic function. No significant valvular abnormalities. Ever Julien M.D. (Electronically Signed) Final Date: 01 August 2016 17:29 MEASUREMENTS (Male / Female) Normal Values 2D ECHO LV Diastolic Diameter PLAX 4.6 cm 4.2 - 5.9 / 3.9 - 5.3 cm LV Systolic Diameter PLAX 2.8 cm 2.1 - 4.0 cm LV Fractional Shortening PLAX 39.1 % 25 - 46 % LV Ejection Fraction 2D Teich 69.6 % IVS Diastolic Thickness 0.9 cm LVPW Diastolic Thickness 0.9 cm LV Relative Wall Thickness 0.4 LVOT Diameter 1.8 cm Aortic Root Diameter 2.5 cm LA Systolic Diameter LX 3.2 cm 3.0 - 4.0 / 2.7 - 3.8 cm Ascending Aorta Diameter 3.0 cm DOPPLER AV Peak Velocity 134.0 cm/s AV Peak Gradient 7.2 mmHg AV Mean Velocity 88.1 cm/s AV Mean Gradient 4.0 mmHg AV Velocity Time Integral 27.8 cm LVOT Peak Velocity 105.0 cm/s LVOT Peak Gradient 4.4 mmHg LVOT Mean Velocity 67.8 cm/s LVOT Mean Gradient 2.0 mmHg LVOT Velocity Time Integral 31.5 cm LVOT Stroke Volume 80.2 cm AV Area Cont Eq vti 2.9 cm AV Area Cont Eq pk 2.0 cm MV Peak Velocity 136.0 cm/s MV Peak Gradient 7.4 mmHg MV Mean Velocity 68.1 cm/s MV Mean Gradient 2.0 mmHg Mitral E Point Velocity 85.9 cm/s Mitral A Point Velocity 125.0 cm/s Mitral E to A Ratio 0.7 MV PHT Velocity 105.0 cm/s MV Deceleration [place] 371.0 cm/s MV Pressure Half Time 84.9 ms MV Area PHT 2.6 cm MV Deceleration Time 236.0 ms PV Peak Velocity 110.0 cm/s PV Peak Gradient 4.8 mmHg PV Mean Velocity 78.4 cm/s PV Mean Gradient 3.0 mmHg PV Velocity Time Integral 24.2 cm LV E' Lateral Velocity 6.4 cm/s Mitral E to LV E' Lateral Ratio 13.4 LV E' Septal Velocity 4.7 cm/s Mitral E to LV E' Septal Ratio 18.4
--- NOTE | 2016-08-01 17:36 | Discharge Summary ---
Visit Information Visit Dates Admission Date: 07/25/16 Hospital Course Course Attending Physician: BELA RODRIGEZ MD Primary Care Physician: SHANAE GARCIA MD Consulting Request: Consulting Specialty: Neurosurgery Consulting Physician: Discitis/Osteomyelitis T7-8 Reason for Consult: Dr. 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 According to patient's granddaughter the patient mentation had deteriorated from baseline. We initially thought that this can be a result of infection however UA was negative and did not had any active foci of infection. Patient mentation improved slightly throughout hospitalization to her baseline. ..... She had Diarrhea 2/2 C differential versus gastroenteritis is enteritis versus lactose intolerant. She had recent history of antibiotic exposure which puts her at risk for development C. difficile. However on assessment of stool for C. difficile which was negative. Patient was not treated for C. difficile during the course of this admission. She had slightly increased WBC of 14.1 on admission however on the next day decreased swiftly to normal level of 10.3. The diarrhea resolved and the patient continued to have normal bowel movements. Acute on chronic kidney disease Patient who was admitted with creatinine of 2. [address] above her baseline of 1.1. She received IV hydration for fluid replacement and had progressive decrease of creatinine to her baseline values. During the course of the admission we have attempted nephrotoxic medications. CT scan of the abdomen showed features suggestive of a renal cyst and during the course of this admission the patient had renal ultrasound which showed the cyst clearly. The patient was reviewed by urologist Dr. Jiménez who determined that the cyst does not require more follow-up post discharge. Thoracic discitis at T7-T8. Evidence from imaging on admission shows discitis. The inflammatory markers ESR was raised at 112 and CRP was high at 4.1. Patient had an MRI which confirmed presence of discitis/osteomyelitis and because of this the patient had a CT- guided vertebral biopsy and sample was sent for microbiology and histology. ................ Hypomagnesemia. On admission the patient had hypomagnesemia and through the course of admission and required multiple doses of magnesium. She was kept on low-dose maintenance magnesium and will discharge the patient on this medication to ensure adequate magnesium levels. Continue steroids. 1.5 mg prednisone. Hypothyroidism. Thyroid function tests are within normal limits. We continued levothyroxine at her current dosage. There was an incidental finding of thyroid nodule. Patient has been given instruction to follow up with state's attorney for further workup of the thyroid nodule. Anxiety Patient has history of anxiety and is on alprazolam 0.25 mg every 6 when necessary. During the course of the admission we kept the patient on the medication and we used it intermittently when required for imaging like MRI of the back to control her anxiety. She'll be discharged home with the same medication. Giant cell arteritis Patient has history of giant cell arteritis and is on 1.5 mg of prednisone on a every 48 hours as medication. We continued the medication during the course of the admission and patient is discharged home on the same dose. ICU course: At 08/01/2016 patient transferred to ICU for an episode of Tonic clonic seizure and uncontrolled BP. She had uncontrolled BP up to 220/110 she transfered initially to telemetry floor and received IV hydralazine. Later the patient developed an episode of tonic-clonic seizure lasted for 1 minute. She was shaking her right arm. After that she couldn't lift her right arm and she couldn't open right eye. right side upgoing plantars. remaining neuro exam was normal. After 5 minutes patient had one more episode of tonic - clonic seizure which lasted for couple of minutes and she was shaking her right arm again. She did receive 1 mg of Ativan after the second episode. Blood pressure was 190/90. Dr. Silver neurologist restaurant crew person was contacted ,He thought it could be todds paralysis and hypertensive encephalopathy. patient transferred to ICu, CAT scan head stat obtained which shows: IV Keppra was started, lorazepam PRN FOR SEIZURES, aim systolic BP of 160. (neurologist) is going to see the patient Allergies: Coded Allergies: oxycodone (RASH 12/08/15) Discharge Instructions General Discharge Information Code Status: Full Code Medications at Discharge Discharge Medications: Stop taking the following medications: Losartan Potassium (Losartan Potassium) 100 MG TABLET ORAL DAILY Qty = 30 Verapamil HCl (Verapamil HCl) 120 MG TABLET ORAL DAILY Qty = 30 Sertraline HCl (Sertraline HCl) 50 MG TABLET ORAL DAILY Qty = 30 Insulin Detemir (Levemir) 100 UNIT/ML VIAL Inject into fatty tissue Every Morning Trazodone HCl (Trazodone HCl) 50 MG TABLET ORAL DAILY @8 AM Metformin HCl (Metformin HCl) 500 MG TABLET ORAL THREE TIMES DAILY Qty = 90 Pregabalin (Lyrica) 75 MG CAPSULE ORAL THREE TIMES DAILY Trazodone HCl (Trazodone HCl) 100 MG TABLET ORAL Every night Trazodone HCl (Trazodone HCl) 50 MG TABLET ORAL Q8H as needed for ANXIETY Sitagliptin Phosphate (Januvia) 100 MG TABLET ORAL DAILY Alprazolam (Xanax) 0.25 MG TABLET ORAL EVERY SIX HOURS NEEDED as needed for AGITATION AND ANXIETY Augmentin (Augmentin 500-125 Tablet) 500 MG-125 MG TABLET ORAL TWICE DAILY Qty = 20 Continue taking these medications: Insulin Aspart (Novolog) 100 UNIT/ML VIAL Units Inject into fatty tissue THREE TIMES DAILY Instructions: based on sliding scale Comments: Last Taken: 07/18/16 Time: 0800AM Omeprazole (Omeprazole) 20 MG CAPSULE.DR 1 Capsule ORAL DAILY Qty = 30 Comments: Last Taken: 07/18/16 Time: 9AM Levothyroxine Sodium (Levothyroxine Sodium) 25 MCG TABLET 1 Tablet ORAL DAILY BEFORE BREAKFAST Qty = 14 Comments: Last Taken: 07/18/16 Time: 630AM Montelukast Sodium (Montelukast Sodium) 10 MG TABLET 1 Tablet ORAL DAILY Qty = 30 Comments: Last Taken: 07/18/16 Time: 9AM Tiotropium [place] (Spiriva) 18 MCG CAP.W.DEV 1 Capsule Inhale through mouth DAILY Qty = 30 Comments: Last Taken: 07/18/16 Time: 9AM Cholecalciferol (Vitamin D3) (Vitamin D3) 400 UNIT TABLET 1 Tablet ORAL DAILY Comments: NOT GIVEN IN HOSPITAL Ferrous Sulfate (Ferrous Sulfate) 325 MG (65 MG IRON) TABLET 1 Tablet ORAL DAILY Comments: NOT GIVEN IN HOSPITAL Prednisone (Prednisone) 1 MG TABLET 1.5 Tablet ORAL Every other day Comments: Last Taken: 07/17/16 Time: 9AM Simvastatin (Zocor*) 10 MG TABLET 1 Tablet ORAL Every night Comments: Last Taken: 07/17/16 Time: 1640PM Acetaminophen (Acephen) 650 MG SUPP.RECT 1 SUPPOSITORY RECTALLY Q4H as needed for PAIN/TEMP>/100 Comments: NOT GIVEN IN HOSPITAL Acetaminophen (Athenol) 325 MG TABLET 2 Tablet ORAL Q4H as needed for PAIN/TEMP>/100 Comments: Last Taken: 07/18/16 Time: 630AM Na Phos,M-B/Na Phos,Di-Ba (Fleet Enema) 19 GRAM-7 GRAM/118 ML ENEMA 1 Enema RECTAL DAILY as needed for CONSTIPATION Comments: NOT GIVEN IN HOSPITAL Bisacodyl (Bisacodyl) 10 MG SUPP.RECT 1 Suppository RECTAL as needed for CONSTIPATION Comments: NOT GIVEN IN HOSPITAL Magnesium Hydroxide (Milk Of Magnesia) 400 MG/5 ML ORAL.SUSP 30 Milliliters ORAL DAILY as needed for CONSTIPATION Comments: NOT GIVEN IN HOSPITAL Meclizine HCl (Meclizine HCl) 12.5 MG TABLET 1 Tablet ORAL Q6H as needed for VERTIGO Comments: NOT GIVEN IN HOSPITAL Ipratropium/Albuterol Sulfate (Iprat-Albut 0.5-3(2.5) MG/3 Ml) 0.5 MG-3 MG (2.5 MG BASE)/3 ML AMPUL.NEB 3 Milliliters Inhale through mouth Q4H as needed for SOB/WHEEZE Comments: NOT GIVEN IN HOSPITAL Simethicone (Gas Relief) 125 MG TAB.CHEW 1 Tablet ORAL Q4-6H as needed for ABD BLOATING & PAIN Comments: NOT GIVEN IN HOSPITAL Glucagon,Human Recombinant (Glucagon Emergency Kit) 1 MG KIT 1 Milligram INTRAMUSC GIVE ONCE as needed for HYPOGLYCEMIA Comments: NOT GIVEN IN HOSPITAL Lactobacillus Acidophilus (Acidophilus) 1 EACH CAPSULE 1 Capsule ORAL TWICE DAILY Start taking the following new medications: Hydralazine HCl (Hydralazine HCl) 25 MG TABLET 25 Milligram ORAL THREE TIMES DAILY Days = 30 No Refills Labetalol HCl (Labetalol HCl) 100 MG TABLET 100 Milligram ORAL TWICE DAILY Days = 30 No Refills Amlodipine Besylate (Norvasc) 10 MG TABLET 10 Milligram ORAL DAILY Days = 30 No Refills Tramadol HCl (Tramadol HCl) 50 MG TABLET 50 Milligram ORAL EVERY SIX HOURS as needed for arthritis pain Qty = 10 No Refills Trazodone HCl (Trazodone HCl) 50 MG TABLET 50 Milligram ORAL AT BEDTIME NEEDED as needed for SLEEP Days = 30 No Refills Albuterol Sulfate (Albuterol Sulfate) 2.5 MG/3 ML (0.083 %) VIAL.NEB 3 Milliliters Inhale through mouth EVERY 4 HOURS NEEDED as needed for WHEEZING Qty = 30 No Refills Gabapentin (Gabapentin) 300 MG CAPSULE 300 Milligram ORAL THREE TIMES DAILY Qty = 30 No Refills Valproic Acid (As Sodium Salt) (Valproic Acid) 250 MG/5 ML (5 ML) SOLUTION 750 Milligram ORAL TWICE DAILY Qty = 30 No Refills Magnesium Chloride (Slow-Mag) 71.5 MG TABLET.DR 128 Milligram ORAL TWICE DAILY Qty = 30 No Refills
--- NOTE | 2016-08-01 17:45 | NUR ---
WOUND CARE: REEVAL OF SKIN ALTERATION DUE TO IAD - RESOLVING IAD TO RIGHT THIGH AREA, NO LONGER BRIGHT RED DISCOLORATION - TODAY PRESENTS LIGHT BROWN DISCOLORED HUE - BRIGHT RED ERYTHEMA CONT TO PERSIST TO ANI BUTTOCKS AND PERIRECTAL AREAS, SIMILAR PRESENTATION TO IAD - PT INC SOFT STOOL AT TIME OF ASSESSMENT - INC CARE PROVIDED - PT REMAINS ON SIDELYING POSITION RECOMMENDATION: CONT CURRENT WOUND CARE PREVIOUSLY ORDERED WITH MOISTURE BARRIER DEISITIN
--- NOTE | 2016-08-01 17:46 | Patient Discharge Instructions ---
Discharge Instructions General Discharge Information You were seen/treated for: - Seizure - PRES syndrome (posterior reversible encephalopathy syndrome) - Acute on chronic kidney disease - Gastroenteritis - Discitis/osteomyelitis - Hypomagnesemia - Insomnia - Delirium Watch for these problems: Increased confusion, hypertension, anxiety. Seizure. Special Instructions: - Please follow up with PCP in 1 week. -Please repeat MRI if the back 4 weeks after the discharge . - Need geriatric consultation at the facility. - Please follow up with outpatient psychiatry, neurology, infectious disease, and cardiology as needed. Diet Continue normal diet: Yes Activity Full Activity/No Limits: Yes Acute Coronary Syndrome Inclusion Criteria At DC or during hospital stay patient has or had the following: ACS DIAGNOSIS No Discharge Core Measures Meds if any: Prescribed or Continued at Discharge Meds if any: NOT Prescribed or Continued at Discharge Congestive Heart Failure Inclusion Criteria At DC or during hospital stay patient has or had the following: CHF DIAGNOSIS No Discharge Core Measures Meds if any: Prescribed or Continued at Discharge Meds if any: NOT Prescribed or Continued at Discharge Cerebrovascular accident Inclusion Criteria At DC or during hospital stay patient has or had the following: CVA/TIA Diagnosis No Discharge Core Measures Meds if any: Prescribed or Continued at Discharge Meds if any: NOT Prescribed or Continued at Discharge Venous thromboembolism Inclusion Criteria VTE Diagnosis No VTE Type NONE VTE Confirmed by (Test) NONE Discharge Core Measures - Per Current guidelines, there needs to be overlap - treatment for the first 5 days of Warfarin therapy. - If discharged on Warfarin prior to 5 days of - overlap therapy, the patient will need to be - assessed for post discharge needs including - *Post discharge parental anticoagulation - *Warfarin and/or parental anticoagulation education - *Follow up date to check INR post discharge At least 5 days overlap therapy as Inpatient No Meds if any: Prescribed or Continued at Discharge Note: Overlap Therapy is Warfarin and Anticoagulant Meds if any: NOT Prescribed or Continued at Discharge
[2016-08-02] VITALS: BP 158/75
[2016-08-02 05:13] LABS: ABSOLUTE BASOPHIL COUNT 0.1 /CUMM (0.0-0.2); ABSOLUTE EOSINOPHIL COUNT 0.4 /CUMM (0.0-0.7); ABSOLUTE GRANULOCYTE CT 3.7 /CUMM (1.4-6.5); ABSOLUTE LYMPH COUNT 2.9 /CUMM (1.2-3.4); ABSOLUTE MONOCYTE COUNT 0.6 /CUMM (0.10-0.60); BASOPHIL % 0.9 % (0.0-2.0); EOSINOPHIL % 4.8 % (0-5); GRANULOCYTE % 47.8 % (42.2-75.2); HEMATOCRIT 29.7 % (37-47); MEAN CORPUSCULAR HGB 27.3 PG (27.0-31.0); MEAN CORPUSCULAR HGB CONC 32.5 G/DL (33.0-37.0); MEAN CORPUSCULAR VOLUME 84.2 FL (81.0-99.0); MEAN PLATELET VOLUME 9.5 FL (7.4-10.4); PLATELET COUNT 327 /CUMM (130-400); RBC DISTRIBUTION WIDTH 16.9 % (11.5-14.5); RED BLOOD CELL CT 3.53 /CUMM (4.20-5.40); WHITE BLOOD CELL COUNT 7.7 /CUMM (4.8-10.8)
--- NOTE | 2016-08-02 06:16 | NUR ---
24 HOUR URINE ORDERED TO START AT 0600, PT HAS BEEN INCONTINENT. NOTIFIED MD ODOM AND AIDEE, NO FURTHER ORDERS GIVEN AT THIS TIME.
--- NOTE | 2016-08-02 07:03 | NUR ---
NOTIFIED MD [facility][id number] PT POTASSIUM 3.6 AND MAG 1.9, NO FURTHER ORDERS
--- NOTE | 2016-08-02 07:59 | PN- Resident CRCU ---
Subjective HPI/CRCU Issues: Patient is a 76 year old female that was brought in from [place] and admitted to the floor on with altered mental status and diarrhea. she has a PMH of COPD on 3 L oxygen, CHF (stage II diastolic), DM2, complicated with neuropathy and gastroparesis, arthritis, depression, hyperlipidemia, CRF, GERD, diverticulosis, and hypothyroidism. Of note, she was recently admitted to [place] (2015) with AMS and treated for sepsis of urologic origin. Patient was discharged to [place] on . She was admitted to first with impression of metabolic encephalopathy from diarrhea. Her diarrhea resolved (c-diff negative), also had SOCORRO and hyperkalemia which both resolved after hydration. Abdominal/pelvis CT scan (done in the ED) was significant for discitis at T7-T8. She underwent CT-guided biopsy of the lesion (thinking of possible osteomyelitis and with neurosurgery on board). ID recommended to watch her off antibiotics. On patient underwent biopsy of the thoracic spine, specimen is sent for culture. On patient started to complain of a headache, MRI of the brain showed progressive reversible encephalopathy syndrome (PRES), she had blood pressure of 212/102. She also developed seizures, right arm weakness, righ sided facial droop, and left side neglect. She was started on Keppra 500 mg BID and lorazepam PRN. CRCU issues: -PRES syndrome in the setting of high blood pressure -Uncontrolled BP -AMS and somnolence -Hypomagnesemia -Possible osteomyelitis of the thoracic spine, off antibiotics -SOCORRO on CKD -Right shoulder pain 24 Hour Events: Sinus rhythm, sinus bradycardia of 49 at 1 AM. no overnight events. Still drowsy , oriented to person and place but not time and not able communicating effectively. Objective Vital Signs & I&O Last 8 Hrs of Vitals and I&O: T 97.1-97.4 HR 58-77 RR 16-22 BP 162/80 (123/107 - 175/66) SO2 96-99% on 2L NC Intake & Output 08/02 1600 Intake Total 347 Output Total 500 Balance -153 Intake, IV 107 Intake, Oral 240 Number 0 Bowel Movements Output, Urine 500 Exam General Appearance: well developed/nourished, no apparent distress, awake, comfortable, lethargic Head: atraumatic, normal appearance Ears, Nose, Throat: normal pharynx, normal ENT inspection Neck: normal inspection, supple, full range of motion Respiratory: normal breath sounds, chest non-tender, no respiratory distress Cardiovascular: regular rate/rhythm, murmur, 3/6 systolic murmur in the aortic area. Gastrointestinal: normal bowel sounds, soft, non-tender Extremities: normal inspection, normal capillary refill, normal range of motion, no edema Cranial Nerves: slurred speech, gaze deviated towards right side, hearing intact , mild residual right sided eyelid droop. right arm weakness still present. Skin: bruising on right shoulder Current Medications: Current Medications Sig/Desiree Start time Last Medication Dose Route Stop Time Status Admin Acetaminophen 650 MG Q6P PRN 07/25 2015 AC 08/01 PO 212 Alprazolam 0.25 MG Q6P PRN 07/25 2345 DC 08/01 PO 08/01 2344 2339 Amlodipine Besylate 7.5 MG DAILY 08/03 1000 AC PO Amlodipine Besylate 5 MG DAILY 08/01 1935 DC 08/02 PO 1013 Atorvastatin Calcium 80 MG 1700 08/01 1700 AC 08/02 PO 1735 Cholecalciferol 400 IU DAILY 07/26 1000 AC 08/02 PO 1013 Ferrous Sulfate 325 MG DAILY 07/26 1000 AC 08/02 PO 1013 Heparin Sodium 5,000 UNIT Q8 07/25 2200 AC 08/02 (Porcine) SC 2119 Insulin Aspart 0 TIDAC 07/29 0800 AC 07/31 SC 1321 Insulin Aspart 0 AT BEDTIME 07/28 2200 AC SC Ketorolac 15 MG BID PRN 08/02 1400 AC 08/02 Tromethamine IV 1913 Levetiracetam 750 MG BID 08/01 2200 AC 08/02 Sodium Chloride 100 ML IV 2122 Levothyroxine Sodium 0.025 MG DAILY AC 07/26 0700 AC 08/02 PO 0601 Lorazepam 1 MG Q6-PRN PRN 08/01 0245 AC 08/01 IV 0310 Losartan Potassium 100 MG DAILY 07/29 1000 AC 08/02 PO 1013 Magnesium Chloride 64 MG DAILY 07/31 1115 AC 08/02 PO 1013 Magnesium Oxide 400 MG ONE ONE 08/02 0745 DC 08/02 PO 08/02 0746 1014 Montelukast Sodium 10 MG DAILY 07/26 1000 AC 08/02 PO 1013 Omeprazole 20 MG DAILY AC 07/26 0700 AC 08/02 PO 0601 Potassium Chloride 40 MEQ ONCE ONE 08/02 0745 DC 08/02 PO 08/02 0746 1013 Prednisone 1.5 MG Q48 07/31 1000 AC 08/02 PO 1014 Sertraline HCl 50 MG DAILY 07/26 1000 DC 08/02 PO 1013 Simethicone 80 MG Q6P PRN 07/30 1339 AC 07/31 PO 1537 Vitamin A/Vitamin D 1 LORENA BID PRN 07/25 2345 AC 08/02 TOP 1830 Zinc Oxide 1 LORENA Q8 08/01 2200 AC 08/02 TOP 2127 Zinc Oxide 1 LORENA BID PRN 08/01 1512 AC 08/02 TOP 1830 Impression/Plan Impression/Problem List Impression: Patient is a 76 year old lady with PMH significant for COPD on 3 L oxygen, CHF ( stage II diastolic), DM2, complicated with neuropathy and gastroparesis, arthritis, depression, hyperlipidemia, CRF, GERD, diverticulosis and hypothyroidism. She was brought to [place] from [place] due to AMS and diarrhea. Diarrhea currently resolved. She was found to have discitis/osteomyelitis of the thoracic spine and underwent CT guided biopsy. Patient was transferred from to [facility] due to persistent headache, BP of 220/110 and MRI findings consistent with PRES. She developed seizures and focal neurologic deficits (FNDs) after which she was transferred to the ICU. Problem list and plan: Posterior Reversible Encephalopathy Syndrome (PRES) Presented with seizure and FND in the setting elevated BP, s/p CT guided biopsy of the thoracis spine. MRI consistent with PRES. * BP control to keep systolic pressure in 140-160 * continue Levetiracetam (Keppra) 500 mg BID and lorazepam 1 mg Q6 PRN * neurochecks every hour * follow up neurology recommendations * follow up cardiology consult regarding BP management * Doppler US of the carotid arteries: limited exam, no clear hemodynamically significant stenoses are identified. Recommend repeat exam when patient is able to tolerate the procedure. * EEG: Normal in wake state * Sent urine 24h for catecholamines to r/o pheochromocytoma Uncontrolled BP Patient takes losartan and verapamil at home. * switched verapamil to amlodipine yesterday, BP still fluctuated with maximum systolic up to 180, increased amlodipine to 7.5 mg today per cardiology. * ECHO: Normal left ventricular ejection fraction estimated at 60-65%. Bruising on the right shoulder Patient was found to have a bruise on the right shoulder, in addition to pain, decreased ROM, tenderness. Unable to obtain complete history regarding possible trauma due to mental status. * Xray of the right shoulder did not show dislocation, fracture or hematoma, however reported widened acromioclavicular joint space to 1.2 cm wide, which was also widened on the recent chest radiograph of 07/14/2016 * Consider orthopedic consult Questionable osteomyelitis of the thoracic spine Underwent CT-guided biopsy. Patient complains of back pain, is afebrile and WBC count WNL * Follow up culture of the bone biopsy, NG so far * Watch off antibiotics * Oral and IV acetaminophen for mild to mod pain, ketorolac for severe pain (can not give tramadol due to risk of seizure) * Per ID will need to consider repeat T7-T8 aspirate/biopsy by IR SOCORRO on CKD improved with hydration, Kidney US showed simple cysts, no further work up needed per Urology. * continue monitor Cr daily * avoid nephrotoxins * Cr today 1.1 (1.2 yesterday) DM type 2 with gastroparesis and neuropathy * accuchecks * Novolog insulin SS * At home on Pregabalin (Lyrica) 75 mg TID, currently on hold due to risk of seizure Hypermagnesemia * Mg 1.9 today, gave Oral Mg * Monitor daily and replete History of stage II CHF Murmur in aortic area in exam, consistent with ECHO findings for aortic stenosis. Echo also showed normal left ventricular ejection fraction estimated at 60-65%. * continue aspirin and statin History of COPD Continued on 3L home O2 and Montelukast 10 mg daily History of GCA Continued 1.5 mg PO prednisone daily Hypothyroidism Multilobular left thyroid enlargement. Thyroid function tests are within normal limits. * continue levothyroxine at 0.025 mg daily * Patient can follow up outpatient after discharge for further management History of anxiety and depression Current home meds: alprazolam 0.25 mg Q6 PRN, trazodone, sertraline 50 mg daily * Psychiatry saw the patient today and recommended to keep Trazodone, sertraline and alprazolam on hold due to risk of seizures. * Will call [facility] again tomorrow regarding dose of trazodone Pain management * Tylenol for mild-mod pain, ketorolac for severe pain with caution (watch for Cr level) DVT px * ALPS Diet * Heart healthy, chopped and thin liquids FULL CODE Problem List: 1. COPD 2. Delirium 3. Discitis 4. Osteomyelitis 5. RENAL INSUFFICIENCY 6. PRES (posterior reversible encephalopathy syndrome) Pain Ratin Tomorrow's Labs & Rationales: CBC, ICU bundle Plan DVT/Prophylaxis: mechanical, pharmacological Code Status: Full Code
[2016-08-02 08:00] VITALS: BP 160/80
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
--- NOTE | 2016-08-02 10:30 | NUR ---
PHYSICAL THERAPYl: Recieved orders, spoke to MD. Patient was previously put on hold by [facility] on 07/26/2016 prior to transfer to ICU. Patient is w/c bound at baseline, lives in ECF, and [facility] bed hold. Patient is not appropriate at this time for skilled therapy services and will not be followed by [facility].
[2016-08-02 12:00] VITALS: BP 170/50
--- NOTE | 2016-08-02 12:28 | NUR ---
SPEECH THERAPY: ST ATTEMPTED TO SEE PT FOR DYSPHAGIA TX. PER MST, PT HAS BEEN SLEEPING A MAJORITY OF THE DAY A RESULT OF NOT SLEEPING THE NIGHT PRIOR. MST STATES PT WAS ABLE TO TAKE A FEW BITES/SIPS OF BREAKFAST THIS MORNING W/OUT ANY COUGHING/DIFFICULTIES. ST ATTEMPTED TO WAKE PT FOR TX, HOWEVER, PT INDICATED SHE WAS NOT HUNGRY AND WANTED TO SLEEP. ST TO CONTINUE TO FOLLOW.
[2016-08-02 16:00] VITALS: BP 160/66
--- NOTE | 2016-08-02 19:09 | PN- Cardiology ---
Subjective Subjective: Complains of back pain. Denies any chest discomfort, palpitations, shortness of breath, etc. Monitor reveals sinus rhythm at 86 bpm and blood pressure 166/84 mmHg. No further significant ectopy Objective Vital Signs and I&Os Vital Signs Date Time Temp Pulse Resp B/P Pulse O2 O2 Flow FiO2 Ox Delivery Rate 08/02 1600 94 Nasal 2.0L Cannula 08/02 1600 98.4 90 22 160/66 94 Nasal 2.0L Cannula 08/02 1200 98 Nasal 2.0L Cannula 08/02 1200 96.9 78 22 170/50 98 Nasal 2.0L Cannula 08/02 1013 63 180/90 08/02 1013 63 180/90 08/02 0800 99.0 74 18 160/80 96 Nasal 2.0L Cannula 08/02 0800 96 Nasal 2.0L Cannula 08/02 0400 97 Nasal 2.0L Cannula 08/02 0000 98 Nasal 2.0L Cannula 08/02 0000 97.1 80 19 158/75 98 Nasal 2.0L Cannula 08/01 2000 96 Nasal 2.0L Cannula Intake & Output 08/02 1600 08/02 0800 08/02 0000 08/01 1600 08/01 0800 08/01 0000 Intake Total 347 452 171 8991 140 120 Output Total 500 200 Balance -153 246 293 8399 140 120 Intake, IV 107 0 130 900 140 Intake, Oral 240 200 600 480 0 120 Number 0 1 0 1 1 2 Bowel Movements Output, Urine 500 200 Physical Exam: Well-developed, morbidly obese elderly female in no acute distress. Vital signs: See above. Lungs: Poor inspiratory effort otherwise clear. Heart: S1, S2 (both distant) with no obvious murmur, gallop, or rub appreciated. Extremities: No edema. Current Medications: Current Medications Sig/Desiree Start time Last Medication Dose Route Stop Time Status Admin Acetaminophen 650 MG Q6P PRN 07/25 2015 AC 08/01 PO 2121 Alprazolam 0.25 MG Q6P PRN 07/25 2345 DC 08/01 PO 08/01 2344 2339 Amlodipine Besylate 5 MG DAILY 08/01 1935 AC 08/02 PO 1013 Atorvastatin Calcium 80 MG 1700 08/01 1700 AC 08/02 PO 1735 Cholecalciferol 400 IU DAILY 07/26 1000 AC 08/02 PO 1013 Ferrous Sulfate 325 MG DAILY 07/26 1000 AC 08/02 PO 1013 Heparin Sodium 5,000 UNIT Q8 07/25 2200 AC 08/02 (Porcine) SC 1416 Insulin Aspart 0 TIDAC 07/29 0800 AC 07/31 SC 1321 Insulin Aspart 0 AT BEDTIME 07/28 2200 AC SC Ketorolac 15 MG BID PRN 08/02 1400 AC Tromethamine IV Levetiracetam 750 MG BID 08/01 2200 CAN PO Levetiracetam 750 MG BID 08/01 2200 AC 08/02 Sodium Chloride 100 ML IV 1014 Levetiracetam 500 MG BID 08/01 1000 DC 08/01 Sodium Chloride 100 ML IV 1054 Levothyroxine Sodium 0.025 MG DAILY AC 07/26 0700 AC 08/02 PO 0601 Lorazepam 0.5 MG ONCE ONE 08/01 1900 DC 08/01 IV 08/01 1901 1902 Lorazepam 1 MG Q6-PRN PRN 08/01 0245 AC 08/01 IV 0310 Losartan Potassium 100 MG DAILY 07/29 1000 AC 08/02 PO 1013 Magnesium Chloride 64 MG DAILY 07/31 1115 AC 08/02 PO 1013 Magnesium Oxide 400 MG ONE ONE 08/02 0745 DC 08/02 PO 08/02 0746 1014 Montelukast Sodium 10 MG DAILY 07/26 1000 AC 08/02 PO 1013 Omeprazole 20 MG DAILY AC 07/26 0700 AC 08/02 PO 0601 Potassium Chloride 40 MEQ ONCE ONE 08/02 0745 DC 08/02 PO 08/02 0746 1013 Prednisone 1.5 MG Q48 07/31 1000 AC 08/02 PO 1014 Sertraline HCl 50 MG DAILY 07/26 1000 DC 08/02 PO 1013 Simethicone 80 MG Q6P PRN 07/30 1339 AC 07/31 PO 1537 Verapamil HCl 120 MG DAILY 07/26 1000 DC 08/01 PO 1052 Vitamin A/Vitamin D 1 LORENA BID PRN 07/25 2345 AC 08/02 TOP 1417 Zinc Oxide 1 LORENA Q8 08/01 2200 AC 08/02 TOP 1419 Zinc Oxide 1 LORENA BID PRN 08/01 1512 AC TOP Results Last 48 Hrs of Labs/Mics: Laboratory Tests 08/02/16 0308: Anion Gap 8, Estimated GFR 48 L, Glucose 88, Calcium 8.0 L, Phosphorus 4.8 H, Magnesium 1.9, Total Bilirubin 0.3, AST 21, ALT 38, Albumin 2.6 L, CBC w Diff NO MAN DIFF REQ, RBC 3.53 L, MCV 84.2, MCH 27.3, RDW 16.9 H, MPV 9.5, Gran % 47.8, Lymphocytes % 38.1, Monocytes % 8.4, Eosinophils % 4.8, Basophils % 0.9, PUBS MCHC 32.5 L, Absolute Granulocytes 3.7, Absolute Lymphocytes 2.9, Absolute Monocytes 0.6, Absolute Eosinophils 0.4, Absolute Basophils 0.1 08/01/16 1704: Magnesium 2.3 08/01/16 1400: Magnesium Cancelled 08/01/16 0600: Magnesium Cancelled 08/01/16 0407: Anion Gap 12, Estimated GFR 44 L, Glucose 126 H, Calcium 7.9 L, Phosphorus 4.9 H, Magnesium 1.2 L, Total Bilirubin 0.4, AST 24, ALT 31, Albumin 2.7 L, Prolactin 22.3 H, CBC w Diff NO MAN DIFF REQ, RBC 3.57 L, MCV 83.8, MCH 27.4, RDW 16.6 H, MPV 9.0, Gran % 66.5, Lymphocytes % 23.8, Monocytes % 8.1, Eosinophils % 1.0, Basophils % 0.6, PUBS MCHC 32.8 L, Absolute Granulocytes 5.4 , Absolute Lymphocytes 1.9, Absolute Monocytes 0.7 H, Absolute Eosinophils 0.1, Absolute Basophils 0 Microbiology 08/01 400 UPPER RESP: Surveillance Culture - COMP 08/01 400 GI: Surveillance Culture - COMP VANC RESIST ENTEROCOCCUS Recent Imaging Studies: Echocardiogram (08/01/2016) Normal global left ventricular size, wall thickness , systolic function with no obvious regional wall motion abnormalities. Normal left ventricular ejection fraction estimated at 60-65%. Normal right ventricular size and function. Normal right atrial size. Normal left atrial size. Moderate mitral annular calcification. Trace to mild mitral regurgitation. Aortic sclerosis. Tricuspid valve not well visualized, grossly normal. Mild tricuspid regurgitation. Pulmonic valve not well visualized, grossly normal. No pericardial effusion. Normal size aortic root. Assessment/Plan Assessment/Plan Previously poorly controlled hypertension in this elderly female with multiple other medical issues. Fortunately, while still elevated at present it is much improved on present regimen of losartan 100 mg daily and amlodipine 5 mg daily. * Suspected PRES (posterior reversible encephalopathy syndrome), as per neurology. Goal blood pressure should be within the 140-160 mmHg systolic range. * Would increase amlodipine from 5 mg to 7.5 mg daily and titrate this up further as necessary to get her blood pressure within goal range. * Naturally, IV hydralazine can be used for further fine tuning of her blood pressure as needed. Would avoid IV labetalol given concerns of previous bradycardia, unless her pulse is running on the high side. * Following supplemental potassium and magnesium, there has been no further significant ventricular dysrhythmias. * Would aim to maintain her potassium between 4.0-4.5 mg/L. * Magnesium should also be repleted and maintained at or above 2.0 per liter. * Given her risk equivalent and multiple risk factors for coronary artery disease one has to be concerned about underlying ischemia and this should be further evaluated once her present medical issues have been adequately managed. * Continue DVT prophylaxis.
--- NOTE | 2016-08-02 19:51 | PN- Neurology ---
Subjective Subjective: headache Review of Systems: not eating Objective Vital Signs and I&Os Vital Signs Date Time Temp Pulse Resp B/P Pulse O2 O2 Flow FiO2 Ox Delivery Rate 08/02 1600 94 Nasal 2.0L Cannula 08/02 1600 98.4 90 22 160/66 94 Nasal 2.0L Cannula 08/02 1200 98 Nasal 2.0L Cannula 08/02 1200 96.9 78 22 170/50 98 Nasal 2.0L Cannula 08/02 1013 63 180/90 08/02 1013 63 180/90 08/02 0800 99.0 74 18 160/80 96 Nasal 2.0L Cannula 08/02 0800 96 Nasal 2.0L Cannula 08/02 0400 97 Nasal 2.0L Cannula 08/02 0000 98 Nasal 2.0L Cannula 08/02 0000 97.1 80 19 158/75 98 Nasal 2.0L Cannula 08/01 2000 96 Nasal 2.0L Cannula Intake & Output 08/02 1600 08/02 0800 08/02 0000 08/01 1600 08/01 0800 08/01 0000 Intake Total 347 440 879 1169 140 120 Output Total 500 200 Balance -153 045 740 6594 140 120 Intake, IV 107 0 130 900 140 Intake, Oral 240 200 600 480 0 120 Number 0 1 0 1 1 2 Bowel Movements Output, Urine 500 200 awake irritable no further seizure difficult to examine Current Medications: Current Medications Sig/Desiree Start time Last Medication Dose Route Stop Time Status Admin Acetaminophen 650 MG Q6P PRN 07/25 2015 AC 08/01 PO 2121 Alprazolam 0.25 MG Q6P PRN 07/25 2345 DC 08/01 PO 08/01 2344 2339 Amlodipine Besylate 7.5 MG DAILY 08/03 1000 AC PO Amlodipine Besylate 5 MG DAILY 08/01 1935 DC 08/02 PO 1013 Atorvastatin Calcium 80 MG 1700 08/01 1700 AC 08/02 PO 1735 Cholecalciferol 400 IU DAILY 07/26 1000 AC 08/02 PO 1013 Ferrous Sulfate 325 MG DAILY 07/26 1000 AC 08/02 PO 1013 Heparin Sodium 5,000 UNIT Q8 07/25 2200 AC 08/02 (Porcine) SC 1416 Insulin Aspart 0 TIDAC 07/29 0800 AC 07/31 SC 1321 Insulin Aspart 0 AT BEDTIME 07/28 2200 AC SC Ketorolac 15 MG BID PRN 08/02 1400 AC 08/02 Tromethamine IV 1913 Levetiracetam 750 MG BID 08/01 2200 CAN PO Levetiracetam 750 MG BID 08/01 220 AC 08/02 Sodium Chloride 100 ML IV 1014 Levetiracetam 500 MG BID 08/01 1000 DC 08/01 Sodium Chloride 100 ML IV 1054 Levothyroxine Sodium 0.025 MG DAILY AC 07/26 0700 AC 08/02 PO 0601 Lorazepam 1 MG Q6-PRN PRN 08/01 0245 AC 08/01 IV 0310 Losartan Potassium 100 MG DAILY 07/29 1000 AC 08/02 PO 1013 Magnesium Chloride 64 MG DAILY 07/31 1115 AC 08/02 PO 1013 Magnesium Oxide 400 MG ONE ONE 08/02 0745 DC 08/02 PO 08/02 0746 1014 Montelukast Sodium 10 MG DAILY 07/26 1000 AC 08/02 PO 1013 Omeprazole 20 MG DAILY AC 07/26 0700 AC 08/02 PO 0601 Potassium Chloride 40 MEQ ONCE ONE 08/02 0745 DC 08/02 PO 08/02 0746 1013 Prednisone 1.5 MG Q48 07/31 1000 AC 08/02 PO 1014 Sertraline HCl 50 MG DAILY 07/26 1000 DC 08/02 PO 1013 Simethicone 80 MG Q6P PRN 07/30 1339 AC 07/31 PO 1537 Vitamin A/Vitamin D 1 LORENA BID PRN 07/25 2345 AC 08/02 TOP 1830 Zinc Oxide 1 LORENA Q8 08/01 2200 AC 08/02 TOP 1419 Zinc Oxide 1 LORENA BID PRN 08/01 1512 AC 08/02 TOP 1830 Results Last 24 Hours of Lab Results: Laboratory Tests 08/02 0308 Chemistry Sodium (137 - 145 mmol/L) 142 Potassium (3.5 - 5.1 mmol/L) 3.6 Chloride (98 - 107 mmol/L) 108 H Carbon Dioxide (22 - 30 mmol/L) 25 Anion Gap (5 - 16) 8 BUN (7 - 17 mg/dL) 8 Creatinine (0.5 - 1.0 mg/dL) 1.1 H Estimated GFR (>60 ml/min) 48 L Glucose (65 - 99 mg/dL) 88 Calcium (8.4 - 10.2 mg/dL) 8.0 L Phosphorus (2.5 - 4.5 mg/dL) 4.8 H Magnesium (1.6 - 2.3 mg/dL) 1.9 Total Bilirubin (0.2 - 1.3 mg/dL) 0.3 AST (14 - 36 U/L) 21 ALT (9 - 52 U/L) 38 Albumin (3.5 - 5.0 g/dL) 2.6 L Hematology CBC w Diff NO MAN DIFF REQ WBC (4.8 - 10.8 /CUMM) 7.7 RBC (4.20 - 5.40 /CUMM) 3.53 L Hgb (12.0 - 16.0 G/DL) 9.6 L Hct (37 - 47 %) 29.7 L MCV (81.0 - 99.0 FL) 84.2 MCH (27.0 - 31.0 PG) 27.3 RDW (11.5 - 14.5 %) 16.9 H Plt Count (130 - 400 /CUMM) 327 MPV (7.4 - 10.4 FL) 9.5 Gran % (42.2 - 75.2 %) 47.8 Lymphocytes % (20.5 - 51.1 %) 38.1 Monocytes % (1.7 - 9.3 %) 8.4 Eosinophils % (0 - 5 %) 4.8 Basophils % (0.0 - 2.0 %) 0.9 PUBS MCHC (33.0 - 37.0 G/DL) 32.5 L Immunology Absolute Granulocytes (1.4 - 6.5 /CUMM) 3.7 Absolute Lymphocytes (1.2 - 3.4 /CUMM) 2.9 Absolute Monocytes (0.10 - 0.60 /CUMM) 0.6 Absolute Eosinophils (0.0 - 0.7 /CUMM) 0.4 Absolute Basophils (0.0 - 0.2 /CUMM) 0.1 Assessment/Plan Assessment: PRES syndrome no further seizure Plan: BP control continue levetiracetam
--- NOTE | 2016-08-02 20:22 | ELECTROENCEPHALOGRAM REPORT ---
Electroencephalogram Report ELECTROENCEPHALOGRAM RESULTS Date of service: 08/02/16 Ordering Provider: MD Iman [employer] ENGINEERING TEACHER: Nicolás Andrade TEST UTILIZES: 21 electrode system PERTINENT HX/PHYSICAL/NEURO FINDINGS/CLINICAL DIAG: seizure MEDICATIONS: keppra, verapamil INTERPRETATION: EEG in wake state Background is 9-10 cps activity posteriorly low voltage 22-24 cps activity frontally Movement artifact obscures portions of recording No focal or epileptiform activities IMPRESSION: Normal EEG in wake state
--- NOTE | 2016-08-02 22:56 | Cons- Psychiatry ---
Psychiatric Consult Date of Consult: 08/02/16 Reason for Consult: History of anxiety and depression on trazodone. History of Present Illness: 76 F BIBA from [facility] to the ED on 07/25/2016 at 1224 with CC: watery diarrhea X 7 days and abdominal pain. MSE: Patient not willing to be interviewed today, 08/02/2016, at 1110 , in ICU room 108 Formulation: The patient is suspected to have posterior reversible encephalopathy syndrome, and is followed by neurology, who are prescribing Keppra for seizure prophylaxis and lorazepam for seizure rescue. The patient had had a seizure event in the hospital, which resulted in her transfer to the ICU. Plan: 1. Hold alprazolam, sertraline and trazodone for now. 2. Please verify the patient's recent medications, as ordered at [facility]. We will continue to follow along with you, and expect to revisit her on 2015. Stephani Mancia APRN, Pager [phone] Allergies: Coded Allergies: oxycodone (RASH 12/08/15) Past History Past Medical History Neurological: dementia, dizziness, vertigo, DEMENTIA-MILD EENT: allergies Cardiovascular: CHF, hypertension Respiratory: COPD, emphysema Gastrointestinal: GERD, lactose intolerance Hepatic: NONE Renal: chronic kidney disease, UTI Musculoskeletal: osteoporosis, ARTHRITIS polymyalgia rheumatica Psychiatric: anxiety, bipolar disease, depression Endocrine: diabetes, hypothyroidism, obesity, B12 deficiency Blood Disorders: NONE Cancer(s): NONE CLEANER WALL/Reproductive: NONE Past Surgical History Surgical History: cholecystectomy, X3 SURGICAL PROCEDURE TO HEAD FOR VERTIGO TONSILLECTOMY
[2016-08-03] VITALS: BP 154/80
[2016-08-03 05:12] LABS: HEMATOCRIT 30.9 % (37-47); MEAN CORPUSCULAR HGB 27.1 PG (27.0-31.0); MEAN CORPUSCULAR HGB CONC 32.2 G/DL (33.0-37.0); MEAN PLATELET VOLUME 8.5 FL (7.4-10.4); PLATELET COUNT 311 /CUMM (130-400); RBC DISTRIBUTION WIDTH 17.4 % (11.5-14.5); RED BLOOD CELL CT 3.68 /CUMM (4.20-5.40); WHITE BLOOD CELL COUNT 6.8 /CUMM (4.8-10.8)
--- NOTE | 2016-08-03 07:35 | PN- Resident CRCU ---
Subjective HPI/CRCU Issues: Patient is a 76 year old female that was brought in from [place] and admitted to the floor on with altered mental status and diarrhea. she has a PMH of COPD on 3 L oxygen, CHF (stage II diastolic), DM2, complicated with neuropathy and gastroparesis, arthritis, depression, hyperlipidemia, CRF, GERD, diverticulosis, and hypothyroidism. Of note, she was recently admitted to [place] (2015) with AMS and treated for sepsis of urologic origin. Patient was discharged to [place] on . She was admitted to first with impression of metabolic encephalopathy from diarrhea. Her diarrhea resolved (c-diff negative), also had SOCORRO and hyperkalemia which both resolved after hydration. Abdominal/pelvis CT scan (done in the ED) was significant for discitis at T7-T8. She underwent CT-guided biopsy of the lesion (thinking of possible osteomyelitis and with neurosurgery on board). ID recommended to watch her off antibiotics. On patient underwent biopsy of the thoracic spine, specimen is sent for culture. On patient started to complain of a headache, MRI of the brain showed progressive reversible encephalopathy syndrome (PRES), she had blood pressure of 212/102. She also developed seizures, right arm weakness, righ sided facial droop, and left side neglect. She was started on Keppra 500 mg BID and lorazepam PRN. CRCU issues: -PRES syndrome in the setting of high blood pressure -Uncontrolled BP -AMS and somnolence -History of anxiety and despression (bipolar disorder) -Hypomagnesemia -Possible osteomyelitis of the thoracic spine, off antibiotics -SOCORRO on CKD -Right shoulder pain and increased acromioclavicular space on xray 24 Hour Events: no events on telemonitoring, patient still has fluctuating and elevated BPs. She is alert and awake, not in a mood to talk and wants me to 'leave her alone'. sosa not report any headache, has been moving her right arm. wekaness has been dramatically improved. Patient is off sertraline, trazodone and alprazolam. Objective Vital Signs & I&O Last 8 Hrs of Vitals and I&O: T 97.1-97.4 HR 58-80 RR 17-22 SO2 96-98% on 2L NC Exam General Appearance: well developed/nourished, no apparent distress, alert, awake , drowsy. Head: atraumatic, normal appearance Neck: normal inspection, supple Respiratory: normal breath sounds, chest non-tender, no respiratory distress Cardiovascular: regular rate/rhythm Gastrointestinal: normal bowel sounds, soft, non-tender Extremities: normal inspection, normal capillary refill, normal range of motion, no edema Cranial Nerves: normal hearing, normal speech, PERRL, left side hemispacial neglect is not noticed today. Skin: intact, normal color, warm/dry Current Medications: Current Medications Sig/Desiree Start time Last Medication Dose Route Stop Time Status Admin Acetaminophen 650 MG .STK-MED ONE 08/02 2108 DC PO 08/02 2109 Acetaminophen 650 MG Q6P PRN 07/25 2015 AC 08/01 PO 212 Amlodipine Besylate 7.5 MG DAILY 08/03 1000 AC 08/03 PO 0828 Amlodipine Besylate 5 MG ONCE ONE 08/02 2200 DC 08/02 PO 08/02 2201 2319 Amlodipine Besylate 5 MG DAILY 08/01 1935 DC 08/02 PO 1013 Atorvastatin Calcium 80 MG 1700 08/01 1700 AC 08/02 PO 1735 Cholecalciferol 400 IU DAILY 07/26 1000 AC 08/03 PO 0829 Ferrous Sulfate 325 MG DAILY 07/26 1000 AC 08/03 PO 0828 Heparin Sodium 5,000 UNIT Q8 07/25 2200 AC 08/03 (Porcine) SC 0645 Insulin Aspart 0 TIDAC 07/29 08 AC 07/31 SC 1321 Insulin Aspart 0 AT BEDTIME 07/28 2200 AC SC Ketorolac 15 MG BID PRN 08/02 1400 AC 08/03 Tromethamine IV 0830 Levetiracetam 750 MG BID 08/01 2200 AC 08/02 Sodium Chloride 100 ML IV 2122 Levothyroxine Sodium 0.025 MG DAILY AC 07/26 0700 AC 08/03 PO 0646 Lorazepam 1 MG Q6-PRN PRN 08/01 0245 AC 08/01 IV 0310 Losartan Potassium 100 MG DAILY 07/29 1000 AC 08/03 PO 0827 Magnesium Chloride 64 MG DAILY 07/31 1115 DC 08/02 PO 1013 Magnesium Oxide 400 MG BID 08/03 1000 UNVr 08/03 PO 0828 Magnesium Sulfate 1 GM Q2H 08/03 0730 AC Dextrose/Water 100 ML IV 08/03 1129 Montelukast Sodium 10 MG DAILY 07/26 1000 AC 08/03 PO 0829 Omeprazole 20 MG DAILY AC 07/26 0700 AC 08/03 PO 0646 Prednisone 1.5 MG Q48 07/31 1000 AC 08/02 PO 1014 Sertraline HCl 50 MG DAILY 07/26 1000 DC 08/02 PO 1013 Simethicone 80 MG Q6P PRN 07/30 1339 AC 07/31 PO 1537 Sodium Chloride 1,000 ML Q20H 08/03 0745 UNVr 08/03 IV 0825 Vitamin A/Vitamin D 1 LORENA BID PRN 07/25 2345 AC 08/02 TOP 1830 Zinc Oxide 1 LORENA Q8 08/01 2200 AC 08/03 TOP 0646 Zinc Oxide 1 LORENA BID PRN 08/01 1512 AC 08/02 TOP 1830 Impression/Plan Impression/Problem List Impression: Patient is a 76 year old lady with PMH significant for COPD on 3 L oxygen, CHF ( stage II diastolic), DM2, complicated with neuropathy and gastroparesis, arthritis, depression, hyperlipidemia, CRF, GERD, diverticulosis and hypothyroidism. She was brought to [place] from [place] due to AMS and diarrhea. Diarrhea currently resolved. She was found to have discitis/osteomyelitis of the thoracic spine and underwent CT guided biopsy. Patient was transferred from to [facility] due to persistent headache, BP of 220/110 and MRI findings consistent with PRES. She developed seizures and focal neurologic deficits (FNDs) after which she was transferred to the ICU. Problem list and plan: Posterior Reversible Encephalopathy Syndrome (PRES) Presented with seizure and FND in the setting of elevated BP, s/p CT guided biopsy of the thoracis spine. MRI consistent with PRES. Today she is able to move her right arm, also right sided eyelid droop is resolved as well as the left sided hemispacial neglect. * BP control to keep systolic pressure in 140-160 * continue Levetiracetam (Keppra) 500 mg BID and lorazepam 1 mg Q6 PRN * neurochecks every hour * follow up neurology recommendations * follow up cardiology consult regarding BP management * Doppler US of the carotid arteries: limited exam, no clear hemodynamically significant stenoses are identified. Recommend repeat exam when patient is able to tolerate the procedure. * EEG: Normal in wake state * Sent urine 24h for catecholamines to r/o pheochromocytoma, will follow results. Uncontrolled BP Patient takes losartan and verapamil at home. * switched verapamil to amlodipine yesterday, BP still fluctuated with maximum systolic up to 180, increased amlodipine to 7.5 mg per cardiology. she also received 5 mg IV hydralazine this AM. * ECHO: Normal left ventricular ejection fraction estimated at 60-65%. Bruising on the right shoulder Patient was found to have a bruise on the right shoulder, in addition to pain, decreased ROM, tenderness. Unable to obtain complete history regarding possible trauma due to mental status. * Xray of the right shoulder did not show dislocation, fracture or hematoma, however reported widened acromioclavicular joint space to 1.2 cm wide, which was also widened on the recent chest radiograph of 07/14/2016 * Patient is able to move her right arm today, does not complain of any pain. Questionable osteomyelitis of the thoracic spine Underwent CT-guided biopsy. Patient complains of back pain, is afebrile and WBC count WNL * Follow up culture of the bone biopsy, NG so far * Watch off antibiotics * Oral and IV acetaminophen for mild to mod pain, ketorolac for severe pain (can not give tramadol due to risk of seizure) * Per ID will need to consider repeat T7-T8 aspirate/biopsy by IR. SOCORRO on CKD improved with hydration, Kidney US showed simple cysts, no further work up needed per Urology. 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 Echo also showed normal left ventricular ejection fraction estimated at 60-65%. * continue aspirin and statin History of COPD Continued on 3L home O2 and Montelukast 10 mg daily History of GCA Continued 1.5 mg PO prednisone daily Hypothyroidism Multilobular left thyroid enlargement. Thyroid function tests are within normal limits. * continue levothyroxine at 0.025 mg daily * Patient can follow up outpatient after discharge for further management History of anxiety and depression, bipolar disorder and PTSD Current home meds: alprazolam 0.25 mg Q6 PRN, trazodone, sertraline 50 mg daily * Per Psychiatry sertraline and alprazolam on hold * Called [facility] again today and confirmed her trazodone and sertraline dose. She takes 50 mg trazodone in AM and 100 mg at bed time. She also takes 75 mg of Zoloft (sertraline) in AM. We only restarted Trazodone 50 mg at bedtime PRN for insomnia and can go up to 100 mg if needed after 1 hour. Per Maurisio, concern is that trazodone during the day will make her more drowsy and sertraline would cause agitation during the day. Pain management * Tylenol for mild-mod pain, ketorolac for severe pain with caution (watch for Cr level) DVT px * ALPS Diet * Heart healthy, chopped and thin liquids FULL CODE I PERSONALLY UPDATED JADA ABOUT THE PATIENT'S STATUS TODAY AT 11 AM. Problem List: 1. PRES (posterior reversible encephalopathy syndrome) 2. Discitis 3. Osteomyelitis 4. Hypomagnesemia 5. Hypertension Pain Ratin Tomorrow's Labs & Rationales: icu bundle Plan DVT/Prophylaxis: mechanical, pharmacological Code Status: Full Code
[2016-08-03 08:00] VITALS: BP 160/100
--- NOTE | 2016-08-03 09:03 | PN- CRCU ---
Subjective HPI/Critical Care Issues: pt seen and examined afebrile 97.1 blood pressure improved 154/80 ranged up to 180 systolic since 24 hrs magnesium repleted 1.4 Objective Current Medications: Current Medications Sig/Desiree Start time Last Medication Dose Route Stop Time Status Admin Acetaminophen 650 MG .STK-MED ONE 08/02 2108 DC PO 08/02 2109 Acetaminophen 650 MG Q6P PRN 07/25 2015 AC 08/01 PO 212 Amlodipine Besylate 7.5 MG DAILY 08/03 1000 AC 08/03 PO 0828 Amlodipine Besylate 5 MG ONCE ONE 08/02 2200 DC 08/02 PO 08/02 220 2319 Amlodipine Besylate 5 MG DAILY 08/01 1935 DC 08/02 PO 1013 Atorvastatin Calcium 80 MG 1700 08/01 1700 AC 08/02 PO 1735 Cholecalciferol 400 IU DAILY 07/26 1000 AC 08/03 PO 0829 Ferrous Sulfate 325 MG DAILY 07/26 1000 AC 08/03 PO 0828 Heparin Sodium 5,000 UNIT Q8 07/25 2200 AC 08/03 (Porcine) SC 0645 Insulin Aspart 0 TIDAC 07/29 0800 AC 07/31 SC 1321 Insulin Aspart 0 AT BEDTIME 07/28 2200 AC SC Ketorolac 15 MG BID PRN 08/02 1400 AC 08/03 Tromethamine IV 0830 Levetiracetam 750 MG BID 08/01 2200 AC 08/02 Sodium Chloride 100 ML IV 2122 Levothyroxine Sodium 0.025 MG DAILY AC 07/26 0700 AC 08/03 PO 0646 Lorazepam 1 MG Q6-PRN PRN 08/01 0245 AC 08/01 IV 0310 Losartan Potassium 100 MG DAILY 07/29 1000 AC 08/03 PO 0827 Magnesium Chloride 64 MG DAILY 07/31 1115 DC 08/02 PO 1013 Magnesium Oxide 400 MG BID 08/03 1000 UNVr 08/03 PO 0828 Magnesium Sulfate 1 GM Q2H 08/03 0730 AC Dextrose/Water 100 ML IV 08/03 1129 Montelukast Sodium 10 MG DAILY 07/26 1000 AC 08/03 PO 0829 Omeprazole 20 MG DAILY AC 07/26 0700 AC 08/03 PO 0646 Prednisone 1.5 MG Q48 07/31 1000 AC 08/02 PO 1014 Sertraline HCl 50 MG DAILY 07/26 1000 DC 08/02 PO 1013 Simethicone 80 MG Q6P PRN 07/30 1339 07/31 PO 1537 Sodium Chloride 1,000 ML Q20H 08/03 0745 UNVr 08/03 IV 0825 Vitamin A/Vitamin D 1 LORENA BID PRN 07/25 2345 08/02 TOP 1830 Zinc Oxide 1 LORENA Q8 08/01 2200 08/03 TOP 0646 Zinc Oxide 1 LORENA BID PRN 08/01 1512 08/02 TOP 1830 Vital Signs & I&O Last 24 Hrs of Vitals and I&O: Vital Signs Date Time Temp Pulse Resp B/P Pulse O2 O2 Flow FiO2 Ox Delivery Rate 08/03 0400 98 Nasal 2.0L Cannula 08/03 0000 97.1 73 22 154/80 95 Nasal 2.0L Cannula 08/03 0000 95 Nasal 2.0L Cannula 08/02 2319 97.1 60 18 177/79 08/02 2000 96 Nasal 2.0L Cannula 08/02 1600 94 Nasal 2.0L Cannula 08/02 1600 98.4 90 22 160/66 94 Nasal 2.0L Cannula 08/02 1200 98 Nasal 2.0L Cannula 08/02 1200 96.9 78 22 170/50 98 Nasal 2.0L Cannula 08/02 1013 63 180/90 08/02 1013 63 180/90 Intake & Output 08/03 1600 08/03 0800 08/03 0000 Intake Total 50 270 Output Total 165 120 Balance -115 150 Intake, IV 120 Intake, Oral 50 150 Number 1 Bowel Movements Output, Urine 165 120 Exam Other Physical Findings: gen awake, some confusion to place/time heent ncat cvs s1, s2, systolic murmur lungs ctab abd soft bs+ ext without edema neuro right arm weakness Results Last 24 Hrs of Lab Results: Laboratory Tests 08/03/16 0445: Anion Gap 9, Estimated GFR 54 L, Glucose 87, Calcium 8.0 L, Phosphorus 4.3, Magnesium 1.4 L, Total Bilirubin 0.4, AST 22, ALT 34, Albumin 2.8 L, CBC w Diff MAN DIFF ORDERED, RBC 3.68 L, MCV 84.0, MCH 27.1, RDW 17.4 H, MPV 8.5, Segmented Neutrophils 58, Band Neutrophils 1, Lymphocytes 30, Monocytes 4, Eosinophils 7 H, Platelet Estimate ADEQUATE, Anisocytosis 1+, Ovalocytes FEW, PUBS MCHC 32.2 L, Fld Total RBCs Counted 100 Impression/Plan Impression/Plan Impression/Plan: Impression 76 year old woman * PRES syndrome * poorly controlled, accelerated hypertension * COPD history * ?osteomyelitis with a recent bone biopsy/aspiration * diabetes * ckd * hypothyroidism * ventricular ectopy Plan * cardiology and neurology recommendations are appreciated * f/u results of recent bone biopsy/aspiration, f/u ID recommendations * continue keppra * seizure precautions * glucose control * TRC/Nebs * o2 to maintain spo2 >92% * family had made a request and motion has been made to try to transfer patient to [facility], currently no beds - accepting physician would be nina 's sales support specialist Dr. Jose. * DVT prophylaxis at all times TTS 40 min Code Status: Full Code
--- NOTE | 2016-08-03 10:47 | PN- Infect Dx ---
Subjective Subjective: Afebrile. She is reluctant to provide any history, asking to be left alone. Objective Last 24 Hrs of Vital Signs/I&O Vital Signs Date Time Temp Pulse Resp B/P Pulse O2 O2 Flow FiO2 Ox Delivery Rate 08/03 800 95 Nasal 2.0L Cannula 08/03 800 98.3 94 20 160/100 95 Nasal 2.0L Cannula 08/03 0400 98 Nasal 2.0L Cannula 08/03 97.1 73 22 154/80 95 Nasal 2.0L Cannula 08/03 0000 95 Nasal 2.0L Cannula 08/02 2319 97.1 60 18 177/79 08/02 2000 96 Nasal 2.0L Cannula 08/02 1600 94 Nasal 2.0L Cannula 08/02 1600 98.4 90 22 160/66 94 Nasal 2.0L Cannula 08/02 1200 98 Nasal 2.0L Cannula 08/02 1200 96.9 78 22 170/50 98 Nasal 2.0L Cannula Intake & Output 08/03 1600 08/03 0808/03 0000 Intake Total 50 270 Output Total 165 120 Balance -115 150 Intake, IV 120 Intake, Oral 50 150 Number 1 Bowel Movements Output, Urine 165 120 Physical Exam Other Physical Findings: She is responsive but resistant to conversation and exam Lungs are clear Heart regular rhythm with no murmur Abdomen is soft, nontender with positive bowel sounds Extremities no cyanosis, clubbing or edema [place] catheter in place (for 24 hour urine collection) Results Last 24 Hours of Lab Results: Laboratory Tests 08/03 445 Chemistry Sodium (137 - 145 mmol/L) 145 Potassium (3.5 - 5.1 mmol/L) 4.3 Chloride (98 - 107 mmol/L) 112 H Carbon Dioxide (22 - 30 mmol/L) 24 Anion Gap (5 - 16) 9 BUN (7 - 17 mg/dL) 9 Creatinine (0.5 - 1.0 mg/dL) 1.0 Estimated GFR (>60 ml/min) 54 L Glucose (65 - 99 mg/dL) 87 Calcium (8.4 - 10.2 mg/dL) 8.0 L Phosphorus (2.5 - 4.5 mg/dL) 4.3 Magnesium (1.6 - 2.3 mg/dL) 1.4 L Total Bilirubin (0.2 - 1.3 mg/dL) 0.4 AST (14 - 36 U/L) 22 ALT (9 - 52 U/L) 34 Albumin (3.5 - 5.0 g/dL) 2.8 L Hematology CBC w Diff MAN DIFF ORDERED WBC (4.8 - 10.8 /CUMM) 6.8 RBC (4.20 - 5.40 /CUMM) 3.68 L Hgb (12.0 - 16.0 G/DL) 10.0 L Hct (37 - 47 %) 30.9 L MCV (81.0 - 99.0 FL) 84.0 MCH (27.0 - 31.0 PG) 27.1 RDW (11.5 - 14.5 %) 17.4 H Plt Count (130 - 400 /CUMM) 311 MPV (7.4 - 10.4 FL) 8.5 Segmented Neutrophils (42.2 - 75.2 %) 58 Band Neutrophils (0.0 - 5.0 %) 1 Lymphocytes (20.5 - 51.1 %) 30 Monocytes (1.7 - 9.3 %) 4 Eosinophils (0 - 5.0 %) 7 H Platelet Estimate (ADEQUATE) ADEQUATE Anisocytosis 1+ Ovalocytes FEW PUBS MCHC (33.0 - 37.0 G/DL) 32.2 L Other Body Source Fld Total RBCs Counted (%) 100 Bone chips from T7-T8 disc space revealed irregular fragments of cartilage and fibrovascular tissue, with no evidence of malignancy Last 24 Hours of Rehan Results: Urine culture August 02 negative Recent Imaging Studies: X-ray of the right shoulder mild osteoporosis of the glenohumeral joint; acromioclavicular joint space measuring up to 1.2 cm wide Bilateral carotid Dopplers August 01 no hemodynamically significant stenosis Assessment/Plan Impression: Remains relatively stable with blood pressure better controlled. She remains afebrile with white blood cell count remaining normal off antibiotics. The significance of the findings on CT and MRI suggestive of discitis/osteomyelitis T7-T8 is unclear, with recent aspirate negative, and a repeat aspiration would be appropriate to rule out infection. The pathology revealed only fragments of cartilage and fibrovascular tissue, which is nondiagnostic. Suggestion: 1. Would repeat T7-T8 aspirate/biopsy when condition allows 2. Continue to follow off antibiotics pending above
--- NOTE | 2016-08-03 14:15 | PN- Psychiatry ---
Assessment/Plan Impression: The patient gave permission for me to discuss her case with her granddaughter, Luisana, who was accompanied by her cousin Sy. Luisana reports that the patient had formerly lived with her uncle, the patient's son, but due to problems with paying the bills, as far she knew, the patient had been living at [facility] for approximately 2 years, as she wasn't allowed to live with the son anymore. Luisana reports that the patient was usually lethargic in the morning, but would begin to respond, and engage with her and other family members. She states that the patient's current mental status is not her baseline. Luisana reports that the patient's mother of Alzheimer's disease, and believes that the patient has been having more difficulty with memory recently she states that her oldest cousin, Gerry, is the power of claims attorney; this is another one of the patient's grandchildren, who usually is able to be here after work at approximately 8 p.m. Luisana reports that the patient fell the night before presentation to the hospital, noting that she was found in the morning lying in feces on her floor at the [facility]. She also states that she was incontinent for urine, and then had had urinary urgency for approximate 2 weeks, before she was treated with antibiotics for urinary tract infection. Luisana reports that Gerry and the family are trying to assist with getting the patient placed in a nursing facility in [facility]. The report from nursing was inconclusive, but generally supportive of the medical team's report that the patient had not slept well last night, and continues to sleep during the day. We note that the patient is recovering from the effects of her encephalopathy, and do not wish to increase her confusion with restart of her psychotropic medications, such as benzodiazepines or her SSRI, sertraline. Sertraline may be activating, and assist with the patient being able to stay awake during the day, however, her cognitive status is not at baseline, and we are concerned that the patient would be agitated and even more anxious. Suggestion: 1. Trazodone 50 mg by mouth at bedtime, to help the patient to sleep at night, instead of during the day. We will continue to follow along with you. Сергей Mancia APRN, pager [phone]. Subjective Subjective: Revisited the patient today, , 08/03/2016, at 1020, in ICU room 108. The patient's granddaughter, Luisana, was present and supportive. The patient is sleeping, but agrees to talk. She remains with her eyes closed and her head on the pillow. She is off by more than 2 days, 2 dates and 2 months, but knows her name, and knows that she is in [place]. She reports anxiety of 9/10, with 10/10 being the most severe; similarly, she reports depression as 10/10. When asked about auditory or visual hallucinations, the patient states "my legs hurt." Most of her responses to questions after that were comprised of complaints about pain in her legs. [I made nursing aware of this, and she had just been given medication before my visit.] The patient is asking for trazodone. The patient denies suicidal ideation.
[2016-08-03 16:00] VITALS: BP 149/52
[2016-08-04] VITALS: BP 178/70
--- NOTE | 2016-08-04 | NUR ---
PATIENT ALERT AND SLIGHTLY RESTLESS. C/O PAIN IN LEGS. TORADOL GIVEN ORDERED.MONITOR SINUS RHYTHM AT RATE OF 92.IVF AT RATE OF 50 ML/HR. PATIENT ENCOURAGED TO DRINK.TOOK PRINCE VIPUL 1/2 CAN.
[2016-08-04 05:52] LABS: ABSOLUTE BASOPHIL COUNT 0.1 /CUMM (0.0-0.2); ABSOLUTE EOSINOPHIL COUNT 0.3 /CUMM (0.0-0.7); ABSOLUTE GRANULOCYTE CT 3.8 /CUMM (1.4-6.5); ABSOLUTE LYMPH COUNT 2.4 /CUMM (1.2-3.4); ABSOLUTE MONOCYTE COUNT 0.6 /CUMM (0.10-0.60); BASOPHIL % 1.9 % (0.0-2.0); EOSINOPHIL % 3.8 % (0-5); GRANULOCYTE % 52.4 % (42.2-75.2); HEMATOCRIT 31.4 % (37-47); MEAN CORPUSCULAR HGB 26.9 PG (27.0-31.0); MEAN CORPUSCULAR HGB CONC 32.1 G/DL (33.0-37.0); MEAN CORPUSCULAR VOLUME 83.8 FL (81.0-99.0); MEAN PLATELET VOLUME 9.2 FL (7.4-10.4); PLATELET COUNT 295 /CUMM (130-400); RBC DISTRIBUTION WIDTH 17.1 % (11.5-14.5); RED BLOOD CELL CT 3.75 /CUMM (4.20-5.40); WHITE BLOOD CELL COUNT 7.3 /CUMM (4.8-10.8)
[2016-08-04 08:00] VITALS: BP 170/80
--- NOTE | 2016-08-04 08:37 | PN- Housestaff ---
Subjective Follow-up For: -mood disturbances (hx of bipolar and anxiety, off mediation) -PRES syndrome in the setting of high blood pressure -Uncontrolled BP -AMS and somnolence -History of anxiety and despression (bipolar disorder) -Hypomagnesemia -Possible osteomyelitis of the thoracic spine, off antibiotics -SOCORRO on CKD Tele-Events Since Last Visit: No events on telemonitoring except for bradycardia of 40-42 this am. Subjective: patient still says 'leave me alone' when asked questions. reports she does not have headache, can move her right arm, does not have ant pain. says 'breathing is not good'. sis not sleep well last night. Review of Systems Constitutional: Denies: chills, diaphoresis, fever, malaise, weakness. EENTM: Reports: no symptoms. Cardiovascular: Reports: no symptoms. Respiratory: Reports: no symptoms. Gastrointestinal: Reports: no symptoms. Genitourinary: Reports: no symptoms. Musculoskeletal: Reports: no symptoms. Objective Last 24 Hrs of Vital Signs/I&O Vital Signs Date Time Temp Pulse Resp B/P Pulse O2 O2 Flow FiO2 Ox Delivery Rate 08/04 1600 98.4 100 22 154/76 90 Room Air 2.0L 08/04 0949 97.6 66 20 170/80 08/04 0948 97.6 66 20 170/80 / 0944 Room Air 2.0L 08/04 0800 97.6 66 20 170/80 94 Nasal 2.0L Cannula / 0000 96.5 92 20 178/70 93 Nasal 2.0L Cannula Intake & Output 08/04 1600 12 0800 12 0000 Intake Total 200 150 620 Output Total 400 Balance 200 150 220 Intake, IV 400 Intake, Oral 200 150 220 Number 1 3 Bowel Movements Output, Urine 400 Physical Exam General Appearance: Alert, Oriented X3, Cooperative, No Acute Distress Skin: No Rashes, No Breakdown, No Significant Lesion HEENT: Atraumatic, PERRLA, EOMI, Mucous Membr. moist/pink Neck: Supple, No JVD Cardiovascular: Regular Rate, Normal S1, Normal S2, No Murmurs Lungs: Clear to Auscultation, Normal Air Movement Abdomen: Normal Bowel Sounds, Soft, No Tenderness Neurological: Normal Speech, patient does not cooperate for the exam Last 24 Hrs of Lab/Rehan Results Last 24 Hrs of Labs/Mics: Laboratory Tests 08/04/16 0530: Anion Gap 8, Estimated GFR > 60, BUN/Creatinine Ratio 10.0, Magnesium 1.5 L, CBC w Diff NO MAN DIFF REQ, RBC 3.75 L, MCV 83.8, MCH 26.9 L, RDW 17.1 H, MPV 9.2, Gran % 52.4, Lymphocytes % 33.5, Monocytes % 8.4, Eosinophils % 3.8, Basophils % 1.9, PUBS MCHC 32.1 L, Absolute Granulocytes 3.8, Absolute Lymphocytes 2.4, Absolute Monocytes 0.6, Absolute Eosinophils 0.3, Absolute Basophils 0.1 Assessment/Plan Assessment: Patient is a 76 year old lady with PMH significant for COPD on 3 L oxygen, CHF ( stage II diastolic), DM2, complicated with neuropathy and gastroparesis, arthritis, depression, hyperlipidemia, CRF, GERD, diverticulosis and hypothyroidism. She was brought to [place] from [place] due to AMS and diarrhea. Diarrhea currently resolved. She was found to have discitis/osteomyelitis of the thoracic spine and underwent CT guided biopsy. Patient was transferred from to [facility] due to persistent headache, BP of 220/110 and MRI findings consistent with PRES. She developed seizures and focal neurologic deficits (FNDs) after which she was transferred to the ICU. Problem list and plan: Posterior Reversible Encephalopathy Syndrome (PRES) Presented with seizure and FND in the setting of elevated BP, s/p CT guided biopsy of the thoracis spine. MRI consistent with PRES. Today she is able to move her right arm, also right sided eyelid droop is resolved as well as the left sided hemispacial neglect. * BP control to keep systolic pressure in 140-160 * continue Levetiracetam (Keppra) 500 mg BID and lorazepam 1 mg Q6 PRN * neurochecks every hour * follow up neurology recommendations * follow up cardiology consult regarding BP management * Doppler US of the carotid arteries: limited exam, no clear hemodynamically significant stenoses are identified. Recommend repeat exam when patient is able to tolerate the procedure. * EEG: Normal in wake state * Sent urine 24h for catecholamines to r/o pheochromocytoma, will follow results. Uncontrolled BP Patient takes losartan and verapamil at home. * switched verapamil to amlodipine yesterday, BP still fluctuated with maximum systolic up to 180, increased amlodipine further from 7.5 mg to 10 mg per cardiology today * ECHO: Normal left ventricular ejection fraction estimated at 60-65%. Bruising on the right shoulder Patient was found to have a bruise on the right shoulder, in addition to pain, decreased ROM, tenderness. Unable to obtain complete history regarding possible trauma due to mental status. * Xray of the right shoulder did not show dislocation, fracture or hematoma, however reported widened acromioclavicular joint space to 1.2 cm wide, which was also widened on the recent chest radiograph of 07/14/2016 * Patient is able to move her right arm, does not complain of any pain. Questionable osteomyelitis of the thoracic spine Underwent CT-guided biopsy. Patient complains of back pain, is afebrile and WBC count WNL * Follow up culture of the bone biopsy, NG so far * Watch off antibiotics * Oral and IV acetaminophen for mild to mod pain, ketorolac for severe pain (can not give tramadol due to risk of seizure) * Per ID will need to consider repeat T7-T8 aspirate/biopsy by IR. SOCORRO on CKD improved with hydration, Kidney US showed simple cysts, no further work up needed per Urology. 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 Echo also showed normal left ventricular ejection fraction estimated at 60-65%. * continue aspirin and statin History of COPD Continued on 3L home O2 and Montelukast 10 mg daily History of GCA Continued 1.5 mg PO prednisone daily Hypothyroidism Multilobular left thyroid enlargement. Thyroid function tests are within normal limits. * continue levothyroxine at 0.025 mg daily * Patient can follow up outpatient after discharge for further management History of anxiety and depression, bipolar disorder and PTSD Current home meds: alprazolam 0.25 mg Q6 PRN, trazodone, sertraline 50 mg daily * Per Psychiatry sertraline and alprazolam on hold * Called [facility] again today and confirmed her trazodone and sertraline dose. She takes 50 mg trazodone in AM and 100 mg at bed time. She also takes 75 mg of Zoloft (sertraline) in AM. Per Maurisio, concern is that trazodone during the day will make her more drowsy and sertraline would cause agitation during the day. also suggested to keep trazodone, sertraline and alprazolam on hold for now. Pain management * Tylenol for mild-mod pain, ketorolac for severe pain with caution (watch for Cr level) DVT px * ALPS Diet * Heart healthy, chopped and thin liquids FULL CODE Problem List: 1. PRES (posterior reversible encephalopathy syndrome) 2. Discitis 3. Osteomyelitis 4. Hypomagnesemia 5. Hypertension 6. Bipolar 1 disorder Pain Ratin Pain Location: no pain reproted Pain Goal: Pain 4 or less Pain Plan: mild pp with tylenol Tomorrow's Labs & Rationales: cbc, elecrtolytes (hypomagnesemia) Consulting Request: Consulting Specialty: Neurosurgery Consulting Physician: Discitis/Osteomyelitis T7-8 Reason for Consult: Dr. Burt
--- NOTE | 2016-08-04 10:25 | PN- Pulmonary ---
Subjective HPI/Critical Care Issues: Patient seen and examined this morning. She is afebrile she has a pressure of 170 systolic with a heart rate of 66. She allows a physical examination. She is somewhat resistance to history gathering today. However her review of systems unchanged. Objective Current Medications: Current Medications Sig/Desiree Start time Last Medication Dose Route Stop Time Status Admin Acetaminophen 650 MG .STK-MED ONE 08/04 0130 DC PO 08/04 0131 Acetaminophen 650 MG .STK-MED ONE 08/03 1411 DC PO 08/03 1412 Acetaminophen 650 MG Q6P PRN 07/25 2015 AC 08/04 PO 0133 Amlodipine Besylate 7.5 MG DAILY 08/03 1000 AC 08/04 PO 0949 Atorvastatin Calcium 80 MG 1700 08/01 1700 AC 08/03 PO 1610 Cholecalciferol 400 IU DAILY 07/26 1000 AC 08/04 PO 0950 Ferrous Sulfate 325 MG DAILY 07/26 1000 AC 08/04 PO 0948 Heparin Sodium 5,000 UNIT Q8 07/25 2200 AC 08/04 (Porcine) SC 0640 Hydralazine HCl 5 MG ONCE ONE 08/03 1215 DC 08/03 IV 08/03 1216 1218 Insulin Aspart 0 TIDAC 07/29 0800 AC 07/31 SC 1321 Insulin Aspart 0 AT BEDTIME 07/28 2200 AC SC Ketorolac 15 MG BID PRN 08/02 1400 AC 08/04 Tromethamine IV 0014 Levetiracetam 750 MG BID 08/01 2200 AC 08/04 Sodium Chloride 100 ML IV 0947 Levothyroxine Sodium 0.025 MG DAILY AC 07/26 0700 AC 08/04 PO 0640 Lorazepam 1 MG Q6-PRN PRN 08/01 0245 AC 08/01 IV 0310 Losartan Potassium 100 MG DAILY 07/29 1000 AC 08/04 PO 0948 Magnesium Oxide 400 MG BID 08/03 1000 AC 08/04 PO 0949 Magnesium Sulfate 1 GM Q2H 08/04 0715 AC 08/04 Dextrose/Water 100 ML IV 08/04 1114 0948 Magnesium Sulfate 1 GM Q2H 08/03 0730 DC 08/03 Dextrose/Water 100 ML IV 08/03 1129 0900 Montelukast Sodium 10 MG DAILY 07/26 1000 AC 08/04 PO 0950 Omeprazole 20 MG DAILY AC 07/26 0700 AC 08/04 PO 0640 Prednisone 1.5 MG Q48 07/31 1000 AC 08/04 PO 0948 Simethicone 80 MG Q6P PRN 07/30 1339 AC 07/31 PO 1537 Sodium Chloride 1,000 ML Q20H 08/03 0745 08/04 IV 0646 Trazodone HCl 50 MG AT BEDTIME NEED.. 08/03 2200 08/04 PO 0013 Vitamin A/Vitamin D 1 LORENA BID PRN 07/25 2345 08/02 TOP 1830 Zinc Oxide 1 LORENA Q8 08/01 2200 08/04 TOP 0646 Zinc Oxide 1 LORENA BID PRN 08/01 1512 08/02 TOP 1830 Vital Signs & I&O Last 24 Hrs of Vitals and I&O: Vital Signs Date Time Temp Pulse Resp B/P Pulse O2 O2 Flow FiO2 Ox Delivery Rate 08/04 0949 97.6 66 20 170/80 08/04 0948 97.6 66 20 170/80 08/04 0944 Room Air 2.0L 08/04 0800 97.6 66 20 170/80 94 Nasal 2.0L Cannula 08/04 0000 96.5 92 20 178/70 93 Nasal 2.0L Cannula 08/03 1600 97.2 98 22 149/52 92 Nasal 2.0L Cannula 08/03 1113 Room Air 2.0L Intake & Output 08/04 1600 08/04 0800 12 0000 Intake Total 150 620 Output Total 400 Balance 150 220 Intake, IV 400 Intake, Oral 150 220 Number 3 Bowel Movements Output, Urine 400 Exam Other Physical Findings: gen awake, some confusion to place/time heent ncat cvs s1, s2, systolic murmur lungs ctab abd soft bs+ ext without edema neuro right arm weakness Results Last 24 Hrs of Lab Results: Laboratory Tests 08/04/16 0530: Anion Gap 8, Estimated GFR > 60, BUN/Creatinine Ratio 10.0, Magnesium 1.5 L, CBC w Diff NO MAN DIFF REQ, RBC 3.75 L, MCV 83.8, MCH 26.9 L, RDW 17.1 H, MPV 9.2, Gran % 52.4, Lymphocytes % 33.5, Monocytes % 8.4, Eosinophils % 3.8, Basophils % 1.9, PUBS MCHC 32.1 L, Absolute Granulocytes 3.8, Absolute Lymphocytes 2.4, Absolute Monocytes 0.6, Absolute Eosinophils 0.3, Absolute Basophils 0.1 Impression/Plan Impression/Plan Impression/Plan: Impression 76 year old woman * PRES syndrome * poorly controlled, accelerated hypertension * COPD history * ?osteomyelitis with a recent bone biopsy/aspiration * diabetes * ckd * hypothyroidism * ventricular ectopy Plan * cardiology and neurology recommendations are appreciated * f/u results of recent bone biopsy/aspiration * f/u ID recommendations with plan of repeating biopsy/aspiration of T7-T8 * continue keppra * seizure precautions * glucose control * TRC/Nebs * o2 to maintain spo2 >92% * The previous request for [place] hospital transfer is no longer considered at this time per family wishes * DVT prophylaxis at all times Tele DG
--- NOTE | 2016-08-04 10:47 | PN- Cardiology ---
Subjective Subjective: No specific complaints. Denies chest discomfort, palpitations, shortness of breath, etc. Objective Vital Signs and I&Os Vital Signs Date Time Temp Pulse Resp B/P Pulse O2 O2 Flow FiO2 Ox Delivery Rate 08/04 0949 97.6 66 20 170/80 08/04 0948 97.6 66 20 170/80 08/04 0944 Room Air 2.0L 08/04 0800 97.6 66 20 170/80 94 Nasal 2.0L Cannula 08/04 0000 96.5 92 20 178/70 93 Nasal 2.0L Cannula 08/03 1600 97.2 98 22 149/52 92 Nasal 2.0L Cannula 08/03 1113 Room Air 2.0L Intake & Output 08/04 0808/04 0000 08/03 1600 08/03 0808/03 0000 Intake Total 150 620 800 50 270 Output Total 400 200 165 120 Balance 150 220 600 -115 150 Intake, IV 400 700 120 Intake, Oral 150 220 100 50 150 Number 3 1 1 Bowel Movements Output, Urine 400 200 165 120 Physical Exam: Well-developed, morbidly obese elderly female in no acute distress. Vital signs: See above. Lungs: Poor inspiratory effort otherwise clear. Heart: S1, S2 (both distant) with no obvious murmur, gallop, or rub appreciated. Extremities: No edema. Current Medications: Current Medications Sig/Desiree Start time Last Medication Dose Route Stop Time Status Admin Acetaminophen 650 MG .STK-MED ONE 08/04 130 DC PO 08/04 013 Acetaminophen 650 MG Q6P PRN 07/25 2015 AC 08/04 PO 0133 Amlodipine Besylate 10 MG DAILY 08/05 1000 AC PO Amlodipine Besylate 7.5 MG DAILY 08/03 1000 DC 08/04 PO 0949 Atorvastatin Calcium 80 MG 1700 08/01 1700 AC 08/04 PO 1719 Cholecalciferol 400 IU DAILY 07/26 1000 AC 08/04 PO 0950 Ferrous Sulfate 325 MG DAILY 07/26 1000 AC 08/04 PO 0948 Heparin Sodium 5,000 UNIT Q8 07/250 AC 08/04 (Porcine) SC 1351 Insulin Aspart 0 TIDAC 07/29 0800 AC 07/31 SC 1321 Insulin Aspart 0 AT BEDTIME 07/280 AC SC Ketorolac 15 MG BID PRN 08/02 1400 AC 08/04 Tromethamine IV 0014 Levetiracetam 750 MG BID 08/01 2200 AC 08/04 Sodium Chloride 100 ML IV 0947 Levothyroxine Sodium 0.025 MG DAILY AC 07/26 0700 AC 08/04 PO 0640 Lorazepam 1 MG Q6-PRN PRN 08/01 0245 AC 08/01 IV 0310 Losartan Potassium 100 MG DAILY 07/29 1000 AC 08/04 PO 0948 Magnesium Oxide 400 MG BID 08/03 1000 AC 08/04 PO 0949 Magnesium Sulfate 1 GM Q2H 08/04 1230 CAN Dextrose/Water 100 ML IV 08/04 1629 Magnesium Sulfate 1 GM Q2H 08/04 0715 DC 08/04 Dextrose/Water 100 ML IV 08/04 1114 1350 Montelukast Sodium 10 MG DAILY 07/26 1000 AC 08/04 PO 0950 Omeprazole 20 MG DAILY AC 07/26 0700 AC 08/04 PO 0640 Prednisone 1.5 MG Q48 07/31 1000 AC 08/04 PO 0948 Simethicone 80 MG Q6P PRN 07/30 1339 AC 07/31 PO 1537 Sodium Chloride 1,000 ML Q20H 08/03 0745 AC 08/04 IV 0646 Trazodone HCl 50 MG AT BEDTIME NEED.. 08/03 2200 AC 08/04 PO 0013 Vitamin A/Vitamin D 1 LORENA BID PRN 07/25 2345 AC 08/02 TOP 1830 Zinc Oxide 1 LORENA Q8 08/01 2200 AC 08/04 TOP 1351 Zinc Oxide 1 LORENA BID PRN 08/01 1512 08/02 TOP 1830 Results Last 48 Hrs of Labs/Mics: Laboratory Tests 08/04/16 0530: Anion Gap 8, Estimated GFR > 60, BUN/Creatinine Ratio 10.0, Magnesium 1.5 L, CBC w Diff NO MAN DIFF REQ, RBC 3.75 L, MCV 83.8, MCH 26.9 L, RDW 17.1 H, MPV 9.2, Gran % 52.4, Lymphocytes % 33.5, Monocytes % 8.4, Eosinophils % 3.8, Basophils % 1.9, PUBS MCHC 32.1 L, Absolute Granulocytes 3.8, Absolute Lymphocytes 2.4, Absolute Monocytes 0.6, Absolute Eosinophils 0.3, Absolute Basophils 0.1 08/03/16 0445: Anion Gap 9, Estimated GFR 54 L, Glucose 87, Calcium 8.0 L, Phosphorus 4.3, Magnesium 1.4 L, Total Bilirubin 0.4, AST 22, ALT 34, Albumin 2.8 L, CBC w Diff MAN DIFF ORDERED, RBC 3.68 L, MCV 84.0, MCH 27.1, RDW 17.4 H, MPV 8.5, Segmented Neutrophils 58, Band Neutrophils 1, Lymphocytes 30, Monocytes 4, Eosinophils 7 H, Platelet Estimate ADEQUATE, Anisocytosis 1+, Ovalocytes FEW, PUBS MCHC 32.2 L, Fld Total RBCs Counted 100 Assessment/Plan Assessment/Plan Previously poorly controlled hypertension in this elderly female with multiple other medical issues. Fortunately, while still elevated at present it is much improved on present regimen of losartan 100 mg daily and amlodipine 5 mg daily. * Suspected PRES (posterior reversible encephalopathy syndrome), as per neurology. Goal blood pressure should be within the 140-160 mmHg systolic range. * Would increase amlodipine from 7.5 mg to 10 mg daily. * If blood pressure remains above goal would restart labetalol at 50 mg twice daily with close attention to heart rate. * IV hydralazine can be used for further fine tuning of her blood pressure as needed. * Following supplemental potassium and magnesium, there has been no further significant ventricular dysrhythmias. * Would aim to maintain her potassium between 4.0-4.5 mg/L. * Magnesium should also be repleted and maintained at or above 2.0 per liter. * Given her risk equivalent and multiple risk factors for coronary artery disease one has to be concerned about underlying ischemia and this should be further evaluated once her present medical issues have been adequately managed. * Continue DVT prophylaxis.
[2016-08-04 16:00] VITALS: BP 154/76; BP 164/76
--- NOTE | 2016-08-04 16:01 | PN- Psychiatry ---
Assessment/Plan Impression: After discussion with Drs. Jhoana Edwards, internal communications specialist, and Dae Patterson, chair psychiatry, we feel that it would be beneficial to the patient to hold her trazodone, as well as sertraline/Zoloft, and allow the patient to return to her baseline cognitive functioning. Suggestion: 1. Hold alprazolam, sertraline and trazodone. 2. Geriatric consult when the patient is transferred to a nursing facility. We will continue to follow along with you. Сергей Mancia APRN, pager [phone]. Subjective Subjective: The patient was not visited today.
[2016-08-04 22:04] VITALS: BP 138/68
--- NOTE | 2016-08-04 23:45 | Transfer of Care Summary ---
Hospital Course Course Hospital Course: Ms. Bland is a 76 year old lady with PMH significant for COPD on 3 L oxygen, CHF (stage II diastolic), DM2, complicated with neuropathy and gastroparesis, arthritis, depression and anxiety, hyperlipidemia, CRF, GERD, diverticulosis and hypothyroidism. She was admitted to on due to AMS and diarrhea. She was found to have discitis/osteomyelitis of the thoracic spine and underwent CT guided biopsy. She was transferred to [facility] on due to headaches and BP of 220/110 with MRI findings consistent with PRES. Upon arrival to the telemetry floor she developed seizures proceeded by right arm weakness and right eyelid droop. She was transferred to the ICU for further monitoring and BP control. The following were addressed during her stay in the ICU: Posterior Reversible Encephalopathy Syndrome (PRES) Presented with seizure, right arm weakness and right eyelid droop in the setting of elevated BP, with MRI consistent with PRES. Per neurology the patient was started on Keppra with tight blood pressure control (with the goal of 140-160). EEG was normal, prolactin elevated. Doppler of the carotids did not reveal significant stenosis. Cardiology was consulted for further management of uncontrolled BP. Weakness in the right arm as well as right eyelid droop resolved over the next 48h. We also sent 24h urine for catecholamines to r/o pheochromocytoma, results are pending. On admission to the ICU we also found bruising on the right shoulder in addition to weakness of the right arm. As patient was unable to provide history due to mental status (somnolence and confusion) we obtained an xray of the right shoulder that was negative for dislocation, fracture or hematoma, however reported widened acromioclavicular joint space to 1.2 cm wide, which was similar to findings in a recent chest radiograph of 07/14/2016. Right arm weakness, shoulder pain and decreased ROM resolved within the next 48h. Uncontrolled BP Patient takes losartan and verapamil at home. We switched verapamil to amlodipine and increased amlodipine to 10 mg per cardiology recommendations, also we can restart labetalol at 50 mg twice daily with close attention to heart rate. For further BP control IV hydralazine can be used as needed. Questionable osteomyelitis of the thoracic spine Patient underwent CT-guided biopsy of the T7-T8 thoracic spine. Patient complained of back pain however afebrile and with no leukocytosis. Culture of the bone biopsy came back negative. ID is on board and we have been watching off antibiotics. Per ID will need to consider repeat T7-T8 aspirate/biopsy when condition stabilizes. SOCORRO on CKD Improved with hydration, Kidney US showed simple cysts, no further work up needed per Urology. Continued monitor Cr daily, avoided nephrotoxins. 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 At home on Pregabalin (Lyrica) 75 mg TID, currently on hold due to risk of seizure. Hypermagnesemia Receiving Oral Mg. Monitor daily and replete. History of stage II CHF Murmur in aortic area in exam, consistent with ECHO findings for aortic stenosis. Echo also showed normal left ventricular ejection fraction estimated at 60-65%. History of COPD Continued on 3L home O2 and Montelukast 10 mg daily History of GCA Continued 1.5 mg PO prednisone daily Hypothyroidism Multilobular left thyroid enlargement. Thyroid function tests are within normal limits. Continued levothyroxine at 0.025 mg daily. Patient can follow up outpatient after discharge for further management. History of anxiety and depression, bipolar disorder and PTSD Current home meds (all on hold): alprazolam 0.25 mg Q6 PRN, trazodone 50 mg in AM and 100 mg at bedtime, sertraline 75 mg daily in AM (confirmed with [facility]). Per psychiatry, concern is that trazodone during the day will make her more drowsy and sertraline would cause agitation during the day. Assessment/Plan: please see hospital course. Attending MD Review Statement Documenting Attending: OZZY ANDREWS,Mike Langley (sertraline) in AM. Per Maurisio, concern is that trazodone during the day will make her more drowsy and sertraline would cause agitation during the day. also suggested to keep trazodone, sertraline and alprazolam on hold for now. Pain management * Tylenol for mild-mod pain, ketorolac for severe pain with caution (watch for Cr level) DVT px * ALPS Diet * Heart healthy, chopped and thin liquids FULL CODE
[2016-08-05 08:14] VITALS: BP 180/70
--- NOTE | 2016-08-05 08:54 | PN- Housestaff ---
GLO VAZ 08/05/16 0854: Subjective Follow-up For: -mood disturbances (hx of bipolar and anxiety, off mediation) -PRES syndrome in the setting of high blood pressure -Uncontrolled BP -AMS and somnolence -History of anxiety and despression (bipolar disorder) -Hypomagnesemia -Possible osteomyelitis of the thoracic spine, off antibiotics -SOCORRO on CKD Complaints: no complaints Tele-Events Since Last Visit: Sinus rhythm heart rate in the range of 73 to 80s no overnight events Subjective: Patient is seen and examined today, reports lower abdominal pain with some loose stools does not want to eat any breakfast in the morning. Denies any other complaints. Breathing seems to be okay. Blood pressure still remains elevated, will continue to closely monitor. Review of Systems Constitutional: Denies: no symptoms, see HPI, chills, diaphoresis, fever, malaise, weakness, unexplained weight loss. Cardiovascular: Denies: no symptoms, see HPI, chest pain, edema, orthopena, palpitations, peripheral edema, syncope. Respiratory: Denies: no symptoms, see HPI, cough, hemoptysis, orthopnea, short of breath, sputum production, stridor, wheezing. Gastrointestinal: Reports: abdominal pain, diarrhea. Denies: constipation. Genitourinary: Denies: discharge, dysuria, frequency. Skin: Denies: cysts, change in skin color, dryness, erythema, jaundice. Objective Last 24 Hrs of Vital Signs/I&O Vital Signs Date Time Temp Pulse Resp B/P Pulse O2 O2 Flow FiO2 Ox Delivery Rate 08/05 0814 97.9 73 20 180/70 95 Room Air 08/05 0800 Nasal 2.0L Cannula 08/05 0000 Nasal 2.0L Cannula 08/04 2204 98.7 84 20 138/68 96 Nasal 2.0L Cannula 08/04 1600 98.4 100 22 154/76 90 Room Air 2.0L Intake & Output 08/05 1600 08/05 0800 08/05 0000 Intake Total 450 340 Output Total 1 Balance 450 339 Intake, IV 400 100 Intake, Oral 50 240 Number 1 Bowel Movements Output, Other 1 Physical Exam General Appearance: Alert Skin: No Rashes HEENT: Atraumatic, PERRLA Cardiovascular: Regular Rate, Normal S1, Normal S2 Lungs: Clear to Auscultation Abdomen: Normal Bowel Sounds, Soft, No Tenderness Neurological: Normal Speech, Strength at 5/5 X4 Ext, Normal Tone Extremities: No Clubbing, No Cyanosis, No Edema Current Medications: Current Medications Sig/Desiree Start time Last Medication Dose Route Stop Time Status Admin Acetaminophen 650 MG Q6P PRN 07/25 2015 AC 08/04 PO 0133 Amlodipine Besylate 10 MG DAILY 08/05 1000 AC PO Amlodipine Besylate 7.5 MG DAILY 08/03 1000 DC 08/04 PO 0949 Atorvastatin Calcium 80 MG 1700 08/01 1700 AC 08/04 PO 1719 Cholecalciferol 400 IU DAILY 07/26 1000 AC 08/04 PO 0950 Ferrous Sulfate 325 MG DAILY 07/26 1000 AC 08/04 PO 0948 Heparin Sodium 5,000 UNIT Q8 07/25 2200 AC 08/05 (Porcine) SC 0659 Insulin Aspart 0 TIDAC 07/29 0800 AC 07/31 SC 1321 Insulin Aspart 0 AT BEDTIME 07/28 2200 AC SC Ketorolac 15 MG BID PRN 08/02 1400 AC 08/04 Tromethamine IV 0014 Levetiracetam 750 MG BID 08/01 2200 AC 08/04 Sodium Chloride 100 ML IV 2106 Levothyroxine Sodium 0.025 MG DAILY AC 07/26 0700 AC 08/05 PO 0658 Lorazepam 1 MG Q6-PRN PRN 08/01 0245 AC 08/01 IV 0310 Losartan Potassium 100 MG DAILY 07/29 1000 AC 08/04 PO 0948 Magnesium Oxide 400 MG BID 08/03 1000 AC 08/04 PO 2106 Magnesium Sulfate 1 GM Q2H 08/04 1230 CAN Dextrose/Water 100 ML IV 08/04 1629 Magnesium Sulfate 1 GM Q2H 08/04 0715 DC 08/04 Dextrose/Water 100 ML IV 08/04 1114 1350 Montelukast Sodium 10 MG DAILY 07/26 1000 AC 08/04 PO 0950 Omeprazole 20 MG DAILY AC 07/26 0700 AC 08/05 PO 0658 Prednisone 1.5 MG Q48 07/31 1000 AC 08/04 PO 0948 Simethicone 80 MG Q6P PRN 07/30 1339 AC 07/31 PO 1537 Sodium Chloride 1,000 ML Q20H 08/03 0745 AC 08/04 IV 2104 Trazodone HCl 50 MG AT BEDTIME NEED.. 08/03 2200 DC 08/04 PO 0013 Vitamin A/Vitamin D 1 LORENA BID PRN 07/25 2345 08/02 TOP 1830 Zinc Oxide 1 LORENA Q8 08/01 2200 08/05 TOP 0659 Zinc Oxide 1 LORENA BID PRN 08/01 1512 08/02 TOP 1830 Assessment/Plan Assessment: Patient is a 76 year old lady with PMH significant for COPD on 3 L oxygen, CHF ( stage II diastolic), DM2, complicated with neuropathy and gastroparesis, arthritis, depression, hyperlipidemia, CRF, GERD, diverticulosis and hypothyroidism. She was brought to [place] from [place] due to AMS and diarrhea. Diarrhea currently resolved. She was found to have discitis/osteomyelitis of the thoracic spine and underwent CT guided biopsy. Patient was transferred from to [facility] due to persistent headache, BP of 220/110 and MRI findings consistent with PRES. She developed seizures and focal neurologic deficits (FNDs) after which she was transferred to the ICU. Problem list and plan: Posterior Reversible Encephalopathy Syndrome (PRES) Presented with seizure and FND in the setting of elevated BP, s/p CT guided biopsy of the thoracis spine. MRI consistent with PRES. Today she is able to move her right arm, also right sided eyelid droop is resolved as well as the left sided hemispacial neglect. * BP control to keep systolic pressure in 140-160 * continue Levetiracetam (Keppra) 500 mg BID and lorazepam 1 mg Q6 PRN * neurochecks every hour * follow up neurology recommendations * follow up cardiology consult regarding BP management * Doppler US of the carotid arteries: limited exam, no clear hemodynamically significant stenoses are identified. Recommend repeat exam when patient is able to tolerate the procedure. * EEG: Normal in [place] * Sent urine 24h for catecholamines to r/o pheochromocytoma, will follow results. Uncontrolled BP Patient takes losartan and verapamil at home. * switched verapamil to amlodipine yesterday, BP still fluctuated with maximum systolic up to 180, increased amlodipine further from 7.5 mg to 10 mg per cardiology today * ECHO: Normal left ventricular ejection fraction estimated at 60-65%. Bruising on the right shoulder Patient was found to have a bruise on the right shoulder, in addition to pain, decreased ROM, tenderness. Unable to obtain complete history regarding possible trauma due to mental status. * Xray of the right shoulder did not show dislocation, fracture or hematoma, however reported widened acromioclavicular joint space to 1.2 cm wide, which was also widened on the recent chest radiograph of 07/14/2016 * Patient is able to move her right arm, does not complain of any pain. Questionable osteomyelitis of the thoracic spine Underwent CT-guided biopsy. Patient complains of back pain, is afebrile and WBC count WNL * Follow up culture of the bone biopsy, NG so far * Watch off antibiotics * Oral and IV acetaminophen for mild to mod pain, ketorolac for severe pain (can not give tramadol due to risk of seizure) * Per ID will need to consider repeat T7-T8 aspirate/biopsy by IR. SOCORRO on CKD improved with hydration, Kidney US showed simple cysts, no further work up needed per Urology. 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 Echo also showed normal left ventricular ejection fraction estimated at 60-65%. * continue aspirin and statin History of COPD Continued on 3L home O2 and Montelukast 10 mg daily History of GCA Continued 1.5 mg PO prednisone daily Hypothyroidism Multilobular left thyroid enlargement. Thyroid function tests are within normal limits. * continue levothyroxine at 0.025 mg daily * Patient can follow up outpatient after discharge for further management History of anxiety and depression, bipolar disorder and PTSD Current home meds: alprazolam 0.25 mg Q6 PRN, trazodone, sertraline 50 mg daily * Per Psychiatry sertraline and alprazolam on hold * Called [facility] again today and confirmed her trazodone and sertraline dose. She takes 50 mg trazodone in AM and 100 mg at bed time. She also takes 75 mg of Zoloft (sertraline) in AM. Per Maurisio, concern is that trazodone during the day will make her more drowsy and sertraline would cause agitation during the day. also suggested to keep trazodone, sertraline and alprazolam on hold for now. Pain management * Tylenol for mild-mod pain, ketorolac for severe pain with caution (watch for Cr level) DVT px * ALPS Diet * Heart healthy, chopped and thin liquids FULL CODE Problem List: 1. PRES (posterior reversible encephalopathy syndrome) 2. Delirium 3. Hypomagnesemia 4. Diarrhea Pain Ratin Pain Location: Lower abdominal pain Pain Goal: Pain 4 or less Pain Plan: . Tylenol Tomorrow's Labs & Rationales: CBC and BEP Leukocytosis Deranged kidney functions Consulting Request: Consulting Specialty: Neurosurgery Consulting Physician: Discitis/Osteomyelitis T7-8 Reason for Consult: Dr. Carmel RAMSAY MD,[facility] 08/05/16 1245: Attending MD Review Statement Attending Statement Attending MD Statement: examined this patient, discuss w/resident/PA/UTILIZATION MANAGEMENT MANAGER, agreed w/resident/PA/UTILIZATION MANAGEMENT MANAGER, reviewed EMR data (avail), discussed with nursing, amended to note Attending Assessment/Plan: Patient seen and examined. Resting comfortably and not in any acute distress. No issues overnight reported by nursing staff. She is alert. She denied any pain. She followed commands appropriately however she did not want to engage much in discussion. She had no gross focal deficit. Blood pressure this morning was elevated in the 180s. Recommendations: -Amlodipine has been increased to 10 mg today. Continue losartan 100 mg daily. -If blood pressure remains persistently greater than 160 systolic, add hydrochlorothiazide 25 mg orally daily to her regimen. -Provide with outpatient referral to the cardiology service for further ischemic workup as recommended by Dr. Kirk Ayon. -Follow-up workup for secondary hypertension (24-hour urine catecholamines.) -Follow-up bone biopsy to rule out underlying thoracic spine posterior Lasix. -Continue her regimen for bipolar disorder. Follow-up with the psychiatry service regarding discontinuation of her sitter.
--- NOTE | 2016-08-05 14:17 | NUR ---
NURSING NOTE: PER PATIENTS POA JADA SHERIDAN NO INFORMATION IS TO BE GIVEN TO ANY FAMILY MEMBERS ON PATIENTS STATUS. THEY ARE TO BE DIRECTED TO CALL JADA SHERIDAN WITH ANY QUESTIONS OR CONCERNS.
--- NOTE | 2016-08-05 14:24 | NUR ---
Consult received for dietary assessment, thank you for consult. Fellow RD has been following pt prior to transfer to [place]. Refer to nutrition assessment from 07/29/16 and nutrition f/u notes from 08/01/16, 08/04/16 PRN. Thank you. SIMI continues to follow.
[2016-08-05 14:35] VITALS: BP 180/90
[2016-08-05 16:24] VITALS: BP 180/82
--- NOTE | 2016-08-05 16:52 | NUR ---
NURSING NOTE: PATIENTS BILATERAL KNEES AND ELBOWS RED BUT BLANCHABLE. ELBOW PROTECTORS PLACED BILATERALLY. KNEES BILATERALLY WRAPPED WITH KERLEX FOR PROTECTION. PATIENT INSTRUCTED NOT USE KNEES AND ELBOWS TO TURN IN BED.
[2016-08-05 18:02] VITALS: BP 204/100
[2016-08-05 22:43] VITALS: BP 190/80
[2016-08-06] VITALS: BP 188/90
[2016-08-06 04:00] VITALS: BP 170/80
[2016-08-06 08:14] VITALS: BP 120/70
[2016-08-06 08:40] LABS: ABSOLUTE BASOPHIL COUNT 0 /CUMM (0.0-0.2); ABSOLUTE EOSINOPHIL COUNT 0.3 /CUMM (0.0-0.7); ABSOLUTE GRANULOCYTE CT 3.8 /CUMM (1.4-6.5); ABSOLUTE LYMPH COUNT 2.3 /CUMM (1.2-3.4); ABSOLUTE MONOCYTE COUNT 0.8 /CUMM (0.10-0.60); BASOPHIL % 0.5 % (0.0-2.0); EOSINOPHIL % 4.2 % (0-5); HEMATOCRIT 31.5 % (37-47); MEAN CORPUSCULAR HGB 28.4 PG (27.0-31.0); MEAN CORPUSCULAR HGB CONC 33.6 G/DL (33.0-37.0); MEAN CORPUSCULAR VOLUME 84.4 FL (81.0-99.0); MEAN PLATELET VOLUME 9.4 FL (7.4-10.4); PLATELET COUNT 275 /CUMM (130-400); RBC DISTRIBUTION WIDTH 17.4 % (11.5-14.5); RED BLOOD CELL CT 3.73 /CUMM (4.20-5.40); WHITE BLOOD CELL COUNT 7.1 /CUMM (4.8-10.8)
--- NOTE | 2016-08-06 11:31 | PN- Cardiology ---
Subjective Subjective: The patient is resting comfortably. She complains of intermittent sharp pain in the right side of her chest. No shortness of breath at no palpitations. No diaphoresis. Objective Vital Signs and I&Os Vital Signs Date Time Temp Pulse Resp B/P Pulse O2 O2 Flow FiO2 Ox Delivery Rate 08/06 814 98.6 70 20 120/70 95 Nasal Cannula 08/06 08 96 Nasal 2.0L Cannula 08/06 0400 170/80 08/06 0142 86 184/90 08/06 0000 Nasal 1.0L Cannula 08/06 0000 90 188/90 08/05 2243 190/80 08/05 2242 98.3 88 20 94 Nasal 1.0L Cannula 08/05 1905 80 192/90 08/05 1802 86 204/100 08/05 1624 97.4 101 20 180/82 96 Nasal 1.0L Cannula 08/05 1435 97.5 100 20 180/90 95 Nasal 2.0L Cannula Intake & Output 08/06 1600 08/06 0800 08/06 0000 08/05 1600 08/05 0800 08/05 0000 Intake Total 400 600 460 450 340 Output Total 200 350 300 1 Balance 200 250 160 450 339 Intake, IV 100 400 100 Intake, Oral 400 500 460 50 240 Number 2 0 1 Bowel Movements Output, Other 1 Output, Urine 200 350 300 Physical Exam: Gen: NAD HEENT: normal Lungs: clear to auscultation, normal resp. effort Heart: RRR, S1, S2, no murmurs Abdomen: Soft, nontender, no masses Extremities: No clubbing, cyanosis, or edema. Neuro: Alert and oriented x 3, cranial nerves intact Current Medications: Current Medications Sig/Desiree Start time Last Medication Dose Route Stop Time Status Admin Acetaminophen 650 MG Q6P PRN 07/25 2015 AC 08/05 PO 1005 Amlodipine Besylate 10 MG DAILY 08/05 1000 AC 08/05 PO 1006 Atorvastatin Calcium 80 MG 1700 08/01 170 AC 08/05 PO 1800 Cholecalciferol 400 IU DAILY 07/26 1000 AC 08/05 PO 1006 Ferrous Sulfate 325 MG DAILY 07/26 1000 AC 08/05 PO 1006 Heparin Sodium 5,000 UNIT Q8 07/25 2200 AC 08/06 (Porcine) SC 0601 Hydralazine HCl 5 MG ONCE ONE 08/06 010 DC 08/06 IV 08/06 0101 0142 Hydralazine HCl 5 MG ONCE ONE 08/05 1800 CAN IV 08/05 1801 Hydrochlorothiazide 25 MG DAILY 08/06 1000 AC PO Hydrochlorothiazide 12.5 MG ONCE ONE 08/05 1545 DC 08/05 PO 08/05 1546 1624 Insulin Aspart 0 TIDAC 07/29 0800 AC 07/31 SC 1321 Insulin Aspart 0 AT BEDTIME 07/28 2200 AC SC Ketorolac 15 MG .STK-MED ONE 08/05 1230 DC Tromethamine IM 08/05 1231 Ketorolac 15 MG BID PRN 08/02 1400 AC 08/05 Tromethamine IV 1232 Labetalol HCl 50 MG BID 08/06 1000 AC PO Labetalol HCl 50 MG ONCE ONE 08/05 1800 DC 08/05 PO 08/05 1801 1905 Levetiracetam 750 MG BID 08/01 2200 AC 08/05 Sodium Chloride 100 ML IV 2101 Levothyroxine Sodium 0.025 MG DAILY AC 07/26 0700 AC 08/06 PO 0601 Lorazepam 1 MG Q6-PRN PRN 08/01 0245 AC 08/01 IV 0310 Losartan Potassium 100 MG DAILY 07/29 1000 AC 08/05 PO 1006 Magnesium Oxide 400 MG BID 08/03 1000 AC 08/05 PO 2101 Montelukast Sodium 10 MG DAILY 07/26 1000 AC 08/05 PO 1007 Omeprazole 20 MG DAILY AC 07/26 0700 AC 08/06 PO 0601 Prednisone 1.5 MG Q48 07/31 1000 AC 08/04 PO 0948 Simethicone 80 MG Q6P PRN 07/30 1339 AC 07/31 PO 1537 Sodium Chloride 1,000 ML Q20H 08/03 0745 DC 08/04 IV 2104 Vitamin A/Vitamin D 1 LORENA BID PRN 07/25 2345 AC 08/02 TOP 1830 Zinc Oxide 1 LORENA Q8 08/01 2200 AC 08/06 TOP 0606 Zinc Oxide 1 LORENA BID PRN 08/01 1512 AC 08/02 TOP 1830 Results Last 48 Hrs of Labs/Mics: Laboratory Tests 08/06/16 0640: Anion Gap 9, Estimated GFR 44 L, BUN/Creatinine Ratio 5.0 L, Magnesium 1.3 L, CBC w Diff NO MAN DIFF REQ, RBC 3.73 L, MCV 84.4, MCH 28.4, RDW 17.4 H, MPV 9.4, Gran % 53.0, Lymphocytes % 31.6, Monocytes % 10.7 H, Eosinophils % 4.2, Basophils % 0.5, PUBS MCHC 33.6, Absolute Granulocytes 3.8, Absolute Lymphocytes 2.3, Absolute Monocytes 0.8 H, Absolute Eosinophils 0.3, Absolute Basophils 0 08/05/16 0500: Sodium Cancelled, Potassium Cancelled, Chloride Cancelled, Carbon Dioxide Cancelled, Anion Gap Cancelled, BUN Cancelled, Creatinine Cancelled, BUN/ Creatinine Ratio Cancelled, Magnesium Cancelled, CBC w Diff Cancelled, WBC Cancelled, RBC Cancelled, Hgb Cancelled, Hct Cancelled, MCV Cancelled, MCH Cancelled, RDW Cancelled, Plt Count Cancelled, MPV Cancelled, PUBS MCHC Cancelled Assessment/Plan Assessment/Plan Assessment: 1. PRES 2. Hypertension, now under control 3. Atypical chest pain Plan: * Continue current hypertension medications. * Monitor electrolytes. * Likely need further cardiac workup to rule out CAD once clinically stable
--- NOTE | 2016-08-06 11:37 | PN- Att Addend ---
Attending Addendum Attending Brief Note Patient seen and examined. Lying comfortably in bed and not in any acute distress. Denies pain. Denies shortness of breath. Denies chest pain or palpitations. No events on telemetry overnight. Blood pressure was very elevated yesterday requiring onetime doses of hydralazine and labetalol. Her blood pressure was as high as 200 systolic. Currently improved today down into the 120s. Vital Signs Date Time Temp Pulse Resp B/P Pulse O2 O2 Flow FiO2 Ox Delivery Rate 08/06 0814 98.6 70 20 120/70 95 Nasal Cannula 08/06 0800 96 Nasal 2.0L Cannula 08/06 0400 170/80 08/06 0142 86 184/90 08/06 0000 Nasal 1.0L Cannula 08/06 0000 90 188/90 08/05 2243 190/80 08/05 2242 98.3 88 20 94 Nasal 1.0L Cannula 08/05 1905 80 192/90 08/05 1802 86 204/100 08/05 1624 97.4 101 20 180/82 96 Nasal 1.0L Cannula 08/05 1435 97.5 100 20 180/90 95 Nasal 2.0L Cannula Gen. appearance: Well-developed, not in acute distress Neurologic: Alert and oriented 3: No gross focal deficit. Following commands. Answers questions appropriately. Heart: S1-S2 regular Lungs: Clear bilaterally Abdomen: Soft, nontender with normal bowel sounds Extremities: No pedal edema Laboratory Tests 08/06/16 0640: Anion Gap 9, Estimated GFR 44 L, BUN/Creatinine Ratio 5.0 L, Magnesium 1.3 L, CBC w Diff NO MAN DIFF REQ, RBC 3.73 L, MCV 84.4, MCH 28.4, RDW 17.4 H, MPV 9.4, Gran % 53.0, Lymphocytes % 31.6, Monocytes % 10.7 H, Eosinophils % 4.2, Basophils % 0.5, PUBS MCHC 33.6, Absolute Granulocytes 3.8, Absolute Lymphocytes 2.3, Absolute Monocytes 0.8 H, Absolute Eosinophils 0.3, Absolute Basophils 0 Problems: 1. Uncontrolled hypertension 2. Atypical chest pain 3. PRES 4. Questionable osteomyelitis of the thoracic spine 5. Recurrent Acute kidney injury Plan: -Her blood pressure trended up as high as 200 systolic yesterday. She required onetime doses of hydralazine and labetalol yesterday. Blood pressure today is down into the 120 systolic. -Given her worsening renal function recommend discontinuation of hydrochlorothiazide. Continue amlodipine and losartan. Pressure remains below 160 systolic continued his regimen. If her blood pressure persists greater than 160 systolic, consider adding hydralazine 25 mg orally every 8 hours to her regimen. -Follow-up thoracic spine biopsy. -Continue her bipolar disorder regimen. Follow-up with the psychiatric service regarding her considered. -Please ambulate patient.
[2016-08-06 15:52] VITALS: BP 140/80
[2016-08-07 00:26] VITALS: BP 162/80
[2016-08-07 06:30] LABS: ABSOLUTE BASOPHIL COUNT 0 /CUMM (0.0-0.2); ABSOLUTE EOSINOPHIL COUNT 0.2 /CUMM (0.0-0.7); ABSOLUTE GRANULOCYTE CT 3.5 /CUMM (1.4-6.5); ABSOLUTE LYMPH COUNT 2.8 /CUMM (1.2-3.4); ABSOLUTE MONOCYTE COUNT 0.8 /CUMM (0.10-0.60); BASOPHIL % 0.6 % (0.0-2.0); EOSINOPHIL % 3.2 % (0-5); GRANULOCYTE % 47.5 % (42.2-75.2); HEMATOCRIT 31.5 % (37-47); MEAN CORPUSCULAR HGB 27.8 PG (27.0-31.0); MEAN CORPUSCULAR HGB CONC 33.1 G/DL (33.0-37.0); MEAN PLATELET VOLUME 8.7 FL (7.4-10.4); PLATELET COUNT 296 /CUMM (130-400); RBC DISTRIBUTION WIDTH 18.2 % (11.5-14.5); RED BLOOD CELL CT 3.75 /CUMM (4.20-5.40); WHITE BLOOD CELL COUNT 7.4 /CUMM (4.8-10.8)
[2016-08-07 08:00] VITALS: BP 180/90
--- NOTE | 2016-08-07 08:17 | PN- Housestaff ---
TERESA ANDREWS,JANUARY 08/07/16 0816: Subjective Follow-up For: -mood disturbances (hx of bipolar and anxiety, off mediation) -PRES syndrome in the setting of high blood pressure -Uncontrolled BP -AMS and somnolence -History of anxiety and despression (bipolar disorder) -Hypomagnesemia -Possible osteomyelitis of the thoracic spine, off antibiotics -SOCORRO on CKD Tele-Events Since Last Visit: SR-ST with HR in 72-102 A few PVCs Subjective: Patient seen and examined at bedside. She is alert, awake and oriented to person only. Patient appears agitated and repeatedly says "I am cold." Reports diarrhea (some on the floor). No other acute complaints. Blood pressure remains elevated. Denies chest pain, palpitations, or shortness of breath. Review of Systems Constitutional: Denies: chills, diaphoresis, fever, weakness. Comments: Cardiovascular: Denies: no symptoms, see HPI, chest pain, edema, orthopena, palpitations, peripheral edema, syncope. Respiratory: Denies: no symptoms, see HPI, cough, hemoptysis, orthopnea, short of breath, sputum production, stridor, wheezing. Gastrointestinal: Reports: abdominal pain, diarrhea. Denies: constipation. Genitourinary: Denies: discharge, dysuria, frequency. Skin: Denies: cysts, change in skin color, dryness, erythema, jaundice. Objective Last 24 Hrs of Vital Signs/I&O Vital Signs Date Time Temp Pulse Resp B/P Pulse O2 O2 Flow FiO2 Ox Delivery Rate 08/07 1500 99.1 160/70 08/07 1458 99.1 08/07 0956 98.6 95 20 180/90 08/07 0955 98.6 95 20 180/90 08/07 0955 98.6 95 20 180/90 08/07 0800 98.6 95 20 180/90 97 Room Air 08/07 0026 98.2 74 20 162/80 96 Room Air 08/06 2105 114 172/80 08/06 1600 93 Room Air 08/06 1552 97.0 88 20 140/80 93 Room Air Intake & Output 08/07 1600 08/07 0800 12 0000 Intake Total 960 20 520 Output Total 330 300 Balance 960 -310 220 Intake, IV 360 Intake, Oral 600 20 520 Number 3 1 Bowel Movements Output, Urine 330 300 Physical Exam General Appearance: Alert, Oriented X3, Cooperative, No Acute Distress Other Physical Findings: Skin: No Rashes HEENT: Atraumatic, PERRLA Cardiovascular: Regular Rate, Normal S1, Normal S2 Lungs: Clear to Auscultation Abdomen: Normal Bowel Sounds, Soft, No Tenderness Neurological: Normal Speech, Strength at 5/5 X4 Ext, Normal Tone Extremities: No Clubbing, No Cyanosis, No Edema Current Medications: Current Medications Sig/Desiree Start time Last Medication Dose Route Stop Time Status Admin Acetaminophen 650 MG Q6P PRN 07/25 2015 AC 08/05 PO 1005 Amlodipine Besylate 10 MG DAILY 08/05 1000 AC 08/07 PO 0956 Atorvastatin Calcium 80 MG 1700 08/01 1700 AC 08/06 PO 2106 Cholecalciferol 400 IU DAILY 07/26 1000 AC 08/07 PO 0956 Ferrous Sulfate 325 MG DAILY 07/26 1000 AC 08/07 PO 0956 Heparin Sodium 5,000 UNIT Q8 07/250 AC 08/07 (Porcine) SC 1432 Hydralazine HCl 25 MG TID 08/07 1000 AC 08/07 PO 0955 Hydrochlorothiazide 25 MG DAILY 08/06 1000 DC 08/06 PO 1148 Insulin Aspart 0 TIDAC 07/29 0800 AC 08/07 SC 1217 Insulin Aspart 0 AT BEDTIME 07/28 2200 AC SC Ketorolac 15 MG BID PRN 08/02 1400 AC 08/05 Tromethamine IV 1232 Labetalol HCl 100 MG BID 08/07 220 UNVr PO Labetalol HCl 50 MG BID 08/06 1000 DC 08/07 PO 0955 Levetiracetam 750 MG BID 08/01 2200 AC 08/07 Sodium Chloride 100 ML IV 1035 Levothyroxine Sodium 0.025 MG DAILY AC 07/26 0700 AC 08/07 PO 0607 Lorazepam 1 MG Q6-PRN PRN 08/01 0245 AC 08/01 IV 0310 Losartan Potassium 100 MG DAILY 07/29 1000 DC 08/06 PO 1147 Magnesium Chloride 64 MG BID 08/07 1407 AC PO Magnesium Oxide 400 MG ONE ONE 08/07 1200 DC 08/07 PO 08/07 1201 1218 Magnesium Oxide 400 MG BID 08/03 1000 DC 08/07 PO 0955 Magnesium Sulfate 1 GM Q2H 08/07 0845 DC 08/07 Dextrose/Water 100 ML IV 08/07 1047 1431 Montelukast Sodium 10 MG DAILY 07/26 1000 AC 08/07 PO 0956 Omeprazole 20 MG DAILY AC 07/26 0700 AC 08/07 PO 0607 Potassium Chloride 20 MEQ 1000 08/07 1000 DC 08/07 PO 08/07 1001 1036 Potassium Chloride 20 MEQ ONCE ONE 08/07 0830 DC 08/07 PO 08/07 0831 0956 Prednisone 1.5 MG Q48 07/31 1000 AC 08/06 PO 1147 Simethicone 80 MG Q6P PRN 07/30 1339 AC 07/31 PO 1537 Vitamin A/Vitamin D 1 LORENA BID PRN 07/25 2345 AC 08/02 TOP 1830 Zinc Oxide 1 LORENA Q8 08/01 2200 AC 08/07 TOP 1436 Zinc Oxide 1 LORENA BID PRN 08/01 1512 AC 08/02 TOP 1830 Last 24 Hrs of Lab/Rehan Results Last 24 Hrs of Labs/Mics: Laboratory Tests 08/07/16 0550: Anion Gap 9, Estimated GFR 40 L, BUN/Creatinine Ratio 3.8 L, Magnesium 1.2 L, CBC w Diff NO MAN DIFF REQ, RBC 3.75 L, MCV 84.0, MCH 27.8, RDW 18.2 H, MPV 8.7, Gran % 47.5, Lymphocytes % 37.5, Monocytes % 11.2 H, Eosinophils % 3.2, Basophils % 0.6, PUBS MCHC 33.1, Absolute Granulocytes 3.5, Absolute Lymphocytes 2.8, Absolute Monocytes 0.8 H, Absolute Eosinophils 0.2, Absolute Basophils 0 Microbiology 08/07 0935 STOOL: Clostridium difficile Toxin A & B - COLB Assessment/Plan Assessment: Mr. Bland is a 76 year old lady with PMH significant for COPD on 3 L oxygen, CHF (stage II diastolic), DM2, complicated with neuropathy and gastroparesis, arthritis, depression, hyperlipidemia, CRF, GERD, diverticulosis and hypothyroidism. She was brought to [place] from [place] due to AMS and diarrhea. # Posterior Reversible Encephalopathy Syndrome (PRES) Presented with seizure and FND in the setting of elevated BP, s/p CT guided biopsy of the thoracis spine. MRI consistent with PRES, which seems to have resolved now. She is currently able to move her right arm. Also her right-sided eyelid droop and left-sided hemispacial neglect are no longer present. - Doppler US of the carotid arteries: limited exam, no clear hemodynamically significant stenoses are identified. Recommend repeat exam when patient is able to tolerate the procedure. - EEG: Normal in wake state * Adequate BP control to keep systolic pressure in 140-160 * Switch Keppra 750 mg BID from IV to PO. * Hold off lorazepam 1 mg Q6 PRN for now per psych rec * Neurochecks every 4 hours * Follow neuro recs * Follow cardio recs regarding BP management * Follow urine 24h for catecholamines to r/o pheochromocytoma - still pending # Uncontrolled hypertension During ICU stay her home meds verapamil and losartan were discontinued. Per cardio rec, patient was started on labetalol 50mg PO BID and amlodipine at 7.5 mg which was increased to 10 mg. - ECHO: Normal left ventricular ejection fraction estimated at 60-65%. * Increase labetalol to 100mg PO BID * Add hydralazine 25mg PO TID * Continue Norvasc 10mg PO daily # Bruising on the right shoulder Patient initially had a bruise on the right shoulder, in addition to pain, decreased ROM, tenderness. She was unable to obtain complete history regarding possible trauma due to mental status. - Xray of the right shoulder did not show dislocation, fracture or hematoma, however reported widened acromioclavicular joint space to 1.2 cm wide, which was also widened on the recent chest radiograph of 07/14/2016/5: Patient is able to move her right arm, does not complain of any pain. # Questionable osteomyelitis/discitis of the thoracic spine CT and MRI findings are suggestive of discitis/osteomyelitis at T7-T8 but of unclear signifciace. Patient underwent CT-guided biopsy which was negative, although the sample was not adequate. - C&S of the bone biopsy - NGTD * Watch off antibiotics * Oral and IV acetaminophen for mild to mod pain * Ketorolac for severe pain (can not give tramadol due to risk of seizure) * Per ID, may consider repeat T7-T8 aspirate/biopsy by IR. # SOCORRO on CKD Patient received hydration with appropriate response. Kidney US showed simple cysts, and no further workup was deemed necessary per Urology. 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 Echo also showed normal left ventricular ejection fraction estimated at 60-65%. * continue aspirin and statin # History of COPD * Continued on 3L home O2 and Montelukast 10 mg daily # History of GCA * Continued 1.5 mg PO prednisone daily # Hypothyroidism Multilobular left thyroid enlargement. Thyroid function tests are within normal limits. * continue levothyroxine at 0.025 mg daily * Patient can follow up outpatient after discharge for further management # History of anxiety and depression, bipolar disorder and PTSD Current home meds: alprazolam 0.25 mg Q6 PRN, trazodone, sertraline 50 mg daily * Per Psychiatry sertraline and alprazolam on hold * Per records from [facility] patient takes 50 mg trazodone in AM and 100 mg at bed time at home. She also takes 75 mg of Zoloft (sertraline) in AM. Per Maurisio, concern is that trazodone during the day will make her more drowsy and sertraline would cause agitation during the day. * Cont to hold trazodone, sertraline and alprazolam per psych rec # Pain management * Tylenol for mild-mod pain * Ketorolac for severe pain with caution (watch for Cr level) # DVT px * ALPS # Diet * Heart healthy, chopped and thin liquids # Mild pain pathway # FULL CODE Problem List: 1. COPD 2. H/O [id number] 3. Vertigo 4. Full code status 5. Hypertension 6. Diabetes 7. Insomnia 8. Anxiety 9. Neuropathy 10. Asthma 11. Hyperlipidemia 12. GERD (gastroesophageal reflux disease) 13. Diastolic CHF 14. Anemia 15. Bipolar 1 disorder 16. Bipolar disorder 17. Vitamin B12 deficiency 18. Multifactorial gait disorder 19. Full code status 20. Sepsis 21. Hypothyroidism 22. DVT prophylaxis 23. Diarrhea 24. Chronic respiratory failure 25. Delirium 26. PRES (posterior reversible encephalopathy syndrome) 27. Hypomagnesemia 28. RENAL INSUFFICIENCY Pain Ratin Pain Location: 0 Pain Goal: Pain 4 or less Pain Plan: Mild pathway Tomorrow's Labs & Rationales: BEP Mg Consulting Request: Consulting Specialty: Neurosurgery Consulting Physician: Discitis/Osteomyelitis T7-8 Reason for Consult: Dr. Carmel HEATON MD,DELORIS 08/07/16 1435: Attending MD Review Statement Attending Statement Attending MD Statement: examined this patient, discuss w/resident/PA/ELECTROFORMER, agreed w/resident/PA/ELECTROFORMER, reviewed EMR data (avail), discussed with nursing, discussed with case mgmt Attending Assessment/Plan: This is a very complex 76-year-old who's been here since July 25. She has underlying steroid-dependent polymyalgia rheumatica, COPD, hypertension and [place] [facility] a detention. The active issues been dealing with his uncontrolled hypertension NPR OSCAR, question of T7-T8 discitis/osteomyelitis with a negative biopsy/culture but questionable false-negative, ongoing delirium and confusion and diarrhea. At this point we have plenty of room with the hydralazine and labetalol to increase her antihypertensives to maintain her pressure in the 140- 160 range as recommended by cardiology. I'll talk to ID to see how aggressive we need to be to pursue this T7-T8 biopsy, check stool for C. difficile and follow-up.
--- NOTE | 2016-08-07 14:30 | PN- Infect Dx ---
Subjective Subjective: Afebrile. She complains of low back pain. One loose brown bowel movement reported. Objective Last 24 Hrs of Vital Signs/I&O Vital Signs Date Time Temp Pulse Resp B/P Pulse O2 O2 Flow FiO2 Ox Delivery Rate 08/07 0956 98.6 95 20 180/90 08/07 0955 98.6 95 20 180/90 08/07 0955 98.6 95 20 180/90 08/07 0800 98.6 95 20 180/90 97 Room Air 08/07 0026 98.2 74 20 162/80 96 Room Air 08/06 2105 114 172/80 08/06 1600 93 Room Air 08/06 1552 97.0 88 20 140/80 93 Room Air Intake & Output 08/07 1600 08/07 0800 08/07 0000 Intake Total 20 520 Output Total 330 300 Balance -310 220 Intake, Oral 20 520 Number 1 Bowel Movements Output, Urine 330 300 Physical Exam Other Physical Findings: She appears comfortable in no acute distress Lungs are clear Back no tenderness on palpation Extremities no cyanosis, clubbing or edema Results Last 24 Hours of Lab Results: Laboratory Tests 08/07 0550 Chemistry Sodium (137 - 145 mmol/L) 139 Potassium (3.5 - 5.1 mmol/L) 3.4 L Chloride (98 - 107 mmol/L) 105 Carbon Dioxide (22 - 30 mmol/L) 26 Anion Gap (5 - 16) 9 BUN (7 - 17 mg/dL) 5 L Creatinine (0.5 - 1.0 mg/dL) 1.3 H Estimated GFR (>60 ml/min) 40 L BUN/Creatinine Ratio (7 - 25 %) 3.8 L Magnesium (1.6 - 2.3 mg/dL) 1.2 L Hematology CBC w Diff NO MAN DIFF REQ WBC (4.8 - 10.8 /CUMM) 7.4 RBC (4.20 - 5.40 /CUMM) 3.75 L Hgb (12.0 - 16.0 G/DL) 10.4 L Hct (37 - 47 %) 31.5 L MCV (81.0 - 99.0 FL) 84.0 MCH (27.0 - 31.0 PG) 27.8 RDW (11.5 - 14.5 %) 18.2 H Plt Count (130 - 400 /CUMM) 296 MPV (7.4 - 10.4 FL) 8.7 Gran % (42.2 - 75.2 %) 47.5 Lymphocytes % (20.5 - 51.1 %) 37.5 Monocytes % (1.7 - 9.3 %) 11.2 H Eosinophils % (0 - 5 %) 3.2 Basophils % (0.0 - 2.0 %) 0.6 PUBS MCHC (33.0 - 37.0 G/DL) 33.1 Immunology Absolute Granulocytes (1.4 - 6.5 /CUMM) 3.5 Absolute Lymphocytes (1.2 - 3.4 /CUMM) 2.8 Absolute Monocytes (0.10 - 0.60 /CUMM) 0.8 H Absolute Eosinophils (0.0 - 0.7 /CUMM) 0.2 Absolute Basophils (0.0 - 0.2 /CUMM) 0 Last 24 Hours of Rehan Results: No recent cultures Assessment/Plan Impression: Remains relatively stable with blood pressure still fluctuating but with temperatures and white blood cell count remaining normal off antibiotics. The significance of the findings on CT and MRI suggestive of discitis/osteomyelitis T7-T8 is unclear, with the initial aspirate negative, and a repeat aspiration will be necessary to rule out infection. Suggestion: 1. Would repeat T7-T8 aspirate/biopsy when condition allows 2. Continue to follow off antibiotics pending above Will no longer follow actively, but please call with any questions or if her condition changes
[2016-08-07 15:00] VITALS: BP 160/70; BP 60/70
[2016-08-07 15:49] VITALS: BP 160/82
[2016-08-07 22:25] VITALS: BP 120/68
--- NOTE | 2016-08-08 06:36 | PN- Housestaff ---
TERESA ANDREWS,KELLEN 08/08/16 0636: Subjective Follow-up For: -mood disturbances (hx of bipolar and anxiety, off mediation) -PRES syndrome in the setting of high blood pressure -Uncontrolled BP -AMS and somnolence -History of anxiety and despression (bipolar disorder) -Hypomagnesemia -Possible osteomyelitis of the thoracic spine, off antibiotics -SOCORRO on CKD Tele-Events Since Last Visit: NSR overnight ST up to 112 and PVC last night Subjective: Patient seen and examined at bedside. Per the nursing staff patient babrely slept overnight. This morning she is sleeping and wants to be left alone, refusing the physical exam and not answering the questions. BP within a normal range. Review of Systems Constitutional: Denies: chills, diaphoresis, fever, weakness. Comments: Cardiovascular: Denies: no symptoms, see HPI, chest pain, edema, orthopena, palpitations, peripheral edema, syncope. Respiratory: Denies: no symptoms, see HPI, cough, hemoptysis, orthopnea, short of breath, sputum production, stridor, wheezing. Gastrointestinal: Reports: abdominal pain, diarrhea. Denies: constipation. Genitourinary: Denies: discharge, dysuria, frequency. Skin: Denies: cysts, change in skin color, dryness, erythema, jaundice. Objective Last 24 Hrs of Vital Signs/I&O Vital Signs Date Time Temp Pulse Resp B/P Pulse O2 O2 Flow FiO2 Ox Delivery Rate 08/07 2225 97.3 77 20 120/68 92 08/07 213 98 166/60 08/07 2131 98 166/60 08/07 1816 87 164/76 08/07 1549 98.4 84 18 160/82 90 Room Air 08/07 1500 99.1 160/70 08/07 1458 99.1 08/07 0956 98.6 95 20 180/90 08/07 0955 98.6 95 20 180/90 08/07 0955 98.6 95 20 180/90 Intake & Output 08/08 1600 08/08 0800 08/08 0000 Intake Total 250 370 Output Total 500 2 Balance -250 368 Intake, IV 10 Intake, Oral 250 360 Output, Other 2 Output, Urine 500 Physical Exam General Appearance: Alert, Oriented X3, Cooperative, No Acute Distress Other Physical Findings: Skin: No Rashes HEENT: Atraumatic, PERRLA Cardiovascular: Regular Rate, Normal S1, Normal S2 Lungs: Clear to Auscultation Abdomen: Normal Bowel Sounds, Soft, No Tenderness Neurological: Normal Speech, Strength at 5/5 X4 Ext, Normal Tone Extremities: No Clubbing, No Cyanosis, No Edema Current Medications: Current Medications Sig/Desiree Start time Last Medication Dose Route Stop Time Status Admin Acetaminophen 650 MG Q6P PRN 07/25 2015 AC 08/05 PO 1005 Amlodipine Besylate 10 MG DAILY 08/05 1000 AC 08/07 PO 0956 Atorvastatin Calcium 80 MG 1700 08/01 1700 AC 08/07 PO 1816 Cholecalciferol 400 IU DAILY 07/26 1000 AC 08/07 PO 0956 Ferrous Sulfate 325 MG DAILY 07/26 1000 AC 08/07 PO 0956 Heparin Sodium 5,000 UNIT Q8 07/25 2200 AC 08/08 (Porcine) SC 0515 Hydralazine HCl 25 MG TID 08/07 1000 AC 08/07 PO 2131 Hydrochlorothiazide 25 MG DAILY 08/06 1000 DC 08/06 PO 1148 Insulin Aspart 0 TIDAC 07/29 0800 AC 08/07 SC 1217 Insulin Aspart 0 AT BEDTIME 07/28 2200 AC SC Ketorolac 15 MG BID PRN 08/02 1400 AC 08/05 Tromethamine IV 1232 Labetalol HCl 100 MG BID 08/07 2200 AC 08/07 PO 2131 Labetalol HCl 50 MG BID 08/06 1000 DC 08/07 PO 0955 Levetiracetam 750 MG BID 08/07 2200 AC 08/07 PO 2131 Levetiracetam 750 MG BID 08/01 2200 DC 08/07 Sodium Chloride 100 ML IV 1035 Levothyroxine Sodium 0.025 MG DAILY AC 07/26 0700 AC 08/08 PO 0546 Lorazepam 1 MG Q6-PRN PRN 08/01 0245 DC 08/01 IV 0310 Losartan Potassium 100 MG DAILY 07/29 1000 DC 08/06 PO 1147 Magnesium Chloride 64 MG DAILY 08/08 1000 CAN PO Magnesium Chloride 64 MG BID 08/07 1407 AC 08/07 PO 2131 Magnesium Oxide 400 MG ONE ONE 08/07 1200 DC 08/07 PO 08/07 1201 1218 Magnesium Oxide 400 MG BID 08/03 1000 DC 08/07 PO 0955 Magnesium Sulfate 1 GM Q2H 08/07 0845 DC 08/07 Dextrose/Water 100 ML IV 08/07 1047 1431 Montelukast Sodium 10 MG DAILY 07/26 1000 AC 08/07 PO 0956 Omeprazole 20 MG DAILY AC 07/26 0700 AC 08/08 PO 0546 Potassium Chloride 20 MEQ BID 08/08 1000 AC PO Potassium Chloride 20 MEQ 1000 08/07 1000 DC 08/07 PO 08/07 1001 1036 Potassium Chloride 20 MEQ ONCE ONE 08/07 0830 DC 08/07 PO 08/07 0831 0956 Prednisone 1.5 MG Q48 07/31 1000 AC 08/06 PO 1147 Simethicone 80 MG Q6P PRN 07/30 1339 AC 07/31 PO 1537 Vitamin A/Vitamin D 1 LORENA BID PRN 07/25 2345 AC 08/02 TOP 1830 Zinc Oxide 1 LORENA Q8 08/01 2200 AC 08/08 TOP 0515 Zinc Oxide 1 LORENA BID PRN 08/01 1512 AC 08/02 TOP 1830 Last 24 Hrs of Lab/Rehan Results Last 24 Hrs of Labs/Mics: Laboratory Tests 08/08/16 0540: Anion Gap 9, Estimated GFR 40 L, BUN/Creatinine Ratio 3.8 L, Magnesium 1.7 Microbiology 08/07 0935 STOOL: Clostridium difficile Toxin A & B - COLB Assessment/Plan Assessment: Mr. Bland is a 76 year old lady with PMH significant for COPD on 3 L oxygen, CHF (stage II diastolic), DM2, complicated with neuropathy and gastroparesis, arthritis, depression, hyperlipidemia, CRF, GERD, diverticulosis and hypothyroidism. She was brought to [facility] from [place] due to AMS and diarrhea. # Uncontrolled hypertension - Resolved. During ICU stay her home meds verapamil and losartan were discontinued. Per cardio rec, patient was started on labetalol 50mg PO BID and amlodipine at 7.5 mg which was increased to 10 mg. On 08/07 patient's labetalol was increased to 100mg PO BID, and started on hydralazine 25mg PO TID. Patient's BP was better controlled with these changes. - ECHO: Normal left ventricular ejection fraction estimated at 60-65%. * Cont labetalol to 100mg PO BID * Cont hydralazine 25mg PO TID * Cont Norvasc 10mg PO daily # Questionable osteomyelitis/discitis of the thoracic spine CT and MRI findings are suggestive of discitis/osteomyelitis at T7-T8 but of unclear signifciace. Patient underwent CT-guided biopsy which was negative, although the sample was not adequate. - C&S of the bone biopsy - NGTD 08/08: Dr. Julien discussed with Dr. Quiñones about pursuing further workup for patient's possible discitis. Dr. Quiñones recommeneded workup to be done outpatient with MRI in 4 weeks once patient's psychiatric and neurological conditions. We will continue to monitor for now. * Watch off antibiotics * Oral and IV acetaminophen for mild to mod pain * Ketorolac for severe pain (can not give tramadol due to risk of seizure) * Per ID, may consider repeat T7-T8 aspirate/biopsy by IR when patient is more stable * Cont to follow ID recs # History of anxiety, depression, bipolar disorder and PTSD Per records from [place], at home patient takes alprazolam 0.25 mg Q6 PRN, trazodone, and sertraline 50 mg daily. Per Maurisio, concern is that trazodone during the day will make her more drowsy and sertraline would cause agitation during the day. 08/08: patient continues to have altered mental status. Agitated throughout the day and fully awake overnight. Not eating and sleeping well. We have requested psych and neuro to evaluate the patient. * Appreciate psych & neuro recs - requested for re-eval * Cont to hold trazodone, sertraline and alprazolam for now per psych rec # Posterior Reversible Encephalopathy Syndrome (PRES) Presented with seizure and FND in the setting of elevated BP, s/p CT guided biopsy of the thoracis spine. MRI consistent with PRES, which seems to have resolved now. She is currently able to move her right arm. Also her right-sided eyelid droop and left-sided hemispacial neglect are no longer present. - Doppler US of the carotid arteries: limited exam, no clear hemodynamically significant stenoses are identified. Recommend repeat exam when patient is able to tolerate the procedure. - EEG: Normal in wake state * Adequate BP control to keep systolic pressure in 140-160 * Cont Keppra 750 mg PO BID * Hold off lorazepam 1 mg Q6 PRN for now per psych rec * Neurochecks every 4 hours * Follow neuro recs * Follow cardio recs regarding BP management * Follow urine 24h for catecholamines to r/o pheochromocytoma - still pending # Bruising on the right shoulder Patient initially had a bruise on the right shoulder, in addition to pain, decreased ROM, tenderness. She was unable to obtain complete history regarding possible trauma due to mental status. - Xray of the right shoulder did not show dislocation, fracture or hematoma, however reported widened acromioclavicular joint space to 1.2 cm wide, which was also widened on the recent chest radiograph of 07/14/2016. Patient is currently able to move her right arm, does not complain of any pain. # SOCORRO on CKD Patient received hydration with appropriate response. Kidney US showed simple cysts, and no further workup was deemed necessary per Urology. 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 Echo also showed normal left ventricular ejection fraction estimated at 60-65%. * Continue aspirin and statin # History of COPD * Continued on 3L home O2 and Montelukast 10 mg daily # History of GCA * Continued 1.5 mg PO prednisone daily # Hypothyroidism Multilobular left thyroid enlargement. Thyroid function tests are within normal limits. * continue levothyroxine at 0.025 mg daily * Patient can follow up outpatient after discharge for further management # Pain management * Tylenol for mild-mod pain * Ketorolac for severe pain with caution (watch for Cr level) # DVT px * ALPS # Diet * Heart healthy, chopped and thin liquids # Mild pain pathway # FULL CODE Problem List: 1. COPD 2. H/O QF-BLE-FBGCPTD-COPD 3. MICROCYTIC HYPOCHROMIC ANEMIA 4. RENAL INSUFFICIENCY 5. Vertigo 6. Full code status 7. Hypertension 8. Diabetes 9. Insomnia 10. Anxiety 11. Neuropathy 12. Asthma 13. Hyperlipidemia 14. GERD (gastroesophageal reflux disease) 15. Diastolic CHF 16. Anemia 17. Bipolar 1 disorder 18. Bipolar disorder 19. Vitamin B12 deficiency 20. Multifactorial gait disorder 21. Full code status 22. COPD with exacerbation 23. Pneumonia 24. UTI (urinary tract infection) 25. Fever 26. Sepsis 27. SOCORRO (acute kidney injury) 28. Hyperkalemia 29. Hypothyroidism 30. DVT prophylaxis 31. Diarrhea 32. Chronic respiratory failure 33. Osteomyelitis 34. Discitis 35. Delirium 36. PRES (posterior reversible encephalopathy syndrome) 37. Hypomagnesemia Pain Ratin Pain Location: 0 Pain Goal: Pain 4 or less Pain Plan: Mild pathway Tomorrow's Labs & Rationales: CBC BEP Consulting Request: Consulting Specialty: Neurosurgery Consulting Physician: Discitis/Osteomyelitis T7-8 Reason for Consult: Dr. Carmel JULIEN MD,DELORIS 08/08/16 1349: Attending MD Review Statement Attending Statement Attending MD Statement: examined this patient, discuss w/resident/PA/PARACHUTE TAPER, agreed w/resident/PA/PARACHUTE TAPER, reviewed EMR data (avail), discussed with nursing, discussed with case mgmt Attending Assessment/Plan: Continues to be very confused. She is hardly eating anything. I spoke to the neurologist at length. He feels that we should repeat the MRI with and without gadolinium as PRES syndrome can give you strokes. If the MRI is unrevealing we have to consider an LP. I spoke to Abelardo Quiñones MD and he feels that given her neurological state at this point we can defer workup for this questionable discitis. The plan will be to repeat an MRI in 4-6 weeks of her thoracic spine and if the discitis/osteo-is persistent then pursue a tissue diagnosis again at that point.
--- NOTE | 2016-08-08 10:10 | Event Note ---
Event Note Event Note: Dr. Julien discussed with Dr. Quiñones
--- NOTE | 2016-08-08 13:14 | Cons- Neurology ---
General Information and HPI Consulting Request Date of Consult: 08/08/16 Requested By: SUDARSHAN ANDREWS,DELORIS Owusu Reason for Consult: Confusion and alteration in MS Source of Information: old records, hospitalist Exam Limitations: unable to give history, confusion History of Present Illness: This is a 76-year-old woman with past medical history of COPD on 3 L of home oxygen, stage II diastolic CHF, type 2 diabetes mellitus complicated with neuropathy and gastroparesis, hypothyroidism, arthritis, depression, hyperlipidemia, chronic renal failure, most recently admitted to [facility] on 07/14/16 for altered mental status secondary to UTI and acute kidney injury and was discharged on 07/17/16 on course of augmentin, brought today by granddaughter for concerns of altered mental status. Per the nurse taking care of her at [place], patient has been having episodes of diarrhea prior to admission. The day prior to admission she wasn't "herself" she was looking very lethargic and also incontinent of both bowel and bladder which is not like her. During her hospitalization and MRI brain was completed and revealed also and T2 changes within the posterior occipital parietal white matter. It was also deemed that she had a seizure at some point. She was also found to have malignant hypertension that was treated aggressively due to concerns about PRES. However she continues to be confused despite the treatment of the proposed PRES. Currently the patient is still disoriented but alert and can hold a conversation. Complains of foot pain, abdominal pain and an 8/10 headache. Allergies/Medications Allergies: Coded Allergies: oxycodone (RASH 12/08/15) Home Med List: Acetaminophen (Acephen) 650 MG SUPP.RECT 1 SUPP IA Q4H PRN PAIN/TEMP>/100 ( Reported) Acetaminophen (Athenol) 325 MG TABLET 2 TAB PO Q4H PRN PAIN/TEMP>/100 ( Reported) Alprazolam (Xanax) 0.25 MG TABLET 1 TAB PO Q6P PRN AGITATION AND ANXIETY ( Reported) Augmentin (Augmentin 500-125 Tablet) 500 MG-125 MG TABLET 1 TAB PO BID urine infection Bisacodyl 10 MG SUPP.RECT 1 SUP RC PRN CONSTIPATION (Reported) Cholecalciferol (Vitamin D3) (Vitamin D3) 400 UNIT TABLET 1 TAB PO DAILY SUPPLEMENT (Reported) Ferrous Sulfate 325 MG (65 MG IRON) TABLET 1 TAB PO DAILY SUPPLEMENT ( Reported) Glucagon,Human Recombinant (Glucagon Emergency Kit) 1 MG KIT 1 MG IM ONCE PRN HYPOGLYCEMIA (Reported) Insulin Aspart (Novolog) 100 UNIT/ML VIAL DM (Reported) based on sliding scale Insulin Detemir (Levemir) 100 UNIT/ML VIAL 30 UNITS SC QAM DM (Reported) Ipratropium/Albuterol Sulfate (Iprat-Albut 0.5-3(2.5) MG/3 Ml) 0.5 MG-3 MG (2.5 MG BASE)/3 ML AMPUL.NEB 3 ML INH Q4H PRN SOB/WHEEZE (Reported) Lactobacillus Acidophilus (Acidophilus) 1 EACH CAPSULE 1 CAP PO BID GI ( Reported) Levothyroxine Sodium 25 MCG TABLET 1 TAB PO DAILY AC THYROID (Reported) Losartan Potassium 100 MG TABLET 1 TAB PO DAILY UNKNOWN (Reported) Magnesium Hydroxide (Milk Of Magnesia) 400 MG/5 ML ORAL.SUSP 30 ML PO DAILY PRN CONSTIPATION (Reported) Meclizine HCl 12.5 MG TABLET 1 TAB PO Q6H PRN VERTIGO (Reported) Metformin HCl 500 MG TABLET 1 TAB PO TID DM (Reported) Montelukast Sodium 10 MG TABLET 1 TAB PO DAILY UNKNOWN (Reported) Na Phos,M-B/Na Phos,Di-Ba (Fleet Enema) 19 GRAM-7 GRAM/118 ML ENEMA 1 E RC DAILY PRN CONSTIPATION (Reported) Omeprazole 20 MG CAPSULE.DR 1 CAP PO DAILY GI (Reported) Prednisone 1 MG TABLET 1.5 TAB PO EOD STEROID (Reported) Pregabalin (Lyrica) 75 MG CAPSULE 1 CAP PO TID NEUROPATHY (Reported) Sertraline HCl 50 MG TABLET 1 TAB PO DAILY MENTAL HEALTH (Reported) Simethicone (Gas Relief) 125 MG TAB.CHEW 1 TAB PO Q4-6H PRN ABD BLOATING & PAIN (Reported) Simvastatin (Zocor*) 10 MG TABLET 1 TAB PO QPM CHOLESTEROL (Reported) Sitagliptin Phosphate (Januvia) 100 MG TABLET 1 TAB PO DAILY DIABETES ( Reported) Tiotropium [place] (Spiriva) 18 MCG CAP.W.DEV 1 CAP INH DAILY COPD (Reported) Trazodone HCl 50 MG TABLET 1 TAB PO 0800 UNKNOWN (Reported) Trazodone HCl 100 MG TABLET 1 TAB PO QPM UNKNOWN (Reported) Trazodone HCl 50 MG TABLET 12.5 MG PO Q8H PRN ANXIETY (Reported) Verapamil HCl 120 MG TABLET 1 TAB PO DAILY UNKNOWN (Reported) Current Medications: Current Medications Sig/Desiree Start time Last Medication Dose Route Stop Time Status Admin Acetaminophen 650 MG Q6P PRN 07/25 2015 AC 08/05 PO 1005 Amlodipine Besylate 10 MG DAILY 08/05 1000 AC 08/08 PO 1058 Atorvastatin Calcium 80 MG 1700 08/01 1700 AC 08/07 PO 1816 Cholecalciferol 400 IU DAILY 07/26 1000 AC 08/07 PO 0956 Ferrous Sulfate 325 MG DAILY 07/26 1000 AC 08/08 PO 1058 Heparin Sodium 5,000 UNIT Q8 07/25 2200 AC 08/08 (Porcine) SC 0515 Hydralazine HCl 25 MG TID 08/07 1000 AC 08/08 PO 1058 Insulin Aspart 0 TIDAC 07/29 0800 AC 08/07 SC 1217 Insulin Aspart 0 AT BEDTIME 07/28 2200 AC SC Ketorolac 15 MG BID PRN 08/02 1400 AC 08/08 Tromethamine IV 1212 Labetalol HCl 100 MG BID 08/07 2200 AC 08/08 PO 1059 Labetalol HCl 50 MG BID 08/06 1000 DC 08/07 PO 0955 Levetiracetam 750 MG BID 08/07 2200 AC 08/08 PO 1058 Levetiracetam 750 MG BID 08/01 2200 DC 08/07 Sodium Chloride 100 ML IV 1035 Levothyroxine Sodium 0.025 MG DAILY AC 07/26 0700 AC 08/08 PO 0546 Lorazepam 1 MG Q6-PRN PRN 08/01 0245 DC 08/01 IV 0310 Magnesium Chloride 64 MG DAILY 08/08 1000 CAN PO Magnesium Chloride 64 MG BID 08/07 1407 AC 08/08 PO 1059 Magnesium Oxide 400 MG BID 08/03 1000 DC 08/07 PO 0955 Montelukast Sodium 10 MG DAILY 07/26 1000 AC 08/08 PO 1059 Omeprazole 20 MG DAILY AC 07/26 0700 AC 08/08 PO 0546 Potassium Chloride 20 MEQ BID 08/08 1000 AC 08/08 PO 1057 Prednisone 1.5 MG Q48 07/31 1000 AC 08/08 PO 1057 Simethicone 80 MG Q6P PRN 07/30 1339 AC 07/31 PO 1537 Vitamin A/Vitamin D 1 LORENA BID PRN 07/25 2345 08/02 TOP 1830 Zinc Oxide 1 LORENA Q8 08/01 2200 08/08 TOP 0515 Zinc Oxide 1 LORENA BID PRN 08/01 1512 08/02 TOP 1830 Review of Systems Review of Systems: As per HPI otherwise negative. Past History Travel History Traveled to [place] past 21 day No Medical History Neurological: dizziness, vertigo, DEMENTIA-MILD EENT: allergies Cardiovascular: CHF Respiratory: COPD, emphysema Gastrointestinal: GERD, lactose intolerance Hepatic: NONE Renal: UTI Musculoskeletal: osteoporosis, ARTHRITIS Psychiatric: anxiety, bipolar disease, depression Endocrine: diabetes, hypothyroidism, obesity Blood Disorders: NONE Cancer(s): NONE SENIOR QUALITY ANALYST/Reproductive: NONE Surgical History Surgical History: cholecystectomy, X3 SURGICAL PROCEDURE TO HEAD FOR VERTIGO TONSILLECTOMY Family History Relations & Conditions If Any: MOTHER (Alzheimers). FATHER (CAD). AUNT (Stroke). DAUGHTER ( from drug overdose). Psychosocial History Where Do You Live? Extended Care Facility Services at Home: Nursing Smoking Status: Former Smoker ETOH Use: denies use Functional Ability ADLs Needs Assist: dressing, eating, toileting, bathing. Ambulation: wheelchair Exam & Diagnostic Data Vital Signs and I&O Vital Signs Date Time Temp Pulse Resp B/P Pulse O2 O2 Flow FiO2 Ox Delivery Rate 08/08 1059 77 120/68 08/08 1058 77 120/68 08/08 1058 77 120/68 08/07 2225 97.3 77 20 120/68 92 08/07 2131 98 166/60 08/07 2131 98 166/60 08/07 1816 87 164/76 08/07 1549 98.4 84 18 160/82 90 Room Air 08/07 1500 99.1 160/70 08/07 1458 99.1 Intake & Output 08/08 1600 08/08 0800 08/08 0000 Intake Total 250 370 Output Total 500 2 Balance -250 368 Intake, IV 10 Intake, Oral 250 360 Output, Other 2 Output, Urine 500 Physical Exam: Alert but disoriented to time. Knows place. Does not know president. Lanuage fluent, comprehension intact. S1 and S2 are normal. RRR. Describes presented colors and number of fingers correctly. EOMI, CHEVY, no nystagmus, face is symmetric. VF intact. Does not participate with resistence testing but moves all limbs equally. Denies any sensory loss. Reflexes symmetric and toes are down going. Gait deferred. FNF normal. Last 48 Hours of Lab Results: Laboratory Tests 08/08 12/ 0540 0550 Chemistry Sodium (137 - 145 mmol/L) 142 139 Potassium (3.5 - 5.1 mmol/L) 3.7 3.4 L Chloride (98 - 107 mmol/L) 106 105 Carbon Dioxide (22 - 30 mmol/L) 26 26 Anion Gap (5 - 16) 9 9 BUN (7 - 17 mg/dL) 5 L 5 L Creatinine (0.5 - 1.0 mg/dL) 1.3 H 1.3 H Estimated GFR (>60 ml/min) 40 L 40 L BUN/Creatinine Ratio (7 - 25 %) 3.8 L 3.8 L Magnesium (1.6 - 2.3 mg/dL) 1.7 1.2 L Hematology CBC w Diff NO MAN DIFF REQ WBC (4.8 - 10.8 /CUMM) 7.4 RBC (4.20 - 5.40 /CUMM) 3.75 L Hgb (12.0 - 16.0 G/DL) 10.4 L Hct (37 - 47 %) 31.5 L MCV (81.0 - 99.0 FL) 84.0 MCH (27.0 - 31.0 PG) 27.8 RDW (11.5 - 14.5 %) 18.2 H Plt Count (130 - 400 /CUMM) 296 MPV (7.4 - 10.4 FL) 8.7 Gran % (42.2 - 75.2 %) 47.5 Lymphocytes % (20.5 - 51.1 %) 37.5 Monocytes % (1.7 - 9.3 %) 11.2 H Eosinophils % (0 - 5 %) 3.2 Basophils % (0.0 - 2.0 %) 0.6 PUBS MCHC (33.0 - 37.0 G/DL) 33.1 Immunology Absolute Granulocytes (1.4 - 6.5 /CUMM) 3.5 Absolute Lymphocytes (1.2 - 3.4 /CUMM) 2.8 Absolute Monocytes (0.10 - 0.60 /CUMM) 0.8 H Absolute Eosinophils (0.0 - 0.7 /CUMM) 0.2 Absolute Basophils (0.0 - 0.2 /CUMM) 0 Imaging/Other Studies: MRI brain reviewed directly revealed she T2 confluent areas within the occipital areas bilaterally and on the left extending all the way throughout the superior artery of the left hemisphere, within the white matter. There is no evidence of diffusion positive lesions. A small left frontal GRE signal that may signify either a venous anomaly or small bleed. EEG did not reveal any epileptiform activity. Assessment/Plan Assessment: This is a 76-year-old woman with likely PRES syndrome causing encephalopathy. However, despite treatment of her malignant hypertension which is presumably the cause of her posterior reversible encephalopathy syndrome she continues to be encephalopathic. EEG does not reveal any seizure activity and she is on Keppra. It is therefore unclear why she continues to be confused, and disoriented. Other causes of her white matter abnormalities should be considered such as PML or other infections such as CMV. Toxic metabolic, and nutritonal deficiencies could also cause such picture. Further, we do not have comparison films and so it is possible that the white matter abnormalities have progressed insidiously in which case we would be looking at a differential of a leukoencephalopathy (eg Adrenal Leukodystrophy). Recommendations: 1. EEG 2. Repeat MRI of the brain with contrast preferably to rule out bilateral posterior infarctions secondary to PRES (or see if white matter lesions resolves as they usually due to in PRES). 3. Check toxicology, B12, Vitamin E and A, folic acid. Send Very long fatty acids for adrenal leukodystrophy. Send STEVE titer. 4. May require a tap to assess further for other etiologies of white matter abnormalities. Consult Acknowledgment - Thank you for your consult request.
[2016-08-08 17:16] VITALS: BP 150/70
--- NOTE | 2016-08-08 19:38 | Transfer of Care Summary ---
See Addendum Hospital Course Course Hospital Course: Mr. Bland is a 76 year old lady with PMH significant for COPD on 3 L oxygen, CHF (stage II diastolic), DM2, complicated with neuropathy and gastroparesis, arthritis, mood disorders, hyperlipidemia, CRF, GERD, diverticulosis and hypothyroidism, who initially presented to [place] ED from [place] on 07/25/16 with persistent diarrhea with acute decompensation and altered mental status. Patient received care under general medicine until 08/01 when she was transferred to tele on due to headaches and BP of 220/110 with MRI findings consistent with PRES. In telemetry unit she developed seizures proceeded by right arm weakness and right eyelid droop. She was subsequently transferred to the ICU for further monitoring and BP control. Upon stabilization, patient was transferred back to telemetery unit where the following problems were managed with the plans as disccused below. # Uncontrolled hypertension - Resolved. During ICU stay her home meds verapamil and losartan were discontinued. Per cardio rec, patient was started on labetalol 50mg PO BID and amlodipine at 7.5 mg which was increased to 10 mg. Patient continued to be hypertensive in tele unit on 08/07 and patient's labetalol was increased to 100mg PO BID, and she started on hydralazine 25mg PO TID. Patient's BP was better controlled with these changes. - ECHO: Normal left ventricular ejection fraction estimated at 60-65%. * Cont labetalol to 100mg PO BID * Cont hydralazine 25mg PO TID * Cont Norvasc 10mg PO daily # Questionable osteomyelitis/discitis of the thoracic spine CT and MRI findings are suggestive of discitis/osteomyelitis at T7-T8 but of unclear signifciace. Patient underwent CT-guided biopsy which was negative, although the sample was not adequate. C&S of the bone biopsy showed no growth. On 08/08, Dr. Julien discussed with Dr. Quiñones about pursuing further workup for patient's possible discitis. Dr. Quiñones recommeneded workup to be done outpatient with MRI in 4 weeks once patient's psychiatric and neurological conditions. 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 In addition, patient carries a history of of anxiety, depression, bipolar disorder and PTSD. According to the records from [place], at home patient takes alprazolam 0.25 mg Q6 PRN, trazodone, and sertraline 50 mg daily. Per psych, trazodone and sertraline may be contributing to her altered mental status. As such her psych meds were discontinued under the ICU service. In telemetery unit, patient continued to be have AMS. Agitated throughout the day and fully awake overnight. Not eating and sleeping well. We have requested psych and neuro to evaluate the patient. We requested psych to re-evaluate the patient but patient was never seen while on tele. Patient was held off trazodone, sertraline and alprazolam per psych's previous recs. Patient's mental status continued to worsen and neuro recommended on 08/08 that patient may benefit from being back on her pysch meds. * Touch base with psych about resuming psych meds (alprazolam 0.25 mg Q6 PRN, trazodone 50 mg in AM and 100 mg at bedtime, sertraline 75 mg daily in AM) # Posterior Reversible Encephalopathy Syndrome (PRES) Presented with seizure and FND in the setting of elevated BP, s/p CT guided biopsy of the thoracis spine. MRI consistent with PRES, which seems to have resolved now. She is currently able to move her right arm. Also her right-sided eyelid droop and left-sided hemispacial neglect are no longer present. - Doppler US of the carotid arteries: limited exam, no clear hemodynamically significant stenoses are identified. Recommend repeat exam when patient is able to tolerate the procedure. - EEG: Normal in wake state * Adequate BP control to keep systolic pressure in 140-160 * Cont Keppra 750 mg PO BID * Hold off lorazepam 1 mg Q6 PRN for now per psych rec * Neurochecks every 4 hours * Follow neuro recs * Follow cardio recs regarding BP management * Follow urine 24h for catecholamines to r/o pheochromocytoma - still pending # Bruising on the right shoulder Patient initially had a bruise on the right shoulder, in addition to pain, decreased ROM, tenderness. She was unable to obtain complete history regarding possible trauma due to mental status. - Xray of the right shoulder did not show dislocation, fracture or hematoma, however reported widened acromioclavicular joint space to 1.2 cm wide, which was also widened on the recent chest radiograph of 07/14/2016. Patient is currently able to move her right arm, does not complain of any pain. # SOCORRO on CKD Patient received hydration with appropriate response. Kidney US showed simple cysts, and no further workup was deemed necessary per Urology. 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 Echo also showed normal left ventricular ejection fraction estimated at 60-65%. * Continue aspirin and statin # History of COPD * Continued on 3L home O2 and Montelukast 10 mg daily # History of GCA * Continued 1.5 mg PO prednisone daily # Hypothyroidism Multilobular left thyroid enlargement. Thyroid function tests are within normal limits. * continue levothyroxine at 0.025 mg daily * Patient can follow up outpatient after discharge for further management # Pain management * Tylenol for mild-mod pain * Ketorolac for severe pain with caution (watch for Cr level) * Tramadol 50mg Q6 PRN for moderate pain # DVT px * ALPS # Diet * Heart healthy, chopped and thin liquids # Mild pain pathway # FULL CODE Assessment/Plan: See above
--- NOTE | 2016-08-08 19:55 | NUR ---
PATIENT TRANSFERRED TO ROOM # 205-1 AT 1650. PATIENT ALERT AND ORIENTED X 2-3. PATIENT VERBALLY AGGRESSIVE WITH STAFF UPON ARRIVAL TO THE FLOOR. PATIENT HAS SAFETY MONITOR FOR AGITATION. ASSESSMENT DONE. PATIENT REQUESTED THAT NAME BRACELET BE REMOVED FROM HER LEG. PATIENT COMPLAINED OF PAIN TO BILATERAL FEET. TRAMADOL X 1 DOSE GIVEN. CALL LIGHT WITHIN REACH. SAFETY MONITOR IN PLACE. WILL CONTINUE TO MONITOR.
[2016-08-08 22:00] VITALS: BP 148/60
[2016-08-09 00:05] VITALS: BP 120/58
--- NOTE | 2016-08-09 07:33 | PN- Housestaff ---
JEREMY ANDREWS,[facility] 08/09/16 0733: Subjective Follow-up For: PRES abdominal pain disciitis/osteomyelitis back pain knee pain Subjective: pt was seen and examined this morning. she was complaining of 9/10 bilateral knee pain that is continuous in nature. she also complains of generalized abdominal pain, as well as back tenderness. she felt nauseous after breakfast this morning. she oriented to place, but not to time. she thinks she was admitted to the hospital for asthma, and she kept repeating the same sentence over and over again "I took care of all my grandkids". her blood pressure has been wnl since transfer from [facility]. urine total catecholamine 23 L, pheochromocytoma less likely. normal urine epinephrine, norepinephrine, dopamine. for pain, tramadol has been helping with her pain. she also has tylenol and ketorolac ordered for pain. her wbc is noted to come up from 7.4 to 9.8 but she has been afebrile. biopsy from ct guided biopsy did not grow anything. pt has been off abx. her k has gone up from 3.4 --> 3.7 to 4.8. worsening kidney functions noted from 5/1.3 to 8/1.5 . consider discontinuing tramadol or use less of it and use more of tylenol. as her kidney functions is worse, gfr 34, we will hydrate her before mri today. her b12 normal at 798, folate normal at 3.6. her pscyh meds have been on hold as it might contribute to her altered mental status and cloud the clinical picture. psychiatry would like to hold off ssri, benzo and trazodone for now. pt has not been eating or sleeping much. she has a front desk monitor. she has not had anymore seizure episodes since transfer from [facility], currently stable on keppra. right arm weakness and ptosis has also resolved. pt will get MRI today to assess for posterior infarction. awaiting repeat EEG results. Review of Systems Constitutional: Denies: chills, diaphoresis, fever, malaise. EENTM: Denies: visual changes. Cardiovascular: Denies: chest pain, edema, palpitations, peripheral edema. Respiratory: Denies: cough, short of breath. Gastrointestinal: Reports: abdominal pain, bloating, nausea, vomiting. Denies: constipation, diarrhea. Genitourinary: Denies: dysuria. Objective Last 24 Hrs of Vital Signs/I&O Vital Signs Date Time Temp Pulse Resp B/P Pulse O2 O2 Flow FiO2 Ox Delivery Rate 08/09 921 Room Air 2.0L 08/09 800 98.0 80 20 132/68 98 Room Air 08/09 0005 97.5 64 20 120/58 93 Room Air 08/08 2200 97.5 92 18 148/60 92 Room Air 08/08 2144 97.5 92 18 148/60 08/08 2144 97.5 92 18 148/60 08/08 1734 98.5 73 20 150/70 08/08 1716 98.3 73 20 150/70 92 Intake & Output 08/09 1600 08/09 0800 08/09 0000 Intake Total 500 780 Output Total Balance 500 780 Intake, IV 400 300 Intake, Oral 100 480 Number 0 Bowel Movements Physical Exam General Appearance: Alert, Cooperative, Moderate Distress Skin: No Significant Lesion HEENT: Atraumatic, PERRLA, EOMI, Mucous Membr. moist/pink Neck: Supple Lymphatic: Axillary nl, Cervical nl Cardiovascular: Regular Rate, Normal S1, Normal S2, No Murmurs, Gallops, Rubs Lungs: Clear to Auscultation, Normal Air Movement Abdomen: Normal Bowel Sounds, Soft, diffuse tenderness Extremities: No Edema Vascular: Normal Pulses Current Medications: Current Medications Sig/Desiree Start time Last Medication Dose Route Stop Time Status Admin Acetaminophen 650 MG .STK-MED ONE 08/08 2138 DC PO 08/08 213 Acetaminophen 650 MG .STK-MED ONE 08/08 1402 DC PO 08/08 1403 Acetaminophen 650 MG Q6P PRN 07/25 2015 AC 08/08 PO 214 Alprazolam 0.5 MG ONCE ONE 08/09 830 DC PO 08/09 0831 Amlodipine Besylate 10 MG DAILY 08/05 1000 AC 08/08 PO 1058 Atorvastatin Calcium 80 MG 1700 08/01 1700 AC 08/08 PO 1734 Cholecalciferol 400 IU DAILY 07/26 1000 AC 08/08 PO 1451 Ferrous Sulfate 325 MG DAILY 07/26 1000 AC 08/08 PO 1058 Heparin Sodium 5,000 UNIT Q8 07/25 2200 AC 08/09 (Porcine) SC 0548 Hydralazine HCl 25 MG TID 08/07 1000 AC 08/08 PO 214 Insulin Aspart 0 TIDAC 07/29 0800 AC 08/09 SC 0814 Insulin Aspart 0 AT BEDTIME 07/28 2200 AC SC Ketorolac 15 MG BID PRN 08/02 1400 AC 08/09 Tromethamine IV 0100 Labetalol HCl 100 MG BID 08/07 2200 AC 08/08 PO 2144 Levetiracetam 750 MG BID 08/07 2200 AC 08/08 PO 2145 Levothyroxine Sodium 0.025 MG DAILY AC 07/26 0700 AC 08/09 PO 0546 Magnesium Chloride 64 MG BID 08/07 1407 AC 08/08 PO 2145 Montelukast Sodium 10 MG DAILY 07/26 1000 AC 08/08 PO 1059 Omeprazole 20 MG DAILY AC 07/26 0700 AC 08/09 PO 0546 Potassium Chloride 20 MEQ BID 08/08 1000 AC 08/08 PO 2145 Prednisone 1.5 MG Q48 07/31 1000 AC 08/08 PO 1057 Simethicone 80 MG Q6P PRN 07/30 1339 AC 07/31 PO 1537 Sodium Chloride 1,000 ML Q6H 08/08 1500 CAN IV Sodium Chloride 1,000 ML Q20H 08/08 1500 AC 08/08 IV 1609 Tramadol HCl 50 MG ONCE ONE 08/08 1730 DC 08/08 PO 08/08 1731 1739 Tramadol HCl 50 MG Q6 PRN 08/08 1445 AC 08/09 PO 0400 Trimethobenzamide HCl 200 MG TID PRN 08/09 0945 AC IM Vitamin A/Vitamin D 1 LORENA BID PRN 07/25 2345 AC 08/02 TOP 1830 Zinc Oxide 1 LORENA Q8 08/01 2200 AC 08/09 TOP 0550 Zinc Oxide 1 LORENA BID PRN 08/01 1512 08/02 TOP 1830 Last 24 Hrs of Lab/Rehan Results Last 24 Hrs of Labs/Mics: Laboratory Tests 08/09/16 0725: Anion Gap 10, Estimated GFR 34 L, BUN/Creatinine Ratio 5.3 L, Lactate Dehydrogenase 854 H, Albumin 3.6, CBC w Diff MAN DIFF ORDERED, RBC 4.25, MCV 85.3, MCH 27.9, RDW 17.8 H, MPV 9.5, Gran % 43.1, Lymphocytes % 41.5, Monocytes % 8.9, Eosinophils % 5.9 H, Basophils % 0.6, Segmented Neutrophils 33 L, Lymphocytes 47, Monocytes 13 H, Eosinophils 6 H, Basophils 1, Platelet Estimate ADEQUATE, Polychromasia 1+, Hypochromic-Microcytic 1+, Poikilocytosis 2 +, Anisocytosis 2+, PUBS MCHC 32.7 L, Absolute Granulocytes 4.2, Absolute Lymphocytes 4.1 H, Absolute Monocytes 0.9 H, Absolute Eosinophils 0.6, Absolute Basophils 0.1 08/09/16 0630: Vitamin B12 798, Folate 3.6, ESR Westergren 49 H Assessment/Plan Assessment: Ms. Bland is a 76 year old lady with PMH significant for COPD on 3 L oxygen, CHF (stage II diastolic), DM2, complicated with neuropathy and gastroparesis, arthritis, mood disorders, hyperlipidemia, CRF, GERD, diverticulosis and hypothyroidism, who initially presented to [place] ED from [place] on 07/25/16 with persistent diarrhea with altered mental status. Patient received care under general medicine until 08/01 for disciitis/osteomyelitis of thoracic spine, and underwent CT guided biopsy which failed to grow any organism and she has been kept off antibiotics. Due to persistent confusion, imaging of the head was done which showed PRES. She then developed hypertensive urgency (220/110) requiring IV antihypertensives and seizures (with right arm weakness and right eyelid droop) requiring IV keppra, for which she was managed in the ICU. Upon stabilization of the seizure, patient was transferred to telemetery unit for further blood pressure management, and then subsequently transferred to general medicine for further neurological workup and pain management. Continue campus monitor # Questionable osteomyelitis/discitis of the thoracic spine CT and MRI findings are suggestive of discitis/osteomyelitis at T7-T8 but of unclear signifciace. Patient underwent CT-guided biopsy which was negative, although the sample was not adequate. C&S of the bone biopsy showed no growth. On 08/08, Dr. Julien discussed with Dr. Quiñones about pursuing further workup for patient's possible discitis. Dr. Quiñones recommeneded workup to be done outpatient with MRI in 4 weeks once patient's psychiatric and neurological conditions. - Her wbc is noted to come up from 7.4 to 9.8 but she has been afebrile. biopsy from ct guided biopsy did not grow anything. pt has been off abx. esr 49 h, down from 112. * Watch for signs of infection off antibiotics * Oral and IV acetaminophen for mild * tramadol mod pain * Ketorolac for severe pain * Per ID, may consider repeat T7-T8 aspirate/biopsy by IR when patient is more stable * Appreciate ID recs # SOCORRO on CKD Patient received hydration with appropriate response. Kidney US showed simple cysts, and no further workup was deemed necessary per Urology. - Worsening kidney functions noted from 51.3 to 81.5 . * Continue monitor Cr daily * Avoid nephrotoxins * Consider discontinuing tramadol or use less of it and use more of tylenol. as her kidney functions is worse, gfr 34, we will hydrate her before mri today # Hypertensive urgency due to PRES (resolved) During ICU stay her home meds verapamil and losartan were discontinued. Per cardio rec, patient was started on labetalol 50mg PO BID and amlodipine at 7.5 mg which was increased to 10 mg. Patient continued to be hypertensive in tele unit on 08/07 and patient's labetalol was increased to 100mg PO BID, and she started on hydralazine 25mg PO TID. Patient's BP was better controlled with these changes. - ECHO: Normal left ventricular ejection fraction estimated at 60-65%. - Her blood pressure has been wnl since transfer from [facility]. urine total catecholamine 23 L, pheochromocytoma less likely. normal urine epinephrine, norepinephrine, dopamine. * Cont labetalol to 100mg PO BID * Cont hydralazine 25mg PO TID * Cont Norvasc 10mg PO daily # AMS Patient is not oriented to time and place at baseline but her current mentation is an acute worsening per her grandaughter, who did indicate that patient was diagnosed with dementia recently FIRER LOW PRESSURE, however. In addition, patient carries a history of of anxiety, depression, bipolar disorder and PTSD. According to the records from [place], at home patient takes alprazolam 0.25 mg Q6 PRN, trazodone, and sertraline 50 mg daily. Per psych, trazodone and sertraline may be contributing to her altered mental status. As such her psych meds were discontinued under the ICU service. In telemetery unit, patient continued to be have AMS. Agitated throughout the day and fully awake overnight. Not eating and sleeping well. We have requested psych and neuro to evaluate the patient. We requested psych to re-evaluate the patient but patient was never seen while on tele. Patient was held off trazodone, sertraline and alprazolam per psych's previous recs. Patient's mental status continued to worsen and neuro recommended on 08/08 that patient may benefit from being back on her pysch meds. - Her pscyh meds have been on hold as it might contribute to her altered mental status and cloud the clinical picture. psychiatry recc continue hold off ssri, benzo and trazodone for now. - her b12 normal at 798, folate normal at 3.6 * Psych meds on hold (alprazolam 0.25 mg Q6 PRN, trazodone 50 mg in AM and 100 mg at bedtime, sertraline 75 mg daily in AM) * SSRI discontinuation syndrome unlikely # Posterior Reversible Encephalopathy Syndrome (PRES) Presented with seizure and FND in the setting of elevated BP, s/p CT guided biopsy of the thoracis spine. MRI consistent with PRES, which seems to have resolved now. She is currently able to move her right arm. Also her right-sided eyelid droop and left-sided hemispacial neglect are no longer present. - Doppler US of the carotid arteries: limited exam, no clear hemodynamically significant stenoses are identified. Recommend repeat exam when patient is able to tolerate the procedure. - EEG: Normal in wake state - She has not had anymore seizure episodes since transfer from ICU, currently stable on keppra. right arm weakness and ptosis has also resolved. - MRI 08/09: Improved signal abnormality in the left frontal, as well as both parietal and occipital lobes relative to 07/31/2016. There remains no restricted diffusion nor abnormal enhancement. Findings are compatible with improving posterior reversible encephalopathy syndrome. Background of moderate generalized volume loss and mild to moderate chronic microangiopathy * Adequate BP control to keep systolic pressure in 140-160 * Cont Keppra 750 mg PO BID * Hold off lorazepam 1 mg Q6 PRN for now per psych rec * Neurochecks every 4 hours * Follow neuro recs * Follow cardio recs regarding BP management * Awaiting repeat EEG results. # Bruising on the right shoulder Patient initially had a bruise on the right shoulder, in addition to pain, decreased ROM, tenderness. She was unable to obtain complete history regarding possible trauma due to mental status. - Xray of the right shoulder did not show dislocation, fracture or hematoma, however reported widened acromioclavicular joint space to 1.2 cm wide, which was also widened on the recent chest radiograph of 07/14/2016. Patient is currently able to move her right arm, does not complain of any pain. # DM type 2 with gastroparesis and neuropathy * Accuchecks * Novolog SSI * Hold home med Lyrica 75 mg TID given risk of seizure # Hypermagnesemia * Mg continues to run low * Monitor daily and replete * Continue mgcl 64 mg bid po # Hypokalemia - her k has gone up from 3.4 --> 3.7 to 4.8 * Discontinue kcl 20 meq bid po # History of stage II CHF Murmur in aortic area in exam, consistent with ECHO findings for aortic stenosis. Echo also showed normal left ventricular ejection fraction estimated at 60-65%. * Continue aspirin and statin # History of COPD * Continued on 3L home O2 and Montelukast 10 mg daily # History of GCA * Continued 1.5 mg PO prednisone daily # Hypothyroidism Multilobular left thyroid enlargement. Thyroid function tests are within normal limits. * continue levothyroxine at 0.025 mg daily * Patient can follow up outpatient after discharge for further management # Pain management * Tylenol for mild-mod pain * Ketorolac for severe pain with caution (watch for Cr level) * Tramadol 50mg Q6 PRN for moderate pain # DVT px: ALPS and heparin SC Diet- Heart healthy, chopped and thin liquids Mild pain pathway FULL CODE Problem List: 1. PRES (posterior reversible encephalopathy syndrome) 2. Discitis 3. Osteomyelitis 4. SOCORRO (acute kidney injury) Pain Ratin Pain Location: bilateral knees Pain Goal: Pain 4 or less Pain Plan: tramadol and tylenol Tomorrow's Labs & Rationales: mg for hypomag cbc for increasing wbc bep for hypokalemia and socorro on ckd DVT/Prophylaxis: mechanical Consulting Request: Consulting Specialty: Neurosurgery Consulting Physician: Discitis/Osteomyelitis T7-8 Reason for Consult: KAELYN Calderón 08/09/162025: Attending MD Review Statement Attending Statement Attending MD Statement: examined this patient, discuss w/resident/PA/COMMUNICATIONS AGENT, agreed w/resident/PA/COMMUNICATIONS AGENT, reviewed EMR data (avail), discussed with nursing, discussed with case mgmt Attending Assessment/Plan: MRI repeat of brain today consistent with resolving PRES syndrome. WIll f/u with neurology recommendations . Good bp control. Pt keeps complaining of pain of 9/10 but when asked about whether it is tolerable or intolerable she does not answer that. She keeps saying it is not as bad as pain of C section.
[2016-08-09 08:00] VITALS: BP 132/68
--- NOTE | 2016-08-09 08:00 | NUR ---
NURSING NOTE: ASSUMED CARE OF PT. PT SHOWERED WITH ASSIST OF DANNIE SOTELO/PATIENT SAFETY MONITOR. BLANCHABLE REDNESS NOTED TO ELBOWS. BLANCHABLE REDNESS NOTED TO BOTTOM; RASH TO RIGHT BUTT; GUNJAN BRANCH EXAMINER AWARE. NO OPEN AREAS. PT ON SIZEIWSE MATTRESS; TURNS SELF IN BED. AMBULATED TO BSC/BR AND CHAIR. BRUISE NOTED TO R SHOULDER; PT DENIES PAIN AT THIS TIME. CONT TO MONITOR. NO FURTHER ORDERS AT THIS TIME, MARILU RESIDENT 132 AWARE OF ABOVE. DESITIN SCHEDULED TID. CONT TO MONITOR.
[2016-08-09 08:04] LABS: ABSOLUTE BASOPHIL COUNT 0.1 /CUMM (0.0-0.2); ABSOLUTE EOSINOPHIL COUNT 0.6 /CUMM (0.0-0.7); ABSOLUTE GRANULOCYTE CT 4.2 /CUMM (1.4-6.5); ABSOLUTE LYMPH COUNT 4.1 /CUMM (1.2-3.4); ABSOLUTE MONOCYTE COUNT 0.9 /CUMM (0.10-0.60); BASOPHIL % 0.6 % (0.0-2.0); EOSINOPHIL % 5.9 % (0-5); GRANULOCYTE % 43.1 % (42.2-75.2); HEMATOCRIT 36.2 % (37-47); MEAN CORPUSCULAR HGB 27.9 PG (27.0-31.0); MEAN CORPUSCULAR HGB CONC 32.7 G/DL (33.0-37.0); MEAN CORPUSCULAR VOLUME 85.3 FL (81.0-99.0); MEAN PLATELET VOLUME 9.5 FL (7.4-10.4); PLATELET COUNT 389 /CUMM (130-400); RBC DISTRIBUTION WIDTH 17.8 % (11.5-14.5); RED BLOOD CELL CT 4.25 /CUMM (4.20-5.40); WHITE BLOOD CELL COUNT 9.8 /CUMM (4.8-10.8)
--- NOTE | 2016-08-09 10:02 | NUR ---
NURSING NOTE: TIGAN GIVEN PER PRN ORDER FOR NAUSEA, MARILU KING AWARE. CONT TO MONITOR. NO VOMITING NOTED
--- NOTE | 2016-08-09 13:37 | NUR ---
NURSING NOTE: PT SCHEDULED FOR MRI AT 1445PM; PER MARILU NARVAEZ RESIDENT GIVE XNAX AROUND 1430PM; PT AGREEABLE FOR MRI AT THIS TIME. PT UNABLE TO DO EEG THIS AM, PULLED WIRES OFF. MARILU AWARE. CONT TO MONITOR.
--- NOTE | 2016-08-09 14:55 | NUR ---
NURSING NOTE: PT LEFT FLOOR VIA MRI STRETCHER WITH PATIENT SAFETY MONITOR AND DISTRIBUTION, PREMEDICATED WITH XANAX PER MD ORDER. PT AWAKE, A/FORGETRFUL, COOPERATIVE AT THIS TIME, VERBALIZES UNDERSTANDING OF NEED FOR MRI FOLLOW UP. TICKET TO RIDE COMPLETE, CHART SENT WITH PT., AWAIT RETURN TO FLOOR, WILL GIVE REPORT TO NEXT SHIFT RN.
--- NOTE | 2016-08-09 15:50 | NUR ---
NURSING NOTE; PT BACK TO FLOOR VIA STRETCHER FROM MRI. PATIENT SAFETY MONITOR BY PT SIDE. PT RESTING COMFORTABLY IN BED AT THIS TIME. NO COMPLAINTS AT THIS TIME. WILL CONTINUE TO MONITOR.
[2016-08-09 16:00] VITALS: BP 136/77
--- NOTE | 2016-08-09 16:13 | NUR ---
Referral received from patients stevo, Gerry Baldo, last week. This patient is a 76 year old female, admitted to the hospital on 07/25/16 with pneumonia. 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 I spoke with Gerry one day last week. Our office was told that she (Gerry) was the patients POA. She is NOT the POA as of this date; however, she has been very involved in her grandmothers care. On 08/07/16, I was called by the nurse on the floor because the patients sisters (argentina and Estephanie) were present and were inquiring about patients condition and progress. Gerry had been to the hospital on the weekend (08/05-) and stated explicitly that no medical information was to be shared with the sisters. I met with them on Sunday. Both were pleasant and inquiring about patients status, but remained respectful of granddaughters wishes. However, both of the sisters were of the opinion that Gerry never formally received POA from the patient, and afrter a lenghty conversation with Gerry this morning, that is, in fact true. There is no POA for this patient at this time. I will meet with the patient to assess her wishes and will then be able to assist patient as needed. I am aware that patient has been offered a STR bed at [facility] when stable and sisters are not opposed to this plan.
--- NOTE | 2016-08-09 16:55 | MRI REPORT ---
EXAMINATION: MR BRAIN WITHOUT AND WITH CONTRAST CLINICAL INFORMATION: Posterior reversible encephalopathy syndrome COMPARISON: 07/31/2016 TECHNIQUE: MRI of the brain was obtained using routine sequences before and after the intravenous administration of 14 mL of OptiMARK. FINDINGS: There has been a decrease in the extent of the T2 prolongation in the subcortical white matter in the left frontal, bilateral parietal and bilateral occipital lobes relative to 07/31/2016. There continues to be no restricted diffusion. There is no associated abnormal enhancement. There is no mass effect. Elsewhere scattered mild to moderate T2 prolongation in the periventricular, deep, and subcortical white matter is stable and compatible with underlying chronic microangiopathy. No acute brain ischemia. There is a punctate susceptibility artifact in the high left middle frontal gyrus without CT correlate and stable from 08/07/2013, compatible with a focus of hemosiderin. No new or progressive susceptibility artifact. There is moderate prominence of the ventricles, sulci, and extra-axial CSF spaces. The major arterial and venous flow voids are maintained. The craniocervical junction and suprasellar regions appear unremarkable. Marrow signal is preserved. No upper cervical adenopathy. Mild mucosal thickening in the ethmoid and maxillary sinuses. The mastoid air cells are clear. There have been bilateral ocular lens extractions. IMPRESSION: Improved signal abnormality in the left frontal, as well as both parietal and occipital lobes relative to 07/31/2016. There remains no restricted diffusion nor abnormal enhancement. Findings are compatible with improving posterior reversible encephalopathy syndrome. Background of moderate generalized volume loss and mild to moderate chronic microangiopathy.
[2016-08-10 00:09] VITALS: BP 142/76
--- NOTE | 2016-08-10 07:07 | PN- Housestaff ---
[facility]: Subjective Follow-up For: pres Subjective: pt was agitated last night and code 7 was called. pt was hallucinating and kept saying she has a 21-[id number]-mrh grandson to go home to. she also kept saying she has rights as a citizen and she wanted to leave. haldol 0.5 mg IM was given one time. she still has a playground monitor. when i evaluated her in the morning, she was adamant about going to live with her 3 granddaughters ed, del, and jitendra at [facility]. as her PRES has improved, we will talk to case management regarding discharge plan. it seems that pt would not be agreeable to rehab because she insists that her brain is all good now, so "you cannot keep me here, I want to live at [facility] with my grand daughters, they already have a place for me". she has not slept since she has been transferred to (it has been at least 2 nights). i am concerned that her mental status is exacerbated by her lack of sleep. i spoke to Maurisio Mancia regarding resuming her trazodone and he would ask Dr. Hemphill and let me know if we can resume it. fluids has beend discontinued. she ate all her breakfast this morning, marked improvement compared to eating < 10% of her meals just a few days ago. she was cooperative in taking all her meds this morning. her wbc down from 9.8 to 9. no back tenderness today. no abdominal pain today, no nausea or vomiting. she only complains of arthritis pain on her knees, for which she uses a plug in heat pad at home, but we cannot allow that in the hospital. we tried warm rye socks but pt says it does not help and refuses it. she currently gets acetaminophen 650 q6p mild pain, tramadol 50 q6p, and added morphine 1mg q6p. mg still low at 1.4. getting mg supplement. pt had 4 bm yesterday, we resent stool for cdiff. awaiting results. Review of Systems Constitutional: Denies: chills, fever. EENTM: Denies: visual changes. Cardiovascular: Denies: chest pain, palpitations. Respiratory: Denies: cough, short of breath. Gastrointestinal: Denies: abdominal pain, bloating, nausea, vomiting. Objective Last 24 Hrs of Vital Signs/I&O Vital Signs Date Time Temp Pulse Resp B/P Pulse O2 O2 Flow FiO2 Ox Delivery Rate 08/10 824 76 132/80 08/10 0809 98.1 81 20 150/78 92 Room Air 08/10 0009 97.9 72 22 142/76 93 08/09 2150 97.9 81 20 150/78 08/09 2149 97.9 81 20 150/78 08/09 1609 97.4 64 20 136/77 08/09 1600 97.4 64 20 136/77 95 Room Air 08/09 1153 68 142/76 Intake & Output 08/10 1600 08/10 0800 08/10 0000 Intake Total 650 1100 Output Total 500 Balance 650 600 Intake, IV 400 600 Intake, Oral 250 500 Number 1 3 Bowel Movements Output, Urine 500 Physical Exam General Appearance: Alert, Oriented X3, Cooperative, No Acute Distress Skin: No Significant Lesion HEENT: Atraumatic, PERRLA Cardiovascular: Regular Rate, Normal S1, Normal S2, No Murmurs, Gallops, Rubs Lungs: Clear to Auscultation, Normal Air Movement Abdomen: Normal Bowel Sounds, Soft, No Tenderness Neurological: Normal Speech, no back tenderness Extremities: No Edema Vascular: Normal Pulses Current Medications: Current Medications Sig/Desiree Start time Last Medication Dose Route Stop Time Status Admin Acetaminophen 650 MG .STK-MED ONE 08/09 163 DC PO 08/09 163 Acetaminophen 650 MG Q6P PRN 07/25 2015 AC 08/10 PO 0622 Amlodipine Besylate 10 MG DAILY 08/05 1000 AC 08/10 PO 0825 Atorvastatin Calcium 80 MG 1700 08/01 1700 AC 08/09 PO 1631 Cholecalciferol 400 IU DAILY 07/26 1000 AC 08/10 PO 0825 Ferrous Sulfate 325 MG DAILY 07/26 1000 AC 08/10 PO 0825 Haloperidol 0.5 MG ONCE ONE 08/10 0500 DC 08/10 IM 08/10 050 0459 Heparin Sodium 5,000 UNIT Q8 07/25 2200 AC 08/10 (Porcine) SC 0609 Hydralazine HCl 25 MG TID 08/07 1000 AC 08/10 PO 0826 Insulin Aspart 0 TIDAC 07/29 08 AC 08/09 SC 0814 Insulin Aspart 0 AT BEDTIME 07/28 2200 AC SC Ketorolac 30 MG .STK-MED ONE 08/09 2146 DC Tromethamine IM 08/09 2147 Ketorolac 15 MG BID PRN 08/02 1400 DC 08/09 Tromethamine IV 0100 Labetalol HCl 100 MG BID 08/07 2200 AC 08/10 PO 0824 Levetiracetam 750 MG BID 08/07 220 AC 08/10 PO 0825 Levothyroxine Sodium 0.025 MG DAILY AC 07/26 07 AC 08/10 PO 0609 Magnesium Chloride 64 MG BID 08/07 1407 AC 08/10 PO 0826 Montelukast Sodium 10 MG DAILY 07/26 1000 AC 08/10 PO 0825 Morphine Sulfate 1 MG Q6P PRN 08/10 0845 AC IV Omeprazole 20 MG DAILY AC 07/26 07 AC 08/10 PO 0609 Potassium Chloride 20 MEQ BID 08/08 1000 DC 08/09 PO 1152 Prednisone 1.5 MG Q48 07/31 1000 AC 08/10 PO 0825 Simethicone 80 MG Q6P PRN 07/30 1339 AC 08/09 PO 1416 Sodium Chloride 1,000 ML Q20H 08/08 1500 DC 08/10 IV 0609 Tramadol HCl 50 MG Q6 PRN 08/08 1445 AC 08/09 PO 2355 Trimethobenzamide HCl 200 MG TID PRN 08/09 0945 AC IM Vitamin A/Vitamin D 1 LORENA BID PRN 07/25 2345 08/02 TOP 1830 Zinc Oxide 1 LORENA Q8 08/01 2200 08/09 TOP 2149 Zinc Oxide 1 LORENA BID PRN 08/01 1512 08/02 TOP 1830 Last 24 Hrs of Lab/Rehan Results Last 24 Hrs of Labs/Mics: Laboratory Tests 08/10/16 0700: Anion Gap 9, Estimated GFR 40 L, BUN/Creatinine Ratio 8.5, Magnesium 1.4 L, CBC w Diff NO MAN DIFF REQ, RBC 3.81 L, MCV 84.6, MCH 27.9, RDW 18.2 H, MPV 9.4, Gran % 46.8, Lymphocytes % 35.8, Monocytes % 10.6 H, Eosinophils % 6.3 H, Basophils % 0.5, Absolute Granulocytes 4.2, Absolute Lymphocytes 3.2, Absolute Monocytes 1.0 H, Absolute Eosinophils 0.6, Absolute Basophils 0, PUBS MCHC 32.9 L Microbiology 08/10 0855 STOOL: Clostridium difficile Toxin A & B - RECD Assessment/Plan Assessment: Ms. Bland is a 76 year old lady with PMH significant for COPD on 3 L oxygen, CHF (stage II diastolic), DM2, complicated with neuropathy and gastroparesis, arthritis, mood disorders, hyperlipidemia, CRF, GERD, diverticulosis and hypothyroidism, who initially presented to [facility] ED from [place] on 07/25/16 with persistent diarrhea with altered mental status. Patient received care under general medicine until 08/01 for disciitis/osteomyelitis of thoracic spine, and underwent CT guided biopsy which failed to grow any organism and she has been kept off antibiotics. Due to persistent confusion, imaging of the head was done which showed PRES. She then developed hypertensive urgency (220/110) requiring IV antihypertensives and seizures (with right arm weakness and right eyelid droop) requiring IV keppra, for which she was managed in the ICU. Upon stabilization of the seizure, patient was transferred to telemetery unit for further blood pressure management, and then subsequently transferred to general medicine for further neurological workup and pain management. 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 In addition, patient carries a history of of anxiety, depression, bipolar disorder and PTSD. According to the records from [place], at home patient takes alprazolam 0.25 mg Q6 PRN, trazodone, and sertraline 50 mg daily. Per psych, trazodone and sertraline may be contributing to her altered mental status. As such her psych meds were discontinued under the ICU service. In telemetery unit, patient continued to be have AMS. Agitated throughout the day and fully awake overnight. Not eating and sleeping well. We have requested psych and neuro to evaluate the patient. We requested psych to re-evaluate the patient but patient was never seen while on tele. Patient was held off trazodone, sertraline and alprazolam per psych's previous recs. Patient's mental status continued to worsen and neuro recommended on 08/08 that patient may benefit from being back on her pysch meds. In , psychiatry recc continue hold off ssri, benzo and trazodone for now. - her b12 normal at 798, folate normal at 3.6 * Psych meds on hold (alprazolam 0.25 mg Q6 PRN, trazodone 50 mg in AM and 100 mg at bedtime, sertraline 75 mg daily in AM) * SSRI discontinuation syndrome unlikely * pt was agitated 08/09 night and code 7 was called. pt was hallucinating and kept saying she has a [id number] grandson to go home to. she also kept saying she has rights as a citizen and she wanted to leave. haldol 0.5 mg IM was given one time. she did not sleep for 2 nights since she was transferred to . i am concerned that her mental status is exacerbated by her lack of sleep. i spoke to Maurisio Mancia regarding resuming her trazodone and he would ask Dr. Hemphill and let me know if we can resume it. * We are considering starting valproic acid as it is beneficial for her bipolar and seizure but she would need the level to be checked ont the 4th morning. also considering rozerem that can help with insomnia and depression. * She scored 16/29 on MMSE having memorized some of the answers from previous test. Maurisio spoke to from neurology whom would like to review the MRI findings first and would hold off on giving valproic acid as derangement in liver function can exacerbate her condition. Psych recommends giving 50 mg of trazodone prn , and adding another 50 mg in 1 hour if pt still cannot sleep. Psych also recommends adding 1 medication at a time and holding rozerem. # Posterior Reversible Encephalopathy Syndrome (PRES) Presented with seizure and FND in the setting of elevated BP, s/p CT guided biopsy of the thoracis spine. MRI consistent with PRES. She is currently able to move her right arm. Also her right-sided eyelid droop and left-sided hemispacial neglect are no longer present. - Doppler US of the carotid arteries: limited exam, no clear hemodynamically significant stenoses are identified. Recommend repeat exam when patient is able to tolerate the procedure. - EEG: Normal in wake state - She has not had anymore seizure episodes since transfer from ICU, currently stable on keppra. right arm weakness and ptosis has also resolved. - MRI 08/09: Improved signal abnormality in the left frontal, as well as both parietal and occipital lobes relative to 07/31/2016. There remains no restricted diffusion nor abnormal enhancement. Findings are compatible with improving posterior reversible encephalopathy syndrome. Background of moderate generalized volume loss and mild to moderate chronic microangiopathy * Adequate BP control to keep systolic pressure in 140-160 * Cont Keppra 750 mg PO BID * Hold off lorazepam 1 mg Q6 PRN for now per psych rec * Neurochecks every 4 hours * Follow neuro recs * Follow cardio recs regarding BP management * Awaiting repeat EEG results. # Pain management - arthritis pain on her knees, for which she uses a plug-in heat pad at home, but we cannot allow that in the hospital. we tried warm rye socks but pt says it does not help and refuses it. * she currently gets acetaminophen 650 q6p mild pain, tramadol 50 q6p, and added morphine 1mg q6p. # GI - Diarrhea * we resent stool for cdiff. awaiting results. * Continue omeprazole 20 mg * continue simethicone 80 mg q6p * continue im tigan 200 mg tid prn # Questionable osteomyelitis/discitis of the thoracic spine CT and MRI findings are suggestive of discitis/osteomyelitis at T7-T8 but of unclear signifciace. Patient underwent CT-guided biopsy which was negative, although the sample was not adequate. C&S of the bone biopsy showed no growth. On 08/08, Dr. Julien discussed with Dr. Quiñones about pursuing further workup for patient's possible discitis. Dr. Quiñones recommeneded workup to be done outpatient with MRI in 4 weeks once patient's psychiatric and neurological conditions. - Her wbc is noted to come up from 7.4 to 9.8 but she has been afebrile. biopsy from ct guided biopsy did not grow anything. pt has been off abx. esr 49 h, down from 112. * Watch for signs of infection off antibiotics * Oral and IV acetaminophen for mild * tramadol mod pain * Per ID, may consider repeat T7-T8 aspirate/biopsy by IR when patient is more stable * Appreciate ID recs # SOCORRO on CKD Patient received hydration with appropriate response. Kidney US showed simple cysts, and no further workup was deemed necessary per Urology. * Continue monitor Cr daily * Avoid nephrotoxins * Improved 1.5 to 07/04.3. # Hypomagnesemia * mg still low at 1.4 * Monitor daily and replete * mgcl 64 mg inc to tid po (dont want to give mag ox given diarrhea) # Hypertensive urgency due to PRES (resolved) During ICU stay her home meds verapamil and losartan were discontinued. Per cardio rec, patient was started on labetalol 50mg PO BID and amlodipine at 7.5 mg which was increased to 10 mg. Patient continued to be hypertensive in tele unit on 08/07 and patient's labetalol was increased to 100mg PO BID, and she started on hydralazine 25mg PO TID. Patient's BP was better controlled with these changes. - ECHO: Normal left ventricular ejection fraction estimated at 60-65%. - Her blood pressure has been wnl since transfer from [facility]. urine total catecholamine 23 L, pheochromocytoma less likely. normal urine epinephrine, norepinephrine, dopamine. * Cont labetalol to 100mg PO BID * Cont hydralazine 25mg PO TID * Cont Norvasc 10mg PO daily # Bruising on the right shoulder Patient initially had a bruise on the right shoulder, in addition to pain, decreased ROM, tenderness. She was unable to obtain complete history regarding possible trauma due to mental status. - Xray of the right shoulder did not show dislocation, fracture or hematoma, however reported widened acromioclavicular joint space to 1.2 cm wide, which was also widened on the recent chest radiograph of 07/14/2016. Patient is currently able to move her right arm, does not complain of any pain. # DM type 2 with gastroparesis and neuropathy * Accuchecks * Novolog SSI * Hold home med Lyrica 75 mg TID given risk of seizure # Hypokalemia - her k has gone up from 3.4 --> 3.7 to 4.8, Discontinued kcl 20 meq bid po --> 4.6 # History of stage II CHF Murmur in aortic area in exam, consistent with ECHO findings for aortic stenosis. Echo also showed normal left ventricular ejection fraction estimated at 60-65%. * Continue aspirin and statin # History of COPD * Continued on 3L home O2 and Montelukast 10 mg daily # History of GCA * Continued 1.5 mg PO prednisone q48h # Hypothyroidism Multilobular left thyroid enlargement. Thyroid function tests are within normal limits. * continue levothyroxine at 0.025 mg daily * Patient can follow up outpatient after discharge for further management # DVT px: ALPS and heparin SC Diet- Heart healthy, chopped and thin liquids Mild pain pathway FULL CODE Labs: bep for kidney functions Problem List: 1. PRES (posterior reversible encephalopathy syndrome) 2. Hypomagnesemia 3. Delirium Pain Ratin Pain Location: knees Pain Goal: Pain 4 or less Pain Plan: tylenol tramadol morphine Tomorrow's Labs & Rationales: bep for kidney functions DVT/Prophylaxis: mechanical, pharmacological Consulting Request: Consulting Specialty: Neurosurgery Consulting Physician: Discitis/Osteomyelitis T7-8 Reason for Consult: [facility]: Attending MD Review Statement Attending Statement Attending MD Statement: examined this patient, discuss w/resident/PA/JOB PRESS FEEDER, agreed w/resident/PA/JOB PRESS FEEDER, reviewed EMR data (avail), discussed with nursing, discussed with case mgmt Attending Assessment/Plan: Altered mental status improving- d/w psychiatry, they recommend adding trazodone for insominia. ? Discitis- pt has no pain in back today and on exam also does not have any spinal tenderness. Remains afebrile and no white count off abx. Family refused repeat biopsy as previous biopsy was negative for infection.
[2016-08-10 08:06] LABS: ABSOLUTE BASOPHIL COUNT 0 /CUMM (0.0-0.2); ABSOLUTE EOSINOPHIL COUNT 0.6 /CUMM (0.0-0.7); ABSOLUTE GRANULOCYTE CT 4.2 /CUMM (1.4-6.5); ABSOLUTE LYMPH COUNT 3.2 /CUMM (1.2-3.4); BASOPHIL % 0.5 % (0.0-2.0); EOSINOPHIL % 6.3 % (0-5); GRANULOCYTE % 46.8 % (42.2-75.2); HEMATOCRIT 32.2 % (37-47); MEAN CORPUSCULAR HGB 27.9 PG (27.0-31.0); MEAN CORPUSCULAR HGB CONC 32.9 G/DL (33.0-37.0); MEAN CORPUSCULAR VOLUME 84.6 FL (81.0-99.0); MEAN PLATELET VOLUME 9.4 FL (7.4-10.4); PLATELET COUNT 313 /CUMM (130-400); RBC DISTRIBUTION WIDTH 18.2 % (11.5-14.5); RED BLOOD CELL CT 3.81 /CUMM (4.20-5.40)
[2016-08-10 08:09] VITALS: BP 150/78
--- NOTE | 2016-08-10 08:12 | NUR ---
NURSING NOTE: PT BECAME INCREASINGLY AGITATED. PT THREATED TO LEAVE THE HOSPITAL AND BECAME COMBATIVE WITH LEOLA, RN , AND STAFF. MOD #156 MADE AWARE. SECURITY CALLED. MARK ORDERED AND ADMINISTRED. WILL CONTINUE TO MONITOR.
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
--- NOTE | 2016-08-10 13:58 | PN- Cardiology ---
Subjective Subjective: No cardiac complaints. Denies any chest discomfort, palpitations, shortness of breath, etc. Objective Vital Signs and I&Os Vital Signs Date Time Temp Pulse Resp B/P Pulse O2 O2 Flow FiO2 Ox Delivery Rate 08/10 824 76 132/80 08/10 809 98.1 81 20 150/78 92 Room Air 08/10 0009 97.9 72 22 142/76 93 08/09 2150 97.9 81 20 150/78 08/09 2149 97.9 81 20 150/78 08/09 1609 97.4 64 20 136/77 08/09 1600 97.4 64 20 136/77 95 Room Air Intake & Output 08/10 0808/10 0000 08/09 1600 08/09 0000 Intake Total 650 1100 650 500 780 Output Total 500 400 Balance 650 600 250 500 780 Intake, IV 400 600 400 400 300 Intake, Oral 250 500 250 100 480 Number 2 3 1 0 Bowel Movements Output, Urine 500 400 Physical Exam: Overweight, elderly female chest. Vital signs: See above. Lungs: Clear to auscultation. Heart: S1, S2. Extremities: No edema. Current Medications: Current Medications Sig/Desiree Start time Last Medication Dose Route Stop Time Status Admin Acetaminophen 650 MG .STK-MED ONE 08/09 163 DC PO 08/09 163 Acetaminophen 650 MG Q6P PRN 07/25 2015 AC 08/10 PO 0622 Amlodipine Besylate 10 MG DAILY 08/05 1000 AC 08/10 PO 0825 Atorvastatin Calcium 80 MG 1700 08/01 1700 AC 08/09 PO 1631 Cholecalciferol 400 IU DAILY 07/26 1000 AC 08/10 PO 0825 Ferrous Sulfate 325 MG DAILY 07/26 1000 AC 08/10 PO 0825 Haloperidol 0.5 MG ONCE ONE 08/10 0500 DC 08/10 IM 08/10 0501 0459 Heparin Sodium 5,000 UNIT Q8 07/25 2200 AC 08/10 (Porcine) SC 1350 Hydralazine HCl 25 MG TID 08/07 1000 AC 08/10 PO 0826 Insulin Aspart 0 TIDAC 07/29 08 AC 08/10 SC 1222 Insulin Aspart 0 AT BEDTIME 07/28 2200 AC SC Ketorolac 30 MG .STK-MED ONE 08/09 2146 DC Tromethamine IM 12/07 2147 Ketorolac 15 MG BID PRN 08/02 1400 DC 08/09 Tromethamine IV 0100 Labetalol HCl 100 MG BID 08/07 2200 AC 08/10 PO 0824 Levetiracetam 750 MG BID 08/07 2200 AC 08/10 PO 0825 Levothyroxine Sodium 0.025 MG DAILY AC 07/26 0700 AC 08/10 PO 0609 Magnesium Chloride 64 MG TID 08/10 1600 UNVr PO Magnesium Chloride 64 MG BID 08/07 1407 DC 08/10 PO 0826 Montelukast Sodium 10 MG DAILY 07/26 1000 AC 08/10 PO 0825 Morphine Sulfate 1 MG Q6P PRN 08/10 0845 AC IV Omeprazole 20 MG DAILY AC 07/26 0700 AC 08/10 PO 0609 Prednisone 1.5 MG Q48 07/31 1000 AC 08/10 PO 0825 Simethicone 80 MG Q6P PRN 07/30 1339 AC 08/09 PO 1416 Sodium Chloride 1,000 ML Q20H 08/08 1500 DC 08/10 IV 0609 Tramadol HCl 50 MG Q6 PRN 08/08 1445 AC 08/09 PO 2355 Trimethobenzamide HCl 200 MG TID PRN 08/09 0945 AC IM Vitamin A/Vitamin D 1 LORENA BID PRN 07/25 2345 AC 08/02 TOP 1830 Zinc Oxide 1 LORENA Q8 08/01 2200 AC 08/10 TOP 1350 Zinc Oxide 1 LORENA BID PRN 08/01 1512 08/02 TOP 1830 Results Last 48 Hrs of Labs/Mics: Laboratory Tests 08/10/16 0700: Anion Gap 9, Estimated GFR 40 L, BUN/Creatinine Ratio 8.5, Magnesium 1.4 L, CBC w Diff NO MAN DIFF REQ, RBC 3.81 L, MCV 84.6, MCH 27.9, RDW 18.2 H, MPV 9.4, Gran % 46.8, Lymphocytes % 35.8, Monocytes % 10.6 H, Eosinophils % 6.3 H, Basophils % 0.5, Absolute Granulocytes 4.2, Absolute Lymphocytes 3.2, Absolute Monocytes 1.0 H, Absolute Eosinophils 0.6, Absolute Basophils 0, PUBS MCHC 32.9 L 08/09/16 0725: Anion Gap 10, Estimated GFR 34 L, BUN/Creatinine Ratio 5.3 L, Lactate Dehydrogenase 854 H, Albumin 3.6, CBC w Diff MAN DIFF ORDERED, RBC 4.25, MCV 85.3, MCH 27.9, RDW 17.8 H, MPV 9.5, Gran % 43.1, Lymphocytes % 41.5, Monocytes % 8.9, Eosinophils % 5.9 H, Basophils % 0.6, Segmented Neutrophils 33 L, Lymphocytes 47, Monocytes 13 H, Eosinophils 6 H, Basophils 1, Platelet Estimate ADEQUATE, Polychromasia 1+, Hypochromic-Microcytic 1+, Poikilocytosis 2 +, Anisocytosis 2+, PUBS MCHC 32.7 L, Absolute Granulocytes 4.2, Absolute Lymphocytes 4.1 H, Absolute Monocytes 0.9 H, Absolute Eosinophils 0.6, Absolute Basophils 0.1 08/09/16 0630: Vitamin B12 798, Folate 3.6, ESR Westergren 49 H Microbiology 08/10 0855 STOOL: Clostridium difficile Toxin A & B - COMP Recent Imaging Studies: Head MRI (08/09/2016) Improved signal abnormality in the left frontal, as well as both parietal and occipital lobes relative to 07/31/2016. There remains no restricted diffusion nor abnormal enhancement. Findings are compatible with improving posterior reversible encephalopathy syndrome. Background of moderate generalized volume loss and mild to moderate chronic microangiopathy. Assessment/Plan Assessment/Plan Previously poorly controlled hypertension in this elderly female with multiple other medical issues. Fortunately, her blood pressure has come under good control on her present regimen of labetalol 100 mg twice daily, amlodipine 10 mg daily, and hydralazine 25 mg 3 times daily. Recommendation: * Potassium acceptable today at 4.6 mg/L and continue to maintain her potassium between 4.0-4.5 mg/L. * Magnesium on low side at 1.4 mg/L and should replete and maintainat or above 2.0 per liter. * Given her risk equivalent and multiple risk factors for coronary artery disease one has to be concerned about underlying ischemia and this should be further evaluated once her present medical issues have been adequately managed. * PRES (posterior reversible encephalopathy syndrome), improving as per MRI. * Continue DVT prophylaxis.
--- NOTE | 2016-08-10 16:24 | PN- Neurology ---
Subjective Subjective: Patient doing better, out of bed, pressured speech, conversant. Review of Systems: Diarrhea. Objective Vital Signs and I&Os Vital Signs Date Time Temp Pulse Resp B/P Pulse O2 O2 Flow FiO2 Ox Delivery Rate 08/10 824 76 132/80 08/10 809 98.1 81 20 150/78 92 Room Air 08/10 0009 97.9 72 22 142/76 93 08/09 2150 97.9 81 20 150/78 08/09 2149 97.9 81 20 150/78 Intake & Output 08/10 1600 08/10 0808/10 0000 08/09 1600 08/09 0808/09 0000 Intake Total 9604 926 2463 650 500 780 Output Total 750 500 400 Balance 350 650 600 250 500 780 Intake, IV 200 400 600 400 400 300 Intake, Oral 900 250 500 250 100 480 Number 3 3 1 0 Bowel Movements Output, Urine 750 500 400 Physical Exam: Alert and oriented x3 EOMI, CHEVY, fluent, face symmetric Moves all limbs equally Current Medications: Current Medications Sig/Desiree Start time Last Medication Dose Route Stop Time Status Admin Acetaminophen 650 MG .STK-MED ONE 08/10 06 DC PO 08/10 0621 Acetaminophen 650 MG .STK-MED ONE 08/09 1630 DC PO 08/09 1631 Acetaminophen 650 MG Q6P PRN 07/25 2015 AC 08/10 PO 0622 Amlodipine Besylate 10 MG DAILY 08/05 1000 AC 08/10 PO 0825 Atorvastatin Calcium 80 MG 1700 08/01 1700 AC 08/09 PO 1631 Cholecalciferol 400 IU DAILY 07/26 1000 AC 08/10 PO 0825 Ferrous Sulfate 325 MG DAILY 07/26 1000 AC 08/10 PO 0825 Haloperidol 0.5 MG ONCE ONE 08/10 0500 DC 08/10 IM 08/10 0501 0459 Heparin Sodium 5,000 UNIT Q8 07/250 AC 08/10 (Porcine) SC 1350 Hydralazine HCl 25 MG TID 08/07 1000 AC 08/10 PO 0826 Insulin Aspart 0 TIDAC 07/29 08 AC 08/10 SC 1222 Insulin Aspart 0 AT BEDTIME 07/28 2200 AC SC Ketorolac 30 MG .STK-MED ONE 08/09 2146 DC Tromethamine IM 08/09 2147 Ketorolac 15 MG BID PRN 08/02 1400 DC 08/09 Tromethamine IV 0100 Labetalol HCl 100 MG BID 08/07 2200 AC 08/10 PO 0824 Levetiracetam 750 MG BID 08/07 220 AC 08/10 PO 0825 Levothyroxine Sodium 0.025 MG DAILY AC 07/26 0700 AC 08/10 PO 0609 Magnesium Chloride 64 MG TID 08/10 1600 AC PO Magnesium Chloride 64 MG BID 08/07 1407 DC 08/10 PO 0826 Montelukast Sodium 10 MG DAILY 07/26 1000 AC 08/10 PO 0825 Morphine Sulfate 1 MG Q6P PRN 08/10 0845 AC IV Omeprazole 20 MG DAILY AC 07/26 07 AC 08/10 PO 0609 Prednisone 1.5 MG Q48 07/31 1000 AC 08/10 PO 0825 Simethicone 80 MG Q6P PRN 07/30 1339 AC 08/09 PO 1416 Sodium Chloride 1,000 ML Q20H 08/08 1500 DC 08/10 IV 0609 Tramadol HCl 50 MG Q6 PRN 08/08 1445 AC 08/09 PO 2355 Trazodone HCl 50 MG AT BEDTIME NEED.. 08/10 2200 AC PO Trimethobenzamide HCl 200 MG TID PRN 08/09 0945 AC IM Vitamin A/Vitamin D 1 LORENA BID PRN 07/25 2345 AC 08/02 TOP 1830 Zinc Oxide 1 LORENA Q8 08/01 2200 AC 08/10 TOP 1350 Zinc Oxide 1 LORENA BID PRN 08/01 1512 08/02 TOP 1830 Results Last 24 Hours of Lab Results: Laboratory Tests 08/10 700 Chemistry Sodium (137 - 145 mmol/L) 143 Potassium (3.5 - 5.1 mmol/L) 4.6 Chloride (98 - 107 mmol/L) 108 H Carbon Dioxide (22 - 30 mmol/L) 25 Anion Gap (5 - 16) 9 BUN (7 - 17 mg/dL) 11 Creatinine (0.5 - 1.0 mg/dL) 1.3 H Estimated GFR (>60 ml/min) 40 L BUN/Creatinine Ratio (7 - 25 %) 8.5 Magnesium (1.6 - 2.3 mg/dL) 1.4 L Hematology CBC w Diff NO MAN DIFF REQ WBC (4.8 - 10.8 /CUMM) 9.0 RBC (4.20 - 5.40 /CUMM) 3.81 L Hgb (12.0 - 16.0 G/DL) 10.6 L Hct (37 - 47 %) 32.2 L MCV (81.0 - 99.0 FL) 84.6 MCH (27.0 - 31.0 PG) 27.9 RDW (11.5 - 14.5 %) 18.2 H Plt Count (130 - 400 /CUMM) 313 MPV (7.4 - 10.4 FL) 9.4 Gran % (42.2 - 75.2 %) 46.8 Lymphocytes % (20.5 - 51.1 %) 35.8 Monocytes % (1.7 - 9.3 %) 10.6 H Eosinophils % (0 - 5 %) 6.3 H Basophils % (0.0 - 2.0 %) 0.5 Absolute Granulocytes (1.4 - 6.5 /CUMM) 4.2 Absolute Lymphocytes (1.2 - 3.4 /CUMM) 3.2 Absolute Monocytes (0.10 - 0.60 /CUMM) 1.0 H Absolute Eosinophils (0.0 - 0.7 /CUMM) 0.6 Absolute Basophils (0.0 - 0.2 /CUMM) 0 PUBS MCHC (33.0 - 37.0 G/DL) 32.9 L Recent Imaging Studies: MRI brain was repeated> reviewed directly: receding white matter signal within left frontal and bilateral parietal occipital white matter consistent with PRES. Independent white matter vascular disease seen within left rosa radiata and to a lesser extent on the right. Assessment/Plan Assessment: 76 year old woman with resolving PRES syndrome. Plan: 1. Discussed with psychiatry : ok to start Trazadon and ok to start Depakote 500 bid. 2. Monitor BP closely. 3. If starting Depakote 500 bid for behavioral reasons could stop Keppra 500 bid (ie substitute). Neurology signing off.
--- NOTE | 2016-08-10 17:02 | Event Note ---
Event Note Event Note: I spoke to Gerry, pt's POA, regarding discharge planning and if we would like to pursue another biopsy. She is adamant about no further biopsy to be pursued. She states that pt's mental status has markedly improved (pretty much at her baseline now, Gerry visited her yesterday and will be visiting again today, pt has baseline learning disorder) and she plans to take pt to [facility] ( rehab/convalescent home). Pt was getting the information confused and thought she was moving in with her granddaughters at [facility]. They told her that there is a beach nearby the facility and the facility is not a far distance from their residences. Gerry would prefer to take pt there in her car, or ride in the ambulance with her to help her settle in and decrease her anxiety about moving to a new place. Dr Miramontes (ID) also spoke to Dr. Trivedi (IR) regarding further biopsy and she does not think it is necessary. Follow up MRI in 4 weeks would suffice.
[2016-08-10 23:46] VITALS: BP 130/62
--- NOTE | 2016-08-11 08:08 | PN- Housestaff ---
JEREMY ANDREWS,CINDI 08/11/16 0807: Subjective Follow-up For: insomnia and delirium resolving pres Subjective: pt received trazodone last night and has finally fallen asleep at 4am. she was arousable. pt still confused and is a fall risk, hence still need ray monitoring. from neurology has signed off and is ok with starting trazodone and/or changing keppra to valproic acid. mg slightly improved at 1.5 k 4.5 despite stopping potassium supplement. kidney functions remain stable. around 1045am, nurse told me that pt is complaining about difficulty breathing . I evaluated the pt, she appears anxious, feeling restless, going from lying down to sitting to lying down. Lungs were clear to auscultation. I gave one time 0.5 mg xanax for anxiety. Review of Systems Constitutional: Reports: see HPI. Objective Last 24 Hrs of Vital Signs/I&O Vital Signs Date Time Temp Pulse Resp B/P Pulse O2 O2 Flow FiO2 Ox Delivery Rate 08/11 0835 97.2 111 20 150/88 93 Room Air 08/10 2346 97.4 93 20 130/62 93 Room Air 08/10 2154 97.6 92 20 130/60 08/10 2154 97.6 92 20 130/60 08/10 1653 97.7 86 20 132/80 Intake & Output 08/11 1600 08/11 0800 08/11 0000 Intake Total 480 800 Output Total 400 Balance 480 400 Intake, Oral 480 800 Number 1 Bowel Movements Output, Urine 400 Physical Exam General Appearance: Alert, Cooperative, No Acute Distress Skin: No Significant Lesion HEENT: Atraumatic, PERRLA Cardiovascular: Regular Rate, Normal S1, Normal S2, No Murmurs, Gallops, Rubs Lungs: Clear to Auscultation, Normal Air Movement Abdomen: Normal Bowel Sounds, Soft, No Tenderness Current Medications: Current Medications Sig/Desiree Start time Last Medication Dose Route Stop Time Status Admin Acetaminophen 650 MG .STK-MED ONE 08/10 2255 DC PO 08/10 2256 Acetaminophen 650 MG Q6P PRN 07/25 2015 AC 08/10 PO 225 Amlodipine Besylate 10 MG DAILY 08/05 1000 AC 08/10 PO 0825 Atorvastatin Calcium 80 MG 1700 08/01 1700 AC 08/10 PO 1653 Cholecalciferol 400 IU DAILY 07/26 1000 AC 08/10 PO 0825 Ferrous Sulfate 325 MG DAILY 07/26 1000 AC 08/10 PO 0825 Heparin Sodium 5,000 UNIT Q8 07/25 2200 AC 08/11 (Porcine) SC 0525 Hydralazine HCl 25 MG TID 08/07 1000 AC 08/10 PO 2154 Insulin Aspart 0 TIDAC 07/29 0800 AC 08/10 SC 1222 Insulin Aspart 0 AT BEDTIME 07/28 2200 AC SC Labetalol HCl 100 MG BID 08/07 2200 AC 08/10 PO 2154 Levetiracetam 750 MG BID 08/07 2200 AC 08/10 PO 2155 Levothyroxine Sodium 0.025 MG DAILY AC 07/26 0700 AC 08/11 PO 0525 Magnesium Chloride 64 MG TID 08/10 1600 AC 08/10 PO 2155 Magnesium Chloride 64 MG BID 08/07 1407 DC 08/10 PO 0826 Montelukast Sodium 10 MG DAILY 07/26 1000 AC 08/10 PO 0825 Morphine Sulfate 1 MG Q6P PRN 08/10 0845 AC 08/11 IV 0253 Omeprazole 20 MG DAILY AC 07/26 0700 AC 08/11 PO 0525 Prednisone 1.5 MG Q48 07/31 1000 AC 08/10 PO 0825 Simethicone 80 MG Q6P PRN 07/30 1339 AC 08/09 PO 1416 Tramadol HCl 50 MG Q6 PRN 08/08 1445 AC 08/09 PO 2355 Trazodone HCl 50 MG AT BEDTIME NEED.. 08/10 2200 AC PO Trimethobenzamide HCl 200 MG TID PRN 08/09 0945 AC IM Vitamin A/Vitamin D 1 LORENA BID PRN 07/25 2345 AC 08/02 TOP 1830 Zinc Oxide 1 LORENA Q8 08/01 2200 AC 08/11 TOP 0526 Zinc Oxide 1 LORENA BID PRN 08/01 1512 AC 08/02 TOP 1830 Last 24 Hrs of Lab/Rehan Results Last 24 Hrs of Labs/Mics: Laboratory Tests 08/11/16 0645: Anion Gap 10, Estimated GFR 40 L, BUN/Creatinine Ratio 13.1, Magnesium 1.5 L Assessment/Plan Assessment: Ms. Bland is a 76 year old lady with PMH significant for COPD on 3 L oxygen, CHF (stage II diastolic), DM2, complicated with neuropathy and gastroparesis, arthritis, mood disorders, hyperlipidemia, CRF, GERD, diverticulosis and hypothyroidism, who initially presented to [facility] from [place] on 07/25/16 with persistent diarrhea with altered mental status. Patient received care under general medicine until 08/01 for disciitis/osteomyelitis of thoracic spine, and underwent CT guided biopsy which failed to grow any organism and she has been kept off antibiotics. Due to persistent confusion, imaging of the head was done which showed PRES. She then developed hypertensive urgency (220/110) requiring IV antihypertensives and seizures (with right arm weakness and right eyelid droop) requiring IV keppra, for which she was managed in the ICU. Upon stabilization of the seizure, patient was transferred to telemetery unit for further blood pressure management, and then subsequently transferred to general medicine for further neurological workup and pain management. 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 In addition, patient carries a history of of anxiety, depression, bipolar disorder and PTSD. According to the records from [place], at home patient takes alprazolam 0.25 mg Q6 PRN, trazodone, and sertraline 50 mg daily. Per psych, trazodone and sertraline may be contributing to her altered mental status. As such her psych meds were discontinued under the ICU service. In telemetery unit, patient continued to be have AMS. Agitated throughout the day and fully awake overnight. Not eating and sleeping well. We have requested psych and neuro to evaluate the patient. We requested psych to re-evaluate the patient but patient was never seen while on tele. Patient was held off trazodone, sertraline and alprazolam per psych's previous recs. Patient's mental status continued to worsen and neuro recommended on 08/08 that patient may benefit from being back on her pysch meds. In , psychiatry recc continue hold off ssri, benzo and trazodone for now. - her b12 normal at 798, folate normal at 3.6 * Psych meds on hold (alprazolam 0.25 mg Q6 PRN, sertraline 75 mg daily in AM) * pt was agitated 08/09 night and code 7 was called. pt was hallucinating and haldol 0.5 mg IM was given one time. * Psych recommends giving 50 mg of trazodone prn, and adding another 50 mg in 1 hour if pt still cannot sleep (home dose was trazodone 50 mg in AM and 100 mg at bedtime). She was finally able to sleep after given trazodone. from neurology has signed off and is ok with starting trazodone and/or valproic acid. * We considered starting valproic acid as it is beneficial for her bipolar and seizure but she would need the level to be checked on the 4th morning. also considered mirtazapine that can help with insomnia and depression. * She scored 16/29 on MMSE having memorized some of the answers from previous test. * For anxiety, we are adding gabapetin 100 mg tid PRN. We considered sertraline but it might lower the seizure threshold. # Posterior Reversible Encephalopathy Syndrome (PRES) Presented with seizure and FND in the setting of elevated BP, s/p CT guided biopsy of the thoracis spine. MRI consistent with PRES. She is currently able to move her right arm. Also her right-sided eyelid droop and left-sided hemispacial neglect are no longer present. - Doppler US of the carotid arteries: limited exam, no clear hemodynamically significant stenoses are identified. Recommend repeat exam when patient is able to tolerate the procedure. - EEG: Normal in wake state - She has not had anymore seizure episodes since transfer from ICU, currently stable on keppra. right arm weakness and ptosis has also resolved. - MRI 08/09: Improved signal abnormality in the left frontal, as well as both parietal and occipital lobes relative to 07/31/2016. There remains no restricted diffusion nor abnormal enhancement. Findings are compatible with improving posterior reversible encephalopathy syndrome. Background of moderate generalized volume loss and mild to moderate chronic microangiopathy * Adequate BP control to keep systolic pressure in 140-160 * Cont Keppra 750 mg PO BID * Hold off lorazepam 1 mg Q6 PRN for now per psych rec * Neurochecks every 4 hours * Follow neuro recs * Follow cardio recs regarding BP management # Pain management - arthritis pain on her knees, for which she uses a plug-in heat pad at home, but we cannot allow that in the hospital. we tried warm rye socks but pt says it does not help and refuses it. * she currently gets acetaminophen 650 q6p mild pain, tramadol 50 q6p, and added morphine 1mg q6p. # GI - Diarrhea: Gerry, her granddaughter thinks the diarrhea could be related to anxiety. - nausea, gas pain (resolved) * we resent stool for cdiff. results were negative. * Continue omeprazole 20 mg * continue simethicone 80 mg q6p * continue im tigan 200 mg tid prn # Questionable osteomyelitis/discitis of the thoracic spine CT and MRI findings are suggestive of discitis/osteomyelitis at T7-T8 but of unclear signifciace. Patient underwent CT-guided biopsy which was negative, although the sample was not adequate. C&S of the bone biopsy showed no growth. On 08/08, Dr. Julien discussed with Dr. Quiñones about pursuing further workup for patient's possible discitis. Dr. Quiñones recommeneded workup to be done outpatient with MRI in 4 weeks once patient's psychiatric and neurological conditions. - Her wbc is noted to come up from 7.4 to 9.8 but she has been afebrile. biopsy from ct guided biopsy did not grow anything. pt has been off abx. esr 49 h, down from 112. * Watch for signs of infection off antibiotics * Oral and IV acetaminophen for mild * tramadol mod pain * Per ID, may consider repeat T7-T8 aspirate/biopsy by IR when patient is more stable * Appreciate ID recs # SOCORRO on CKD Patient received hydration with appropriate response. Kidney US showed simple cysts, and no further workup was deemed necessary per Urology. * Continue monitor Cr daily * Avoid nephrotoxins * Improved 8/1.5 to 11/1.3. # Hypomagnesemia * mg still low at 1.4 * Monitor daily and replete * mgcl 64 mg inc to tid po (dont want to give mag ox given diarrhea) # Hypertensive urgency due to PRES (resolved) During ICU stay her home meds verapamil and losartan were discontinued. Per cardio rec, patient was started on labetalol 50mg PO BID and amlodipine at 7.5 mg which was increased to 10 mg. Patient continued to be hypertensive in tele unit on 08/07 and patient's labetalol was increased to 100mg PO BID, and she started on hydralazine 25mg PO TID. Patient's BP was better controlled with these changes. - ECHO: Normal left ventricular ejection fraction estimated at 60-65%. - Her blood pressure has been wnl since transfer from [facility]. urine total catecholamine 23 L, pheochromocytoma less likely. normal urine epinephrine, norepinephrine, dopamine. * Cont labetalol to 100mg PO BID * Cont hydralazine 25mg PO TID * Cont Norvasc 10mg PO daily # Bruising on the right shoulder Patient initially had a bruise on the right shoulder, in addition to pain, decreased ROM, tenderness. She was unable to obtain complete history regarding possible trauma due to mental status. - Xray of the right shoulder did not show dislocation, fracture or hematoma, however reported widened acromioclavicular joint space to 1.2 cm wide, which was also widened on the recent chest radiograph of 07/14/2016. Patient is currently able to move her right arm, does not complain of any pain. # DM type 2 with gastroparesis and neuropathy * Accuchecks * Novolog SSI * Hold home med Lyrica 75 mg TID given risk of seizure # Hypokalemia - her k has gone up from 3.4 --> 3.7 to 4.8, Discontinued kcl 20 meq bid po --> 4.6 # History of stage II CHF Murmur in aortic area in exam, consistent with ECHO findings for aortic stenosis. Echo also showed normal left ventricular ejection fraction estimated at 60-65%. * Continue aspirin and statin # History of COPD * Continued on 3L home O2 and Montelukast 10 mg daily # History of GCA * Continued 1.5 mg PO prednisone q48h # Hypothyroidism Multilobular left thyroid enlargement. Thyroid function tests are within normal limits. * continue levothyroxine at 0.025 mg daily * Patient can follow up outpatient after discharge for further management # DVT px: ALPS and heparin SC Diet- Heart healthy, chopped and thin liquids Mild pain pathway FULL CODE Labs: bep for kidney functions and hypokalemia, mg for hypomag Problem List: 1. PRES (posterior reversible encephalopathy syndrome) 2. Hypomagnesemia Pain Ratin Pain Location: arthritis knees Pain Goal: Pain 4 or less Pain Plan: mod pp Tomorrow's Labs & Rationales: bep for kidney functions and hypokalemia, mg for hypomag DVT/Prophylaxis: mechanical, pharmacological Consulting Request: Consulting Specialty: Neurosurgery Consulting Physician: Discitis/Osteomyelitis T7-8 Reason for Consult: KAELYN Calderón 08/11/16 1604: Attending MD Review Statement Attending Statement Attending MD Statement: examined this patient, discuss w/resident/PA/LACQUER DIPPING MACHINE OPERATOR, agreed w/resident/PA/LACQUER DIPPING MACHINE OPERATOR, reviewed EMR data (avail), discussed with nursing, discussed with case mgmt Attending Assessment/Plan: 76 yr old female admitted with PRES syndrome and uncontrolled htn and seizures likely secondary to that, PRES now resolving. Back to baseline mental status. Has h/o anxiety and ? bipolar, being f/u by psych and plan is to start her on Neurontin for anxiety(off label). Also has ? discitis for which she never received abx. no fever, no wbc and biopsy was negative and family does not want repeat biopsy. Plan- AMS- she still has a sitter. plan will be to try and dc ray sitter over the weekend. Insomnia- started on trazodone by psych which seems to be helping. Anxiety- psych starting neurontin. PRES- resolving on repeat MRI. neuro following. still on keppra, BP better control now.
[2016-08-11 08:35] VITALS: BP 150/88
[2016-08-11 08:45] VITALS: BP 148/80
[2016-08-11 10:40] VITALS: BP 148/78
--- NOTE | 2016-08-11 10:40 | NUR ---
NURSING NOTE: AFTER SPEAKING WITH JENN FROM PSYCH, PT CALLED RN INTO ROOM, STATING "I CANT BREATHE IM HAVING AN ANXIETY ATTACK." BP 148/78, HR 130. ROOM AIR 93%. CINDI DRYING MACHINE OPERATOR CALLED AND AT BEDSIDE, PITA ORDERED X1 AND GIVEN, WILL CONT TO MONITOR, FAN PROVIDED FOR COMFORT PER PT REQUEST.
--- NOTE | 2016-08-11 10:59 | PN- Psychiatry ---
See Addendum Assessment/Plan Impression: This is a 76-year-old female who was admitted for diarrhea, and treated for PRES in the ICU, which is now resolving. She had been followed by Kobe Chen MD, [facility], . Per 's note on 2015, PRES is resolving. Trazodone 50 mg as needed at bedtime for insomnia was started yesterday with 's approval. Per his recent note, she does not object to valproic acid/Depakote for behavioral issues. If valproic acid is indicated for mood stabilization, we suggest starting at no more than Depakote 125 mg by mouth 2 times per day, with a lab level at trough on the fourth morning. We do not suggest starting this medication, unless there is agitation or mood lability. We suggest continuing the trazodone as currently ordered. The patient is not presenting any behavioral issues at this time, reports some mild anxiety, which she cannot scale, but reported to nursing that she was short of breath. SPO2 was noted to be 95% on room air. The patient has wanted to sit in the chair and get back into bed, and is probably more anxious than she is admitting to us. As of now, we have not received a return telephone call to the patient's granddaughter, Gerry, , and had intended to ask her if she believes that the patient is at her baseline. Per discussion with medical staff, Gerry had indicated that the patient is at her baseline. The patient came to the hospital on alprazolam, sertraline 75 mg and multiple trazodone doses. For mild anxiety, consider alprazolam 0.25-0.5 mg by mouth daily as needed, while in the hospital, but benzodiazepines should be avoided in the elderly, due to increased risk of falls. Please consider gabapentin for management of anxiety; this is an off-label use. Do not restart sertraline/Zoloft, due to Dr. Chapin's concern for lowering the seizure threshold. We will have further suggestions later today on restarting sertraline, which we would prefer over alprazolam, versus valproic acid/Depakote. Suggestion: 1. Trazodone 50 mg by mouth at bedtime for insomnia, as needed. 2. Geriatric consult when the patient is transferred to a nursing facility. 3. Consider gabapentin 100 mg PO up to 3X/day, as needed for anxiety; this is an off-label use. We will continue to follow along with you. Сергей Mancia APRN, pager [phone]. Subjective Subjective: The patient is resting in bed, but easily aroused. She is oriented to person, but is off by more than one day, and believes that she is in "[place]." She confirms that she slept a little last night with the reintroduction of trazodone , but is still sleepy this morning. She denies auditory and visual hallucinations, and presents no lo delusions. She denies suicidal ideation.
[2016-08-11 11:19] VITALS: BP 140/80
[2016-08-11] MEDS ORDERED: NORVASC10 M1 PO (11:27)
[2016-08-11] MEDS ORDERED: TRAMADOL HCL50 M1 PO (11:27)
[2016-08-11] MEDS ORDERED: LEVETIRACETAM250 M1 PO (11:27)
[2016-08-11] MEDS ORDERED: TRAZODONE HCL50 M1 PO (11:27)
[2016-08-11] MEDS ORDERED: LABETALOL HCL100 M1 PO (11:27)
[2016-08-11] MEDS ORDERED: HYDRALAZINE HCL25 M1 PO (11:27)
--- NOTE | 2016-08-11 11:30 | NUR ---
NURSING NOTE: PT SLEEPING AT THIS TIME, CONT TO MONITOR,. BED ALARM IN PLACE, PSM PER MD ORDER.
[2016-08-11 15:54] VITALS: BP 146/80
--- NOTE | 2016-08-11 18:23 | PN- Cardiology ---
Subjective Subjective: No specific complaints. Denies any chest discomfort, palpitations, shortness of breath, etc. Objective Vital Signs and I&Os Vital Signs Date Time Temp Pulse Resp B/P Pulse O2 O2 Flow FiO2 Ox Delivery Rate 08/11 1554 97.4 110 20 146/80 95 08/11 1119 100 20 140/80 94 Room Air 08/11 1040 98.0 130 20 148/78 93 Room Air 08/11 1013 90 146/78 08/11 0845 96 148/80 08/11 0835 97.2 111 20 150/88 93 Room Air 08/10 2346 97.4 93 20 130/62 93 Room Air 08/10 2154 97.6 92 20 130/60 08/10 2154 97.6 92 20 130/60 Intake & Output 08/11 1600 08/11 0800 08/11 0000 08/10 1600 08/10 0800 08/10 0000 Intake Total 710 424 389 4711 650 1100 Output Total 650 400 750 500 Balance 60 480 400 350 650 600 Intake, IV 10 200 400 600 Intake, Oral 700 480 800 900 250 500 Number 1 1 3 3 Bowel Movements Output, Urine 650 400 750 500 Physical Exam: Well-developed, overweight elderly female in no acute distress. Vital signs: See above. Lungs: Clear to auscultation bilaterally. Heart: S1, S2 with no murmur, gallop, or rub appreciated. Extremities: No edema. Current Medications: Current Medications Sig/Desiree Start time Last Medication Dose Route Stop Time Status Admin Acetaminophen 650 MG .STK-MED ONE 08/10 2255 DC PO 08/10 2256 Acetaminophen 650 MG Q6P PRN 07/25 2015 AC 08/10 PO 225 Alprazolam 0.5 MG ONCE ONE 08/11 1045 DC 08/11 PO 08/11 1046 1050 Amlodipine Besylate 10 MG DAILY 08/05 1000 AC 08/11 PO 1013 Atorvastatin Calcium 80 MG 1700 08/01 1700 AC 08/10 PO 1653 Cholecalciferol 400 IU DAILY 07/26 1000 AC 08/11 PO 1013 Ferrous Sulfate 325 MG DAILY 07/26 1000 AC 08/11 PO 1013 Gabapentin 100 MG Q8 PRN 08/11 1445 AC PO Heparin Sodium 5,000 UNIT Q8 07/25 2200 AC 08/11 (Porcine) SC 1435 Hydralazine HCl 25 MG TID 08/07 1000 AC 08/11 PO 1013 Insulin Aspart 0 TIDAC 07/29 0800 AC 08/10 SC 1222 Insulin Aspart 0 AT BEDTIME 07/28 2200 AC SC Labetalol HCl 100 MG BID 08/070 AC 08/11 PO 1014 Levetiracetam 750 MG BID 08/07 2200 AC 08/11 PO 1013 Levothyroxine Sodium 0.025 MG DAILY AC 07/26 0700 AC 08/11 PO 0525 Magnesium Chloride 64 MG TID 08/10 1600 AC 08/11 PO 1014 Montelukast Sodium 10 MG DAILY 07/26 1000 AC 08/11 PO 1014 Morphine Sulfate 1 MG Q6P PRN 08/10 0845 AC 08/11 IV 0253 Omeprazole 20 MG DAILY AC 07/26 07 AC 08/11 PO 0525 Prednisone 1.5 MG Q48 07/31 1000 AC 08/10 PO 0825 Simethicone 80 MG Q6P PRN 07/30 1339 AC 08/09 PO 1416 Tramadol HCl 50 MG Q6 PRN 08/08 1445 AC 08/09 PO 2355 Trazodone HCl 50 MG AT BEDTIME NEED.. 08/10 220 AC PO Trimethobenzamide HCl 200 MG TID PRN 08/09 0945 AC IM Vitamin A/Vitamin D 1 LORENA BID PRN 07/25 2345 AC 08/02 TOP 1830 Zinc Oxide 1 LORENA Q8 08/01 2200 AC 08/11 TOP 1435 Zinc Oxide 1 LORENA BID PRN 08/01 1512 AC 08/02 TOP 1830 Results Last 48 Hrs of Labs/Mics: Laboratory Tests 08/11/16 0645: Anion Gap 10, Estimated GFR 40 L, BUN/Creatinine Ratio 13.1, Magnesium 1.5 L 08/10/16 0700: Anion Gap 9, Estimated GFR 40 L, BUN/Creatinine Ratio 8.5, Magnesium 1.4 L, CBC w Diff NO MAN DIFF REQ, RBC 3.81 L, MCV 84.6, MCH 27.9, RDW 18.2 H, MPV 9.4, Gran % 46.8, Lymphocytes % 35.8, Monocytes % 10.6 H, Eosinophils % 6.3 H, Basophils % 0.5, Absolute Granulocytes 4.2, Absolute Lymphocytes 3.2, Absolute Monocytes 1.0 H, Absolute Eosinophils 0.6, Absolute Basophils 0, PUBS MCHC 32.9 L Microbiology 08/10 855 STOOL: Clostridium difficile Toxin A & B - COMP Assessment/Plan Assessment/Plan Previously poorly controlled hypertension in this elderly female with multiple other medical issues. Fortunately, her blood pressure has come under reasonable control on her present regimen of labetalol 100 mg twice daily, amlodipine 10 mg daily, and hydralazine 25 mg 3 times daily. Recommendation: * Potassium acceptable today at 4.6 mg/L and continue to maintain her potassium between 4.0-4.5 mg/L. * Magnesium on low side at 1.4 mg/L and should replete and maintainat or above 2.0 per liter. * Given her risk equivalent and multiple risk factors for coronary artery disease one has to be concerned about underlying ischemia and this should be further evaluated once her present medical issues have been adequately managed. * PRES (posterior reversible encephalopathy syndrome), improving as per MRI. * Continue DVT prophylaxis.
[2016-08-11 22:00] VITALS: BP 170/74
--- NOTE | 2016-08-12 07:47 | PN- Housestaff ---
JEREMY ANDREWS,CINDI 08/12/16 0747: Subjective Follow-up For: pres insomnia agitation Subjective: pt was initially asleep when examined this morning. she was arousable and started being impulsive and keep pacing around the room. 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 told the nurse to give gabapentin for the anxiety and if needed we can give xanax. according to the nurse, she did not really sleep last night. she did not complain about any pain this morning. Review of Systems Constitutional: Denies: chills, fever. EENTM: Denies: visual changes. Cardiovascular: Denies: chest pain, palpitations. Respiratory: Denies: cough, short of breath. Gastrointestinal: Denies: abdominal pain, bloating, constipation, diarrhea. Objective Last 24 Hrs of Vital Signs/I&O Vital Signs Date Time Temp Pulse Resp B/P Pulse O2 O2 Flow FiO2 Ox Delivery Rate 08/12 908 96 170/74 08/12 908 96 170/74 08/12 0905 96 170/74 08/11 2253 98.0 96 16 170/74 08/11 2252 98.0 96 16 170/74 08/11 2200 98.0 70 18 170/74 96 Room Air 08/11 1832 110 146/80 08/11 1600 94 Room Air 08/11 1554 97.4 110 20 146/80 95 08/11 1119 100 20 140/80 94 Room Air 08/11 1040 98.0 130 20 148/78 93 Room Air Intake & Output 08/12 1600 08/12 0800 08/12 0000 Intake Total 120 100 Output Total Balance 120 100 Intake, Oral 120 100 Physical Exam General Appearance: Alert, Moderate Distress Skin: No Significant Lesion HEENT: Atraumatic, PERRLA Cardiovascular: Regular Rate, Normal S1, Normal S2, No Murmurs, Gallops, Rubs Lungs: Clear to Auscultation, Normal Air Movement Abdomen: Normal Bowel Sounds, Soft, No Tenderness Neurological: pressure speech Extremities: No Edema Vascular: Normal Pulses Current Medications: Current Medications Sig/Desiree Start time Last Medication Dose Route Stop Time Status Admin Acetaminophen 650 MG Q6P PRN 07/25 2015 AC 08/10 PO 2258 Alprazolam 0.5 MG ONCE ONE 08/11 1045 DC 08/11 PO 08/11 1046 1050 Amlodipine Besylate 10 MG DAILY 08/05 1000 AC 08/12 PO 0908 Atorvastatin Calcium 80 MG 1700 08/01 1700 AC 08/11 PO 1832 Cholecalciferol 400 IU DAILY 07/26 1000 AC 08/12 PO 0859 Ferrous Sulfate 325 MG DAILY 07/26 1000 AC 08/12 PO 0903 Gabapentin 100 MG Q8 PRN 08/11 1445 AC 08/12 PO 0858 Heparin Sodium 5,000 UNIT Q8 07/25 2200 AC 08/12 (Porcine) SC 0553 Hydralazine HCl 25 MG TID 08/07 1000 AC 08/12 PO 0905 Insulin Aspart 0 TIDAC 07/29 0800 AC 08/11 SC 1831 Insulin Aspart 0 AT BEDTIME 07/28 2200 [facility] Labetalol HCl 100 MG BID 08/07 2200 AC 08/12 PO 0908 Levetiracetam 750 MG BID 08/07 2200 AC 08/12 PO 0907 Levothyroxine Sodium 0.025 MG DAILY AC 07/26 0700 AC 08/12 PO 0601 Magnesium Chloride 64 MG TID 08/10 1600 AC 08/12 PO 0902 Montelukast Sodium 10 MG DAILY 07/26 1000 AC 08/12 PO 0900 Morphine Sulfate 1 MG Q6P PRN 08/10 0845 AC 08/11 IV 0253 Omeprazole 20 MG DAILY AC 07/26 0700 AC 08/12 PO 0601 Prednisone 1.5 MG Q48 07/31 1000 AC 08/12 PO 0906 Simethicone 80 MG Q6P PRN 07/30 1339 AC 08/12 PO 0900 Tramadol HCl 50 MG Q6 PRN 08/08 1445 AC 08/12 PO 0601 Trazodone HCl 50 MG AT BEDTIME NEED.. 08/10 2200 AC 08/12 PO 0900 Trimethobenzamide HCl 200 MG TID PRN 08/09 0945 AC IM Vitamin A/Vitamin D 1 LORENA BID PRN 07/25 2345 AC 08/02 TOP 1830 Zinc Oxide 1 LORENA Q8 08/01 2200 AC 08/12 TOP 0553 Zinc Oxide 1 LORENA BID PRN 08/01 1512 AC 08/02 TOP 1830 Last 24 Hrs of Lab/Rehan Results Last 24 Hrs of Labs/Mics: Laboratory Tests 08/12/16 0650: Anion Gap 10, Estimated GFR 44 L, BUN/Creatinine Ratio 15.0, Magnesium 1.4 L Assessment/Plan Assessment: Ms. Bland is a 76 year old lady with PMH significant for COPD on 3 L oxygen, CHF (stage II diastolic), DM2, complicated with neuropathy and gastroparesis, arthritis, mood disorders, hyperlipidemia, CRF, GERD, diverticulosis and hypothyroidism, who initially presented to [place] ED from [place] on 07/25/16 with persistent diarrhea with altered mental status. Patient received care under general medicine until 08/01 for disciitis/osteomyelitis of thoracic spine, and underwent CT guided biopsy which failed to grow any organism and she has been kept off antibiotics. Due to persistent confusion, imaging of the head was done which showed PRES. She then developed hypertensive urgency (220/110) requiring IV antihypertensives and seizures (with right arm weakness and right eyelid droop) requiring IV keppra, for which she was managed in the ICU. Upon stabilization of the seizure, patient was transferred to telemetery unit for further blood pressure management, and then subsequently transferred to general medicine for further neurological workup and pain management. 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 In addition, patient carries a history of of anxiety, depression, bipolar disorder and PTSD. According to the records from [place], at home patient takes alprazolam 0.25 mg Q6 PRN, trazodone, and sertraline 50 mg daily. Per psych, trazodone and sertraline may be contributing to her altered mental status. As such her psych meds were discontinued under the ICU service. In telemetery unit, patient continued to be have AMS. Agitated throughout the day and fully awake overnight. Not eating and sleeping well. We have requested psych and neuro to evaluate the patient. We requested psych to re-evaluate the patient but patient was never seen while on tele. Patient was held off trazodone, sertraline and alprazolam per psych's previous recs. Patient's mental status continued to worsen and neuro recommended on 08/08 that patient may benefit from being back on her pysch meds. In , psychiatry recc continue hold off ssri, benzo and trazodone for now. - her b12 normal at 798, folate normal at 3.6 * Psych meds on hold (alprazolam 0.25 mg Q6 PRN, sertraline 75 mg daily in AM) * pt was agitated 08/09 night and code 7 was called. pt was hallucinating and haldol 0.5 mg IM was given one time. * Psych recommends giving 50 mg of trazodone prn, and adding another 50 mg in 1 hour if pt still cannot sleep (home dose was trazodone 50 mg in AM and 100 mg at bedtime). She was finally able to sleep after given trazodone. from neurology has signed off and is ok with starting trazodone and/or valproic acid. * We considered starting valproic acid as it is beneficial for her bipolar and seizure but she would need the level to be checked on the 4th morning. also considered mirtazapine that can help with insomnia and depression. * She scored 16/29 on MMSE having memorized some of the answers from previous test. * For anxiety, we are adding gabapetin 100 mg tid PRN. We considered sertraline but it might lower the seizure threshold. # Posterior Reversible Encephalopathy Syndrome (PRES) Presented with seizure and FND in the setting of elevated BP, s/p CT guided biopsy of the thoracis spine. MRI consistent with PRES. She is currently able to move her right arm. Also her right-sided eyelid droop and left-sided hemispacial neglect are no longer present. - Doppler US of the carotid arteries: limited exam, no clear hemodynamically significant stenoses are identified. Recommend repeat exam when patient is able to tolerate the procedure. - EEG: Normal in wake state - She has not had anymore seizure episodes since transfer from ICU, currently stable on keppra. right arm weakness and ptosis has also resolved. - MRI 08/09: Improved signal abnormality in the left frontal, as well as both parietal and occipital lobes relative to 07/31/2016. There remains no restricted diffusion nor abnormal enhancement. Findings are compatible with improving posterior reversible encephalopathy syndrome. Background of moderate generalized volume loss and mild to moderate chronic microangiopathy * Adequate BP control to keep systolic pressure in 140-160 * Cont Keppra 750 mg PO BID * Hold off lorazepam 1 mg Q6 PRN for now per psych rec * Neurochecks every 4 hours * Follow neuro recs * Follow cardio recs regarding BP management # Pain management - arthritis pain on her knees, for which she uses a plug-in heat pad at home, but we cannot allow that in the hospital. we tried warm rye socks but pt says it does not help and refuses it. * she currently gets acetaminophen 650 q6p mild pain, tramadol 50 q6p, and added morphine 1mg q6p. # GI - Diarrhea: Gerry, her granddaughter thinks the diarrhea could be related to anxiety. - nausea, gas pain (resolved) * we resent stool for cdiff. results were negative. * Continue omeprazole 20 mg * continue simethicone 80 mg q6p * continue im tigan 200 mg tid prn # Questionable osteomyelitis/discitis of the thoracic spine CT and MRI findings are suggestive of discitis/osteomyelitis at T7-T8 but of unclear signifciace. Patient underwent CT-guided biopsy which was negative, although the sample was not adequate. C&S of the bone biopsy showed no growth. On 08/08, Dr. Julien discussed with Dr. Quiñones about pursuing further workup for patient's possible discitis. Dr. Quiñones recommeneded workup to be done outpatient with MRI in 4 weeks once patient's psychiatric and neurological conditions. - Her wbc is noted to come up from 7.4 to 9.8 but she has been afebrile. biopsy from ct guided biopsy did not grow anything. pt has been off abx. esr 49 h, down from 112. * Watch for signs of infection off antibiotics * Oral and IV acetaminophen for mild * tramadol mod pain * Per ID, may consider repeat T7-T8 aspirate/biopsy by IR when patient is more stable * Appreciate ID recs # SOCORRO on CKD Patient received hydration with appropriate response. Kidney US showed simple cysts, and no further workup was deemed necessary per Urology. * Continue monitor Cr daily * Avoid nephrotoxins * Improved 8/1.5 to 07/04.3. # Hypomagnesemia * mg still low at 1.4 * Monitor daily and replete * mgcl 64 mg inc to 4 TIMES A DAY po (dont want to give mag ox given diarrhea) # Hypertensive urgency due to PRES (resolved) During ICU stay her home meds verapamil and losartan were discontinued. Per cardio rec, patient was started on labetalol 50mg PO BID and amlodipine at 7.5 mg which was increased to 10 mg. Patient continued to be hypertensive in tele unit on 08/07 and patient's labetalol was increased to 100mg PO BID, and she started on hydralazine 25mg PO TID. Patient's BP was better controlled with these changes. - ECHO: Normal left ventricular ejection fraction estimated at 60-65%. - Her blood pressure has been wnl since transfer from [facility]. urine total catecholamine 23 L, pheochromocytoma less likely. normal urine epinephrine, norepinephrine, dopamine. * Cont labetalol to 100mg PO BID * Cont hydralazine 25mg PO TID * Cont Norvasc 10mg PO daily # Bruising on the right shoulder Patient initially had a bruise on the right shoulder, in addition to pain, decreased ROM, tenderness. She was unable to obtain complete history regarding possible trauma due to mental status. - Xray of the right shoulder did not show dislocation, fracture or hematoma, however reported widened acromioclavicular joint space to 1.2 cm wide, which was also widened on the recent chest radiograph of 07/14/2016. Patient is currently able to move her right arm, does not complain of any pain. # DM type 2 with gastroparesis and neuropathy * Accuchecks * Novolog SSI * Hold home med Lyrica 75 mg TID given risk of seizure # Hypokalemia - her k has gone up from 3.4 --> 3.7 to 4.8, Discontinued kcl 20 meq bid po --> 4.6 # History of stage II CHF Murmur in aortic area in exam, consistent with ECHO findings for aortic stenosis. Echo also showed normal left ventricular ejection fraction estimated at 60-65%. * Continue aspirin and statin # History of COPD * Continued on 3L home O2 and Montelukast 10 mg daily # History of GCA * Continued 1.5 mg PO prednisone q48h # Hypothyroidism Multilobular left thyroid enlargement. Thyroid function tests are within normal limits. * continue levothyroxine at 0.025 mg daily * Patient can follow up outpatient after discharge for further management # DVT px: ALPS and heparin SC Diet- Heart healthy, chopped and thin liquids Mild pain pathway FULL CODE Labs: bep for kidney functions and hypokalemia, mg for hypomag Problem List: 1. PRES (posterior reversible encephalopathy syndrome) 2. Hypomagnesemia Pain Ratin Pain Location: none Pain Goal: Remain pain free Pain Plan: mild pp Tomorrow's Labs & Rationales: bep and mg for kidney functions and hypomag. DVT/Prophylaxis: mechanical, pharmacological Consulting Request: Consulting Specialty: Neurosurgery Consulting Physician: Discitis/Osteomyelitis T7-8 Reason for Consult: Dr. Carmel PAYNE MD,[facility] 08/12/16 1329: Attending MD Review Statement Attending Statement Attending MD Statement: examined this patient, discuss w/resident/PA/SENIOR JAVA SOFTWARE DEVELOPER, agreed w/resident/PA/SENIOR JAVA SOFTWARE DEVELOPER, discussed with family, reviewed EMR data (avail), discussed with nursing, discussed with case mgmt, reviewed images, amended to note Attending Assessment/Plan: Patient is still in the bed, has a sitter at bedside. Very restless. Her blood pressure readings are on the higher side this morning. Recommendations: Monitor blood pressure. Follow-up cardiology. Continue with trazodone and Neurontin. She will need net bed and sitter, as she is very restless/impulsive, risk of fall.
[2016-08-12 16:00] VITALS: BP 148/68
[2016-08-12 16:34] VITALS: BP 148/68
--- NOTE | 2016-08-12 20:20 | NUR ---
NURSING NOTE: PATIENT BECAME VERY AGTTATED WITH THE NET BED ZIPPED UP @ 1840. UNZIPPED NET BED AND PUT PATIENT TO SIT IN THE LOUNG CHAIR WITH SITTER CLOSE BY AND PATIENT BECAME LESS ANXIOUS AND VERY RELAXED. PAGED TITLE SEARCH MANAGER KIMBERLY LUNA BUT TITLE SEARCH MANAGER DIDN'T RETURN CALL. TEXT PAGE OVERNIGHT TITLE SEARCH MANAGER DORA AND REQUESTED THE NET BED BE CANCELLED. REPORT GIVEN TO NIGHT NURSE.
[2016-08-13 00:39] VITALS: BP 126/70
[2016-08-13 08:34] VITALS: BP 130/70
--- NOTE | 2016-08-13 08:46 | PN- Housestaff ---
See Addendum Subjective Follow-up For: pres agitation and confusion Subjective: pt was seen this morning, the generalized rash has improved with benadryl. she denies any complains. she was lying down in a net bed comfortably (not zipped). she still has a a radiation monitor because she gets out and into bed very aggressively that she is a fall risk. she also likes to pace around and gets anxious easily. she reports sleeping well last night and feeling tired today. she denies difficulty breathing. the nurse noted that she was wheezing this morning, respiratory notified for breathing treatment. kidney functions improving. mg still low, will give one time mag ox. diarrhea seems to have resolved. Review of Systems Constitutional: Denies: chills, diaphoresis, fever. EENTM: Denies: visual changes. Cardiovascular: Denies: chest pain, edema, palpitations. Respiratory: Denies: cough, short of breath. Gastrointestinal: Denies: abdominal pain, bloating, constipation, diarrhea. Genitourinary: Denies: dysuria. Objective Last 24 Hrs of Vital Signs/I&O Vital Signs Date Time Temp Pulse Resp B/P Pulse O2 O2 Flow FiO2 Ox Delivery Rate 08/13 0834 98.0 80 20 130/70 95 Room Air 08/13 0800 95 Room Air 08/13 0039 97.4 76 20 126/70 93 08/12 2133 92 140/64 08/12 2132 92 138/64 08/12 1634 97.5 103 18 148/68 96 08/12 1600 103 148/68 08/12 1600 97 Room Air 08/12 1600 97.5 103 18 148/68 96 Room Air Intake & Output 08/13 1600 08/13 0800 08/13 0000 Intake Total 450 500 Output Total Balance 450 500 Intake, Oral 450 500 Number 1 Bowel Movements Physical Exam General Appearance: Alert, Cooperative, No Acute Distress Skin: mild erythema on the right upper extremity HEENT: Atraumatic, PERRLA Neck: Supple Cardiovascular: Regular Rate, Normal S1, Normal S2, No Murmurs, Gallops, Rubs Lungs: Clear to Auscultation, Normal Air Movement Abdomen: Normal Bowel Sounds, Soft, No Tenderness Neurological: Normal Speech Extremities: No Edema Current Medications: Current Medications Sig/Desiree Start time Last Medication Dose Route Stop Time Status Admin Acetaminophen 650 MG .STK-MED ONE 08/12 1916 DC PO 08/12 191 Acetaminophen 650 MG .STK-MED ONE 08/12 1204 DC PO 08/12 1205 Acetaminophen 650 MG Q6P PRN 07/25 2015 AC 08/12 PO 1919 Albuterol Sulfate 3 ML Q4P PRN 08/13 1030 AC 08/13 INH 1023 Alprazolam 0.25 MG ONCE ONE 08/12 1630 DC 08/12 PO 08/12 1631 1816 Amlodipine Besylate 10 MG DAILY 08/05 1000 AC 08/13 PO 0836 Atorvastatin Calcium 80 MG 1700 08/01 1700 AC 08/12 PO 1807 Cholecalciferol 400 IU DAILY 07/26 1000 AC 08/13 PO 0836 Diphenhydramine HCl 25 MG Q6P PRN 08/12 1830 AC 08/12 PO 1919 Diphenhydramine HCl 25 MG Q6P PRN 08/12 1730 DC PO Ferrous Sulfate 325 MG DAILY 07/26 1000 AC 08/13 PO 0836 Gabapentin 100 MG Q8 PRN 08/11 1445 AC 08/12 PO 0858 Heparin Sodium 5,000 UNIT Q8 07/25 2200 AC 08/13 (Porcine) SC 0635 Hydralazine HCl 25 MG TID 08/07 1000 AC 08/13 PO 0837 Insulin Aspart 0 TIDAC 07/29 0800 AC 08/11 SC 1831 Insulin Aspart 0 AT BEDTIME 07/28 2200 AC SC Ipratropium Percival 2.5 ML Q4P PRN 08/13 1030 AC 08/13 INH 1024 Labetalol HCl 100 MG BID 08/07 2200 AC 08/13 PO 0836 Levetiracetam 750 MG BID 08/07 2200 AC 08/13 PO 0837 Levothyroxine Sodium 0.025 MG DAILY AC 07/26 0700 AC 08/13 PO 0635 Magnesium Chloride 128 MG BID 08/12 1045 AC 08/13 PO 0836 Magnesium Oxide 400 MG ONE ONE 08/13 1130 AC PO 08/13 1131 Montelukast Sodium 10 MG DAILY 07/26 1000 AC 08/13 PO 0837 Morphine Sulfate 1 MG Q6P PRN 08/10 0845 AC 08/11 IV 0253 Omeprazole 20 MG DAILY AC 07/26 0700 AC 08/13 PO 0635 Prednisone 1.5 MG Q48 07/31 1000 AC 08/12 PO 0906 Simethicone 80 MG Q6P PRN 07/30 1339 AC 08/12 PO 0900 Tramadol HCl 50 MG Q6 PRN 08/08 1445 AC 08/13 PO 0641 Trazodone HCl 50 MG AT BEDTIME NEED.. 08/10 2200 AC 08/12 PO 2250 Trimethobenzamide HCl 200 MG TID PRN 08/09 0945 AC IM Vitamin A/Vitamin D 1 LORENA BID PRN 07/25 2345 AC 08/02 TOP 1830 Zinc Oxide 1 LORENA Q8 08/01 2200 AC 08/13 TOP 0636 Zinc Oxide 1 LORENA BID PRN 08/01 1512 AC 08/02 TOP 1830 Last 24 Hrs of Lab/Rehan Results Last 24 Hrs of Labs/Mics: Laboratory Tests 08/13/16 0710: Anion Gap 9, Estimated GFR 44 L, BUN/Creatinine Ratio 20.8, Magnesium 1.3 L Assessment/Plan Assessment: Ms. Bland is a 76 year old lady with PMH significant for COPD on 3 L oxygen, CHF (stage II diastolic), DM2, complicated with neuropathy and gastroparesis, arthritis, mood disorders, hyperlipidemia, CRF, GERD, diverticulosis and hypothyroidism, who initially presented to [facility] from [facility] on 07/25/16 with persistent diarrhea with altered mental status. Patient received care under general medicine until 08/01 for disciitis/osteomyelitis of thoracic spine, and underwent CT guided biopsy which failed to grow any organism and she has been kept off antibiotics. Due to persistent confusion, imaging of the head was done which showed PRES. She then developed hypertensive urgency (220/110) requiring IV antihypertensives and seizures (with right arm weakness and right eyelid droop) requiring IV keppra, for which she was managed in the ICU. Upon stabilization of the seizure, patient was transferred to telemetery unit for further blood pressure management, and then subsequently transferred to general medicine for further neurological workup and pain management. 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 In addition, patient carries a history of of anxiety, depression, bipolar disorder and PTSD. According to the records from [facility], at home patient takes alprazolam 0.25 mg Q6 PRN, trazodone, and sertraline 50 mg daily. Per psych, trazodone and sertraline may be contributing to her altered mental status. As such her psych meds were discontinued under the ICU service. In telemetery unit, patient continued to be have AMS. Agitated throughout the day and fully awake overnight. Not eating and sleeping well. We have requested psych and neuro to evaluate the patient. We requested psych to re-evaluate the patient but patient was never seen while on tele. Patient was held off trazodone, sertraline and alprazolam per psych's previous recs. Patient's mental status continued to worsen and neuro recommended on 08/08 that patient may benefit from being back on her pysch meds. In , psychiatry recc continue hold off ssri, benzo and trazodone for now. - her b12 normal at 798, folate normal at 3.6 * Psych meds on hold (alprazolam 0.25 mg Q6 PRN, sertraline 75 mg daily in AM) * pt was agitated 08/09 night and code 7 was called. pt was hallucinating and haldol 0.5 mg IM was given one time. * Psych recommends giving 50 mg of trazodone prn, and adding another 50 mg in 1 hour if pt still cannot sleep (home dose was trazodone 50 mg in AM and 100 mg at bedtime). She was finally able to sleep after given trazodone. from neurology has signed off and is ok with starting trazodone and/or valproic acid. * We considered starting valproic acid as it is beneficial for her bipolar and seizure but she would need the level to be checked on the 4th morning. also considered mirtazapine that can help with insomnia and depression. * She scored 16/29 on MMSE having memorized some of the answers from previous test. * For anxiety, we are adding gabapetin 100 mg tid PRN. We considered sertraline but it might lower the seizure threshold. # Posterior Reversible Encephalopathy Syndrome (PRES) Presented with seizure and FND in the setting of elevated BP, s/p CT guided biopsy of the thoracis spine. MRI consistent with PRES. She is currently able to move her right arm. Also her right-sided eyelid droop and left-sided hemispacial neglect are no longer present. - Doppler US of the carotid arteries: limited exam, no clear hemodynamically significant stenoses are identified. Recommend repeat exam when patient is able to tolerate the procedure. - EEG: Normal in wake state - She has not had anymore seizure episodes since transfer from ICU, currently stable on keppra. right arm weakness and ptosis has also resolved. - MRI 08/09: Improved signal abnormality in the left frontal, as well as both parietal and occipital lobes relative to 07/31/2016. There remains no restricted diffusion nor abnormal enhancement. Findings are compatible with improving posterior reversible encephalopathy syndrome. Background of moderate generalized volume loss and mild to moderate chronic microangiopathy * Adequate BP control to keep systolic pressure in 140-160 * Cont Keppra 750 mg PO BID * Hold off lorazepam 1 mg Q6 PRN for now per psych rec * Neurochecks every 4 hours * Follow neuro recs * Follow cardio recs regarding BP management # Pain management - arthritis pain on her knees, for which she uses a plug-in heat pad at home, but we cannot allow that in the hospital. we tried warm rye socks but pt says it does not help and refuses it. * she currently gets acetaminophen 650 q6p mild pain, tramadol 50 q6p, and added morphine 1mg q6p. # GI - Diarrhea: Gerry, her granddaughter thinks the diarrhea could be related to anxiety. - nausea, gas pain (resolved) * we resent stool for cdiff. results were negative. * Continue omeprazole 20 mg * continue simethicone 80 mg q6p * continue im tigan 200 mg tid prn # Questionable osteomyelitis/discitis of the thoracic spine CT and MRI findings are suggestive of discitis/osteomyelitis at T7-T8 but of unclear signifciace. Patient underwent CT-guided biopsy which was negative, although the sample was not adequate. C&S of the bone biopsy showed no growth. On 08/08, Dr. Julien discussed with Dr. Quiñones about pursuing further workup for patient's possible discitis. Dr. Quiñones recommeneded workup to be done outpatient with MRI in 4 weeks once patient's psychiatric and neurological conditions. - Her wbc is noted to come up from 7.4 to 9.8 but she has been afebrile. biopsy from ct guided biopsy did not grow anything. pt has been off abx. esr 49 h, down from 112. * Watch for signs of infection off antibiotics * Oral and IV acetaminophen for mild * tramadol mod pain * Per ID, may consider repeat T7-T8 aspirate/biopsy by IR when patient is more stable * Appreciate ID recs # SOCORRO on CKD Patient received hydration with appropriate response. Kidney US showed simple cysts, and no further workup was deemed necessary per Urology. * Continue monitor Cr daily * Avoid nephrotoxins * Improved 04/03.5 to 07/04.3. # Hypomagnesemia * mg still low at 1.4 * Monitor daily and replete * mgcl 64 mg inc to 2 TABS BID po (minimize mag ox to prevent diarrhea ) # Hypertensive urgency due to PRES (resolved) During ICU stay her home meds verapamil and losartan were discontinued. Per cardio rec, patient was started on labetalol 50mg PO BID and amlodipine at 7.5 mg which was increased to 10 mg. Patient continued to be hypertensive in tele unit on 08/07 and patient's labetalol was increased to 100mg PO BID, and she started on hydralazine 25mg PO TID. Patient's BP was better controlled with these changes. - ECHO: Normal left ventricular ejection fraction estimated at 60-65%. - Her blood pressure has been wnl since transfer from [facility]. urine total catecholamine 23 L, pheochromocytoma less likely. normal urine epinephrine, norepinephrine, dopamine. * Cont labetalol to 100mg PO BID * Cont hydralazine 25mg PO TID * Cont Norvasc 10mg PO daily # Bruising on the right shoulder Patient initially had a bruise on the right shoulder, in addition to pain, decreased ROM, tenderness. She was unable to obtain complete history regarding possible trauma due to mental status. - Xray of the right shoulder did not show dislocation, fracture or hematoma, however reported widened acromioclavicular joint space to 1.2 cm wide, which was also widened on the recent chest radiograph of 07/14/2016. Patient is currently able to move her right arm, does not complain of any pain. # DM type 2 with gastroparesis and neuropathy * Accuchecks * Novolog SSI * Hold home med Lyrica 75 mg TID given risk of seizure # Hypokalemia - her k has gone up from 3.4 --> 3.7 to 4.8, Discontinued kcl 20 meq bid po --> 4.6 # History of stage II CHF Murmur in aortic area in exam, consistent with ECHO findings for aortic stenosis. Echo also showed normal left ventricular ejection fraction estimated at 60-65%. * Continue aspirin and statin # History of COPD * Continued on 3L home O2 and Montelukast 10 mg daily # History of GCA * Continued 1.5 mg PO prednisone q48h # Hypothyroidism Multilobular left thyroid enlargement. Thyroid function tests are within normal limits. * continue levothyroxine at 0.025 mg daily * Patient can follow up outpatient after discharge for further management # DVT px: ALPS and heparin SC Diet- Heart healthy, chopped and thin liquids Mild pain pathway FULL CODE Labs: bep for kidney functions and hypokalemia, mg for hypomag Problem List: 1. PRES (posterior reversible encephalopathy syndrome) 2. Hypomagnesemia Pain Ratin Pain Location: none Pain Goal: Pain 4 or less Pain Plan: mild pp Tomorrow's Labs & Rationales: bep for kidney functions mag for hypomag DVT/Prophylaxis: mechanical, pharmacological Consulting Request: Consulting Specialty: Neurosurgery Consulting Physician: Discitis/Osteomyelitis T7-8 Reason for Consult: Dr. Burt
[2016-08-13 16:22] VITALS: BP 122/82
[2016-08-13 22:00] VITALS: BP 146/72
--- NOTE | 2016-08-14 00:42 | NUR ---
LATE ENTRY: PT REFUSING VITAL SIGNS AT THIS TIME. PT BECOMING AGITATED WHEN ATTEMPTING TO TALK INTO IT. TEXT SENT TO [employer] [facility] JENSEN.
--- NOTE | 2016-08-14 08:28 | PN- Housestaff ---
JEREMY ANDRWES,CINDI 08/14/16 0828: Subjective Follow-up For: PRES Subjective: pt was seen this morning she was asleep but arousable. no issues overnight. not complaining about any pain. we changed her gabapentin to tid scheduled and placed 0.25 bid xanax prn for anxiety. we might be able to discontinue sitter today. she does not really want to be bothered this morning, refusing blood sugar check and blood pressure check. mg continues to be low despite slow mag and mg ox supplementations. Review of Systems Constitutional: Reports: see HPI. Denies: chills, fever. Objective Last 24 Hrs of Vital Signs/I&O Vital Signs Date Time Temp Pulse Resp B/P Pulse O2 O2 Flow FiO2 Ox Delivery Rate 08/14 0000 Room Air 08/13 2200 102 16 146/72 94 Room Air 08/13 2144 102 146/72 08/13 2144 102 146/72 08/13 1622 97.6 92 20 122/82 98 Room Air 08/13 1620 92 122/82 08/13 1600 98 Room Air 08/13 1559 Room Air Intake & Output 08/14 1600 08/14 0800 08/14 0000 Intake Total 600 Output Total Balance 600 Intake, Oral 600 Physical Exam General Appearance: Alert, Cooperative, No Acute Distress Skin: No Significant Lesion HEENT: Atraumatic, PERRLA Neck: Supple Cardiovascular: Regular Rate, Normal S1, Normal S2, No Murmurs, Gallops, Rubs Lungs: Clear to Auscultation, Normal Air Movement Abdomen: Normal Bowel Sounds, Soft, No Tenderness Neurological: pressured speech Extremities: No Edema Current Medications: Current Medications Sig/Desiree Start time Last Medication Dose Route Stop Time Status Admin Acetaminophen 650 MG Q6P PRN 07/25 2015 AC 08/12 PO 1919 Albuterol Sulfate 3 ML Q4P PRN 08/13 1030 AC 08/13 INH 1023 Alprazolam 0.25 MG BID PRN 08/14 1145 UNVr PO 08/21 1144 Amlodipine Besylate 10 MG DAILY 08/05 1000 AC 08/13 PO 0836 Atorvastatin Calcium 80 MG 1700 08/01 1700 AC 08/13 PO 1618 Cholecalciferol 400 IU DAILY 07/26 1000 AC 08/14 PO 1100 Diphenhydramine HCl 25 MG Q6P PRN 08/12 1830 DC 08/12 PO 1919 Ferrous Sulfate 325 MG DAILY 07/26 1000 AC 08/14 PO 1100 Gabapentin 100 MG TID 08/14 1600 UNVr PO Gabapentin 100 MG Q8 PRN 08/11 1445 DC 08/12 PO 0858 Heparin Sodium 5,000 UNIT Q8 07/25 2200 AC 08/14 (Porcine) SC 0446 Hydralazine HCl 25 MG TID 08/07 1000 AC 08/13 PO 2144 Insulin Aspart 0 TIDAC 07/29 0800 AC 08/13 SC 1257 Insulin Aspart 0 AT BEDTIME 07/28 2200 AC SC Ipratropium [place] 2.5 ML Q4P PRN 08/13 1030 AC 08/13 INH 1024 Labetalol HCl 100 MG BID 08/07 2200 AC 08/13 PO 2144 Levetiracetam 750 MG BID 08/07 2200 AC 08/14 PO 1101 Levothyroxine Sodium 0.025 MG DAILY AC 07/26 0700 AC 08/14 PO 0446 Magnesium Chloride 128 MG BID 08/12 1045 AC 08/14 PO 1100 Magnesium Oxide 400 MG ONE ONE 08/14 0945 DC 08/14 PO 08/14 0946 1103 Montelukast Sodium 10 MG DAILY 07/26 1000 AC 08/14 PO 1100 Morphine Sulfate 1 MG Q6P PRN 08/10 0845 AC 08/11 IV 0253 Omeprazole 20 MG DAILY AC 07/26 0700 AC 08/14 PO 0447 Prednisone 1.5 MG Q48 07/31 1000 AC 08/14 PO 1104 Simethicone 80 MG .STK-MED ONE 08/13 1614 DC PO 08/13 1615 Simethicone 80 MG Q6P PRN 07/30 1339 AC 08/13 PO 1620 Tramadol HCl 50 MG Q6 PRN 08/08 1445 AC 08/14 PO 0447 Trazodone HCl 50 MG AT BEDTIME NEED.. 08/10 2200 AC 08/12 PO 2250 Trimethobenzamide HCl 200 MG TID PRN 08/09 0945 DC IM Vitamin A/Vitamin D 1 LORENA BID PRN 07/25 2345 AC 08/02 TOP 1830 Zinc Oxide 1 LORENA Q8 08/01 2200 AC 08/14 TOP 0448 Zinc Oxide 1 LORENA BID PRN 08/01 1512 AC 08/02 TOP 1830 Last 24 Hrs of Lab/Rehan Results Last 24 Hrs of Labs/Mics: Laboratory Tests 08/14/16 0654: Anion Gap 5, Estimated GFR 44 L, BUN/Creatinine Ratio 17.5, Magnesium 1.3 L Assessment/Plan Assessment: Ms. Bland is a 76 year old lady with PMH significant for COPD on 3 L oxygen, CHF (stage II diastolic), DM2, complicated with neuropathy and gastroparesis, arthritis, mood disorders, hyperlipidemia, CRF, GERD, diverticulosis and hypothyroidism, who initially presented to [facility] ED from [place] on 07/25/16 with persistent diarrhea with altered mental status. Patient received care under general medicine until 08/01 for disciitis/osteomyelitis of thoracic spine, and underwent CT guided biopsy which failed to grow any organism and she has been kept off antibiotics. Due to persistent confusion, imaging of the head was done which showed PRES. She then developed hypertensive urgency (220/110) requiring IV antihypertensives and seizures (with right arm weakness and right eyelid droop) requiring IV keppra, for which she was managed in the ICU. Upon stabilization of the seizure, patient was transferred to telemetery unit for further blood pressure management, and then subsequently transferred to general medicine for further neurological workup and pain management. 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 In addition, patient carries a history of of anxiety, depression, bipolar disorder and PTSD. According to the records from [place], at home patient takes alprazolam 0.25 mg Q6 PRN, trazodone, and sertraline 50 mg daily. Per psych, trazodone and sertraline may be contributing to her altered mental status. As such her psych meds were discontinued under the ICU service. In telemetery unit, patient continued to be have AMS. Agitated throughout the day and fully awake overnight. Not eating and sleeping well. We have requested psych and neuro to evaluate the patient. We requested psych to re-evaluate the patient but patient was never seen while on tele. Patient was held off trazodone, sertraline and alprazolam per psych's previous recs. Patient's mental status continued to worsen and neuro recommended on 08/08 that patient may benefit from being back on her pysch meds. In , psychiatry recc continue hold off ssri, benzo and trazodone for now. - her b12 normal at 798, folate normal at 3.6 * Psych meds on hold ( sertraline 75 mg daily in AM) * pt was agitated 08/09 night and code 7 was called. pt was hallucinating and haldol 0.5 mg IM was given one time. * Psych recommends giving 50 mg of trazodone prn, and adding another 50 mg in 1 hour if pt still cannot sleep (home dose was trazodone 50 mg in AM and 100 mg at bedtime). She was finally able to sleep after given trazodone. from neurology has signed off and is ok with starting trazodone and/or valproic acid. * We considered starting valproic acid as it is beneficial for her bipolar and seizure but she would need the level to be checked on the 4th morning. also considered mirtazapine that can help with insomnia and depression. * She scored 16/29 on MMSE having memorized some of the answers from previous test. * For anxiety, we are adding gabapetin 100 mg tid scheduled and xanax 0.25 bid PRN. If pt tolerates gabapentin well, can go up to 300 tid. # Posterior Reversible Encephalopathy Syndrome (PRES) Presented with seizure and FND in the setting of elevated BP, s/p CT guided biopsy of the thoracis spine. MRI consistent with PRES. She is currently able to move her right arm. Also her right-sided eyelid droop and left-sided hemispacial neglect are no longer present. - Doppler US of the carotid arteries: limited exam, no clear hemodynamically significant stenoses are identified. Recommend repeat exam when patient is able to tolerate the procedure. - EEG: Normal in wake state - She has not had anymore seizure episodes since transfer from ICU, currently stable on keppra. right arm weakness and ptosis has also resolved. - MRI 08/09: Improved signal abnormality in the left frontal, as well as both parietal and occipital lobes relative to 07/31/2016. There remains no restricted diffusion nor abnormal enhancement. Findings are compatible with improving posterior reversible encephalopathy syndrome. Background of moderate generalized volume loss and mild to moderate chronic microangiopathy * Adequate BP control to keep systolic pressure in 140-160 * Cont Keppra 750 mg PO BID * Hold off lorazepam 1 mg Q6 PRN for now per psych rec * Neurochecks every 4 hours * Follow neuro recs * Follow cardio recs regarding BP management # Pain management - arthritis pain on her knees, for which she uses a plug-in heat pad at home, but we cannot allow that in the hospital. we tried warm rye socks but pt says it does not help and refuses it. * she currently gets acetaminophen 650 q6p mild pain, tramadol 50 q6p, and added morphine 1mg q6p. # GI - Diarrhea: Gerry, her granddaughter thinks the diarrhea could be related to anxiety. - nausea, gas pain (resolved) * we resent stool for cdiff. results were negative. * Continue omeprazole 20 mg * continue simethicone 80 mg q6p * continue im tigan 200 mg tid prn # Questionable osteomyelitis/discitis of the thoracic spine CT and MRI findings are suggestive of discitis/osteomyelitis at T7-T8 but of unclear signifciace. Patient underwent CT-guided biopsy which was negative, although the sample was not adequate. C&S of the bone biopsy showed no growth. On 08/08, Dr. Julien discussed with Dr. Quiñones about pursuing further workup for patient's possible discitis. Dr. Quiñones recommeneded workup to be done outpatient with MRI in 4 weeks once patient's psychiatric and neurological conditions. - Her wbc is noted to come up from 7.4 to 9.8 but she has been afebrile. biopsy from ct guided biopsy did not grow anything. pt has been off abx. esr 49 h, down from 112. * Watch for signs of infection off antibiotics * Oral and IV acetaminophen for mild * tramadol mod pain * Per ID, may consider repeat T7-T8 aspirate/biopsy by IR when patient is more stable * Appreciate ID recs # SOCORRO on CKD Patient received hydration with appropriate response. Kidney US showed simple cysts, and no further workup was deemed necessary per Urology. * Continue monitor Cr daily * Avoid nephrotoxins * Improved 81.5 to 111.3. # Hypomagnesemia * mg still low at 1.4 * Monitor daily and replete * mgcl 64 mg inc to 2 TABS BID po (minimize mag ox to prevent diarrhea ) # Hypertensive urgency due to PRES (resolved) During ICU stay her home meds verapamil and losartan were discontinued. Per cardio rec, patient was started on labetalol 50mg PO BID and amlodipine at 7.5 mg which was increased to 10 mg. Patient continued to be hypertensive in tele unit on 08/07 and patient's labetalol was increased to 100mg PO BID, and she started on hydralazine 25mg PO TID. Patient's BP was better controlled with these changes. - ECHO: Normal left ventricular ejection fraction estimated at 60-65%. - Her blood pressure has been wnl since transfer from [facility] [place]. urine total catecholamine 23 L, pheochromocytoma less likely. normal urine epinephrine, norepinephrine, dopamine. * Cont labetalol to 100mg PO BID * Cont hydralazine 25mg PO TID * Cont Norvasc 10mg PO daily # Bruising on the right shoulder Patient initially had a bruise on the right shoulder, in addition to pain, decreased ROM, tenderness. She was unable to obtain complete history regarding possible trauma due to mental status. - Xray of the right shoulder did not show dislocation, fracture or hematoma, however reported widened acromioclavicular joint space to 1.2 cm wide, which was also widened on the recent chest radiograph of 07/14/2016. Patient is currently able to move her right arm, does not complain of any pain. # DM type 2 with gastroparesis and neuropathy * Accuchecks * Novolog SSI * Hold home med Lyrica 75 mg TID given risk of seizure # Hypokalemia - her k has gone up from 3.4 --> 3.7 to 4.8, Discontinued kcl 20 meq bid po --> 4.6 # History of stage II CHF Murmur in aortic area in exam, consistent with ECHO findings for aortic stenosis. Echo also showed normal left ventricular ejection fraction estimated at 60-65%. * Continue aspirin and statin # History of COPD * Continued on 3L home O2 and Montelukast 10 mg daily # History of GCA * Continued 1.5 mg PO prednisone q48h # Hypothyroidism Multilobular left thyroid enlargement. Thyroid function tests are within normal limits. * continue levothyroxine at 0.025 mg daily * Patient can follow up outpatient after discharge for further management # DVT px: ALPS and heparin SC Diet- Heart healthy, chopped and thin liquids Mild pain pathway FULL CODE Problem List: 1. PRES (posterior reversible encephalopathy syndrome) Pain Ratin Pain Location: none Pain Goal: Remain pain free Pain Plan: mild pp Tomorrow's Labs & Rationales: none DVT/Prophylaxis: mechanical, pharmacological Consulting Request: Consulting Specialty: Neurosurgery Consulting Physician: Discitis/Osteomyelitis T7-8 Reason for Consult: KAELYN Calderón 08/14/16 1623: Attending MD Review Statement Attending Statement Attending MD Statement: examined this patient, discuss w/resident/PA/MATERIAL MAN, agreed w/resident/PA/MATERIAL MAN, reviewed EMR data (avail), discussed with nursing, discussed with case mgmt Attending Assessment/Plan: Pt has persistent hypomagnesemia- cont supplementation. Will f/u on psych recommendations. d/w case management the care plan. PRES- showing resolution on repeat MRI scan.
--- NOTE | 2016-08-14 16:07 | PN- Psychiatry ---
See Addendum Assessment/Plan Impression: This is a 76-year-old female who was admitted for diarrhea, and treated for PRES in the ICU, which is now resolving. She had been followed by Kobe Chen MD, [facility], . The patient has been refusing vital signs and blood sugar checks. Labetalol and hydralazine were held this morning, since nursing could not verify the patient's blood pressure. Gabapentin 100 mg PO every 8 hours as needed for anxiety, an off label use, was initiated on 08/11/2016, but had not been administered. The medical team would like to change this to a scheduled medication; we have no objection to trial of this medication. The nursing staff has provided alprazolam 0.25 mg by mouth as one time doses. We suggest extreme caution with this medication, as she is ambulatory, and this medication will put her at increased risk for falls and possibly fracture. Nursing and the house staff report that the patient is impulsive, and will get out of bed, and walk a short distance, before complaining of shortness of breath , and then returning to her bed. There may be a component of anxiety present, which gabapentin may help, but there are no reports of agitation or other extreme mood swings, which may suggest a trial of valproic acid/Depakote, at this time. I have asked nursing today to please gather report from evening and overnight shifts on the patient's behavior, so that we may have a better picture of her mood and behavior. Suggestion: 1. Trazodone 50 mg by mouth at bedtime for insomnia, as needed. 2. This patient would benefit from placement in a geriatric psychiatry facility for stabilization on medications. 3. Consider changing gabapentin 100 mg PO 3X/day for anxiety from an as needed to a scheduled medication, as the patient has not received a dose of this yet, per the MAR; this is an off-label use. 4. Please document the patient's mood and behavior overnight. We will continue to follow along with you, and expect to revisit the patient tomorrow, 08/15/2016. Сергей Mancia APRN, pager [phone]. Subjective Subjective: I revisited the patient today, 08/14/2016, at 1105, in room 205. Her patient monitor was in position outside her room, and able to observe the patient in her unzipped Soma safety and closure. The patient was sleeping, but easily arousable. She is calm, and answers questions while lying on her side with her eyes closed. She reports that she slept last night, but was still tired this morning. The patient is oriented to person, day, but believes that she is in "[facility]." She denies auditory or visual hallucinations, and presents no lo delusions at this time. She denies suicidal ideation. The patient reports that which she will allow nursing to check her vital signs and her blood sugar in one half hour.
[2016-08-14 16:22] VITALS: BP 145/60
--- NOTE | 2016-08-14 20:32 | NUR ---
ALERT AND ORIENTED TO PERSON AND PLACE. VITAL SIGNS STABLE. ON ROOM AIR. 1530 PATIENT PULLED OUT HER IV. VEHICLE BODY BUILDER OEI NOTIFIED. NO IV ACCESS AT THIS TIME.
[2016-08-14 23:14] VITALS: BP 128/58
--- NOTE | 2016-08-14 23:51 | CT SCAN REPORT ---
EXAMINATION: CT HEAD WITHOUT CONTRAST CLINICAL INFORMATION: Trauma to head. Fall. COMPARISON: Brain MRI from 08/09/2016. TECHNIQUE: Contiguous helical images of the brain were obtained without IV contrast. Multiplanar reconstructions were performed. DLP: 529 mGy-cm. FINDINGS: There are no pathologic extra-axial fluid collections. The lateral, third, fourth ventricles are mildly prominent, but age-appropriate, stable and concordant with the appearance of the sulci. There is no evidence for acute intraparenchymal hemorrhage or infarct. There is periventricular low-attenuation present indicative of small vessel disease. There is neither mass nor mass effect. There is no shift of midline structures. The paranasal sinuses and mastoid air cells are clear. There are no osseous lesions. IMPRESSION: No evidence for acute intracranial injury. Stable age-appropriate appearance of the brain.
--- NOTE | 2016-08-14 23:58 | Event Note ---
Event Note Event Note: Rapid Response called @ 10:45pm. Reportedly patients soma safety closure was left unzipped as patient was ambulating during the day shift. She fell while walking in her room was found lying on the ground next to her bed. Denies head strike or LOC no pain or bruising over her extremities. No complaints, feels well. States that she is sorry that she fell. Due to this being an unwitnessed fall we will CT Head to rule out any injury. Vitals stable, T 98.1, BP 120/68, HR 80, Blood sugar 126. I have asked that she be place in bed with bed alarm, may continue to keep enclosure open and place monitor technician. Entry Level Software Developer aware of events.
[2016-08-15 00:24] VITALS: BP 126/60
--- NOTE | 2016-08-15 07:02 | PN- Housestaff ---
See Addendum Subjective Follow-up For: PRES Subjective: pt fell yesterday but she does not remember the fall. the fall was unwitnessed. ct head was negative. when examined this morning, she denied chest pain, shortness of breath, or any pain. she tends to get short of breath with anxiety and resolves with xanax. as she is a high fall risk, especially now without a bus monitor, i discontinued the prn order for xanax and we will order one time 0.25mg xanax as needed. gabapentin has been changed to scheduled. if she continues to tolerate well, will inc dose to 300 tid. she denies diarrhea. complains of dry mouth, and stuffy nose. when we came back around 10am, she was complaining of nausea and abdominal pain but refused to be examined. she also said she did not eat breakfast when in fact she did. Review of Systems Constitutional: Reports: see HPI. Denies: chills, fever. EENTM: Denies: visual changes. Cardiovascular: Denies: chest pain, palpitations. Respiratory: Denies: cough, short of breath. Gastrointestinal: Denies: abdominal pain, bloating, constipation, diarrhea. Genitourinary: Denies: dysuria. Objective Last 24 Hrs of Vital Signs/I&O Vital Signs Date Time Temp Pulse Resp B/P Pulse O2 O2 Flow FiO2 Ox Delivery Rate 08/15 0823 134/72 08/15 0820 98.7 80 20 132/70 94 Room Air 08/15 0024 98.3 81 20 126/60 91 Room Air 08/14 2314 98.1 80 20 128/58 08/14 212 112 150/70 08/14 212 112 150/70 08/14 1622 98.4 112 21 145/60 96 08/14 1527 112 145/60 08/14 1526 112 145/60 08/14 1138 96 Room Air Room Air Intake & Output 08/15 1600 08/15 0800 08/15 0000 Intake Total 120 400 Output Total Balance 120 400 Intake, Oral 120 400 Physical Exam General Appearance: Alert, Cooperative, No Acute Distress Skin: No Significant Lesion HEENT: Atraumatic, PERRLA Neck: Supple Cardiovascular: Regular Rate, Normal S1, Normal S2, No Murmurs, Gallops, Rubs Lungs: Clear to Auscultation, Normal Air Movement Abdomen: Normal Bowel Sounds, Soft, No Tenderness Neurological: Normal Speech Extremities: No Edema Vascular: Normal Pulses Current Medications: Current Medications Sig/Desiree Start time Last Medication Dose Route Stop Time Status Admin Acetaminophen 650 MG Q6P PRN 07/25 2015 AC 08/12 PO 1919 Albuterol Sulfate 3 ML Q4P PRN 08/13 1030 AC 08/13 INH 1023 Alprazolam 0.25 MG BID PRN 08/14 1145 DC PO 08/21 1144 Amlodipine Besylate 10 MG DAILY 08/05 1000 AC 08/15 PO 0823 Atorvastatin Calcium 80 MG 1700 08/01 1700 AC 08/14 PO 2006 Cholecalciferol 400 IU DAILY 07/26 1000 AC 08/15 PO 0824 Diphenhydramine HCl 25 MG Q6P PRN 08/12 1830 DC 08/12 PO 1919 Ferrous Sulfate 325 MG DAILY 07/26 1000 AC 08/15 PO 0823 Gabapentin 100 MG TID 08/14 1600 AC 08/15 PO 0823 Gabapentin 100 MG Q8 PRN 08/11 1445 DC 08/12 PO 0858 Heparin Sodium 5,000 UNIT Q8 07/25 2200 AC 08/14 (Porcine) SC 2123 Hydralazine HCl 25 MG TID 08/07 1000 AC 08/15 PO 0824 Insulin Aspart 0 TIDAC 07/29 0800 AC 08/13 SC 1257 Insulin Aspart 0 AT BEDTIME 07/28 2200 AC SC Ipratropium Bullock 2.5 ML Q4P PRN 08/13 1030 AC 08/13 INH 1024 Labetalol HCl 100 MG BID 08/07 2200 AC 08/15 PO 0824 Levetiracetam 750 MG BID 08/07 2200 AC 08/15 PO 0823 Levothyroxine Sodium 0.025 MG DAILY AC 07/26 0700 AC 08/14 PO 0446 Magnesium Chloride 128 MG BID 08/12 1045 AC 08/15 PO 0823 Magnesium Oxide 400 MG ONE ONE 08/14 0945 DC 08/14 PO 08/14 0946 1103 Montelukast Sodium 10 MG DAILY 07/26 1000 AC 08/15 PO 0823 Morphine Sulfate 1 MG Q6P PRN 08/10 0845 AC 08/14 IV 1450 Omeprazole 20 MG DAILY AC 07/26 0700 AC 08/14 PO 0447 Prednisone 1.5 MG Q48 07/31 1000 AC 08/14 PO 1104 Simethicone 80 MG Q6P PRN 07/30 1339 AC 08/13 PO 1620 Tramadol HCl 50 MG Q6 PRN 08/08 1445 AC 08/14 PO 1730 Trazodone HCl 50 MG AT BEDTIME NEED.. 08/10 2200 AC 08/14 PO 2122 Trimethobenzamide HCl 200 MG TID PRN 08/09 0945 DC IM Vitamin A/Vitamin D 1 LORENA BID PRN 07/25 2345 AC 08/02 TOP 1830 Zinc Oxide 1 LORENA Q8 08/01 2200 AC 08/15 TOP 0704 Zinc Oxide 1 LORENA BID PRN 08/01 1512 AC 08/02 TOP 1830 Assessment/Plan Assessment: Ms. Bland is a 76 year old lady with PMH significant for COPD on 3 L oxygen, CHF (stage II diastolic), DM2, complicated with neuropathy and gastroparesis, arthritis, mood disorders, hyperlipidemia, CRF, GERD, diverticulosis and hypothyroidism, who initially presented to [facility] ED from [place] on 07/25/16 with persistent diarrhea with altered mental status. Patient received care under general medicine until 08/01 for disciitis/osteomyelitis of thoracic spine, and underwent CT guided biopsy which failed to grow any organism and she has been kept off antibiotics. Due to persistent confusion, imaging of the head was done which showed PRES. She then developed hypertensive urgency (220/110) requiring IV antihypertensives and seizures (with right arm weakness and right eyelid droop) requiring IV keppra, for which she was managed in the ICU. Upon stabilization of the seizure, patient was transferred to telemetery unit for further blood pressure management, and then subsequently transferred to general medicine for further neurological workup and pain management. bus monitor discontinued 08/14/16 Netbed as needed for fall risk Problem list: - Insomnia and delirium - PRES resolving (hypertension and seizure also under control with current meds) - Pain management (knee arthritis) - Questionable osteomyelitis/disciitis of thoracic spine (biopsy showed no growth, off abx) - Frequent BM - SOCORRO on CKD - Hypomagnesemia # AMS and insomnia Patient is not oriented to time and place at baseline but her current mentation is an acute worsening per her grandaughter, who did indicate that patient was diagnosed with dementia recently [employer], however. In addition, patient carries a history of of anxiety, depression, bipolar disorder and PTSD. According to the records from [place], at home patient takes alprazolam 0.25 mg Q6 PRN, trazodone, and sertraline 50 mg daily. Per psych, trazodone and sertraline may be contributing to her altered mental status. As such her psych meds were discontinued under the ICU service. In telemetery unit, patient continued to be have AMS. Agitated throughout the day and fully awake overnight. Not eating and sleeping well. We have requested psych and neuro to evaluate the patient. We requested psych to re-evaluate the patient but patient was never seen while on tele. Patient was held off trazodone, sertraline and alprazolam per psych's previous recs. Patient's mental status continued to worsen and neuro recommended on 08/08 that patient may benefit from being back on her pysch meds. In , psychiatry recc continue hold off ssri, benzo and trazodone for now. - her b12 normal at 798, folate normal at 3.6 * Psych meds on hold ( sertraline 75 mg daily in AM) * pt was agitated 08/09 night and code 7 was called. pt was hallucinating and haldol 0.5 mg IM was given one time. * Psych recommends giving 50 mg of trazodone prn, and adding another 50 mg in 1 hour if pt still cannot sleep (home dose was trazodone 50 mg in AM and 100 mg at bedtime). She was finally able to sleep after given trazodone. from neurology has signed off and is ok with starting trazodone and/or valproic acid. * We considered starting valproic acid as it is beneficial for her bipolar and seizure but she would need the level to be checked on the 4th morning. also considered mirtazapine that can help with insomnia and depression. * She scored 16/29 on MMSE having memorized some of the answers from previous test. * For anxiety, we are adding gabapetin 100 mg tid scheduled. If pt tolerates gabapentin well, can go up to 300 tid. Can give 0.25 mg xanax as needed (order one time only due to risk of fall) # Posterior Reversible Encephalopathy Syndrome (PRES) Presented with seizure and FND in the setting of elevated BP, s/p CT guided biopsy of the thoracis spine. MRI consistent with PRES. She is currently able to move her right arm. Also her right-sided eyelid droop and left-sided hemispacial neglect are no longer present. - Doppler US of the carotid arteries: limited exam, no clear hemodynamically significant stenoses are identified. Recommend repeat exam when patient is able to tolerate the procedure. - EEG: Normal in wake state - She has not had anymore seizure episodes since transfer from ICU, currently stable on keppra. right arm weakness and ptosis has also resolved. - MRI 08/09: Improved signal abnormality in the left frontal, as well as both parietal and occipital lobes relative to 07/31/2016. There remains no restricted diffusion nor abnormal enhancement. Findings are compatible with improving posterior reversible encephalopathy syndrome. Background of moderate generalized volume loss and mild to moderate chronic microangiopathy * Adequate BP control to keep systolic pressure in 140-160 * Cont Keppra 750 mg PO BID * Hold off lorazepam 1 mg Q6 PRN for now per psych rec * Neurochecks every 4 hours * Follow neuro recs * Follow cardio recs regarding BP management # Pain management - arthritis pain on her knees, for which she uses a plug-in heat pad at home, but we cannot allow that in the hospital. we tried warm rye socks but pt says it does not help and refuses it. * she currently gets acetaminophen 650 q6p mild pain, tramadol 50 q6p, and morphine 1mg q6p. # GI - Diarrhea: Gerry, her granddaughter thinks the diarrhea could be related to anxiety. - nausea, gas pain (resolved) * we resent stool for cdiff. results were negative. * Continue omeprazole 20 mg * continue simethicone 80 mg q6p * continue im tigan 200 mg tid prn # Questionable osteomyelitis/discitis of the thoracic spine CT and MRI findings are suggestive of discitis/osteomyelitis at T7-T8 but of unclear signifciace. Patient underwent CT-guided biopsy which was negative, although the sample was not adequate. C&S of the bone biopsy showed no growth. On 08/08, Dr. Julien discussed with Dr. Quiñones about pursuing further workup for patient's possible discitis. Dr. Quiñones recommeneded workup to be done outpatient with MRI in 4 weeks once patient's psychiatric and neurological conditions. - Her wbc is noted to come up from 7.4 to 9.8 but she has been afebrile. biopsy from ct guided biopsy did not grow anything. pt has been off abx. esr 49 h, down from 112. * Watch for signs of infection off antibiotics * Oral and IV acetaminophen for mild * tramadol mod pain * Per ID, may consider repeat T7-T8 aspirate/biopsy by IR when patient is more stable * Appreciate ID recs # SOCORRO on CKD Patient received hydration with appropriate response. Kidney US showed simple cysts, and no further workup was deemed necessary per Urology. * Continue monitor Cr daily * Avoid nephrotoxins * Improved 1.5 to 07/04.3. # Hypomagnesemia * mg still low at 1.4 * Monitor daily and replete * mgcl 64 mg inc to 2 TABS BID po (minimize mag ox to prevent diarrhea ) # Hypertensive urgency due to PRES (resolved) During ICU stay her home meds verapamil and losartan were discontinued. Per cardio rec, patient was started on labetalol 50mg PO BID and amlodipine at 7.5 mg which was increased to 10 mg. Patient continued to be hypertensive in tele unit on 08/07 and patient's labetalol was increased to 100mg PO BID, and she started on hydralazine 25mg PO TID. Patient's BP was better controlled with these changes. - ECHO: Normal left ventricular ejection fraction estimated at 60-65%. - Her blood pressure has been wnl since transfer from [facility]. urine total catecholamine 23 L, pheochromocytoma less likely. normal urine epinephrine, norepinephrine, dopamine. * Cont labetalol to 100mg PO BID * Cont hydralazine 25mg PO TID * Cont Norvasc 10mg PO daily # Bruising on the right shoulder Patient initially had a bruise on the right shoulder, in addition to pain, decreased ROM, tenderness. She was unable to obtain complete history regarding possible trauma due to mental status. - Xray of the right shoulder did not show dislocation, fracture or hematoma, however reported widened acromioclavicular joint space to 1.2 cm wide, which was also widened on the recent chest radiograph of 07/14/2016. Patient is currently able to move her right arm, does not complain of any pain. # DM type 2 with gastroparesis and neuropathy * Accuchecks * Novolog SSI * Hold home med Lyrica 75 mg TID given risk of seizure # Hypokalemia - her k has gone up from 3.4 --> 3.7 to 4.8, Discontinued kcl 20 meq bid po --> 4.6 # History of stage II CHF Murmur in aortic area in exam, consistent with ECHO findings for aortic stenosis. Echo also showed normal left ventricular ejection fraction estimated at 60-65%. * Continue aspirin and statin # History of COPD * Continued on 3L home O2 and Montelukast 10 mg daily # History of GCA * Continued 1.5 mg PO prednisone q48h # Hypothyroidism Multilobular left thyroid enlargement. Thyroid function tests are within normal limits. * continue levothyroxine at 0.025 mg daily * Patient can follow up outpatient after discharge for further management # DVT px: ALPS and heparin SC Diet- Heart healthy, chopped and thin liquids Mild pain pathway FULL CODE Problem List: 1. PRES (posterior reversible encephalopathy syndrome) Pain Ratin Pain Location: none Pain Goal: Pain 4 or less Pain Plan: mild pp Tomorrow's Labs & Rationales: none DVT/Prophylaxis: mechanical, pharmacological Consulting Request: Consulting Specialty: Neurology Consulting Physician: Reason for Consult: Posterior Reversible Encephalopathy Syndrome
[2016-08-15 08:20] VITALS: BP 132/70
[2016-08-15 16:07] VITALS: BP 170/90
[2016-08-15 16:20] VITALS: BP 136/70
[2016-08-15 20:48] VITALS: BP 138/76
[2016-08-16 00:21] VITALS: BP 130/70
[2016-08-16 07:06] VITALS: BP 140/80
--- NOTE | 2016-08-16 07:34 | PN- Housestaff ---
See Addendum Subjective Follow-up For: pres Subjective: pt was sleeping in her net bed. in no distress. pt reported headache and does not want to be examined. we need to continue net bed as pt is a high fall risk given her impulsive behavior. we also increased gabapentin to 200 tid. Review of Systems Constitutional: Reports: see HPI. Denies: chills, fever. Objective Last 24 Hrs of Vital Signs/I&O Vital Signs Date Time Temp Pulse Resp B/P Pulse O2 O2 Flow FiO2 Ox Delivery Rate 08/16 1033 78 142/80 08/16 0953 Room Air 2.0L 08/16 0706 98.0 91 20 140/80 93 Room Air 08/16 0021 98.0 88 20 130/70 90 Room Air 08/15 2048 107 138/76 08/15 2042 107 138/76 08/15 2042 107 138/76 08/15 1700 Room Air 08/15 1620 136/70 08/15 1608 120/64 08/15 1607 89.0 89 20 170/90 97 08/15 1113 94 Room Air Intake & Output 08/16 1600 08/16 0800 08/16 0000 Intake Total 600 Output Total Balance 600 Intake, Oral 600 Number 1 Bowel Movements Physical Exam General Appearance: Alert, Cooperative, No Acute Distress Skin: No Significant Lesion HEENT: Atraumatic Current Medications: Current Medications Sig/Desiree Start time Last Medication Dose Route Stop Time Status Admin Acetaminophen 325 MG .STK-MED ONE 08/15 2259 DC PO 08/15 2300 Acetaminophen 650 MG Q6P PRN 07/25 2015 AC 08/15 PO 2301 Albuterol Sulfate 3 ML Q4P PRN 08/13 1030 AC 08/13 INH 1023 Amlodipine Besylate 10 MG DAILY 08/05 1000 AC 08/16 PO 1034 Atorvastatin Calcium 80 MG 1700 08/01 1700 AC 08/15 PO 1608 Cholecalciferol 400 IU DAILY 07/26 1000 AC 08/16 PO 1033 Ferrous Sulfate 325 MG DAILY 07/26 1000 AC 08/16 PO 1033 Gabapentin 200 MG TID 08/16 1000 AC 08/16 PO 1034 Gabapentin 100 MG TID 08/14 1600 DC 08/15 PO 2042 Heparin Sodium 5,000 UNIT Q8 07/25 2200 AC 08/16 (Porcine) SC 0437 Hydralazine HCl 25 MG TID 08/07 1000 AC 08/16 PO 1033 Insulin Aspart 0 TIDAC 07/29 0800 AC 08/15 SC 1815 Insulin Aspart 0 AT BEDTIME 07/28 2200 AC SC Ipratropium [place]cca 2.5 ML Q4P PRN 08/13 1030 AC 08/13 INH 1024 Labetalol HCl 100 MG BID 08/07 2200 AC 08/16 PO 1033 Levetiracetam 750 MG BID 08/07 2200 AC 08/16 PO 1033 Levothyroxine Sodium 0.025 MG DAILY AC 07/26 0700 AC 08/16 PO 0436 Magnesium Chloride 128 MG BID 08/12 1045 AC 08/16 PO 1033 Montelukast Sodium 10 MG DAILY 07/26 1000 AC 08/16 PO 1034 Morphine Sulfate 1 MG Q6P PRN 08/10 0845 AC 08/14 IV 1450 Omeprazole 20 MG DAILY AC 07/26 0700 AC 08/16 PO 0436 Prednisone 1.5 MG Q48 07/31 1000 AC 08/16 PO 1032 Simethicone 80 MG Q6P PRN 07/30 1339 AC 08/13 PO 1620 Tramadol HCl 50 MG Q6 PRN 08/08 1445 AC 08/16 PO 0436 Trazodone HCl 50 MG AT BEDTIME NEED.. 08/10 2200 AC 08/15 PO 2041 Vitamin A/Vitamin D 1 LORENA BID PRN 07/25 2345 AC 08/02 TOP 1830 Zinc Oxide 1 LORENA Q8 08/01 2200 AC 08/16 TOP 0437 Zinc Oxide 1 LORENA BID PRN 08/01 1512 AC 08/02 TOP 1830 Assessment/Plan Assessment: Ms. Bland is a 76 year old lady with PMH significant for COPD on 3 L oxygen, CHF (stage II diastolic), DM2, complicated with neuropathy and gastroparesis, arthritis, mood disorders, hyperlipidemia, CRF, GERD, diverticulosis and hypothyroidism, who initially presented to [place] ED from [facility] on 07/25/16 with persistent diarrhea with altered mental status. Patient received care under general medicine until 08/01 for disciitis/osteomyelitis of thoracic spine, and underwent CT guided biopsy which failed to grow any organism and she has been kept off antibiotics. Due to persistent confusion, imaging of the head was done which showed PRES. She then developed hypertensive urgency (220/110) requiring IV antihypertensives and seizures (with right arm weakness and right eyelid droop) requiring IV keppra, for which she was managed in the ICU. Upon stabilization of the seizure, patient was transferred to telemetery unit for further blood pressure management, and then subsequently transferred to general medicine for further neurological workup and pain management. 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 In addition, patient carries a history of of anxiety, depression, bipolar disorder and PTSD. According to the records from [facility], at home patient takes alprazolam 0.25 mg Q6 PRN, trazodone, and sertraline 50 mg daily. Per psych, trazodone and sertraline may be contributing to her altered mental status. As such her psych meds were discontinued under the ICU service. In telemetery unit, patient continued to be have AMS. Agitated throughout the day and fully awake overnight. Not eating and sleeping well. We have requested psych and neuro to evaluate the patient. We requested psych to re-evaluate the patient but patient was never seen while on tele. Patient was held off trazodone, sertraline and alprazolam per psych's previous recs. Patient's mental status continued to worsen and neuro recommended on 08/08 that patient may benefit from being back on her pysch meds. In , psychiatry recc continue hold off ssri, benzo and trazodone for now. - her b12 normal at 798, folate normal at 3.6 * Psych meds on hold ( sertraline 75 mg daily in AM) * pt was agitated 08/09 night and code 7 was called. pt was hallucinating and haldol 0.5 mg IM was given one time. * Psych recommends giving 50 mg of trazodone prn, and adding another 50 mg in 1 hour if pt still cannot sleep (home dose was trazodone 50 mg in AM and 100 mg at bedtime). She was finally able to sleep after given trazodone. from neurology has signed off and is ok with starting trazodone and/or valproic acid. * We considered starting valproic acid as it is beneficial for her bipolar and seizure but she would need the level to be checked on the 4th morning. also considered mirtazapine that can help with insomnia and depression. * She scored 16/29 on MMSE having memorized some of the answers from previous test. * For anxiety, we are increasing gabapentin to 200 mg tid scheduled. If pt tolerates gabapentin well, can go up to 300 tid. Can give 0.25 mg xanax as needed (order one time only due to risk of fall) # Posterior Reversible Encephalopathy Syndrome (PRES) Presented with seizure and FND in the setting of elevated BP, s/p CT guided biopsy of the thoracis spine. MRI consistent with PRES. She is currently able to move her right arm. Also her right-sided eyelid droop and left-sided hemispacial neglect are no longer present. - Doppler US of the carotid arteries: limited exam, no clear hemodynamically significant stenoses are identified. Recommend repeat exam when patient is able to tolerate the procedure. - EEG: Normal in wake state - She has not had anymore seizure episodes since transfer from ICU, currently stable on keppra. right arm weakness and ptosis has also resolved. - MRI 08/09: Improved signal abnormality in the left frontal, as well as both parietal and occipital lobes relative to 07/31/2016. There remains no restricted diffusion nor abnormal enhancement. Findings are compatible with improving posterior reversible encephalopathy syndrome. Background of moderate generalized volume loss and mild to moderate chronic microangiopathy * Adequate BP control to keep systolic pressure in 140-160 * Cont Keppra 750 mg PO BID * Hold off lorazepam 1 mg Q6 PRN for now per psych rec * Neurochecks every 4 hours * Follow neuro recs * Follow cardio recs regarding BP management # Pain management - arthritis pain on her knees, for which she uses a plug-in heat pad at home, but we cannot allow that in the hospital. we tried warm rye socks but pt says it does not help and refuses it. * she currently gets acetaminophen 650 q6p mild pain, tramadol 50 q6p, and morphine 1mg q6p. # GI - Diarrhea: Gerry, her granddaughter thinks the diarrhea could be related to anxiety. - nausea, gas pain (resolved) * we resent stool for cdiff. results were negative. * Continue omeprazole 20 mg * continue simethicone 80 mg q6p * continue im tigan 200 mg tid prn # Questionable osteomyelitis/discitis of the thoracic spine CT and MRI findings are suggestive of discitis/osteomyelitis at T7-T8 but of unclear signifciace. Patient underwent CT-guided biopsy which was negative, although the sample was not adequate. C&S of the bone biopsy showed no growth. On 08/08, Dr. Julien discussed with Dr. Quiñones about pursuing further workup for patient's possible discitis. Dr. Quiñones recommeneded workup to be done outpatient with MRI in 4 weeks once patient's psychiatric and neurological conditions. - Her wbc is noted to come up from 7.4 to 9.8 but she has been afebrile. biopsy from ct guided biopsy did not grow anything. pt has been off abx. esr 49 h, down from 112. * Watch for signs of infection off antibiotics * Oral and IV acetaminophen for mild * tramadol mod pain * Per ID, may consider repeat T7-T8 aspirate/biopsy by IR when patient is more stable * Appreciate ID recs # SOCORRO on CKD Patient received hydration with appropriate response. Kidney US showed simple cysts, and no further workup was deemed necessary per Urology. * Continue monitor Cr daily * Avoid nephrotoxins * Improved 8/1.5 to 11/1.3. # Hypomagnesemia * mg still low at 1.4 * Monitor daily and replete * mgcl 64 mg inc to 2 TABS BID po (minimize mag ox to prevent diarrhea ) # Hypertensive urgency due to PRES (resolved) During ICU stay her home meds verapamil and losartan were discontinued. Per cardio rec, patient was started on labetalol 50mg PO BID and amlodipine at 7.5 mg which was increased to 10 mg. Patient continued to be hypertensive in tele unit on 08/07 and patient's labetalol was increased to 100mg PO BID, and she started on hydralazine 25mg PO TID. Patient's BP was better controlled with these changes. - ECHO: Normal left ventricular ejection fraction estimated at 60-65%. - Her blood pressure has been wnl since transfer from [facility]. urine total catecholamine 23 L, pheochromocytoma less likely. normal urine epinephrine, norepinephrine, dopamine. * Cont labetalol to 100mg PO BID * Cont hydralazine 25mg PO TID * Cont Norvasc 10mg PO daily # Bruising on the right shoulder Patient initially had a bruise on the right shoulder, in addition to pain, decreased ROM, tenderness. She was unable to obtain complete history regarding possible trauma due to mental status. - Xray of the right shoulder did not show dislocation, fracture or hematoma, however reported widened acromioclavicular joint space to 1.2 cm wide, which was also widened on the recent chest radiograph of 07/14/2016. Patient is currently able to move her right arm, does not complain of any pain. # DM type 2 with gastroparesis and neuropathy * Accuchecks * Novolog SSI * Hold home med Lyrica 75 mg TID given risk of seizure # Hypokalemia - her k has gone up from 3.4 --> 3.7 to 4.8, Discontinued kcl 20 meq bid po --> 4.6 # History of stage II CHF Murmur in aortic area in exam, consistent with ECHO findings for aortic stenosis. Echo also showed normal left ventricular ejection fraction estimated at 60-65%. * Continue aspirin and statin # History of COPD * Continued on 3L home O2 and Montelukast 10 mg daily # History of GCA * Continued 1.5 mg PO prednisone q48h # Hypothyroidism Multilobular left thyroid enlargement. Thyroid function tests are within normal limits. * continue levothyroxine at 0.025 mg daily * Patient can follow up outpatient after discharge for further management # DVT px: ALPS and heparin SC Diet- Heart healthy, chopped and thin liquids Mild pain pathway FULL CODE Problem List: 1. PRES (posterior reversible encephalopathy syndrome) Pain Ratin Pain Location: headache Pain Goal: Pain 4 or less Pain Plan: mild pp Tomorrow's Labs & Rationales: bep for hyperk DVT/Prophylaxis: mechanical, pharmacological Consulting Request: Consulting Specialty: Neurology Consulting Physician: Reason for Consult: Posterior Reversible Encephalopathy Syndrome
[2016-08-16 16:15] VITALS: BP 118/72
--- NOTE | 2016-08-16 16:35 | NUR ---
BLOOD SUGAR 69 AT 1630 GAVE PATIENT ORANGE JUICE NOTIFIED DR LUNA, STATED TO CHECK IN HALF AN HOUR
--- NOTE | 2016-08-16 20:50 | NUR ---
SPOKE WITH GRANDDAUGHTER CATA-REGARDING PT AND [facility] WALKING KIMBER[facility] IS NOT W/C BOUND AT BASELINE, CAN WALK WITH RW NOTE DATED 08/02/16-THAT PT WILL NOT BE FOLLOWING PATIENT PER FAMILY REQUEST, WOULD LIKE PT TO SEE PATIENT NOTIFIED GETTER OPERATOR DORA JENSEN
[2016-08-17 00:43] VITALS: BP 120/71
--- NOTE | 2016-08-17 06:53 | PN- Housestaff ---
See Addendum Subjective Follow-up For: pres Subjective: pt was seen this morning, complaining of arthritic pain in her ankles and knees. she also complains of chest pain under her breast. she was in no distress and lying comfortably in her netbed. she denies headache. Review of Systems Constitutional: Reports: see HPI. Objective Last 24 Hrs of Vital Signs/I&O Vital Signs Date Time Temp Pulse Resp B/P Pulse O2 O2 Flow FiO2 Ox Delivery Rate 08/17 1001 88 140/74 08/17 1001 88 140/74 08/17 1000 88 140/74 08/17 0806 98.6 88 20 140/74 90 Room Air 08/17 0800 Room Air 08/17 0043 98.1 88 20 120/71 91 08/17 0000 Room Air 08/16 2142 100 138/74 08/16 2142 100 138/74 08/16 1615 98.4 93 20 118/72 92 08/16 1614 93 118/72 Intake & Output 08/17 1600 08/17 0800 08/17 0000 Intake Total 800 Output Total Balance 800 Intake, Oral 800 Physical Exam General Appearance: Alert, Oriented X3, Cooperative, No Acute Distress Skin: No Significant Lesion HEENT: Atraumatic Cardiovascular: Regular Rate, Normal S1, Normal S2, No Murmurs, Gallops, Rubs Lungs: Clear to Auscultation, Normal Air Movement Abdomen: Normal Bowel Sounds, Soft, No Tenderness Neurological: Normal Speech Extremities: No Edema, no swelling or erythema of ankles or knees Vascular: Normal Pulses Current Medications: Current Medications Sig/Desiree Start time Last Medication Dose Route Stop Time Status Admin Acetaminophen 650 MG Q6P PRN 07/25 2015 AC 08/17 PO 0551 Albuterol Sulfate 3 ML Q4P PRN 08/13 1030 AC 08/13 INH 1023 Amlodipine Besylate 10 MG DAILY 08/05 1000 AC 08/17 PO 1001 Atorvastatin Calcium 80 MG 1700 08/01 1700 AC 08/16 PO 1614 Cholecalciferol 400 IU DAILY 07/26 1000 AC 08/17 PO 1000 Ferrous Sulfate 325 MG DAILY 07/26 1000 AC 08/17 PO 1001 Gabapentin 200 MG TID 08/16 1000 AC 08/17 PO 1001 Heparin Sodium 5,000 UNIT Q8 07/25 2200 AC 08/17 (Porcine) SC 0553 Hydralazine HCl 25 MG TID 08/07 1000 AC 08/17 PO 1000 Insulin Aspart 0 TIDAC 07/29 0800 AC 08/16 SC 1409 Insulin Aspart 0 AT BEDTIME 07/28 2200 AC SC Ipratropium [place] 2.5 ML Q4P PRN 08/13 1030 AC 08/13 INH 1024 Labetalol HCl 100 MG BID 08/07 2200 AC 08/17 PO 1001 Levetiracetam 750 MG BID 08/07 2200 AC 08/17 PO 1001 Levothyroxine Sodium 0.025 MG DAILY AC 07/26 0700 AC 08/17 PO 0634 Magnesium Chloride 128 MG BID 08/12 1045 AC 08/17 PO 1001 Montelukast Sodium 10 MG DAILY 07/26 1000 AC 08/17 PO 1001 Morphine Sulfate 1 MG Q6P PRN 08/10 0845 DC 08/14 IV 1450 Omeprazole 20 MG DAILY AC 07/26 0700 AC 08/17 PO 0634 Prednisone 1.5 MG Q48 07/31 1000 AC 08/16 PO 1032 Simethicone 80 MG Q6P PRN 07/30 1339 AC 08/13 PO 1620 Tramadol HCl 50 MG Q6 PRN 08/08 1445 AC 08/17 PO 0809 Trazodone HCl 50 MG AT BEDTIME NEED.. 08/10 2200 AC 08/16 PO 2148 Vitamin A/Vitamin D 1 LORENA BID PRN 07/25 2345 AC 08/02 TOP 1830 Zinc Oxide 1 LORENA Q8 08/01 2200 AC 08/17 TOP 0553 Zinc Oxide 1 LORENA BID PRN 08/01 1512 AC 08/02 TOP 1830 Last 24 Hrs of Lab/Rehan Results Last 24 Hrs of Labs/Mics: Laboratory Tests 08/17/16 0640: Anion Gap 7, Estimated GFR 44 L, BUN/Creatinine Ratio 14.2 Assessment/Plan Assessment: Ms. Bland is a 76 year old lady with PMH significant for COPD on 3 L oxygen, CHF (stage II diastolic), DM2, complicated with neuropathy and gastroparesis, arthritis, mood disorders, hyperlipidemia, CRF, GERD, diverticulosis and hypothyroidism, who initially presented to [place] ED from [place] on 07/25/16 with persistent diarrhea with altered mental status. Patient received care under general medicine until 08/01 for disciitis/osteomyelitis of thoracic spine, and underwent CT guided biopsy which failed to grow any organism and she has been kept off antibiotics. Due to persistent confusion, imaging of the head was done which showed PRES. She then developed hypertensive urgency (220/110) requiring IV antihypertensives and seizures (with right arm weakness and right eyelid droop) requiring IV keppra, for which she was managed in the ICU. Upon stabilization of the seizure, patient was transferred to telemetery unit for further blood pressure management, and then subsequently transferred to general medicine for further neurological workup and pain management. shelter monitor discontinued 08/14/16 Netbed still needed for fall risk Problem list: - Insomnia and delirium - PRES resolving (hypertension and seizure also under control with current meds) - Pain management (knee arthritis) - Questionable osteomyelitis/disciitis of thoracic spine (biopsy showed no growth, off abx) - Frequent BM - SOCORRO on CKD - Hypomagnesemia # AMS and insomnia Patient is not oriented to time and place at baseline but her current mentation is an acute worsening per her grandaughter, who did indicate that patient was diagnosed with dementia recently [employer], however. In addition, patient carries a history of of anxiety, depression, bipolar disorder and PTSD. According to the records from [place], at home patient takes alprazolam 0.25 mg Q6 PRN, trazodone, and sertraline 50 mg daily. Per psych, trazodone and sertraline may be contributing to her altered mental status. As such her psych meds were discontinued under the ICU service. In telemetery unit, patient continued to be have AMS. Agitated throughout the day and fully awake overnight. Not eating and sleeping well. We have requested psych and neuro to evaluate the patient. We requested psych to re-evaluate the patient but patient was never seen while on tele. Patient was held off trazodone, sertraline and alprazolam per psych's previous recs. Patient's mental status continued to worsen and neuro recommended on 08/08 that patient may benefit from being back on her pysch meds. In , psychiatry recc continue hold off ssri, benzo and trazodone for now. - her b12 normal at 798, folate normal at 3.6 * Psych meds on hold ( sertraline 75 mg daily in AM) * pt was agitated 08/09 night and code 7 was called. pt was hallucinating and haldol 0.5 mg IM was given one time. * Psych recommends giving 50 mg of trazodone prn, and adding another 50 mg in 1 hour if pt still cannot sleep (home dose was trazodone 50 mg in AM and 100 mg at bedtime). She was finally able to sleep after given trazodone. from neurology has signed off and is ok with starting trazodone and/or valproic acid. * We considered starting valproic acid as it is beneficial for her bipolar and seizure but she would need the level to be checked on the 4th morning. also considered mirtazapine that can help with insomnia and depression. * She scored 16/29 on MMSE having memorized some of the answers from previous test. * For anxiety, we are increasing gabapentin to 200 mg tid scheduled. If pt tolerates gabapentin well, can go up to 300 tid. Can give 0.25 mg xanax as needed (order one time only due to risk of fall) # Posterior Reversible Encephalopathy Syndrome (PRES) Presented with seizure and FND in the setting of elevated BP, s/p CT guided biopsy of the thoracis spine. MRI consistent with PRES. She is currently able to move her right arm. Also her right-sided eyelid droop and left-sided hemispacial neglect are no longer present. - Doppler US of the carotid arteries: limited exam, no clear hemodynamically significant stenoses are identified. Recommend repeat exam when patient is able to tolerate the procedure. - EEG: Normal in wake state - She has not had anymore seizure episodes since transfer from ICU, currently stable on keppra. right arm weakness and ptosis has also resolved. - MRI 08/09: Improved signal abnormality in the left frontal, as well as both parietal and occipital lobes relative to 07/31/2016. There remains no restricted diffusion nor abnormal enhancement. Findings are compatible with improving posterior reversible encephalopathy syndrome. Background of moderate generalized volume loss and mild to moderate chronic microangiopathy * Adequate BP control to keep systolic pressure in 140-160 * Cont Keppra 750 mg PO BID * Hold off lorazepam 1 mg Q6 PRN for now per psych rec * Neurochecks every 4 hours * Follow neuro recs * Follow cardio recs regarding BP management # Pain management - arthritis pain on her knees, for which she uses a plug-in heat pad at home, but we cannot allow that in the hospital. we tried warm rye socks but pt says it does not help and refuses it. * she currently gets acetaminophen 650 q6p mild pain, tramadol 50 q6p, and morphine 1mg q6p. # GI - Diarrhea: Gerry, her granddaughter thinks the diarrhea could be related to anxiety. - nausea, gas pain (resolved) * we resent stool for cdiff. results were negative. * Continue omeprazole 20 mg * continue simethicone 80 mg q6p * continue im tigan 200 mg tid prn # Questionable osteomyelitis/discitis of the thoracic spine CT and MRI findings are suggestive of discitis/osteomyelitis at T7-T8 but of unclear signifciace. Patient underwent CT-guided biopsy which was negative, although the sample was not adequate. C&S of the bone biopsy showed no growth. On 08/08, Dr. Julien discussed with Dr. Quiñones about pursuing further workup for patient's possible discitis. Dr. Quiñones recommeneded workup to be done outpatient with MRI in 4 weeks once patient's psychiatric and neurological conditions. - Her wbc is noted to come up from 7.4 to 9.8 but she has been afebrile. biopsy from ct guided biopsy did not grow anything. pt has been off abx. esr 49 h, down from 112. * Watch for signs of infection off antibiotics * Oral and IV acetaminophen for mild * tramadol mod pain * Per ID, may consider repeat T7-T8 aspirate/biopsy by IR when patient is more stable * Appreciate ID recs # SOCORRO on CKD Patient received hydration with appropriate response. Kidney US showed simple cysts, and no further workup was deemed necessary per Urology. * Continue monitor Cr daily * Avoid nephrotoxins * Improved 8/1.5 to 11/1.3. # Hypomagnesemia * mg still low at 1.4 * Monitor daily and replete * mgcl 64 mg inc to 2 TABS BID po (minimize mag ox to prevent diarrhea ) # Hypertensive urgency due to PRES (resolved) During ICU stay her home meds verapamil and losartan were discontinued. Per cardio rec, patient was started on labetalol 50mg PO BID and amlodipine at 7.5 mg which was increased to 10 mg. Patient continued to be hypertensive in tele unit on 12/5 and patient's labetalol was increased to 100mg PO BID, and she started on hydralazine 25mg PO TID. Patient's BP was better controlled with these changes. - ECHO: Normal left ventricular ejection fraction estimated at 60-65%. - Her blood pressure has been wnl since transfer from [facility]. urine total catecholamine 23 L, pheochromocytoma less likely. normal urine epinephrine, norepinephrine, dopamine. * Cont labetalol to 100mg PO BID * Cont hydralazine 25mg PO TID * Cont Norvasc 10mg PO daily # Bruising on the right shoulder Patient initially had a bruise on the right shoulder, in addition to pain, decreased ROM, tenderness. She was unable to obtain complete history regarding possible trauma due to mental status. - Xray of the right shoulder did not show dislocation, fracture or hematoma, however reported widened acromioclavicular joint space to 1.2 cm wide, which was also widened on the recent chest radiograph of 07/14/2016. Patient is currently able to move her right arm, does not complain of any pain. # DM type 2 with gastroparesis and neuropathy * Accuchecks * Novolog SSI * Hold home med Lyrica 75 mg TID given risk of seizure # Hypokalemia - her k has gone up from 3.4 --> 3.7 to 4.8, Discontinued kcl 20 meq bid po --> 4.6 # History of stage II CHF Murmur in aortic area in exam, consistent with ECHO findings for aortic stenosis. Echo also showed normal left ventricular ejection fraction estimated at 60-65%. * Continue aspirin and statin # History of COPD * Continued on 3L home O2 and Montelukast 10 mg daily # History of GCA * Continued 1.5 mg PO prednisone q48h # Hypothyroidism Multilobular left thyroid enlargement. Thyroid function tests are within normal limits. * continue levothyroxine at 0.025 mg daily * Patient can follow up outpatient after discharge for further management # DVT px: ALPS and heparin SC Diet- Heart healthy, chopped and thin liquids Mild pain pathway FULL CODE Problem List: 1. PRES (posterior reversible encephalopathy syndrome) Pain Ratin Pain Location: ankles and knees Pain Goal: Pain 4 or less Pain Plan: mild pp Tomorrow's Labs & Rationales: none DVT/Prophylaxis: mechanical, pharmacological Consulting Request: Consulting Specialty: Neurology Consulting Physician: Reason for Consult: Posterior Reversible Encephalopathy Syndrome
[2016-08-17 08:06] VITALS: BP 140/74
--- NOTE | 2016-08-17 12:00 | NUR ---
NSG NOTE: CALLS PLACED MULTIPLE TIMES TO PAGER #[phone] FOR RESTRAINT RENEWAL; NO CALLS MADE BACK TO THIS RN OR ORDERS PLACED; TEXT [facility]AG[facility] #[phone] WELL
--- NOTE | 2016-08-17 14:10 | PN- Psychiatry ---
Assessment/Plan Impression: The patient's alprazolam has been discontinued, and a successful trial of gabapentin with subsequent titration to 200 mg by mouth 3 times per day has been effective in helping to manage the patient's anxiety. Gabapentin for anxiety is an off label use. Psychiatry and related medications in current use are significant for: Keppra 750 mg by mouth 2 times per day, per neurology's recommendation. She is tolerating trazodone 50 mg by mouth at bedtime for insomnia. The patient is receiving tramadol, which may be contributing to her confusion, although this side effect has a relatively low incidence. She is also on levothyroxine. Please see the MAR for a complete list of the patient's medications. The patient is still confused, but is calm and not acting impulsively during this brief interview. Suggestion: 1. Continue trazodone 50 mg by mouth at bedtime for insomnia. 2. Continue gabapentin 200 mg PO 3X/day for anxiety, an off-label use. 3. Continue to avoid benzodiazepines, or medications with anticholinergic properties. If possible, consider an alternative to tramadol. We will continue to follow along with you. Сергей Mancia APRN, pager [phone]. Subjective Subjective: The patient was seen today, , 08/17/2016, at 1340 in room 205. She is sleeping, but easily aroused, and willing to engage in conversation. She believes that she is in [facility], and that it is Sunday in November, but she is oriented to her name. The patient denies feelings of depression, and reports that her current anxiety level is 3/10, with 10/10 being the most severe. She reports that gabapentin is helping with her anxiety. She denies suicidal or homicidal ideation, and reports that she feels safe here in the hospital. The patient states that she is eager to be discharged. She states that she slept well last night.
[2016-08-17 16:04] VITALS: BP 136/78
--- NOTE | 2016-08-18 06:58 | PN- Housestaff ---
Subjective Follow-up For: pres Subjective: she was seen this morning, complained of arthritis pain in the neck. no ankle or knee pain. she usually gets arthritis when the weather is cold. told her nurse to give her some pain meds. no other complains. she was lying comfortably in bed, very pleasant. was talking to her granddaughter, Gerry, on the phone at some point. she is still in a net bed due to fall risk. she has not been anxious and has not been needing xanax. we will consider going up on the gabapentin to 300 mg tid. Review of Systems Constitutional: Reports: see HPI. Objective Last 24 Hrs of Vital Signs/I&O Vital Signs Date Time Temp Pulse Resp B/P Pulse O2 O2 Flow FiO2 Ox Delivery Rate 08/18 0729 97.7 95 18 134/82 92 Room Air 08/17 2201 100 140/66 08/17 2201 100 140/66 08/17 2200 98.0 18 96 08/17 1650 91 136/78 08/17 1604 98.4 91 19 136/78 93 Room Air 08/17 1001 88 140/74 08/17 1001 88 140/74 08/17 1000 88 140/74 Intake & Output 08/18 1600 08/18 0800 08/18 0000 Intake Total 480 480 Output Total Balance 480 480 Intake, Oral 480 480 Physical Exam General Appearance: Alert, Oriented X3, Cooperative, No Acute Distress Skin: No Significant Lesion HEENT: Atraumatic Neck: Supple, rom intact Cardiovascular: Regular Rate, Normal S1, Normal S2, No Murmurs, Gallops, Rubs Lungs: Clear to Auscultation, Normal Air Movement Abdomen: Normal Bowel Sounds, Soft, No Tenderness Neurological: Normal Speech Extremities: No Edema Current Medications: Current Medications Sig/Desiree Start time Last Medication Dose Route Stop Time Status Admin Acetaminophen 650 MG .STK-MED ONE 08/17 2150 DC PO 08/17 2151 Acetaminophen 650 MG Q6P PRN 07/25 2015 AC 08/17 PO 2200 Albuterol Sulfate 3 ML Q4P PRN 08/13 1030 AC 08/13 INH 1023 Amlodipine Besylate 10 MG DAILY 08/05 1000 AC 08/18 PO 0808 Atorvastatin Calcium 80 MG 1700 08/01 1700 AC 08/17 PO 1651 Cholecalciferol 400 IU DAILY 07/26 1000 AC 08/18 PO 0808 Ferrous Sulfate 325 MG DAILY 07/26 1000 AC 08/18 PO 0808 Gabapentin 200 MG TID 08/16 1000 AC 08/18 PO 0807 Heparin Sodium 5,000 UNIT Q8 07/25 2200 AC 08/18 (Porcine) SC 0614 Hydralazine HCl 25 MG TID 08/07 1000 AC 08/18 PO 0808 Insulin Aspart 0 TIDAC 07/29 0800 AC 08/18 SC 0807 Insulin Aspart 0 AT BEDTIME 07/28 2200 AC SC Ipratropium Vici 2.5 ML Q4P PRN 08/13 1030 AC 08/13 INH 1024 Labetalol HCl 100 MG BID 08/07 2200 AC 08/18 PO 0807 Levetiracetam 750 MG BID 08/07 2200 AC 08/18 PO 0808 Levothyroxine Sodium 0.025 MG DAILY AC 07/26 0700 AC 08/18 PO 0614 Magnesium Chloride 128 MG BID 08/12 1045 AC 08/18 PO 0808 Montelukast Sodium 10 MG DAILY 07/26 1000 AC 08/18 PO 0808 Omeprazole 20 MG DAILY AC 07/26 0700 AC 08/18 PO 0614 Prednisone 1.5 MG Q48 07/31 1000 AC 08/18 PO 0809 Simethicone 80 MG Q6P PRN 07/30 1339 AC 08/13 PO 1620 Tramadol HCl 50 MG Q6 PRN 08/08 1445 AC 08/18 PO 0807 Trazodone HCl 50 MG AT BEDTIME NEED.. 08/10 2200 AC 08/17 PO 2302 Vitamin A/Vitamin D 1 LORENA BID PRN 07/25 2345 AC 08/02 TOP 1830 Zinc Oxide 1 LORENA Q8 08/01 2200 AC 08/18 TOP 0614 Zinc Oxide 1 LORENA BID PRN 08/01 1512 AC 08/02 TOP 1830 Assessment/Plan Assessment: Ms. Bland is a 76 year old lady with PMH significant for COPD on 3 L oxygen, CHF (stage II diastolic), DM2, complicated with neuropathy and gastroparesis, arthritis, mood disorders, hyperlipidemia, CRF, GERD, diverticulosis and hypothyroidism, who initially presented to [facility] from [place] on 07/25/16 with persistent diarrhea with altered mental status. Patient received care under general medicine until 08/01 for disciitis/osteomyelitis of thoracic spine, and underwent CT guided biopsy which failed to grow any organism and she has been kept off antibiotics. Due to persistent confusion, imaging of the head was done which showed PRES. She then developed hypertensive urgency (220/110) requiring IV antihypertensives and seizures (with right arm weakness and right eyelid droop) requiring IV keppra, for which she was managed in the ICU. Upon stabilization of the seizure, patient was transferred to telemetery unit for further blood pressure management, and then subsequently transferred to general medicine for further neurological workup and pain management. satellite project site monitor discontinued 08/14/16, reordered 08/18 pm due to agitation Netbed still needed for fall risk -- discontinued 08/18 pm due to agitation Problem list: - Insomnia and delirium - PRES resolving (hypertension and seizure also under control with current meds) - Pain management (knee arthritis) - Questionable osteomyelitis/disciitis of thoracic spine (biopsy showed no growth, off abx) - Frequent BM - SOCORRO on CKD - Hypomagnesemia # AMS and insomnia Patient is not oriented to time and place at baseline but her current mentation is an acute worsening per her grandaughter, who did indicate that patient was diagnosed with dementia 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 In addition, patient carries a history of of anxiety, depression, bipolar disorder and PTSD. According to the records from [place], at home patient takes alprazolam 0.25 mg Q6 PRN, trazodone, and sertraline 50 mg daily. Per psych, trazodone and sertraline may be contributing to her altered mental status. As such her psych meds were discontinued under the ICU service. In telemetery unit, patient continued to be have AMS. Agitated throughout the day and fully awake overnight. Not eating and sleeping well. We have requested psych and neuro to evaluate the patient. We requested psych to re-evaluate the patient but patient was never seen while on tele. Patient was held off trazodone, sertraline and alprazolam per psych's previous recs. Patient's mental status continued to worsen and neuro recommended on 08/08 that patient may benefit from being back on her pysch meds. In , psychiatry recc continue hold off ssri, benzo and trazodone for now. - her b12 normal at 798, folate normal at 3.6 * Psych meds on hold ( sertraline 75 mg daily in AM) * pt was agitated 08/09 night and code 7 was called. pt was hallucinating and haldol 0.5 mg IM was given one time. * Psych recommends giving 50 mg of trazodone prn, and adding another 50 mg in 1 hour if pt still cannot sleep (home dose was trazodone 50 mg in AM and 100 mg at bedtime). She was finally able to sleep after given trazodone. from neurology has signed off and is ok with starting trazodone and/or valproic acid. * We considered starting valproic acid as it is beneficial for her bipolar and seizure but she would need the level to be checked on the 4th morning. also considered mirtazapine that can help with insomnia and depression. * She scored 16/29 on MMSE having memorized some of the answers from previous test. * For anxiety, she is on gabapentin to 300 mg tid scheduled. Can give 0.25 mg xanax as needed (order one time only due to risk of fall) * changed to valproic acid 500 bid for seizure ppx and mood stabilizer on 08/18 pm. keppra discontinued. # Posterior Reversible Encephalopathy Syndrome (PRES) Presented with seizure and FND in the setting of elevated BP, s/p CT guided biopsy of the thoracis spine. MRI consistent with PRES. She is currently able to move her right arm. Also her right-sided eyelid droop and left-sided hemispacial neglect are no longer present. - Doppler US of the carotid arteries: limited exam, no clear hemodynamically significant stenoses are identified. Recommend repeat exam when patient is able to tolerate the procedure. - EEG: Normal in wake state - She has not had anymore seizure episodes since transfer from ICU, currently stable on keppra. right arm weakness and ptosis has also resolved. - MRI 08/09: Improved signal abnormality in the left frontal, as well as both parietal and occipital lobes relative to 07/31/2016. There remains no restricted diffusion nor abnormal enhancement. Findings are compatible with improving posterior reversible encephalopathy syndrome. Background of moderate generalized volume loss and mild to moderate chronic microangiopathy * Adequate BP control to keep systolic pressure in 140-160 * Cont Keppra 750 mg PO BID * Hold off lorazepam 1 mg Q6 PRN for now per psych rec * Neurochecks every 4 hours * Follow neuro recs * Follow cardio recs regarding BP management # Pain management - arthritis pain on her knees, for which she uses a plug-in heat pad at home, but we cannot allow that in the hospital. we tried warm rye socks but pt says it does not help and refuses it. * she currently gets acetaminophen 650 q6p mild pain, tramadol 50 q6p, and morphine 1mg q6p. # GI - Diarrhea: Gerry, her granddaughter thinks the diarrhea could be related to anxiety. - nausea, gas pain (resolved) * we resent stool for cdiff. results were negative. * Continue omeprazole 20 mg * continue simethicone 80 mg q6p * continue im tigan 200 mg tid prn # Questionable osteomyelitis/discitis of the thoracic spine CT and MRI findings are suggestive of discitis/osteomyelitis at T7-T8 but of unclear signifciace. Patient underwent CT-guided biopsy which was negative, although the sample was not adequate. C&S of the bone biopsy showed no growth. On 08/08, Dr. Julien discussed with Dr. Quiñones about pursuing further workup for patient's possible discitis. Dr. Quiñones recommeneded workup to be done outpatient with MRI in 4 weeks once patient's psychiatric and neurological conditions. - Her wbc is noted to come up from 7.4 to 9.8 but she has been afebrile. biopsy from ct guided biopsy did not grow anything. pt has been off abx. esr 49 h, down from 112. * Watch for signs of infection off antibiotics * Oral and IV acetaminophen for mild * tramadol mod pain * Per ID, may consider repeat T7-T8 aspirate/biopsy by IR when patient is more stable * Appreciate ID recs # SOCORRO on CKD Patient received hydration with appropriate response. Kidney US showed simple cysts, and no further workup was deemed necessary per Urology. * Continue monitor Cr daily * Avoid nephrotoxins * Improved 8/1.5 to 11/1.3. # Hypomagnesemia * mg still low at 1.4 * Monitor daily and replete * mgcl 64 mg inc to 2 TABS BID po (minimize mag ox to prevent diarrhea ) # Hypertensive urgency due to PRES (resolved) During ICU stay her home meds verapamil and losartan were discontinued. Per cardio rec, patient was started on labetalol 50mg PO BID and amlodipine at 7.5 mg which was increased to 10 mg. Patient continued to be hypertensive in tele unit on 08/07 and patient's labetalol was increased to 100mg PO BID, and she started on hydralazine 25mg PO TID. Patient's BP was better controlled with these changes. - ECHO: Normal left ventricular ejection fraction estimated at 60-65%. - Her blood pressure has been wnl since transfer from [facility]. urine total catecholamine 23 L, pheochromocytoma less likely. normal urine epinephrine, norepinephrine, dopamine. * Cont labetalol to 100mg PO BID * Cont hydralazine 25mg PO TID * Cont Norvasc 10mg PO daily # Bruising on the right shoulder Patient initially had a bruise on the right shoulder, in addition to pain, decreased ROM, tenderness. She was unable to obtain complete history regarding possible trauma due to mental status. - Xray of the right shoulder did not show dislocation, fracture or hematoma, however reported widened acromioclavicular joint space to 1.2 cm wide, which was also widened on the recent chest radiograph of 07/14/2016. Patient is currently able to move her right arm, does not complain of any pain. # DM type 2 with gastroparesis and neuropathy * Accuchecks * Novolog SSI * Hold home med Lyrica 75 mg TID given risk of seizure # Hypokalemia - her k has gone up from 3.4 --> 3.7 to 4.8, Discontinued kcl 20 meq bid po --> 4.6 # History of stage II CHF Murmur in aortic area in exam, consistent with ECHO findings for aortic stenosis. Echo also showed normal left ventricular ejection fraction estimated at 60-65%. * Continue aspirin and statin # History of COPD * Continued on 3L home O2 and Montelukast 10 mg daily # History of GCA * Continued 1.5 mg PO prednisone q48h # Hypothyroidism Multilobular left thyroid enlargement. Thyroid function tests are within normal limits. * continue levothyroxine at 0.025 mg daily * Patient can follow up outpatient after discharge for further management # DVT px: ALPS and heparin SC Diet- Heart healthy, chopped and thin liquids Mild pain pathway FULL CODE Problem List: 1. PRES (posterior reversible encephalopathy syndrome) Pain Ratin Pain Location: neck Pain Goal: Pain 4 or less Pain Plan: mild pp Tomorrow's Labs & Rationales: none DVT/Prophylaxis: mechanical, pharmacological Consulting Request: Consulting Specialty: Neurology Consulting Physician: Reason for Consult: Posterior Reversible Encephalopathy Syndrome
[2016-08-18 07:29] VITALS: BP 134/82
--- NOTE | 2016-08-18 13:58 | NUR ---
NURSING NOTE: PT BECOMING AGITATED IN NET BED "I NEED TO BE UNZIPPED FROM THIS, IM STRESSED OUT" CINDI LUNA LUMBER HACKER MADE AWARE AND CAME TO SEE PT; NET BED DCD; PATIENT SAFETY MONITOR ORDERED. SLAB OFF MILL TENDER AWARE, CONT TO MONITOR.
--- NOTE | 2016-08-18 15:50 | Event Note ---
Event Note Event Note: Spoke to Dr. Hall, we are changing the keppra to valproic acid. She needs to be on seizure prophylaxis dose rather than mood stabilizing dose due to recent hx of seizure. Pt was getting agitated in her net bed, so net bed was dicontinued and patient safety monitor is placed. She has been refusing her alps but has been getting heparin, so alps discontinued.
--- NOTE | 2016-08-18 16:13 | PN- Att Addend ---
Attending MD Review Statement Attending Statement Attending MD Statement: examined this patient, discuss w/resident/PA/OPTICIAN APPRENTICE DISPENSING, agreed w/resident/PA/OPTICIAN APPRENTICE DISPENSING, reviewed EMR data (avail), discussed w/nursing, discussed w/ case mgmt Attending Assessment/Plan: Seizures- no more seizures, d/w neuro, they are ok with switching keppra to valproate. will help with pts mood also . PRES- resolved, no more seizures. will decrease valproic acid after 2 weeks to 250mg po bid.
--- NOTE | 2016-08-18 17:11 | PN- Psychiatry ---
Assessment/Plan Impression: Medical team has increased gabapentin to 300 mg PO TID. After discussion with Dr. Hall, neurology, they have initiated valproic acid/Depakene 250 mg PO 2X/ day. The patient is probably at baseline mentation, and is not agitated at this time, but is confused, expressing a wish to be discharged. She is in no apparent distress, is not acting impulsively, and is staying in bed, and using the nurse call button appropriately. She is tolerating trazodone 50 mg by mouth at bedtime for insomnia, which may continue. She will need a valproic level drawn on the fourth morning, which I have ordered. When she is stable on valproic acid, we may consider re-starting sertraline. We will evaluate the patient 08/21/2016. Suggestion: 1. Continue trazodone 50 mg by mouth at bedtime for insomnia. 2. Continue gabapentin 300 mg PO 3X/day for anxiety, an off-label use. 3. Continue to avoid benzodiazepines, or medications with anticholinergic properties. If possible, consider an alternative to tramadol. 4. Valproic acid level has been ordered for 08/22/2016, at 0800, at trough. We will continue to follow along with you. Сергей Mancia APRN, pager [phone]. Subjective Subjective: The patient is alert, calm and pleasantly confused. She denies auditory or visual hallucinations, and presents no lo delusions. She denies SI/HI. Objective Last 24 Hrs of Vital Signs/I&O Laboratory Tests 08/17 08/16 0640 1050 Chemistry Sodium (137 - 145 mmol/L) 137 140 Potassium (3.5 - 5.1 mmol/L) 4.6 4.9 Chloride (98 - 107 mmol/L) 102 106 Carbon Dioxide (22 - 30 mmol/L) 28 25 Anion Gap (5 - 16) 7 10 BUN (7 - 17 mg/dL) 17 16 Creatinine (0.5 - 1.0 mg/dL) 1.2 H 1.3 H Estimated GFR (>60 ml/min) 44 L 40 L BUN/Creatinine Ratio (7 - 25 %) 14.2 12.3 Vital Signs Date Time Temp Pulse Resp B/P Pulse O2 O2 Flow FiO2 Ox Delivery Rate 08/18 1637 97.8 90 20 132/60 08/18 0729 97.7 95 18 134/82 92 Room Air 08/17 2201 100 140/66 08/17 2201 100 140/66 08/17 220 98.0 18 96 Intake & Output 08/18 1600 08/18 0800 08/18 0000 Intake Total 900 480 480 Output Total Balance 900 480 480 Intake, IV 0 Intake, Oral 900 480 480 Number 1 Bowel Movements
--- NOTE | 2016-08-18 22:16 | NUR ---
NURSING NOTE; PT BLOOD PRESSURE - 108/60 AND PULSE - 102, PER MOD HOLD APRESOLINE 25 MG AND GIVE LABETOLOL 100 MG.
[2016-08-19 00:10] VITALS: BP 136/74
[2016-08-19 06:52] VITALS: BP 136/82
--- NOTE | 2016-08-19 12:40 | PN- Housestaff ---
HENRIETTA ANDREWS,RAY 08/19/16 1235: Subjective Follow-up For: PRES Delirium Subjective: Saw patient at bedside. She was agitated this morning. Did not let me do physical exam. Stated she did not want to be in bed all day Review of Systems Constitutional: Reports: no symptoms. Objective Last 24 Hrs of Vital Signs/I&O Vital Signs Date Time Temp Pulse Resp B/P Pulse O2 O2 Flow FiO2 Ox Delivery Rate 08/19 923 76 126/80 08/19 0652 97.8 80 20 136/82 93 Room Air 08/19 0010 97.5 79 20 136/74 93 08/18 2219 102 108/60 08/18 2219 102 108/60 08/18 1637 97.8 90 20 132/60 Intake & Output 08/19 1600 08/19 0800 08/19 0000 Intake Total 300 600 Output Total Balance 300 600 Intake, Oral 300 600 Number 0 Bowel Movements Physical Exam General Appearance: Alert Skin: No Significant Lesion Current Medications: Current Medications Sig/Desiree Start time Last Medication Dose Route Stop Time Status Admin Acetaminophen 650 MG Q6P PRN 07/25 2015 AC 08/19 PO 0503 Albuterol Sulfate 3 ML Q4P PRN 08/13 1030 AC 08/13 INH 1023 Alprazolam 0.25 MG ONCE ONE 08/18 184 DC 08/18 PO 08/18 184 1844 Amlodipine Besylate 10 MG DAILY 08/05 1000 AC 08/19 PO 0923 Atorvastatin Calcium 80 MG 1700 08/01 1700 AC 08/18 PO 1655 Cholecalciferol 400 IU DAILY 07/26 1000 AC 08/19 PO 0923 Ferrous Sulfate 325 MG DAILY 07/26 1000 AC 08/19 PO 0924 Gabapentin 300 MG TID 08/18 1600 AC 08/19 PO 0923 Heparin Sodium 5,000 UNIT Q8 07/25 2200 AC 08/19 (Porcine) SC 0618 Hydralazine HCl 25 MG TID 08/07 1000 AC 08/19 PO 0924 Insulin Aspart 0 TIDAC 07/29 0800 AC 08/19 SC 0923 Insulin Aspart 0 AT BEDTIME 07/28 2200 AC SC Ipratropium [place] 2.5 ML Q4P PRN 08/13 1030 AC 08/13 INH 1024 Labetalol HCl 100 MG BID 08/07 2200 AC 08/19 PO 0923 Levetiracetam 750 MG BID 08/07 2200 DC 08/18 PO 0808 Levothyroxine Sodium 0.025 MG DAILY AC 07/26 0700 AC 08/19 PO 0615 Magnesium Chloride 128 MG BID 08/12 1045 AC 08/19 PO 0923 Montelukast Sodium 10 MG DAILY 07/26 1000 AC 08/19 PO 0923 Omeprazole 20 MG DAILY AC 07/26 0700 AC 08/19 PO 0615 Patient Medication 1 ED .[facility] 08/18 1406 [place] Teaching ED 08/18 1407 Prednisone 1.5 MG Q48 07/31 1000 AC 08/18 PO 0809 Simethicone 80 MG Q6P PRN 07/30 1339 AC 08/13 PO 1620 Tramadol HCl 50 MG Q6 PRN 08/08 1445 AC 08/19 PO 0138 Trazodone HCl 50 MG AT BEDTIME NEED.. 08/10 2200 AC 08/17 PO 2302 Valproic Acid 250 MG BID 08/18 2200 AC 08/19 PO 0923 Vitamin A/Vitamin D 1 LORENA BID PRN 07/25 2345 AC 08/02 TOP 1830 Zinc Oxide 1 LORENA Q8 08/01 2200 AC 08/19 TOP 0615 Zinc Oxide 1 LORENA BID PRN 08/01 1512 AC 08/02 TOP 1830 Assessment/Plan Assessment: Ms. Bland is a 76 year old lady with PMH significant for COPD on 3 L oxygen, CHF (stage II diastolic), DM2, complicated with neuropathy and gastroparesis, arthritis, mood disorders, hyperlipidemia, CRF, GERD, diverticulosis and hypothyroidism, who initially presented to [place] ED from [place] on 07/25/16 with persistent diarrhea with altered mental status. Patient received care under general medicine until 08/01 for disciitis/osteomyelitis of thoracic spine, and underwent CT guided biopsy which failed to grow any organism and she has been kept off antibiotics. Due to persistent confusion, imaging of the head was done which showed PRES. She then developed hypertensive urgency (220/110) requiring IV antihypertensives and seizures (with right arm weakness and right eyelid droop) requiring IV keppra, for which she was managed in the ICU. Upon stabilization of the seizure, patient was transferred to telemetery unit for further blood pressure management, and then subsequently transferred to general medicine for further neurological workup and pain management. 08/19: Soft patient at bedside this a.m. She was awake and alert but still agitated and confused. She did not want to stay in bed. She had a satellite project site monitor. She is pending J psych placement. Psychiatry changed medication regimen from Keppra to valproic acid acid. She will require valproic level in 3 more days and at that time we can reevaluate restarting SSRI. monitor tech discontinued 08/14/16, reordered 08/18 pm due to agitation Netbed still needed for fall risk -- discontinued 08/18 pm due to agitation Problem list: - Insomnia and delirium - PRES resolving (hypertension and seizure also under control with current meds) - Pain management (knee arthritis) - Questionable osteomyelitis/disciitis of thoracic spine (biopsy showed no growth, off abx) - Frequent BM - SOCORRO on CKD - Hypomagnesemia # AMS and insomnia Patient is not oriented to time and place at baseline but her current mentation is an acute worsening per her grandaughter, who did indicate that patient 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 In addition, patient carries a history of of anxiety, depression, bipolar disorder and PTSD. According to the records from [place], at home patient takes alprazolam 0.25 mg Q6 PRN, trazodone, and sertraline 50 mg daily. Per psych, trazodone and sertraline may be contributing to her altered mental status. As such her psych meds were discontinued under the ICU service. In telemetery unit, patient continued to be have AMS. Agitated throughout the day and fully awake overnight. Not eating and sleeping well. We have requested psych and neuro to evaluate the patient. We requested psych to re-evaluate the patient but patient was never seen while on tele. Patient was held off trazodone, sertraline and alprazolam per psych's previous recs. Patient's mental status continued to worsen and neuro recommended on 08/08 that patient may benefit from being back on her pysch meds. In , psychiatry recc continue hold off ssri, benzo and trazodone for now. - her b12 normal at 798, folate normal at 3.6 * Psych meds on hold ( sertraline 75 mg daily in AM) * pt was agitated 08/09 night and code 7 was called. pt was hallucinating and haldol 0.5 mg IM was given one time. * Psych recommends giving 50 mg of trazodone prn, and adding another 50 mg in 1 hour if pt still cannot sleep (home dose was trazodone 50 mg in AM and 100 mg at bedtime). She was finally able to sleep after given trazodone. from neurology has signed off and is ok with starting trazodone and/or valproic acid. * We considered starting valproic acid as it is beneficial for her bipolar and seizure but she would need the level to be checked on the 4th morning. also considered mirtazapine that can help with insomnia and depression. * She scored 16/29 on MMSE having memorized some of the answers from previous test. * For anxiety, she is on gabapentin to 300 mg tid scheduled. Can give 0.25 mg xanax as needed (order one time only due to risk of fall) * changed to valproic acid 500 bid for seizure ppx and mood stabilizer on 08/18 pm. keppra discontinued. # Posterior Reversible Encephalopathy Syndrome (PRES) Presented with seizure and FND in the setting of elevated BP, s/p CT guided biopsy of the thoracis spine. MRI consistent with PRES. She is currently able to move her right arm. Also her right-sided eyelid droop and left-sided hemispacial neglect are no longer present. - Doppler US of the carotid arteries: limited exam, no clear hemodynamically significant stenoses are identified. Recommend repeat exam when patient is able to tolerate the procedure. - EEG: Normal in wake state - She has not had anymore seizure episodes since transfer from ICU, currently stable on keppra. right arm weakness and ptosis has also resolved. - MRI 08/09: Improved signal abnormality in the left frontal, as well as both parietal and occipital lobes relative to 07/31/2016. There remains no restricted diffusion nor abnormal enhancement. Findings are compatible with improving posterior reversible encephalopathy syndrome. Background of moderate generalized volume loss and mild to moderate chronic microangiopathy * Adequate BP control to keep systolic pressure in 140-160 * Cont Keppra 750 mg PO BID * Hold off lorazepam 1 mg Q6 PRN for now per psych rec * Neurochecks every 4 hours * Follow neuro recs * Follow cardio recs regarding BP management # Pain management - arthritis pain on her knees, for which she uses a plug-in heat pad at home, but we cannot allow that in the hospital. we tried warm rye socks but pt says it does not help and refuses it. * she currently gets acetaminophen 650 q6p mild pain, tramadol 50 q6p, and morphine 1mg q6p. # GI - Diarrhea: Gerry, her granddaughter thinks the diarrhea could be related to anxiety. - nausea, gas pain (resolved) * we resent stool for cdiff. results were negative. * Continue omeprazole 20 mg * continue simethicone 80 mg q6p * continue im tigan 200 mg tid prn # Questionable osteomyelitis/discitis of the thoracic spine CT and MRI findings are suggestive of discitis/osteomyelitis at T7-T8 but of unclear signifciace. Patient underwent CT-guided biopsy which was negative, although the sample was not adequate. C&S of the bone biopsy showed no growth. On 08/08, Dr. Julien discussed with Dr. Quiñones about pursuing further workup for patient's possible discitis. Dr. Quiñones recommeneded workup to be done outpatient with MRI in 4 weeks once patient's psychiatric and neurological conditions. - Her wbc is noted to come up from 7.4 to 9.8 but she has been afebrile. biopsy from ct guided biopsy did not grow anything. pt has been off abx. esr 49 h, down from 112. * Watch for signs of infection off antibiotics * Oral and IV acetaminophen for mild * tramadol mod pain * Per ID, may consider repeat T7-T8 aspirate/biopsy by IR when patient is more stable * Appreciate ID recs # SOCORRO on CKD Patient received hydration with appropriate response. Kidney US showed simple cysts, and no further workup was deemed necessary per Urology. * Continue monitor Cr daily * Avoid nephrotoxins * Improved 8/1.5 to 11/1.3. # Hypomagnesemia * mg still low at 1.4 * Monitor daily and replete * mgcl 64 mg inc to 2 TABS BID po (minimize mag ox to prevent diarrhea ) # Hypertensive urgency due to PRES (resolved) During ICU stay her home meds verapamil and losartan were discontinued. Per cardio rec, patient was started on labetalol 50mg PO BID and amlodipine at 7.5 mg which was increased to 10 mg. Patient continued to be hypertensive in tele unit on 08/07 and patient's labetalol was increased to 100mg PO BID, and she started on hydralazine 25mg PO TID. Patient's BP was better controlled with these changes. - ECHO: Normal left ventricular ejection fraction estimated at 60-65%. - Her blood pressure has been wnl since transfer from [facility]. urine total catecholamine 23 L, pheochromocytoma less likely. normal urine epinephrine, norepinephrine, dopamine. * Cont labetalol to 100mg PO BID * Cont hydralazine 25mg PO TID * Cont Norvasc 10mg PO daily # Bruising on the right shoulder Patient initially had a bruise on the right shoulder, in addition to pain, decreased ROM, tenderness. She was unable to obtain complete history regarding possible trauma due to mental status. - Xray of the right shoulder did not show dislocation, fracture or hematoma, however reported widened acromioclavicular joint space to 1.2 cm wide, which was also widened on the recent chest radiograph of 07/14/2016. Patient is currently able to move her right arm, does not complain of any pain. # DM type 2 with gastroparesis and neuropathy * Accuchecks * Novolog SSI * Hold home med Lyrica 75 mg TID given risk of seizure # Hypokalemia - her k has gone up from 3.4 --> 3.7 to 4.8, Discontinued kcl 20 meq bid po --> 4.6 # History of stage II CHF Murmur in aortic area in exam, consistent with ECHO findings for aortic stenosis. Echo also showed normal left ventricular ejection fraction estimated at 60-65%. * Continue aspirin and statin # History of COPD * Continued on 3L home O2 and Montelukast 10 mg daily # History of GCA * Continued 1.5 mg PO prednisone q48h # Hypothyroidism Multilobular left thyroid enlargement. Thyroid function tests are within normal limits. * continue levothyroxine at 0.025 mg daily * Patient can follow up outpatient after discharge for further management # DVT px: ALPS and heparin SC Diet- Heart healthy, chopped and thin liquids Mild pain pathway FULL CODE Problem List: 1. Hypomagnesemia 2. PRES (posterior reversible encephalopathy syndrome) 3. Delirium 4. Discitis Pain Ratin Pain Location: none Pain Goal: Remain pain free Pain Plan: none Tomorrow's Labs & Rationales: bep Consulting Request: Consulting Specialty: Neurology Consulting Physician: Reason for Consult: Posterior Reversible Encephalopathy Syndrome CYRKAELYN 08/19/16 1459: Attending MD Review Statement Attending Statement Attending MD Statement: examined this patient, discuss w/resident/PA/STORE GIFT WRAP ASSOCIATE, agreed w/resident/PA/STORE GIFT WRAP ASSOCIATE, reviewed EMR data (avail), discussed with nursing, discussed with case mgmt Attending Assessment/Plan: Altered mental status- stable. Was started on valproic acid yesterday. will see if that helps with mental status.
--- NOTE | 2016-08-19 14:46 | NUR ---
NURSING NOTE: PT REMAINS FORGETFUL AND IMPULSIVE, C/O A HEADACHE EARLIER THIS SHIFT; ULTRAM GIVEN WITH GOOD RESULTS PER PT. BED ALARM ON, PATIENT SAFETY MONITOR AT BEDSIDE. PT ASKING ABOUT A NEW "SHIRT" OTHER SHIRT NOTED TO BE DIRTY. GRANDDAUGHTER BROUGHT CLOTHES YESTERDAY, PT REFUSING THE ROBE. PT COMPLIANT WITH MEDS. CONT TO MONITOR.
[2016-08-19 16:21] VITALS: BP 160/80
[2016-08-20 00:02] VITALS: BP 142/72
[2016-08-20 08:21] VITALS: BP 130/80
--- NOTE | 2016-08-20 08:30 | PN- Housestaff ---
Subjective Follow-up For: pres Subjective: pt was seen today, she was calm and lying on the bed comfortably, complains of headache in her ears and some neck pain. no complains otherwise. we started valproic acid 250 bid starting 08/18pm and changed it to 500 bid on 08/20. we discontinued keppra since 08/18. [facility] because there is no meds that need to be monitored. if she gets a bed, we will watch her without the patient safety monitor and netbed. Review of Systems Constitutional: Reports: see HPI. Objective Last 24 Hrs of Vital Signs/I&O Vital Signs Date Time Temp Pulse Resp B/P Pulse O2 O2 Flow FiO2 Ox Delivery Rate 08/20 0821 98.5 92 20 130/80 92 Room Air 08/20 0002 97.9 95 20 142/72 93 08/19 2057 98 138/70 08/19 2056 98 138/70 08/19 1621 97.5 88 20 160/80 93 08/19 1609 88 160/80 Intake & Output 08/20 1600 08/20 0800 08/20 0000 Intake Total 120 800 Output Total Balance 120 800 Intake, Oral 120 800 Number 1 Bowel Movements Physical Exam General Appearance: Alert, Oriented X3, Cooperative, No Acute Distress Skin: No Breakdown HEENT: Atraumatic, PERRLA Cardiovascular: Regular Rate, Normal S1, Normal S2, No Murmurs, Gallops, Rubs Lungs: Clear to Auscultation, Normal Air Movement Abdomen: Normal Bowel Sounds, Soft, No Tenderness Neurological: Normal Speech Extremities: No Edema Current Medications: Current Medications Sig/Desiree Start time Last Medication Dose Route Stop Time Status Admin Acetaminophen 650 MG Q6P PRN 07/25 2015 AC 08/20 PO 0630 Albuterol Sulfate 3 ML Q4P PRN 08/13 1030 AC 08/13 INH 1023 Amlodipine Besylate 10 MG DAILY 08/05 1000 AC 08/20 PO 0820 Atorvastatin Calcium 80 MG 1700 08/01 1700 AC 08/19 PO 1734 Cholecalciferol 400 IU DAILY 07/26 1000 AC 08/20 PO 0819 Ferrous Sulfate 325 MG DAILY 07/26 1000 AC 08/20 PO 0819 Gabapentin 300 MG TID 08/18 1600 AC 08/20 PO 0818 Heparin Sodium 5,000 UNIT Q8 07/25 2200 AC 08/20 (Porcine) SC 0527 Hydralazine HCl 25 MG TID 08/07 1000 AC 08/20 PO 0819 Insulin Aspart 0 TIDAC 07/29 0800 AC 08/20 SC 0818 Insulin Aspart 0 AT BEDTIME 07/28 2200 AC SC Ipratropium [place]ne 2.5 ML Q4P PRN 08/13 1030 AC 08/13 INH 1024 Labetalol HCl 100 MG BID 08/07 2200 AC 08/20 PO 0820 Levothyroxine Sodium 0.025 MG DAILY AC 07/26 0700 AC 08/20 PO 0525 Magnesium Chloride 128 MG BID 08/12 1045 AC 08/20 PO 0820 Montelukast Sodium 10 MG DAILY 07/26 1000 AC 08/20 PO 0820 Omeprazole 20 MG DAILY AC 07/26 0700 AC 08/20 PO 0525 Prednisone 1.5 MG Q48 07/31 1000 AC 08/20 PO 0820 Simethicone 80 MG Q6P PRN 07/30 1339 AC 08/13 PO 1620 Tramadol HCl 50 MG Q6 PRN 08/08 1445 AC 08/20 PO 0312 Trazodone HCl 50 MG AT BEDTIME NEED.. 08/10 2200 AC 08/19 PO 2324 Valproic Acid 500 MG BID 08/20 1000 AC PO Valproic Acid 250 MG BID 08/18 2200 DC 08/20 PO 0820 Vitamin A/Vitamin D 1 LORENA BID PRN 07/25 2345 AC 08/02 TOP 1830 Zinc Oxide 1 LORENA Q8 08/01 2200 AC 08/20 TOP 0527 Zinc Oxide 1 LORENA BID PRN 08/01 1512 AC 08/02 TOP 1830 Last 24 Hrs of Lab/Rehan Results Last 24 Hrs of Labs/Mics: Laboratory Tests 08/20/16 0635: Anion Gap 9, Estimated GFR 54 L, BUN/Creatinine Ratio 20.0 Assessment/Plan Assessment: Ms. Bland is a 76 year old lady with PMH significant for COPD on 3 L oxygen, CHF (stage II diastolic), DM2, complicated with neuropathy and gastroparesis, arthritis, mood disorders, hyperlipidemia, CRF, GERD, diverticulosis and hypothyroidism, who initially presented to [facility] from [place] on 07/25/16 with persistent diarrhea with altered mental status. Patient received care under general medicine until 08/01 for disciitis/osteomyelitis of thoracic spine, and underwent CT guided biopsy which failed to grow any organism and she has been kept off antibiotics. Due to persistent confusion, imaging of the head was done which showed PRES. She then developed hypertensive urgency (220/110) requiring IV antihypertensives and seizures (with right arm weakness and right eyelid droop) requiring IV keppra, for which she was managed in the ICU. Upon stabilization of the seizure, patient was transferred to telemetery unit for further blood pressure management, and then subsequently transferred to general medicine for further neurological workup and pain management. 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 In addition, patient carries a history of of anxiety, depression, bipolar disorder and PTSD. According to the records from [place], at home patient takes alprazolam 0.25 mg Q6 PRN, trazodone, and sertraline 50 mg daily. Per psych, trazodone and sertraline may be contributing to her altered mental status. As such her psych meds were discontinued under the ICU service. In telemetery unit, patient continued to be have AMS. Agitated throughout the day and fully awake overnight. Not eating and sleeping well. We have requested psych and neuro to evaluate the patient. We requested psych to re-evaluate the patient but patient was never seen while on tele. Patient was held off trazodone, sertraline and alprazolam per psych's previous recs. Patient's mental status continued to worsen and neuro recommended on 08/08 that patient may benefit from being back on her pysch meds. In , psychiatry recc continue hold off ssri, benzo and trazodone for now. - her b12 normal at 798, folate normal at 3.6 * Psych meds on hold ( sertraline 75 mg daily in AM) * pt was agitated 08/09 night and code 7 was called. pt was hallucinating and haldol 0.5 mg IM was given one time. * Psych recommends giving 50 mg of trazodone prn, and adding another 50 mg in 1 hour if pt still cannot sleep (home dose was trazodone 50 mg in AM and 100 mg at bedtime). She was finally able to sleep after given trazodone. from neurology has signed off and is ok with starting trazodone and/or valproic acid. * We considered starting valproic acid as it is beneficial for her bipolar and seizure but she would need the level to be checked on the 4th morning. also considered mirtazapine that can help with insomnia and depression. * She scored 16/29 on MMSE having memorized some of the answers from previous test. * For anxiety, she is on gabapentin to 300 mg tid scheduled. Can give 0.25 mg xanax as needed (order one time only due to risk of fall) * changed to valproic acid 250 bid for seizure ppx and mood stabilizer on 08/18 pm. keppra discontinued. valproic acid increased to 500 bid 18pm. need to check valproic level after 6 doses. # Posterior Reversible Encephalopathy Syndrome (PRES) Presented with seizure and FND in the setting of elevated BP, s/p CT guided biopsy of the thoracis spine. MRI consistent with PRES. She is currently able to move her right arm. Also her right-sided eyelid droop and left-sided hemispacial neglect are no longer present. - Doppler US of the carotid arteries: limited exam, no clear hemodynamically significant stenoses are identified. Recommend repeat exam when patient is able to tolerate the procedure. - EEG: Normal in wake state - She has not had anymore seizure episodes since transfer from ICU, currently stable on keppra. right arm weakness and ptosis has also resolved. - MRI 08/09: Improved signal abnormality in the left frontal, as well as both parietal and occipital lobes relative to 07/31/2016. There remains no restricted diffusion nor abnormal enhancement. Findings are compatible with improving posterior reversible encephalopathy syndrome. Background of moderate generalized volume loss and mild to moderate chronic microangiopathy * Adequate BP control to keep systolic pressure in 140-160 * discontinued Keppra 750 mg PO BID * Hold off lorazepam 1 mg Q6 PRN for now per psych rec * Neurochecks every 4 hours * Follow neuro recs * Follow cardio recs regarding BP management # Pain management - arthritis pain on her knees, for which she uses a plug-in heat pad at home, but we cannot allow that in the hospital. we tried warm rye socks but pt says it does not help and refuses it. * she currently gets acetaminophen 650 q6p mild pain, tramadol 50 q6p, and morphine 1mg q6p. # GI - Diarrhea: Gerry, her granddaughter thinks the diarrhea could be related to anxiety. - nausea, gas pain (resolved) * we resent stool for cdiff. results were negative. * Continue omeprazole 20 mg * continue simethicone 80 mg q6p * continue im tigan 200 mg tid prn # Questionable osteomyelitis/discitis of the thoracic spine CT and MRI findings are suggestive of discitis/osteomyelitis at T7-T8 but of unclear signifciace. Patient underwent CT-guided biopsy which was negative, although the sample was not adequate. C&S of the bone biopsy showed no growth. On 08/08, Dr. Julien discussed with Dr. Quiñones about pursuing further workup for patient's possible discitis. Dr. Quiñones recommeneded workup to be done outpatient with MRI in 4 weeks once patient's psychiatric and neurological conditions. - Her wbc is noted to come up from 7.4 to 9.8 but she has been afebrile. biopsy from ct guided biopsy did not grow anything. pt has been off abx. esr 49 h, down from 112. * Watch for signs of infection off antibiotics * Oral and IV acetaminophen for mild * tramadol mod pain * Per ID, may consider repeat T7-T8 aspirate/biopsy by IR when patient is more stable * Appreciate ID recs # SOCORRO on CKD Patient received hydration with appropriate response. Kidney US showed simple cysts, and no further workup was deemed necessary per Urology. * Continue monitor Cr daily * Avoid nephrotoxins * Improved 8/1.5 to 11/1.3. # Hypomagnesemia * mg still low at 1.4 * mgcl 64 mg inc to 2 TABS BID po (minimize mag ox to prevent diarrhea ) # Hypertensive urgency due to PRES (resolved) During ICU stay her home meds verapamil and losartan were discontinued. Per cardio rec, patient was started on labetalol 50mg PO BID and amlodipine at 7.5 mg which was increased to 10 mg. Patient continued to be hypertensive in tele unit on 08/07 and patient's labetalol was increased to 100mg PO BID, and she started on hydralazine 25mg PO TID. Patient's BP was better controlled with these changes. - ECHO: Normal left ventricular ejection fraction estimated at 60-65%. - Her blood pressure has been wnl since transfer from [facility]. urine total catecholamine 23 L, pheochromocytoma less likely. normal urine epinephrine, norepinephrine, dopamine. * Cont labetalol to 100mg PO BID * Cont hydralazine 25mg PO TID * Cont Norvasc 10mg PO daily # Bruising on the right shoulder Patient initially had a bruise on the right shoulder, in addition to pain, decreased ROM, tenderness. She was unable to obtain complete history regarding possible trauma due to mental status. - Xray of the right shoulder did not show dislocation, fracture or hematoma, however reported widened acromioclavicular joint space to 1.2 cm wide, which was also widened on the recent chest radiograph of 07/14/2016. Patient is currently able to move her right arm, does not complain of any pain. # DM type 2 with gastroparesis and neuropathy * Accuchecks * Novolog SSI * Hold home med Lyrica 75 mg TID given risk of seizure # Hypokalemia - her k has gone up from 3.4 --> 3.7 to 4.8, Discontinued kcl 20 meq bid po --> 4.6 # History of stage II CHF Murmur in aortic area in exam, consistent with ECHO findings for aortic stenosis. Echo also showed normal left ventricular ejection fraction estimated at 60-65%. * Continue aspirin and statin # History of COPD * Continued on 3L home O2 and Montelukast 10 mg daily # History of GCA * Continued 1.5 mg PO prednisone q48h # Hypothyroidism Multilobular left thyroid enlargement. Thyroid function tests are within normal limits. * continue levothyroxine at 0.025 mg daily * Patient can follow up outpatient after discharge for further management # DVT px: ALPS and heparin SC Diet- Heart healthy, chopped and thin liquids Mild pain pathway FULL CODE Problem List: 1. PRES (posterior reversible encephalopathy syndrome) Pain Ratin Pain Location: neck and headache Pain Goal: Pain 4 or less Pain Plan: mild pp Tomorrow's Labs & Rationales: none DVT/Prophylaxis: mechanical, pharmacological Consulting Request: Consulting Specialty: Neurology Consulting Physician: Reason for Consult: Posterior Reversible Encephalopathy Syndrome
--- NOTE | 2016-08-20 15:21 | PN- Att Addend ---
Attending Addendum Attending Brief Note pt seen and examined and discussed with resident the care plan. Plan is to increase the valproic acid to 500 mg po bid. Pt has altered mental status and psychiatry is following the patient. will d/w with them to see if they want to restart her on SSRI. [facility]. d/w case liner the care plan.
[2016-08-20 15:59] VITALS: BP 142/86
[2016-08-21 00:13] VITALS: BP 128/68
--- NOTE | 2016-08-21 07:20 | PN- Housestaff ---
See Addendum Subjective Follow-up For: pres Subjective: pt was seen this morning, lying comfortably in her bed. pleasantly conversing with her sitter. she had no complains. Review of Systems Constitutional: Reports: see HPI. Objective Last 24 Hrs of Vital Signs/I&O Vital Signs Date Time Temp Pulse Resp B/P Pulse O2 O2 Flow FiO2 Ox Delivery Rate 08/21 08 97.8 97 20 120/71 91 Room Air 08/21 0149 91 Room Air 08/21 0013 98.5 89 22 128/68 90 08/20 2119 101 138/72 08/20 2119 101 138/72 08/20 1559 97.9 89 19 142/86 95 Room Air 08/20 1557 97.9 89 19 142/86 Intake & Output 08/21 1600 08/21 0800 08/21 0000 Intake Total 250 800 Output Total Balance 250 800 Intake, Oral 250 800 Physical Exam General Appearance: Alert, Oriented X3, Cooperative, No Acute Distress Skin: No Significant Lesion HEENT: Atraumatic, PERRLA Neck: Supple Cardiovascular: Regular Rate, Normal S1, Normal S2, No Murmurs, Gallops, Rubs Lungs: Clear to Auscultation, Normal Air Movement Abdomen: Normal Bowel Sounds, Soft, No Tenderness Neurological: Normal Speech Current Medications: Current Medications Sig/Desiree Start time Last Medication Dose Route Stop Time Status Admin Acetaminophen 650 MG Q6P PRN 07/25 2015 AC 08/20 PO 0630 Albuterol Sulfate 3 ML Q4P PRN 08/13 1030 AC 08/13 INH 1023 Amlodipine Besylate 10 MG DAILY 08/05 1000 AC 08/20 PO 0820 Atorvastatin Calcium 80 MG 1700 08/01 1700 AC 08/20 PO 1701 Cholecalciferol 400 IU DAILY 07/26 1000 AC 08/20 PO 0819 Ferrous Sulfate 325 MG DAILY 07/26 1000 AC 08/20 PO 0819 Gabapentin 300 MG TID 08/18 1600 AC 08/20 PO 211 Heparin Sodium 5,000 UNIT Q8 07/25 2200 AC 08/21 (Porcine) SC 0634 Hydralazine HCl 25 MG TID 08/07 1000 AC 08/20 PO 2119 Insulin Aspart 0 TIDAC 07/29 0800 AC 08/20 SC 1701 Insulin Aspart 0 AT BEDTIME 07/28 2200 AC SC Ipratropium [place] 2.5 ML Q4P PRN 08/13 1030 AC 08/13 INH 1024 Labetalol HCl 100 MG BID 08/07 2200 AC 08/20 PO 211 Levothyroxine Sodium 0.025 MG DAILY AC 07/26 0700 AC 08/21 PO 0634 Magnesium Chloride 128 MG BID 08/12 1045 AC 08/20 PO 2119 Montelukast Sodium 10 MG DAILY 07/26 1000 AC 08/20 PO 0820 Omeprazole 20 MG DAILY AC 07/26 0700 AC 08/21 PO 0634 Prednisone 1.5 MG Q48 07/31 1000 AC 08/20 PO 0820 Simethicone 80 MG Q6P PRN 07/30 1339 AC 08/13 PO 1620 Tramadol HCl 50 MG Q6 PRN 08/08 1445 AC 08/20 PO 1701 Trazodone HCl 50 MG AT BEDTIME NEED.. 08/10 2200 AC 08/20 PO 2117 Valproic Acid 500 MG BID 08/20 1000 AC 08/20 PO 2118 Valproic Acid 250 MG BID 08/18 2200 DC 08/20 PO 0820 Vitamin A/Vitamin D 1 LORENA BID PRN 07/25 2345 AC 08/02 TOP 1830 Zinc Oxide 1 LORENA Q8 08/01 2200 AC 08/21 TOP 0636 Zinc Oxide 1 LORENA BID PRN 08/01 1512 AC 08/02 TOP 1830 Last 24 Hrs of Lab/Rehan Results Last 24 Hrs of Labs/Mics: Laboratory Tests 08/21/16 0628: CBC w Diff NO MAN DIFF REQ, RBC 3.50 L, MCV 85.8, MCH 28.8, RDW 19.7 H, MPV 9.3, Gran % 46.5, Lymphocytes % 38.3, Monocytes % 11.6 H, Eosinophils % 3.0, Basophils % 0.6, Absolute Granulocytes 3.6, Absolute Lymphocytes 3.0, Absolute Monocytes 0.9 H, Absolute Eosinophils 0.2, Absolute Basophils 0, PUBS MCHC 33.5 Assessment/Plan Assessment: Ms. Bland is a 76 year old lady with PMH significant for COPD on 3 L oxygen, CHF (stage II diastolic), DM2, complicated with neuropathy and gastroparesis, arthritis, mood disorders, hyperlipidemia, CRF, GERD, diverticulosis and hypothyroidism, who initially presented to [place] ED from [place] on 07/25/16 with persistent diarrhea with altered mental status. Patient received care under general medicine until 08/01 for disciitis/osteomyelitis of thoracic spine, and underwent CT guided biopsy which failed to grow any organism and she has been kept off antibiotics. Due to persistent confusion, imaging of the head was done which showed PRES. She then developed hypertensive urgency (220/110) requiring IV antihypertensives and seizures (with right arm weakness and right eyelid droop) requiring IV keppra, for which she was managed in the ICU. Upon stabilization of the seizure, patient was transferred to telemetery unit for further blood pressure management, and then subsequently transferred to general medicine for further neurological workup and pain management. 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 In addition, patient carries a history of of anxiety, depression, bipolar disorder and PTSD. According to the records from [place], at home patient takes alprazolam 0.25 mg Q6 PRN, trazodone, and sertraline 50 mg daily. Per psych, trazodone and sertraline may be contributing to her altered mental status. As such her psych meds were discontinued under the ICU service. In telemetery unit, patient continued to be have AMS. Agitated throughout the day and fully awake overnight. Not eating and sleeping well. We have requested psych and neuro to evaluate the patient. We requested psych to re-evaluate the patient but patient was never seen while on tele. Patient was held off trazodone, sertraline and alprazolam per psych's previous recs. Patient's mental status continued to worsen and neuro recommended on 08/08 that patient may benefit from being back on her pysch meds. In , psychiatry recc continue hold off ssri, benzo and trazodone for now. - her b12 normal at 798, folate normal at 3.6 * Psych meds on hold ( sertraline 75 mg daily in AM) * pt was agitated 08/09 night and code 7 was called. pt was hallucinating and haldol 0.5 mg IM was given one time. * Psych recommends giving 50 mg of trazodone prn, and adding another 50 mg in 1 hour if pt still cannot sleep (home dose was trazodone 50 mg in AM and 100 mg at bedtime). She was finally able to sleep after given trazodone. from neurology has signed off and is ok with starting trazodone and/or valproic acid. * We considered starting valproic acid as it is beneficial for her bipolar and seizure but she would need the level to be checked on the 4th morning. also considered mirtazapine that can help with insomnia and depression. * She scored 16/29 on MMSE having memorized some of the answers from previous test. * For anxiety, she is on gabapentin to 300 mg tid scheduled. Can give 0.25 mg xanax as needed (order one time only due to risk of fall) * changed to valproic acid 250 bid for seizure ppx and mood stabilizer on 08/18 pm. keppra discontinued. valproic acid increased to 500 bid 18pm. need to check valproic level after 6 doses. # Posterior Reversible Encephalopathy Syndrome (PRES) Presented with seizure and FND in the setting of elevated BP, s/p CT guided biopsy of the thoracis spine. MRI consistent with PRES. She is currently able to move her right arm. Also her right-sided eyelid droop and left-sided hemispacial neglect are no longer present. - Doppler US of the carotid arteries: limited exam, no clear hemodynamically significant stenoses are identified. Recommend repeat exam when patient is able to tolerate the procedure. - EEG: Normal in wake state - She has not had anymore seizure episodes since transfer from ICU, currently stable on keppra. right arm weakness and ptosis has also resolved. - MRI 08/09: Improved signal abnormality in the left frontal, as well as both parietal and occipital lobes relative to 07/31/2016. There remains no restricted diffusion nor abnormal enhancement. Findings are compatible with improving posterior reversible encephalopathy syndrome. Background of moderate generalized volume loss and mild to moderate chronic microangiopathy * Adequate BP control to keep systolic pressure in 140-160 * discontinued Keppra 750 mg PO BID * Hold off lorazepam 1 mg Q6 PRN for now per psych rec * Neurochecks every 4 hours * Follow neuro recs * Follow cardio recs regarding BP management # Pain management - arthritis pain on her knees, for which she uses a plug-in heat pad at home, but we cannot allow that in the hospital. we tried warm rye socks but pt says it does not help and refuses it. * she currently gets acetaminophen 650 q6p mild pain, tramadol 50 q6p, and morphine 1mg q6p. # GI - Diarrhea: Gerry, her granddaughter thinks the diarrhea could be related to anxiety. - nausea, gas pain (resolved) * we resent stool for cdiff. results were negative. * Continue omeprazole 20 mg * continue simethicone 80 mg q6p * continue im tigan 200 mg tid prn # Questionable osteomyelitis/discitis of the thoracic spine CT and MRI findings are suggestive of discitis/osteomyelitis at T7-T8 but of unclear signifciace. Patient underwent CT-guided biopsy which was negative, although the sample was not adequate. C&S of the bone biopsy showed no growth. On 08/08, Dr. Julien discussed with Dr. Quiñones about pursuing further workup for patient's possible discitis. Dr. Quiñones recommeneded workup to be done outpatient with MRI in 4 weeks once patient's psychiatric and neurological conditions. - Her wbc is noted to come up from 7.4 to 9.8 but she has been afebrile. biopsy from ct guided biopsy did not grow anything. pt has been off abx. esr 49 h, down from 112. * Watch for signs of infection off antibiotics * Oral and IV acetaminophen for mild * tramadol mod pain * Per ID, may consider repeat T7-T8 aspirate/biopsy by IR when patient is more stable * Appreciate ID recs # SOCORRO on CKD Patient received hydration with appropriate response. Kidney US showed simple cysts, and no further workup was deemed necessary per Urology. * Continue monitor Cr daily * Avoid nephrotoxins * Improved 8/1.5 to 11/1.3. # Hypomagnesemia * mg still low at 1.4 * mgcl 64 mg inc to 2 TABS BID po (minimize mag ox to prevent diarrhea ) # Hypertensive urgency due to PRES (resolved) During ICU stay her home meds verapamil and losartan were discontinued. Per cardio rec, patient was started on labetalol 50mg PO BID and amlodipine at 7.5 mg which was increased to 10 mg. Patient continued to be hypertensive in tele unit on 08/07 and patient's labetalol was increased to 100mg PO BID, and she started on hydralazine 25mg PO TID. Patient's BP was better controlled with these changes. - ECHO: Normal left ventricular ejection fraction estimated at 60-65%. - Her blood pressure has been wnl since transfer from [facility]. urine total catecholamine 23 L, pheochromocytoma less likely. normal urine epinephrine, norepinephrine, dopamine. * Cont labetalol to 100mg PO BID * Cont hydralazine 25mg PO TID * Cont Norvasc 10mg PO daily # Bruising on the right shoulder Patient initially had a bruise on the right shoulder, in addition to pain, decreased ROM, tenderness. She was unable to obtain complete history regarding possible trauma due to mental status. - Xray of the right shoulder did not show dislocation, fracture or hematoma, however reported widened acromioclavicular joint space to 1.2 cm wide, which was also widened on the recent chest radiograph of 07/14/2016. Patient is currently able to move her right arm, does not complain of any pain. # DM type 2 with gastroparesis and neuropathy * Accuchecks * Novolog SSI * Hold home med Lyrica 75 mg TID given risk of seizure # Hypokalemia - her k has gone up from 3.4 --> 3.7 to 4.8, Discontinued kcl 20 meq bid po --> 4.6 # History of stage II CHF Murmur in aortic area in exam, consistent with ECHO findings for aortic stenosis. Echo also showed normal left ventricular ejection fraction estimated at 60-65%. * Continue aspirin and statin # History of COPD * Continued on 3L home O2 and Montelukast 10 mg daily # History of GCA * Continued 1.5 mg PO prednisone q48h # Hypothyroidism Multilobular left thyroid enlargement. Thyroid function tests are within normal limits. * continue levothyroxine at 0.025 mg daily * Patient can follow up outpatient after discharge for further management # DVT px: ALPS and heparin SC Diet- Heart healthy, chopped and thin liquids Mild pain pathway FULL CODE Problem List: 1. PRES (posterior reversible encephalopathy syndrome) Pain Ratin Pain Location: none Pain Goal: Pain 4 or less Pain Plan: mild pp Tomorrow's Labs & Rationales: none DVT/Prophylaxis: mechanical, pharmacological Consulting Request: Consulting Specialty: Neurology Consulting Physician: Reason for Consult: Posterior Reversible Encephalopathy Syndrome
[2016-08-21 07:54] LABS: ABSOLUTE BASOPHIL COUNT 0 /CUMM (0.0-0.2); ABSOLUTE EOSINOPHIL COUNT 0.2 /CUMM (0.0-0.7); ABSOLUTE GRANULOCYTE CT 3.6 /CUMM (1.4-6.5); ABSOLUTE MONOCYTE COUNT 0.9 /CUMM (0.10-0.60); BASOPHIL % 0.6 % (0.0-2.0); GRANULOCYTE % 46.5 % (42.2-75.2); MEAN CORPUSCULAR HGB 28.8 PG (27.0-31.0); MEAN CORPUSCULAR HGB CONC 33.5 G/DL (33.0-37.0); MEAN CORPUSCULAR VOLUME 85.8 FL (81.0-99.0); MEAN PLATELET VOLUME 9.3 FL (7.4-10.4); PLATELET COUNT 291 /CUMM (130-400); RBC DISTRIBUTION WIDTH 19.7 % (11.5-14.5); WHITE BLOOD CELL COUNT 7.8 /CUMM (4.8-10.8)
[2016-08-21 08:26] VITALS: BP 120/71
[2016-08-21 16:20] VITALS: BP 146/67
--- NOTE | 2016-08-21 22:28 | NUR ---
PER PATIENT'S REQUEST-I CUT THE SLEEVES ON HER OWN NIGHTGOWN, SLEEVES WERE BOTHERING HER ARTHRITIS
[2016-08-22 00:20] VITALS: BP 146/76
--- NOTE | 2016-08-22 06:08 | PN- Housestaff ---
See Addendum Subjective Follow-up For: PRES syndrome Subjective: refused examination this morning and asked to be left alone. Review of Systems Constitutional: Reports: see HPI. Objective Last 24 Hrs of Vital Signs/I&O Vital Signs Date Time Temp Pulse Resp B/P Pulse O2 O2 Flow FiO2 Ox Delivery Rate 08/22 0020 97.5 72 20 146/76 92 Room Air 08/21 2137 100 142/82 08/21 2137 100 142/82 08/21 1620 98.3 82 18 146/67 95 08/21 1601 146/67 08/21 1600 95 Room Air 08/21 0954 97 120/71 08/21 0953 97 120/71 08/21 0953 97 120/71 08/21 0826 97.8 97 20 120/71 91 Room Air Intake & Output 08/22 0800 08/22 0000 08/21 1600 Intake Total 800 620 Output Total Balance 800 620 Intake, Oral 800 620 Physical Exam General Appearance: refused examination Current Medications: Current Medications Sig/Desiree Start time Last Medication Dose Route Stop Time Status Admin Acetaminophen 650 MG Q6P PRN 07/25 2015 AC 08/21 PO 1337 Albuterol Sulfate 3 ML Q4P PRN 08/13 1030 AC 08/13 INH 1023 Amlodipine Besylate 10 MG DAILY 08/05 1000 AC 08/22 PO 0916 Atorvastatin Calcium 80 MG 1700 08/01 1700 AC 08/21 PO 1601 Cholecalciferol 400 IU DAILY 07/26 1000 AC 08/22 PO 0916 Ferrous Sulfate 325 MG DAILY 07/26 1000 AC 08/22 PO 0916 Gabapentin 300 MG TID 08/18 1600 AC 08/22 PO 0916 Heparin Sodium 5,000 UNIT Q8 07/25 2200 AC 08/22 (Porcine) SC 0546 Hydralazine HCl 25 MG TID 08/07 1000 AC 08/22 PO 0916 Insulin Aspart 0 TIDAC 07/29 0800 AC 08/22 SC 0917 Insulin Aspart 0 AT BEDTIME 07/28 2200 AC SC Ipratropium [place] 2.5 ML Q4P PRN 08/13 1030 AC 08/13 INH 1024 Labetalol HCl 100 MG BID 08/07 2200 AC 08/22 PO 0916 Levothyroxine Sodium 0.025 MG DAILY AC 07/26 0700 AC 08/22 PO 0546 Magnesium Chloride 128 MG BID 08/12 1045 AC 08/22 PO 0916 Montelukast Sodium 10 MG DAILY 07/26 1000 AC 08/22 PO 0916 Omeprazole 20 MG DAILY AC 07/26 0700 AC 08/22 PO 0546 Patient Medication 1 ED .STK-MED ONE 08/21 1357 DC Teaching ED 08/21 1358 Prednisone 1.5 MG Q48 07/31 1000 AC 08/22 PO 0917 Simethicone 80 MG Q6P PRN 07/30 1339 AC 08/13 PO 1620 Tramadol HCl 50 MG Q6 PRN 08/08 1445 AC 08/22 PO 0120 Trazodone HCl 50 MG AT BEDTIME NEED.. 08/10 2200 AC 08/20 PO 2118 Valproic Acid 500 MG BID 08/20 1000 AC 08/22 PO 0917 Vitamin A/Vitamin D 1 LORENA BID PRN 07/25 2345 AC 08/02 TOP 1830 Zinc Oxide 1 LORENA Q8 08/01 2200 AC 08/22 TOP 0547 Zinc Oxide 1 LORENA BID PRN 08/01 1512 AC 08/02 TOP 1830 Last 24 Hrs of Lab/Rehan Results Last 24 Hrs of Labs/Mics: Laboratory Tests 08/22/16 0800: Valproic Acid Cancelled 08/22/16 0630: Anion Gap 11, Estimated GFR 54 L, BUN/Creatinine Ratio 23.0, Magnesium 1.6, Valproic Acid 46.1 L Assessment/Plan Assessment: 76 year old lady with PMH significant for COPD on 3 L oxygen, CHF (stage II diastolic), DM2, complicated with neuropathy and gastroparesis, arthritis, mood disorders, hyperlipidemia, CRF, GERD, diverticulosis and hypothyroidism, current admission for altered mental status. A/P: # AMS and insomnia Patient is not oriented to time and place at baseline psychiatry recc continue hold off ssri, benzo and trazodone for now. - her b12 normal at 798, folate normal at 3.6 * Psych meds on hold ( sertraline 75 mg daily in AM) * Psych recommends giving 50 mg of trazodone prn, and adding another 50 mg in 1 hour if pt still cannot sleep (home dose was trazodone 50 mg in AM and 100 mg at bedtime). * from neurology has signed off and is ok with starting trazodone and/ or valproic acid. * She scored 16/29 on MMSE having memorized some of the answers from previous test. * For anxiety, she is on gabapentin to 300 mg tid scheduled. Can give 0.25 mg xanax as needed (order one time only due to risk of fall) * changed to valproic acid 250 bid for seizure ppx and mood stabilizer on 08/18 pm. keppra discontinued. valproic acid increased to 500 bid 18pm. need to check valproic level after 6 doses. # Posterior Reversible Encephalopathy Syndrome (PRES) Presented with seizure and FND in the setting of elevated BP, s/p CT guided biopsy of the thoracis spine. MRI consistent with PRES. She is currently able to move her right arm. Also her right-sided eyelid droop and left-sided hemispacial neglect are no longer present. - Doppler US of the carotid arteries: limited exam, no clear hemodynamically significant stenoses are identified. Recommend repeat exam when patient is able to tolerate the procedure. - EEG: Normal in wake state * Adequate BP control to keep systolic pressure in 140-160 * discontinued Keppra 750 mg PO BID * Hold off lorazepam 1 mg Q6 PRN for now per psych rec * Neurochecks every 4 hours * Follow neuro recs * Follow cardio recs regarding BP management # Pain management on acetaminophen 650 q6p mild pain, tramadol 50 q6p, and morphine 1mg q6p. # Diarrhea cdiff. results were negative. * Continue omeprazole 20 mg * continue simethicone 80 mg q6p * continue im tigan 200 mg tid prn # Questionable osteomyelitis/discitis of the thoracic spine * Watch for signs of infection off antibiotics * Oral and IV acetaminophen for mild * tramadol mod pain * Per ID, may consider repeat T7-T8 aspirate/biopsy by IR when patient is more stable * Appreciate ID recs # SOCORRO on CKD resolved * Continue monitor Cr daily * Avoid nephrotoxins * Improved 81.5 to 111.3. # Hypomagnesemia * mgcl 64 mg inc to 2 TABS BID po (minimize mag ox to prevent diarrhea ) # Hypertensive urgency due to PRES (resolved) * Cont labetalol to 100mg PO BID * Cont hydralazine 25mg PO TID * Cont Norvasc 10mg PO daily # Bruising on the right shoulder Patient initially had a bruise on the right shoulder, in addition to pain, decreased ROM, tenderness. She was unable to obtain complete history regarding possible trauma due to mental status. - Xray of the right shoulder did not show dislocation, fracture or hematoma, however reported widened acromioclavicular joint space to 1.2 cm wide, which was also widened on the recent chest radiograph of 07/14/2016. Patient is currently able to move her right arm, does not complain of any pain. # DM type 2 with gastroparesis and neuropathy * Accuchecks * Novolog SSI * Lyrica held given risk of seizure # Hypokalemia resolved # History of stage II CHF Echo showed normal left ventricular ejection fraction estimated at 60-65%. * Continue aspirin and statin # History of COPD * Continued on 3L home O2 and Montelukast 10 mg daily # History of GCA * Continued 1.5 mg PO prednisone q48h # Hypothyroidism * continue levothyroxine at 0.025 mg daily * Patient can follow up outpatient after discharge for further management # DVT px: ALPS and heparin SC Diet- Heart healthy, chopped and thin liquids Mild pain pathway FULL CODE Problem List: 1. PRES (posterior reversible encephalopathy syndrome) 2. Diabetes 3. Insomnia 4. Anxiety Pain Ratin Pain Location: na Pain Goal: Pain 4 or less Pain Plan: current regimen Tomorrow's Labs & Rationales: none required Consulting Request: Consulting Specialty: Neurology Consulting Physician: Reason for Consult: Posterior Reversible Encephalopathy Syndrome
--- NOTE | 2016-08-22 08:56 | NUR ---
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 CONT TO MONITOR. PT DENIES COMPLAINTS.
[2016-08-22 09:15] VITALS: BP 128/80
[2016-08-22 15:54] VITALS: BP 140/78
[2016-08-23 01:50] VITALS: BP 122/62
[2016-08-23 08:00] VITALS: BP 140/80
[2016-08-23 15:31] VITALS: BP 106/54
--- NOTE | 2016-08-23 19:14 | PN- Att Addend ---
Attending Addendum Attending Brief Note Pt seen and examined at bedside. Subjective- no complaints Objective- Pt alert but not fully oriented. CVS- S1 S2 regular rate and rhythm Abdomen- soft non tender. Vitals reviewed No new labs. A/p Altered mental status - Cognitive decline - pt needs placement in [facility] and may benefit from dementia unit. d/w grand daughter the care plan.
[2016-08-24 00:24] VITALS: BP 104/54
[2016-08-24 08:24] VITALS: BP 120/68
[2016-08-24 16:01] VITALS: BP 120/70
--- NOTE | 2016-08-24 16:26 | PN- Att Addend ---
Attending Addendum Attending Brief Note Current Medications Sig/Desiree Start time Last Medication Dose Route Stop Time Status Admin Acetaminophen 650 MG .STK-MED ONE 08/24 0652 DC PO 08/24 0653 Acetaminophen 650 MG .STK-MED ONE 08/24 0139 DC PO 08/24 0140 Acetaminophen 650 MG .STK-MED ONE 08/23 1811 DC PO 08/23 181 Acetaminophen 650 MG Q6P PRN 07/25 2015 AC 08/24 PO 0657 Albuterol Sulfate 3 ML Q4P PRN 08/13 1030 AC 08/13 INH 1023 Amlodipine Besylate 10 MG DAILY 08/05 1000 AC 08/24 PO 0803 Atorvastatin Calcium 80 MG 1700 08/01 1700 AC 08/23 PO 1808 Cholecalciferol 400 IU DAILY 07/26 1000 AC 08/24 PO 0803 Ferrous Sulfate 325 MG DAILY 07/26 1000 AC 08/24 PO 0804 Gabapentin 300 MG TID 08/18 1600 AC 08/24 PO 0803 Heparin Sodium 5,000 UNIT Q8 07/25 2200 AC 08/24 (Porcine) SC 1435 Hydralazine HCl 25 MG TID 08/07 1000 AC 08/24 PO 0803 Insulin Aspart 0 TIDAC 07/29 0800 AC 08/24 SC 1210 Insulin Aspart 0 AT BEDTIME 07/28 2200 AC SC Ipratropium [place] 2.5 ML Q4P PRN 08/13 1030 AC 08/13 INH 1024 Labetalol HCl 100 MG BID 08/07 2200 AC 08/24 PO 0804 Levothyroxine Sodium 0.025 MG DAILY AC 07/26 0700 AC 08/24 PO 0655 Magnesium Chloride 128 MG BID 08/12 1045 AC 08/24 PO 0804 Montelukast Sodium 10 MG DAILY 07/26 1000 AC 08/24 PO 0803 Omeprazole 20 MG DAILY AC 07/26 0700 AC 08/24 PO 0655 Prednisone 1.5 MG Q48 07/31 1000 AC 08/24 PO 0804 Simethicone 80 MG Q6P PRN 07/30 1339 AC 08/13 PO 1620 Tramadol HCl 50 MG Q6 PRN 08/08 1445 AC 08/24 PO 0936 Trazodone HCl 50 MG AT BEDTIME NEED.. 08/10 2200 AC 08/23 PO 2216 Valproic Acid 500 MG BID 08/20 1000 AC 08/24 PO 0936 Vitamin A/Vitamin D 1 LORENA BID PRN 07/25 2345 AC 08/02 TOP 1830 Zinc Oxide 1 LORENA Q8 08/01 2200 AC 08/23 TOP 2217 Zinc Oxide 1 LORENA BID PRN 08/01 1512 AC 08/02 TOP 1830 Vital Signs Date Time Temp Pulse Resp B/P Pulse O2 O2 Flow FiO2 Ox Delivery Rate 08/24 1601 97.5 83 18 120/70 94 08/24 0824 98.1 80 20 120/68 93 Room Air 08/24 0803 68 132/78 08/24 0024 96.9 83 20 104/54 93 08/23 2216 100 154/60 08/23 2216 100 154/60 Intake & Output 08/24 0000 08/24 0800 08/24 1600 Intake Total 800 900 Output Total Balance 800 900 Intake, IV 0 Intake, Oral 800 900 Number 1 0 Bowel Movements Assessment/Plan Assessment/Plan PRES- resolved , cont to monitor BP closely, BP stable Seizures secondary to PRES- pt seizure free, cont to monitor on valproic acid Bipolar disorder- montior on valproic acid, psych following Altered mental status- likely combination of cognitive decline and pscyh issues. cont to monitor. SOCORRO- resolved now. Pt awaiting placement into [facility]. Consult Acknowledgment - Thank you for your consult request. Review of Systems Review of Systems Constitutional: Denies: no symptoms. EENTM: Denies: no symptoms. Cardiovascular: Denies: chest pain. Respiratory: Denies: cough. GI: Denies: diarrhea. Physical Exam Physical Exam General Appearance: well developed/nourished, no apparent distress, alert Head: atraumatic Eyes: Bilateral: normal appearance, EOMI. Ears, Nose, Throat: hearing grossly normal Respiratory: lungs clear Cardiovascular: regular rate/rhythm Core Measures ACS in differential dx? No CVA/TIA Diagnosis: No Severe Sepsis Present: No Septic Shock Present: No
--- NOTE | 2016-08-24 17:02 | PN- Psychiatry ---
Assessment/Plan Impression: 76-year-old included female admitted to [facility] for diarrhea, and treated for PRES, now resolving. Seen ambulating on the unit with sitter, interviewed sitting in the unit kitchen. Patient states "I had a busy day I have done a lot of a walking." She is calm and cooperative with interview but has difficulty participating at times due to cognitive deficits. Mental Status Exam Orientation/Presentation: Oriented to self and season, not date or year, alert Mood: "I'm fine... see I'm happy, don't you think I'm happy" Affect: Somewhat blunted but congruent with stated mood Sadness: Denies Anxiety: Denies Denies SI/HI, AH/VH, PI. States and also believes they will not kill themselves. Denies Hopeless/Helpless Speech: Repetitive, patient often repeats her self, somewhat dysarthric Eye contact: Appropriate Thought Process: Tangential at times with loose associations, confusion at times Judgment/Insight: Poor Memory: Short-term deficits, long-term appears more intact able to state many facts of her childhood Per nursing that that is still in place but besides her up in the orders discontinued. Sitter continues. Patient has been impulsive and continues to state that she is going to leave the hospital Per chart she refused house staff exam this morning Lab Valproic Acid 46.1 ug/mL L 08/22/16 0630 Valproic Acid 57.1 ug/mL 08/24/16 0645 Case discussed with supervising psychiatrist, would like to increase patient's Depakote at this time. Differential diagnosis Unspecified neurocognitive disorder (family history of Alzheimer's disease) Delirium due to multiple etiologies, resolving Suggestion: 1. Please increase evening Depakote dose to 750 mg for a total of 1250mg daily. 2. Please draw VPA level on August 28 prior to a.m. Depakote dose. 3. Please continue Neurontin and trazodone as currently ordered. 4. Continue sitter. 5. Please continue to avoid benzodiazepines, opioid analgesics, and meds with strong anticholinergic properties as much as possible to prevent further confusion. 6. Please continue the following nonpharmacologic interventions: -Avoid nursing and medical procedures during sleep hours whenever possible - Cluster at night interventions that must be completed as much as possible to minimize sleep disruption - Decrease noise in patient area during sleeping hours - Reduce lighting at night - Ensure patient has any sensory aids close by that he regularly uses Thank you for including psychiatry in this case we will continue to follow Shiv Watkins APRN, pager [phone] Subjective Subjective: .
[2016-08-25 01:32] VITALS: BP 122/78
[2016-08-25 09:24] VITALS: BP 128/62
--- NOTE | 2016-08-25 15:09 | NUR ---
Participated in a team meeting with patients granddaughter Gerry on 08/22/16. Barriers to discharge discussed; behavior and isolation status. Reviewed new bed search; no bed offers currently. Grand daughter looking for transfer to [facility]'s in [facility] where she is not yet on the waiting lists for commercial credit portfolio manager care. Reviewed return to [facility] and Dept. Director, Justus Cortez encouraged her to make contact with Seamer Operator at [facility]. Follow.
[2016-08-25 16:45] VITALS: BP 124/64
--- NOTE | 2016-08-25 17:54 | PN- Att Addend ---
Attending Addendum Attending Brief Note S: The patient was seen by me for the first time. She was lying in bed with c/o right shoulder and RUE pain. Alert, but somewhat confused. With sitter. O: VS: Vital Signs Date Time Temp Pulse Resp B/P Pulse O2 O2 Flow FiO2 Ox Delivery Rate 08/25 1645 98.0 89 17 124/64 96 Room Air 08/25 1213 88 128/62 08/25 1213 88 128/62 08/25 1212 88 128/62 08/25 0945 Room Air 2.0L 08/25 0924 98.4 88 20 128/62 93 Room Air 08/25 0132 97.8 88 20 122/78 95 Intake & Output 08/25 1600 08/25 0800 08/25 0000 Intake Total 076 793 4152 Output Total Balance 446 380 2202 Intake, Oral 899 790 7492 Number 0 0 Bowel Movements Current Medications Sig/Desiree Start time Last Medication Dose Route Stop Time Status Admin Acetaminophen 650 MG Q6P PRN 07/25 2015 AC 08/24 PO 0657 Albuterol Sulfate 3 ML Q4P PRN 08/13 1030 AC 08/13 INH 1023 Amlodipine Besylate 10 MG DAILY 08/05 1000 AC 08/25 PO 1213 Atorvastatin Calcium 80 MG 1700 08/01 1700 AC 08/24 PO 1701 Cholecalciferol 400 IU DAILY 07/26 1000 AC 08/25 PO 1214 Ferrous Sulfate 325 MG DAILY 07/26 1000 AC 08/25 PO 1212 Gabapentin 300 MG TID 08/18 1600 AC 08/25 PO 1212 Heparin Sodium 5,000 UNIT Q8 07/25 2200 AC 08/25 (Porcine) SC 1502 Hydralazine HCl 25 MG TID 08/07 1000 AC 08/25 PO 1212 Insulin Aspart 0 TIDAC 07/29 0800 AC 08/25 SC 1232 Insulin Aspart 0 AT BEDTIME 07/28 2200 AC SC Ipratropium Wilcox 2.5 ML Q4P PRN 08/13 1030 AC 08/13 INH 1024 Labetalol HCl 100 MG BID 08/07 2200 AC 08/25 PO 1213 Levothyroxine Sodium 0.025 MG DAILY AC 07/26 0700 AC 08/25 PO 0651 Magnesium Chloride 128 MG BID 08/12 1045 AC 08/25 PO 1214 Montelukast Sodium 10 MG DAILY 07/26 1000 AC 08/25 PO 1213 Omeprazole 20 MG DAILY AC 07/26 0700 AC 08/25 PO 0651 Prednisone 1.5 MG Q48 07/31 1000 AC 08/24 PO 0804 Simethicone 80 MG Q6P PRN 07/30 1339 AC 08/13 PO 1620 Tramadol HCl 50 MG Q6 PRN 08/08 1445 AC 08/25 PO 1226 Trazodone HCl 50 MG AT BEDTIME NEED.. 08/10 2200 08/23 PO 2216 Valproic Acid 500 MG BID 08/20 1000 AC 08/25 PO 1214 Vitamin A/Vitamin D 1 LORENA BID PRN 07/25 2345 08/02 TOP 1830 Zinc Oxide 1 LORENA Q8 08/01 2200 08/25 TOP 1502 Zinc Oxide 1 LORENA BID PRN 08/01 1512 08/02 TOP 1830 Physical Exam: HEENT: eyes- PERRLA, EOMI mariza- moist mucosa w/o lesions Neck: no adenopathy Chest: clear Cor: RRR, nl S1, S2 w/o murm Abd: BS+, soft, NT Ext: no edema Neuro: alert, non-focal Labs: Laboratory Tests 08/24/16 0645: Valproic Acid 57.1 Impression/Plan: #Altered Mental Status- ? slightly improved as per psych. Most likely multifactorial delirium- ? medication withdrawal (benzo), dementia, anxiety. Slow improvement, however still requiring sitter. Plan: Will review OP meds (will discuss with Fercho) and review current use of meds. Continue to observe. Increase Depakote as per psychiatry. Check level Sunday. #HTN- on Hydralazine, Labetalol and Amlodipine. Was on Losartan as OP. Plan: Will review meds and consider changing. F/U lytes. #GERD- stable on Omeprazole Plan: Continue omeprazole. #DM2- glu 177 177, 153, 147. Plan: Continue insulin and follow. #Anemia- on iron. Last H/H slightly decreased. Plan: Will obtain f/u H/H in morning. #Hypothyroid- has been euthyroid. Plan: Continue with current medication. #Neuropathic Pain- the patient was on Lyrica prior to admission (not gabapentin) . C/O pain and is taking Tramadol. Plan: Will check with Fercho which meds the patient was taking.
[2016-08-26 00:31] VITALS: BP 118/60
[2016-08-26 08:27] VITALS: BP 140/53
[2016-08-26 08:30] LABS: ABSOLUTE BASOPHIL COUNT 0 /CUMM (0.0-0.2); ABSOLUTE EOSINOPHIL COUNT 0.3 /CUMM (0.0-0.7); ABSOLUTE GRANULOCYTE CT 3.2 /CUMM (1.4-6.5); ABSOLUTE LYMPH COUNT 3.6 /CUMM (1.2-3.4); ABSOLUTE MONOCYTE COUNT 0.9 /CUMM (0.10-0.60); BASOPHIL % 0.6 % (0.0-2.0); EOSINOPHIL % 3.6 % (0-5); GRANULOCYTE % 40.2 % (42.2-75.2); MEAN CORPUSCULAR HGB 29.8 PG (27.0-31.0); MEAN CORPUSCULAR HGB CONC 33.7 G/DL (33.0-37.0); MEAN CORPUSCULAR VOLUME 88.4 FL (81.0-99.0); MEAN PLATELET VOLUME 9.6 FL (7.4-10.4); PLATELET COUNT 267 /CUMM (130-400); RBC DISTRIBUTION WIDTH 19.4 % (11.5-14.5); RED BLOOD CELL CT 3.39 /CUMM (4.20-5.40)
[2016-08-26 09:31] LABS: WHITE BLOOD CELL COUNT 8.1 /CUMM (4.8-10.8)
--- NOTE | 2016-08-26 14:30 | PN- Att Addend ---
Attending Addendum Attending Brief Note S: Patient continues to c/o shoulder pain and upper back pain w/o change. O: VS: Vital Signs Date Time Temp Pulse Resp B/P Pulse O2 O2 Flow FiO2 Ox Delivery Rate 08/26 09 80 148/66 08/26 0953 80 148/66 08/26 0953 80 148/66 08/26 0827 97.8 80 20 140/53 94 Room Air 08/26 0031 97.8 75 20 118/60 95 Room Air 08/25 2316 89 120/60 08/25 2313 89 124/64 08/25 1645 98.0 89 17 124/64 96 Room Air 08/25 1600 80 134/76 Intake & Output 08/26 1600 08/26 0800 08/26 0000 Intake Total 480 240 450 Output Total Balance 480 240 450 Intake, Oral 480 240 450 Current Medications Sig/Desiree Start time Last Medication Dose Route Stop Time Status Admin Acetaminophen 650 MG .STK-MED ONE 08/26 0144 DC PO 08/26 0145 Acetaminophen 650 MG .STK-MED ONE 08/25 190 DC PO 08/25 1909 Acetaminophen 650 MG Q6P PRN 07/25 2015 AC 08/26 PO 0147 Albuterol Sulfate 3 ML Q4P PRN 08/13 1030 AC 08/13 INH 1023 Amlodipine Besylate 10 MG DAILY 08/05 1000 AC 08/26 PO 0953 Atorvastatin Calcium 80 MG 1700 08/01 1700 AC 08/25 PO 1700 Cholecalciferol 400 IU DAILY 07/26 1000 AC 08/26 PO 0953 Ferrous Sulfate 325 MG DAILY 07/26 1000 AC 08/26 PO 0953 Gabapentin 300 MG TID 08/18 1600 AC 08/26 PO 0953 Heparin Sodium 5,000 UNIT Q8 07/25 2200 AC 08/26 (Porcine) SC 0626 Hydralazine HCl 25 MG TID 08/07 1000 AC 08/26 PO 0953 Insulin Aspart 0 TIDAC 07/29 0800 AC 08/26 SC 1232 Insulin Aspart 0 AT BEDTIME 07/28 2200 AC SC Ipratropium [place] 2.5 ML Q4P PRN 08/13 1030 AC 08/13 INH 1024 Labetalol HCl 100 MG BID 08/07 2200 AC 08/26 PO 0953 Levothyroxine Sodium 0.025 MG DAILY AC 07/26 0700 AC 08/26 PO 0626 Magnesium Chloride 128 MG BID 08/12 1045 AC 08/26 PO 0954 Montelukast Sodium 10 MG DAILY 07/26 1000 AC 08/26 PO 0953 Omeprazole 20 MG DAILY AC 07/26 0700 AC 08/26 PO 0626 Prednisone 1.5 MG Q48 07/31 1000 AC 08/26 PO 0954 Simethicone 80 MG Q6P PRN 07/30 1339 AC 08/13 PO 1620 Tramadol HCl 50 MG Q6 PRN 08/08 1445 AC 08/26 PO 1237 Trazodone HCl 50 MG AT BEDTIME NEED.. 08/10 2200 AC 08/23 PO 2216 Valproic Acid 750 MG BID 08/25 2200 AC 08/26 PO 0954 Valproic Acid 500 MG BID 08/20 1000 DC 08/25 PO 1214 Vitamin A/Vitamin D 1 LORENA BID PRN 07/25 2345 AC 08/02 TOP 1830 Zinc Oxide 1 LORENA Q8 08/01 2200 AC 08/25 TOP 2320 Zinc Oxide 1 LORENA BID PRN 08/01 1512 AC 08/02 TOP 1830 Physical Exam: HEENT: eyes- PERRLA, EOMI mariza- moist mucosa w/o lesions Neck: no adenopathy Chest: clear Cor: RRR, nl S1, S2 w/o murm Abd: BS+, soft, NT Ext: no edema Neuro: alert, non-focal Labs: Laboratory Tests 08/24/16 0645: Valproic Acid 57.1 Laboratory Tests 08/26/16 0630: Anion Gap 8, Estimated GFR 54 L, BUN/Creatinine Ratio 26.0 H, CBC w Diff NO MAN DIFF REQ, RBC 3.39 L, MCV 88.4, MCH 29.8, RDW 19.4 H, MPV 9.6, Gran % 40.2 L, Lymphocytes % 45.0, Monocytes % 10.6 H, Eosinophils % 3.6, Basophils % 0.6, Absolute Granulocytes 3.2, Absolute Lymphocytes 3.6 H, Absolute Monocytes 0.9 H, Absolute Eosinophils 0.3, Absolute Basophils 0, PUBS MCHC 33.7 Impression/Plan: #Altered Mental Status- ? slightly improved as per psych. Most likely multifactorial delirium- ? medication withdrawal (benzo), dementia, anxiety. Slow improvement, however still requiring sitter. Plan: Will review OP meds (will discuss with Fercho) and review current use of meds. Continue to observe. Observe behavior on increased Depakote as per psychiatry (increased yesterday). Check level Sunday. #HTN- on Hydralazine, Labetalol and Amlodipine. Was on Losartan as OP. Plan: Will review meds and consider changing. F/U lytes. #GERD- stable on Omeprazole Plan: Continue omeprazole. #DM2- glu 193, 164, 198, 155 24 hr. Plan: Continue insulin and follow. #Anemia- on iron. Last H/H slightly decreased. Plan: Will obtain f/u H/H in morning. #Hypothyroid- has been euthyroid. Plan: Continue with current medication. #Neuropathic Pain- the patient was on Lyrica prior to admission (not gabapentin) . C/O pain and is taking Tramadol. Plan: Will check with Fercho which meds the patient was taking.
[2016-08-26 16:35] VITALS: BP 138/70
[2016-08-27 00:11] VITALS: BP 188/91
--- NOTE | 2016-08-27 02:04 | NUR ---
LATE ENTRY: @ 0661 08/26 PT'S BP 188/91. # 899 MADE AWARE
--- NOTE | 2016-08-27 02:05 | NUR ---
LATE ENTRY: PT RECEIVED SCHEDULED HYDRALAZINE, NORVASC, AND LABETALOL
--- NOTE | 2016-08-27 02:07 | NUR ---
LATE ENTRY: @ 0000 PT REFUSED RECHECK OF VS. PT DENIES SOB, MITCHELL, CHEST PAIN/PALPPITATION. WILL CONTINUE TO MONITOR.
--- NOTE | 2016-08-27 02:09 | NUR ---
PT SLEEPING COMFORTABLE
[2016-08-27 05:21] VITALS: BP 150/74
--- NOTE | 2016-08-27 06:56 | NUR ---
0400 PT AGREED WITH VS CHECK. BP 150/74 P 80.
[2016-08-27 15:55] VITALS: BP 116/92
--- NOTE | 2016-08-27 16:35 | PN- Att Addend ---
Attending Addendum Attending Brief Note S: The patient did not complain about pain to me today. Ambulating better. Conversing with social work program coordinator. O: VS: Vital Signs Date Time Temp Pulse Resp B/P Pulse O2 O2 Flow FiO2 Ox Delivery Rate 08/27 1630 88 142/56 08/27 1555 98.9 89 20 116/92 93 08/27 0853 84 146/74 08/27 0853 84 146/74 08/27 0853 84 146/74 08/27 0800 96 Nasal 2.0L Cannula 08/27 0521 150/74 08/27 0011 97.7 80 19 188/91 90 Room Air 08/26 2215 74 138/70 08/26 2215 75 138/70 08/26 1708 74 130/70 08/26 1635 97.8 74 20 138/70 95 Intake & Output 08/27 1600 08/27 0800 08/27 0000 Intake Total 240 360 Output Total Balance 240 360 Intake, Oral 240 360 Current Medications Sig/Desiree Start time Last Medication Dose Route Stop Time Status Admin Acetaminophen 650 MG .ST-MED ONE 08/26 1710 DC PO 08/26 1711 Acetaminophen 650 MG Q6P PRN 07/25 2015 AC 08/27 PO 1351 Albuterol Sulfate 3 ML Q4P PRN 08/13 1030 AC 08/13 INH 1023 Amlodipine Besylate 10 MG DAILY 08/05 1000 AC 08/27 PO 0853 Atorvastatin Calcium 80 MG 1700 08/01 1700 AC 08/27 PO 1625 Cholecalciferol 400 IU DAILY 07/26 1000 AC 08/27 PO 0853 Ferrous Sulfate 325 MG DAILY 07/26 1000 AC 08/27 PO 0853 Gabapentin 300 MG TID 08/18 1600 AC 08/27 PO 1625 Heparin Sodium 5,000 UNIT Q8 07/25 2200 AC 08/27 (Porcine) SC 1353 Hydralazine HCl 25 MG TID 08/07 1000 AC 08/27 PO 1630 Insulin Aspart 0 TIDAC 07/29 0800 AC 08/27 SC 1351 Insulin Aspart 0 AT BEDTIME 07/28 220 AC SC Ipratropium [place] 2.5 ML Q4P PRN 08/13 1030 AC 08/13 INH 1024 Labetalol HCl 100 MG BID 08/07 2200 AC 08/27 PO 0853 Levothyroxine Sodium 0.025 MG DAILY AC 07/26 0700 AC 08/27 PO 0522 Magnesium Chloride 128 MG BID 08/12 1045 AC 08/27 PO 0854 Montelukast Sodium 10 MG DAILY 07/26 1000 AC 08/27 PO 0853 Omeprazole 20 MG DAILY AC 07/26 0700 AC 08/27 PO 0522 Prednisone 1.5 MG Q48 07/31 1000 AC 08/26 PO 0954 Simethicone 80 MG Q6P PRN 07/30 1339 AC 08/13 PO 1620 Tramadol HCl 50 MG Q6 PRN 08/08 1445 AC 08/27 PO 0522 Trazodone HCl 50 MG AT BEDTIME NEED.. 08/10 2200 AC 08/26 PO 2215 Valproic Acid 750 MG BID 08/25 2200 AC 08/27 PO 0852 Vitamin A/Vitamin D 1 LORENA BID PRN 07/25 2345 AC 08/02 TOP 1830 Zinc Oxide 1 LORENA Q8 08/01 2200 08/27 TOP 1351 Zinc Oxide 1 LORENA BID PRN 08/01 1512 08/02 TOP 1830 Physical Exam: HEENT: eyes- PERRLA, EOMI mariza- moist mucosa w/o lesions Neck: no adenopathy Chest: clear Cor: RRR, nl S1, S2 w/o murm Abd: BS+, soft, NT Ext: no edema Neuro: alert, non-focal Labs done 08/26 stable Impression/Plan: #Altered Mental Status- ? slightly improved as per psych on increased dose of Depakote. Most likely multifactorial delirium- ? medication withdrawal (benzo), dementia, anxiety. Slow improvement, however still requiring social work program coordinator. Plan: Will review OP meds (will discuss with Fercho) and review current use of meds. Continue to observe. Observe behavior on increased Depakote as per psychiatry. Check level tomorrow. #HTN- on Hydralazine, Labetalol and Amlodipine. Was on Losartan as OP. Plan: Will review meds and consider changing. F/U lytes. #GERD- stable on Omeprazole Plan: Continue omeprazole. #DM2- glu 24 hr. 134, 166, 205, 160 Plan: Continue insulin and follow. #Anemia- on iron. Last H/H slightly decreased. Plan: Will obtain f/u H/H in morning. #Hypothyroid- has been euthyroid. Plan: Continue with current medication. #Neuropathic Pain- the patient was on Lyrica prior to admission (not gabapentin) . C/O pain and is taking Tramadol. Plan: Will check with Brantley which meds the patient was taking.
[2016-08-28 00:08] VITALS: BP 124/62
[2016-08-28 08:06] VITALS: BP 148/82
--- NOTE | 2016-08-28 09:34 | NUR ---
NURSING NOTE: PT REFUSED LAB TO DRAW AM LABS; [facility]ST TRIED; PT AGREEABLE AT FIRST THEN TOOK OFF [facility] WAS GOING TO DRAW, DR CASTELLANO CALLED AND MADE AWARE, NO FURTHER ORDERS AT THIS TIME, DR CASTELLANO TO RENEW [facility]
--- NOTE | 2016-08-28 16:08 | PN- Att Addend ---
Attending Addendum Attending Brief Note S: The patient was ambulating with sitter w/o problems today. She did not offer any complaints of pain today or yesterday to me. Still somewhat inappropriate, but appears improved on higher dose of Depakene. She refused blood draw this morning for Depakote level. O: VS: Vital Signs Date Time Temp Pulse Resp B/P Pulse O2 O2 Flow FiO2 Ox Delivery Rate 08/28 08 66 132/78 08/28 0806 97.7 92 20 148/82 92 08/28 0008 97.9 82 20 124/62 94 08/27 210 82 148/92 08/27 210 82 148/92 08/27 1630 88 142/56 Intake & Output 08/28 1600 08/28 0800 08/28 0000 Intake Total 900 600 480 Output Total Balance 900 600 480 Intake, IV 0 Intake, Oral 900 600 480 Number 1 1 Bowel Movements Current Medications Sig/Desiree Start time Last Medication Dose Route Stop Time Status Admin Acetaminophen 650 MG .STK-MED ONE 08/28 0546 DC PO 08/28 0547 Acetaminophen 650 MG Q6P PRN 07/25 2015 AC 08/28 PO 0551 Albuterol Sulfate 3 ML Q4P PRN 08/13 1030 AC 08/13 INH 1023 Amlodipine Besylate 10 MG DAILY 08/05 1000 AC 08/28 PO 0859 Atorvastatin Calcium 80 MG 1700 08/01 1700 AC 08/27 PO 1625 Cholecalciferol 400 IU DAILY 07/26 1000 AC 08/28 PO 0858 Ferrous Sulfate 325 MG DAILY 07/26 1000 AC 08/28 PO 0858 Gabapentin 300 MG TID 08/18 1600 AC 08/28 PO 0858 Heparin Sodium 5,000 UNIT Q8 07/25 2200 AC 08/28 (Porcine) SC 1351 Hydralazine HCl 25 MG TID 08/07 1000 AC 08/28 PO 0858 Insulin Aspart 0 TIDAC 07/29 0800 AC 08/28 SC 0858 Insulin Aspart 0 AT BEDTIME 07/28 220 AC SC Ipratropium Mcdowell 2.5 ML Q4P PRN 08/13 1030 AC 08/13 INH 1024 Labetalol HCl 100 MG BID 08/07 2200 AC 08/28 PO 0858 Levothyroxine Sodium 0.025 MG DAILY AC 07/26 0700 AC 08/28 PO 0551 Magnesium Chloride 128 MG BID 08/12 1045 AC 08/28 PO 0859 Montelukast Sodium 10 MG DAILY 07/26 1000 AC 08/28 PO 0859 Omeprazole 20 MG DAILY AC 07/26 0700 AC 08/28 PO 0551 Prednisone 1.5 MG Q48 07/31 1000 AC 08/28 PO 0859 Simethicone 80 MG Q6P PRN 07/30 1339 AC 08/13 PO 1620 Tramadol HCl 50 MG Q6 PRN 08/08 1445 AC 08/27 PO 2104 Trazodone HCl 50 MG AT BEDTIME NEED.. 08/10 2200 AC 08/26 PO 2215 Valproic Acid 750 MG BID 08/25 2200 AC 08/28 PO 0859 Vitamin A/Vitamin D 1 LORENA BID PRN 07/25 2345 AC 08/02 TOP 1830 Zinc Oxide 1 LORENA Q8 08/01 2200 DC 08/27 TOP 2105 Zinc Oxide 1 LORENA BID PRN 08/01 1512 AC 08/02 TOP 1830 Physical Exam: HEENT: eyes- PERRLA, EOMI mariza- moist mucosa w/o lesions Neck: no adenopathy Chest: clear Cor: RRR, nl S1, S2 w/o murm Abd: BS+, soft, NT Ext: no edema Neuro: alert, non-focal Labs: Patient refused blood this morning. Impression/Plan: #Altered Mental Status- appears slightly improved on increased dose of Depakote. Most likely multifactorial delirium- ? medication withdrawal (benzo), dementia, anxiety. Slow improvement, however still requiring threat monitoring analyst. Refused Depakote level this morning. Plan: Will review OP meds (will discuss with Fercho) and review current use of meds. Continue to observe. Observe behavior on increased Depakote as per psychiatry. Will attempt to draw Depakote level again tomorrow. #HTN- on Hydralazine, Labetalol and Amlodipine. Was on Losartan as OP. Plan: Will review meds and consider changing. #GERD- stable on Omeprazole Plan: Continue omeprazole. #DM2- glu 24 hr. 119, 216, 154, 134 Plan: Continue insulin and follow. #Anemia- on iron. Last H/H w/o change at 10.1/30.0 on 08/26/16. Plan: Will follow H/H 1 week. #Hypothyroid- has been euthyroid. Plan: Continue with current medication. #Neuropathic Pain- the patient was on Lyrica prior to admission (not gabapentin) . C/O pain and is taking Tramadol. Plan: Will check with Brantley which meds the patient was taking.
[2016-08-28 16:19] VITALS: BP 156/76
[2016-08-28 23:00] VITALS: BP 138/62
[2016-08-29 09:13] VITALS: BP 132/78
--- NOTE | 2016-08-29 13:25 | PN- Att Addend ---
Attending Addendum Attending Brief Note Patient seen and examined. She is calm and cooperative with the net bed unzipped and the sitter at the bedside. On exam her blood pressure is 130/80, pulse rate is 76, breathing at 16-18 She keeps asking me when she is going to go home. Lungs are clear to auscultation, heart is S1-S2 regular, abdomen is obese nontender and I didn't appreciate any edema. Her Depakote level is 68 which is therapeutic. She is a 76-year-old female who had uncontrolled hypertension, PRES and seizures and now the active issue is altered mentation requiring a sitter. We are actively titrating the psychiatric meds, have her pressure controlled and she is awaiting placement.
[2016-08-29 16:13] VITALS: BP 126/72
[2016-08-30 00:11] VITALS: BP 136/58
[2016-08-30 07:35] VITALS: BP 140/62
--- NOTE | 2016-08-30 13:55 | PN- Att Addend ---
Attending Addendum Attending Brief Note Patient seen and examined. She is calm and cooperative with the net bed unzipped and the monitoring engineer outside On exam her blood pressure is 140/80, pulse rate is 76, breathing at 16-18 She keeps asking me when she is going to go home. Lungs are clear to auscultation, heart is S1-S2 regular, abdomen is obese nontender and I didn't appreciate any edema. Her Depakote level is 68 (08/29/16) which is therapeutic. She is a 76-year-old female who had uncontrolled hypertension, PRES and seizures and now the active issue is altered mentation requiring a sitter. We are actively titrating the psychiatric meds, have her pressure controlled and she is awaiting placement.
[2016-08-30] MEDS ORDERED: SLOW-MAG71.5 MG PO (14:20)
[2016-08-30] MEDS ORDERED: GABAPENTIN300 M2 PO (14:20)
[2016-08-30] MEDS ORDERED: VALPROIC A250 MG/53 PO (14:20)
[2016-08-30] MEDS ORDERED: ALBUTEROL2.5 MG/3 M INH (14:20)
[2016-08-30 17:08] VITALS: BP 138/72
[2016-08-30 22:15] VITALS: BP 130/80
[2016-08-31 07:52] VITALS: BP 130/78
--- NOTE | 2016-08-31 10:04 | PN- Att Addend ---
Attending Addendum Attending Brief Note Patient seen and examined. She is lying calmly. She is appropriate alert and cooperative. Intermittently she keeps telling me that she is going to go to [place] today. On physical exam pressure is 120/80, pulse of 75, afebrile and respiratory rate is 16. Neck is supple, lungs are clear to auscultation, heart is S1-S2 regular, abdomen is soft nontender. She is a 76-year-old female with neurocognitive decline, had uncontrolled hypertension and PRES. Now her pressure is well controlled and she is on Depakene for mood stabilization. And we are awaiting placement.
[2016-08-31 15:49] VITALS: BP 124/62
[2016-09-01 08:18] VITALS: BP 128/60
--- NOTE | 2016-09-01 09:59 | PN- Att Addend ---
Attending Addendum Attending Brief Note Patient is calm and cooperative. Se keeps saying she is going to [place] today. On exam she is alert awake, blood pressure is 120/80, pulse is 76, breathing at 16-18, afebrile. Neck is supple, lungs are clear to auscultation, heart is S1- S2 regular, abdomen is soft nontender. 76-year-old with cognitive decline, uncontrolled hypertension and PRES syndrome that since resolved, diabetes and on Depakene for behavioral issues. The construction equipment mechanic helper is primarily for a fall risk. We are awaiting placement.
[2016-09-01 16:24] VITALS: BP 130/62
--- NOTE | 2016-09-01 18:29 | PN- Psychiatry ---
Assessment/Plan Impression: Valproic acid is currently 750 mg PO 2X/day. The last surveillance lab for valproic acid was 68.5, or within the therapeutic range, on 08/29/2016. The patient is responding to this medication well. The patient is not agitated at this time, but is mildly confused, but easily re- oriented. She is in no distress, was not observed to be acting impulsively. I have ordered a valproic acid level for tomorrow morning at trough. She is appropriate, and ready for discharge from a psychiatric point of view. Suggestion: 1. Continue trazodone 50 mg by mouth at bedtime for insomnia. 2. Continue gabapentin 300 mg PO 3X/day for anxiety, an off-label use. 3. Continue to avoid benzodiazepines, or medications with anticholinergic properties. If possible, consider an alternative to tramadol. 4. Valproic acid level has been ordered for 09/02/2016, at 0800, at trough. Please advise on-call psychiatry over the weekend, if valproic acid level is supratherapeutic. 5. If the valproic acid remains within the therapeutic window, please continue this medication at the current dosing of 750 mg PO 2 times per day. We will continue to follow along with you. Сергей aMncia APRN, pager 100. Subjective Subjective: I revisited the patient today, 09/01/2016, at 1410, in room 205. Her safety monitor was with her. The patient is calm, pleasant and conversational, discussing visits by her granddaughter's and her son. She is alert and oriented to person, place, is off by one day, and not oriented to month and year. She denies auditory or visual hallucinations, and presents no lo delusions. She denies any racing thoughts, and reports that she had slept well all night. She reports, "unhappy." The patient sat calmly with me, and mentioned that she would like to sit in a slightly different location, due to a draft, but remained sitting throughout this brief interview. The patient reports that she is tolerating her Depakote well. She states that her appetite is normal, but is complaining about being thirsty; nursing was notified.
[2016-09-02 06:48] VITALS: BP 150/70
--- NOTE | 2016-09-02 13:19 | NUR ---
NURSING NOTE: PT WITH AUDIBLE WHEEZING WHEN GETTING UP TO THE BATHROOM, DR HEATON AWARE, PT DENIES DISTRESS, ROOM AIR 95%.. WHEEZING NOT NOTED WHEN PT LYING BACK IN BED, CONT TO MONITOR.
--- NOTE | 2016-09-02 13:20 | PN- Att Addend ---
Attending Addendum Attending Brief Note Patient talks a lot. She is easily redirectable and at times mildly confused. She keeps asking me when she is leaving. Blood pressure is 150/70, pulse rate of 78, breathing at 16-18 and afebrile. Lungs have very scattered expiratory wheezes, heart is S1-S2 regular, abdomen is soft nontender. She is a 76-year- old with cognitive decline, behavioral issues, PRES syndrome and uncontrolled hypertension that since resolved and is here awaiting placement. The Depakene level is therapeutic we will continue to the current dose.
[2016-09-02 17:01] VITALS: BP 128/70
[2016-09-03] VITALS: BP 124/68
[2016-09-03 06:59] VITALS: BP 120/70
--- NOTE | 2016-09-03 10:39 | PN- Att Addend ---
Attending Addendum Attending Brief Note Patient is talking a lot. She is eager to leave. She has the safety monitor primarily for a fall risk. On exam she is normotensive, pulse is 78, breathing at 16-18, afebrile Awake alert, lungs are clear to auscultation, heart is S1-S2 regular, abdomen is soft. She is a 76-year-old with a history of cognitive decline and behavioral issues who is here after treatment for press syndrome and malignant hypertension. Awaiting placement.
[2016-09-03 16:00] VITALS: BP 136/70
[2016-09-03 16:38] VITALS: BP 100/64
--- NOTE | 2016-09-04 12:24 | PN- Att Addend ---
Attending Addendum Attending Brief Note Pt feels okay. She is eager to leave. She has the safety monitor primarily for a fall risk. On exam she is normotensive, pulse is 78, breathing at 16-18, afebrile Awake alert, lungs are clear to auscultation, heart is S1-S2 regular, abdomen is soft. She is a 76-year-old with a history of cognitive decline and behavioral issues who is here after treatment for press syndrome and malignant hypertension. Awaiting placement
[2016-09-04 17:25] VITALS: BP 132/60
[2016-09-04 22:00] VITALS: BP 122/60
[2016-09-04 23:40] VITALS: BP 122/60
[2016-09-05 09:13] VITALS: BP 130/60
--- NOTE | 2016-09-05 12:33 | PN- Att Addend ---
Attending Addendum Attending Brief Note Patient seen and examined, she wants to leave. She denies any complaints and said that "I'm fine I do not need to be here". Has a ray/safety monitor for fall risk. She was able to get up and walk back and forth to the bathroom without any issue. Vital Signs Date Time Temp Pulse Resp B/P Pulse O2 O2 Flow FiO2 Ox Delivery Rate 09/05 1058 85 130/60 09/05 1057 85 130/60 09/05 1056 85 130/60 09/05 0913 98.4 85 20 130/60 93 Room Air 09/04 2340 97.9 80 20 122/60 93 Room Air 09/04 2200 98.0 82 18 122/60 94 Room Air 09/04 2146 82 122/60 09/04 2146 82 122/60 09/04 1725 97.8 87 20 132/60 92 Room Air 09/04 1708 72 124/58 on exam; awake, nad. cv; s1, s2, rrr. resp; clear. abd; soft, nt, bs+. ext; no edema. no labs today. A/P; 76 y/o F with past medical history significant for COPD, chronic diastolic CHF, diabetes, hypertension who was admitted with cognitive decline, altered mental state and found to have PRES which has improved as well as uncontrolled hypertension which is now under better control. At this point patient has a ray/safety monitor mainly due to fall risk but I saw her walking back and forth the bathroom without any problems. Patient is slightly hyper but that is mostly her baseline. Will continue current medications. She is on heparin subcutaneous for DVT prophylaxis. She is currently awaiting placement. D/w CM.
[2016-09-05 17:32] VITALS: BP 130/60
[2016-09-06 00:37] VITALS: BP 120/60
[2016-09-06 09:42] VITALS: BP 132/78
--- NOTE | 2016-09-06 13:34 | PN- Att Addend ---
Attending Addendum Attending Brief Note Patient seen and examined, she denies any complaints. She wants to leave and wants to go to [facility]. Vital Signs Date Time Temp Pulse Resp B/P Pulse O2 O2 Flow FiO2 Ox Delivery Rate 09/06 0942 97.0 80 20 132/78 96 Room Air 09/06 0037 97.7 74 20 120/60 93 Room Air 09/05 2131 130/60 09/05 2131 130/60 09/05 1732 97.9 80 20 130/60 93 09/05 1600 85 130/60 on exam; awake, nad. cv; s1,s2, rrr. resp; clear. abd; soft, nt, bs+ ext; no edema. no labs. A/P; 76 y/o F with past medical history significant for COPD, chronic diastolic CHF, diabetes, hypertension who was admitted with cognitive decline, altered mental state and found to have PRES which has improved as well as uncontrolled hypertension which is now under better control. At this point patient has a ray/safety monitor mainly due to fall risk. Patient is slightly hyper but reportedly that is mostly her baseline. Will continue current medications. She is on heparin subcutaneous for DVT prophylaxis. She is currently awaiting placement. D/w CM. Meeting arranged for tomorrow between [facility] psych CONTRACTING EXECUTIVE and [facility] staff to discuss dispo.
[2016-09-06 15:39] VITALS: BP 142/62
[2016-09-07 00:44] VITALS: BP 112/60
[2016-09-07 08:55] VITALS: BP 124/62
--- NOTE | 2016-09-07 10:15 | NUR ---
PT REPORTING NEW PAIN TO NECK, "FEELS JABBING" WHEN SHE MOVES. NOTED BY PATIENT TO BE NEW PAIN. TRAMADOL GIVEN OREDERED DR TORRES NOTIFIED. DR TORRES AT BEDSIDE TO SEE THE PATIENT.
--- NOTE | 2016-09-07 12:02 | PN- Att Addend ---
Attending Addendum Attending Brief Note Patient seen and examined, feels ok. Did c/o feeling somewhat sob, and wheezing. Otherwise feels ok. Vital Signs Date Time Temp Pulse Resp B/P Pulse O2 O2 Flow FiO2 Ox Delivery Rate 09/07 0855 97.6 79 20 124/62 93 Room Air 09/07 0044 97.6 60 20 112/60 91 Room Air 09/06 2215 80 158/78 09/06 2215 80 158/78 09/06 1636 82 142/62 09/06 1539 97.8 82 20 142/62 97 Room Air on exam; AOX3, NAD. CV; S1,S2, RRR. RESP; MILD WHEEZE. ABD; SOFT, NT, BS+ EXT; NO EDEMA. Laboratory Tests 09/07 644 Toxicology Valproic Acid (50 - 120 ug/mL) 74.6 A/P; 76 y/o F with past medical history significant for COPD, chronic diastolic CHF, diabetes, hypertension who was admitted with cognitive decline, altered mental state and found to have PRES which has improved as well as uncontrolled hypertension which is now under better control. Patient will get TRC nebs as needed. I have renewed her safety laboratory monitor. We'll continue the rest of the medications. Meeting planned with the [facility] psychiatry DUTY ENGINEER and our psychiatry DUTY ENGINEER for this afternoon to discuss the disposition plan.
[2016-09-07 15:55] VITALS: BP 112/58
--- NOTE | 2016-09-07 17:41 | PN- Psychiatry ---
Assessment/Plan Impression: Identifying Info: 76-year-old included female admitted to [facility] for diarrhea, and treated for PRES, now resolved. Interviewed on , has been in Hospital since 07/30/2016. SUBJECTIVE Patient with no complaints. Encouraged multiple times to use her call acharya prior to getting out of bed to which she agrees verbalizes understanding, however it is unclear if teaching has occurred. States she would like to go to [facility]. Reports one of the medications she took last night made her feel drunk but is unsure which medication. OBJECTIVE Mental Status Exam Presentation/Appearance: Cooperative with evaluation. Hospital garb. Lying in bed, some PMA noted. Orientation: Oriented to self and place, able to name year and month with prompting. Sensorium: Awake and alert Eye contact: Appropriate Affect: Somewhat blunted but congruent with stated mood Mood: "I'm happy" Sadness: Denies Anxiety: Denies Thought Content: Denies SI/HI, AH/VH, PI. States and also believes they will not kill themselves. Denies Hopeless/Helpless thoughts Thought Process: linear times somewhat tangential Speech: Repetitive, patient often repeats her self, somewhat dysarthric Language:Yoruba fluent Judgment: poor Insight: Poor Cognition Memory: Short-term deficits, long-term appears more intact able to state facts of her childhood Attention/Concentration: appears to be able to attend well at times but is unable to manipulate information, unable to spell "world" backwards Abstractions:[place] MMSE: (not completed at this visit) Brief ROS Gait: Unsteady at times Sleep: per nursing 5 hours a night and naps during the day Appetite: Adequate Per nursing patient is very impulsive and does not use the call acharya when she would like to get up. She has periods where she is hyperverbal but never more than a day at a time and never more than a few days a week. Did not show any signs of lo delusions or grandiosity. She is taking her meds appropriately. Net bed will be replaced with hospital bed and eventually low boy bed when one is acquired. Had phone meeting with [facility] staff including Dr. Sparks, Mala Sloan from case management, Harper Keene RN clinical verification manager, Maurisio Mancia APRN, and Dae Patterson MD as well as [facility] staff including Flor brown APRN, Shavon Lopez social worker masters, and Satish is in management. Case was discussed the hope to get patient back to [facility] as soon as possible. Per [facility] staff the patient never had an issue using call acharya at their facility she has a history of bipolar disorder as well as an unspecified eating disorder where she overate. She was previously well maintained on trazodone 50 mg every morning, 100 mg every 4 p.m., and 50 mg daily at bedtime, as well as Zoloft 75 mg. They state she was never dizzy while on trazodone at their facility and did not have issues participating in facility activities due to oversedation. They recommend restarting the trazodone. VPA 74.6 this AM. ASSESSMENT 76-year-old female presenting with cognitive deficits and no mood symptoms post PRES. Patient remains very impulsive and a high risk to fall due to sometimes unsteady gait. Differential diagnosis Unspecified neurocognitive disorder (family history of Alzheimer's disease) Delirium due to multiple etiologies, resolved Suggestion: 1. Please continue psychotropics as currently ordered. 2. Please start trazodone 12.5 mg every morning and trazodone 12.5 mg every 4 p.m. daily. 3. Continue sitter until patient is able to safely remain in room alone without risk to fall. 4. Please start bed alarm and chair alarm if not early in place. Provide visual cues for patient to use call acharya prior to getting up. 5. Please continue to avoid benzodiazepines, opioid analgesics, and meds with strong anticholinergic properties as much as possible to prevent further confusion. 6. Please continue the following nonpharmacologic interventions: -Avoid nursing and medical procedures during sleep hours whenever possible - Cluster at night interventions that must be completed as much as possible to minimize sleep disruption - Decrease noise in patient area during sleeping hours - Reduce lighting at night - Ensure patient has any sensory aids close by that he regularly uses Thank you for including psychiatry in this case we will continue to follow Shiv Watkins APRN, pager [phone] Subjective Subjective: .
[2016-09-08 07:26] VITALS: BP 120/70
--- NOTE | 2016-09-08 14:40 | PN- Att Addend ---
Attending Addendum Attending Brief Note Patient seen and examined, denies any current complaints. Last night she complained of some pain in her neck. Currently has no pain. Vital Signs Date Time Temp Pulse Resp B/P Pulse O2 O2 Flow FiO2 Ox Delivery Rate 09/08 0726 97.5 70 20 120/70 94 Room Air 09/08 0000 Room Air 09/07 2226 86 152/78 09/07 2225 86 152/78 09/07 1607 74 124/60 09/07 1555 76 18 112/58 98 Room Air on exam; aox3, nad. cv; s1, s2, rrr. resp; clear. abd; soft, nt, bs+ ext; no edema. no labs. A/P; 76 y/o F with past medical history significant for COPD, chronic diastolic CHF, diabetes, hypertension who was admitted with cognitive decline, altered mental state and found to have PRES which has improved as well as uncontrolled hypertension which is now under better control. Meeting with the [facility] psychiatry SPINDLE CARVER as well as our psychiatrist SPINDLE CARVER. Dae Patterson MD is also present at the meeting and that also included myself, case management and nursing in charge. At the meeting it was decided the patient would be started on low-dose trazodone in the morning as well as at 4 PM in addition to her nighttime dosing. Continue the rest of the medications as it is. Continue current antihypertensives. DVT prophylaxis: Heparin subcutaneous.
[2016-09-08 16:19] VITALS: BP 138/70
[2016-09-09 00:29] VITALS: BP 110/67
[2016-09-09 08:32] VITALS: BP 126/78
--- NOTE | 2016-09-09 14:48 | PN- Att Addend ---
Attending Addendum Attending Brief Note Patient seen and examined. Plan of care discussed with the medical team and the patient. Available lab work and radiology test reports were reviewed. Patient sitting in chair. She is awake alert and talkative. Denies any new complaints except for mild nausea this morning. Vital Signs Date Time Temp Pulse Resp B/P Pulse O2 O2 Flow FiO2 Ox Delivery Rate 09/09 831 97.4 74 20 126/78 90 Room Air 09/09 819 74 126/88 09/09 818 74 126/88 09/09 818 74 126/88 09/09 799 93 Room Air 09/09 0029 97.5 65 24 110/67 91 09/08 2129 76 130/62 09/08 2128 76 130/62 09/08 1637 79 138/70 09/08 1619 97.4 79 20 138/70 91 Intake & Output 09/09 1600 09/09 0809/09 0000 Intake Total 400 240 800 Output Total Balance 400 240 800 Intake, Oral 400 240 800 Exam: General: Patient awake alert oriented without any distress CVS: S1 plus S2 without any murmur or gallops Chest: Few scattered crepitation without any wheeze. There is no respiratory distress. Abdomen: Soft nontender, bowel sound present, no guarding or rebound SALES ENGINEER: Awake alert oriented without any focal neuro deficit and follows command appropriately Extremities: No edema; no clubbing or cyanosis noted No new labs done today Assessment 76 y/o F with past medical history significant for COPD, chronic diastolic CHF, diabetes, hypertension who was admitted with cognitive decline, altered mental state and found to have PRES which has improved as well as uncontrolled hypertension which is now under better control. Problem list * PRES syndrome * History of COPD * History of diastolic heart failure * Diabetes * Hypertension Plan * Continue supportive management * Await placement
[2016-09-09 15:51] VITALS: BP 134/60
[2016-09-10 00:39] VITALS: BP 142/62
[2016-09-10 08:30] VITALS: BP 130/76
--- NOTE | 2016-09-10 13:54 | PN- Att Addend ---
Attending Addendum Attending Brief Note Patient seen and examined. Plan of care discussed with the medical team and the patient. Available lab work and radiology test reports were reviewed. She is awake alert and talkative. Denies any new complaints except for mild nausea this morning. Vital Signs Date Time Temp Pulse Resp B/P Pulse O2 O2 Flow FiO2 Ox Delivery Rate 09/10 899 79 130/76 09/10 0859 79 130/76 09/10 0858 79 130/76 09/10 0830 97.3 79 20 130/76 91 Room Air 09/10 0039 97.6 81 20 142/62 92 09/09 2110 80 138/62 09/09 2110 80 138/62 09/09 1711 79 134/60 09/09 1551 96.9 79 20 134/60 92 Intake & Output 09/10 1600 09/10 0000 Intake Total 360 360 Output Total Balance 360 360 Intake, Oral 360 360 Exam: General: Patient awake alert oriented without any distress CVS: S1 plus S2 without any murmur or gallops Chest: Few scattered crepitation without any wheeze. There is no respiratory distress. 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 Problem list * PRES syndrome * History of COPD * History of diastolic heart failure * Diabetes * Hypertension Plan * Continue supportive management * Await placement
[2016-09-10 15:47] VITALS: BP 112/56
[2016-09-11 00:01] VITALS: BP 120/64
[2016-09-11 08:32] VITALS: BP 116/70; BP 118/70
--- NOTE | 2016-09-11 15:01 | PN- Att Addend ---
Attending Addendum Attending Brief Note Patient seen and examined, was sleepy this am as she did not get a good night sleep last night. Vital Signs Date Time Temp Pulse Resp B/P Pulse O2 O2 Flow FiO2 Ox Delivery Rate 09/11 0832 98.3 80 20 118/70 92 Room Air 09/11 0001 98.7 81 20 120/64 90 Room Air 09/10 2243 116/60 09/10 2242 116/60 09/10 1600 Room Air 09/10 1547 98.3 78 18 112/56 98 on exam; sleepy but arousable. cv; s1,s2, rrr. resp; clear. abd; soft, nt, bs+ ext; no edema. no labs. A/P: 76 y/o F with past medical history significant for COPD, chronic diastolic CHF, diabetes, hypertension who was admitted with cognitive decline, altered mental state and found to have PRES which has improved as well as uncontrolled hypertension which is now under better control. After recomendations from psych, trazadone was added last week. Will keep on current regimen. Will discuss with psych again. Still has a vehicle monitor technician. I will repeat the labs in am pharmacologic DVT Px.
[2016-09-11 16:06] VITALS: BP 110/62
[2016-09-11 16:47] VITALS: BP 110/62
[2016-09-12 03:48] VITALS: BP 146/60
[2016-09-12 08:58] VITALS: BP 122/70
[2016-09-12 10:50] LABS: ABSOLUTE BASOPHIL COUNT 0.1 /CUMM (0.0-0.2); ABSOLUTE EOSINOPHIL COUNT 0.4 /CUMM (0.0-0.7); ABSOLUTE GRANULOCYTE CT 4.7 /CUMM (1.4-6.5); ABSOLUTE LYMPH COUNT 3.2 /CUMM (1.2-3.4); ABSOLUTE MONOCYTE COUNT 1.1 /CUMM (0.10-0.60); BASOPHIL % 0.7 % (0.0-2.0); GRANULOCYTE % 49.2 % (42.2-75.2); HEMATOCRIT 32.8 % (37-47); MEAN CORPUSCULAR HGB 29.8 PG (27.0-31.0); MEAN CORPUSCULAR HGB CONC 33.4 G/DL (33.0-37.0); MEAN CORPUSCULAR VOLUME 89.2 FL (81.0-99.0); MEAN PLATELET VOLUME 8.2 FL (7.4-10.4); PLATELET COUNT 289 /CUMM (130-400); RBC DISTRIBUTION WIDTH 19.5 % (11.5-14.5); RED BLOOD CELL CT 3.68 /CUMM (4.20-5.40); WHITE BLOOD CELL COUNT 9.5 /CUMM (4.8-10.8)
--- NOTE | 2016-09-12 13:34 | PN- Att Addend ---
Attending Addendum Attending Brief Note Patient seen and examined, continues to remain sleepy. She was not that sleepy last week but since the introduction off trazodone during the daytime she is much more sleepy. Patient's nurse is concerned about patient's instability in terms of her walking. Vital Signs Date Time Temp Pulse Resp B/P Pulse O2 O2 Flow FiO2 Ox Delivery Rate 09/12 0858 98.1 82 20 122/70 92 Room Air 09/12 0348 98.3 74 24 146/60 92 Room Air 09/11 2202 72 118/60 09/11 2202 72 118/60 09/11 1647 99.0 80 20 110/62 94 Room Air 09/11 1606 99.0 80 20 110/62 94 Room Air 09/11 1603 80 110/62 on exam; sleepy but arousable. cv; s1,s2, rrr. resp; clear. abd; soft, nt, bs+ ext; no edema. Laboratory Tests 09/12 1017 Chemistry Sodium (137 - 145 mmol/L) 143 Potassium (3.5 - 5.1 mmol/L) 4.2 Chloride (98 - 107 mmol/L) 105 Carbon Dioxide (22 - 30 mmol/L) 25 Anion Gap (5 - 16) 13 BUN (7 - 17 mg/dL) 17 Creatinine (0.5 - 1.0 mg/dL) 1.0 Estimated GFR (>60 ml/min) 54 L BUN/Creatinine Ratio (7 - 25 %) 17.0 Hematology CBC w Diff NO MAN DIFF REQ WBC (4.8 - 10.8 /CUMM) 9.5 RBC (4.20 - 5.40 /CUMM) 3.68 L Hgb (12.0 - 16.0 G/DL) 11.0 L Hct (37 - 47 %) 32.8 L MCV (81.0 - 99.0 FL) 89.2 MCH (27.0 - 31.0 PG) 29.8 RDW (11.5 - 14.5 %) 19.5 H Plt Count (130 - 400 /CUMM) 289 MPV (7.4 - 10.4 FL) 8.2 Gran % (42.2 - 75.2 %) 49.2 Lymphocytes % (20.5 - 51.1 %) 34.1 Monocytes % (1.7 - 9.3 %) 12.0 H Eosinophils % (0 - 5 %) 4.0 Basophils % (0.0 - 2.0 %) 0.7 Absolute Granulocytes (1.4 - 6.5 /CUMM) 4.7 Absolute Lymphocytes (1.2 - 3.4 /CUMM) 3.2 Absolute Monocytes (0.10 - 0.60 /CUMM) 1.1 H Absolute Eosinophils (0.0 - 0.7 /CUMM) 0.4 Absolute Basophils (0.0 - 0.2 /CUMM) 0.1 PUBS MCHC (33.0 - 37.0 G/DL) 33.4 A/P; A/P: 76 y/o F with past medical history significant for COPD, chronic diastolic CHF, diabetes, hypertension who was admitted with cognitive decline, altered mental state and found to have PRES which has improved as well as uncontrolled hypertension which is now under better control. After recomendations from psych, trazadone was added last week. Since then patient has been more sleepy Will discuss with psych again. Still has a vehicle monitor technician. Repeat labs normal. pharmacologic DVT Px.
--- NOTE | 2016-09-12 15:00 | PN- Psychiatry ---
Assessment/Plan Impression: Identifying Info: 76-year-old included female admitted to [facility] for diarrhea, and treated for PRES, now resolved. Interviewed on , has been in Hospital since 07/30/2016. SUBJECTIVE Patient reports, "I'm happy." OBJECTIVE Mental Status Exam Presentation/Appearance: Cooperative with evaluation. Hospital garb. Sleeping in bed, met bed no longer in place, 1:1 continues Orientation: Oriented to self, place, year and season, incorrectly states that it is October but then corrects herself and states September Sensorium: Lethargic, patient appears sedated but is easy to arouse Eye contact: Appropriate Affect: Blunted, incongruent with stated mood Mood: "I'm happy" Sadness: Denies Anxiety: Denies Thought Content: - Denies SI/HI, AH/VH, PI. States and also believes they will not kill themselves. - Denies Hopeless/Helpless thoughts Thought Process: Tangential, linear at times, some paucity of content Speech: Repetitive, patient often repeats her self, increased dysarthria Language:Jamaican fluent Judgment: Poor Insight: Poor Cognition Memory: Short-term deficits, long-term appears more intact Attention/Concentration: appears to be able to attend well at times but is unable to manipulate information, unable to spell "world" Abstractions:[place] MMSE: (not completed at this visit) Brief ROS Gait: Unsteady Sleep: Per report patient has been sleeping most of the day Appetite: Adequate Per attending report the patient has had decreased impulsivity but is now sleepy all the time and had increased unsteadiness on ambulation. Lab Valproic Acid 74.6 ug/mL 09/07/16 0645 ASSESSMENT 76-year-old female presenting with cognitive deficits and no mood symptoms post PRES. Patient has had decreased impulsivity however she is now somnolent most of the time and per report is more unsteady on her feet. The trazodone orders during the day, as requested by facility she was previously living at, may not be appropriate and the likely cause of this present oversedation. Differential diagnosis Unspecified neurocognitive disorder (family history of Alzheimer's disease) Delirium due to multiple etiologies, resolved Suggestion: 1. Please discontinue Trazodone 12.5 q4pm and trazodone 50mg qhs. Please start trazodone 12.5mg qhs. 2. Please continue other psychotropics as currently ordered. 3. Continue sitter until patient is able to safely remain in room alone without risk to fall. 4. Please continue bed alarm and chair alarm if not early in place. Provide visual cues for patient to use call acharya prior to getting up. 5. Please continue to avoid benzodiazepines, opioid analgesics, and meds with strong anticholinergic properties as much as possible to prevent further confusion. 6. Please continue the following nonpharmacologic interventions: -Avoid nursing and medical procedures during sleep hours whenever possible - Cluster at night interventions that must be completed as much as possible to minimize sleep disruption - Decrease noise in patient area during sleeping hours - Reduce lighting at night - Ensure patient has any sensory aids close by that he regularly uses Thank you for including psychiatry in this case we will continue to follow Shiv Watkins APRN, pager [phone] Subjective Subjective: .
[2016-09-12 16:27] VITALS: BP 126/82
[2016-09-12 23:40] VITALS: BP 110/55
[2016-09-13 08:30] VITALS: BP 132/70
--- NOTE | 2016-09-13 11:24 | PN- Att Addend ---
Attending Addendum Attending Brief Note Patient seen and examined, continues to feel tired and wants to sleep. Had seen by psychiatry yesterday and recommendations were made to change the trazodone dosing which I did this morning. Vital Signs Date Time Temp Pulse Resp B/P Pulse O2 O2 Flow FiO2 Ox Delivery Rate 09/13 0830 97.9 80 20 132/70 95 Room Air 09/12 2340 98.3 74 20 110/55 93 Room Air 09/12 2206 82 128/60 09/12 2206 82 128/60 09/12 1743 126/82 09/12 1627 97.9 80 20 126/82 92 on exam; sleepy but arousable. cv; s1, s2, rrr. resp; clear abd; soft, nt, bs+ ext; no edema. Laboratory Tests 09/12 1017 Chemistry Sodium (137 - 145 mmol/L) 143 Potassium (3.5 - 5.1 mmol/L) 4.2 Chloride (98 - 107 mmol/L) 105 Carbon Dioxide (22 - 30 mmol/L) 25 Anion Gap (5 - 16) 13 BUN (7 - 17 mg/dL) 17 Creatinine (0.5 - 1.0 mg/dL) 1.0 Estimated GFR (>60 ml/min) 54 L BUN/Creatinine Ratio (7 - 25 %) 17.0 Hematology CBC w Diff NO MAN DIFF REQ WBC (4.8 - 10.8 /CUMM) 9.5 RBC (4.20 - 5.40 /CUMM) 3.68 L Hgb (12.0 - 16.0 G/DL) 11.0 L Hct (37 - 47 %) 32.8 L MCV (81.0 - 99.0 FL) 89.2 MCH (27.0 - 31.0 PG) 29.8 RDW (11.5 - 14.5 %) 19.5 H Plt Count (130 - 400 /CUMM) 289 MPV (7.4 - 10.4 FL) 8.2 Gran % (42.2 - 75.2 %) 49.2 Lymphocytes % (20.5 - 51.1 %) 34.1 Monocytes % (1.7 - 9.3 %) 12.0 H Eosinophils % (0 - 5 %) 4.0 Basophils % (0.0 - 2.0 %) 0.7 Absolute Granulocytes (1.4 - 6.5 /CUMM) 4.7 Absolute Lymphocytes (1.2 - 3.4 /CUMM) 3.2 Absolute Monocytes (0.10 - 0.60 /CUMM) 1.1 H Absolute Eosinophils (0.0 - 0.7 /CUMM) 0.4 Absolute Basophils (0.0 - 0.2 /CUMM) 0.1 PUBS MCHC (33.0 - 37.0 G/DL) 33.4 A/P; 76 y/o F with past medical history significant for COPD, chronic diastolic CHF, diabetes, hypertension who was admitted with cognitive decline, altered mental state and found to have PRES which has improved as well as uncontrolled hypertension which is now under better control. Last week he increased the dose of her trazodone. Patient seems to be more sleepy after that. She was seen by psychiatry again yesterday and trazodone dose was decreased. Changes were made this morning. We will observe and see how she responds to a decreased dose of trazodone. Continue the current management. DVT prophylaxis: Heparin subcutaneous. Patient ultimately will need to go to rehab.
--- NOTE | 2016-09-13 15:39 | PN- Psychiatry ---
Assessment/Plan Impression: Identifying Info: 76-year-old included female admitted to [facility] for diarrhea, and treated for PRES, now resolved. Interviewed on , has been in Hospital since 07/30/2016. SUBJECTIVE Patient reports, "I'm happy... I'm fine, can't you see" OBJECTIVE Mental Status Exam Presentation/Appearance: Cooperative with evaluation. Hospital garb. Sleeping in bed, net bed no longer in place, 1:1 continues Orientation: Oriented to self, place with correction originally states she is at [facility], year and season, not date Sensorium: Lethargic, patient appears sedated but is easy to arouse Eye contact: Appropriate Affect: Blunted, incongruent with stated mood Mood: "I'm happy" Sadness: Denies Anxiety: Denies Thought Content: - Denies SI/HI, AH/VH, PI. States and also believes they will not kill themselves. - Denies Hopeless/Helpless thoughts Thought Process: Tangential, linear at times, some paucity of content Speech: Repetitive, patient often repeats her self, increased dysarthria/slur Language:Wolof fluent Judgment: Poor Insight: Poor Cognition Memory: Short-term deficits, long-term appears more intact Attention/Concentration: appears to be able to attend well at times but is unable to manipulate information Abstractions:[place] MMSE: (not completed at this visit) Brief ROS Gait: Increased unsteadiness Sleep: Per report patient has been sleeping most of the day Appetite: Adequate Lab Valproic Acid 106.2 ug/mL 09/12/16 1017 Case discussed with chief of psychiatry. ASSESSMENT 76-year-old female presenting with cognitive deficits and no mood symptoms post PRES. Continued increased somnolence. Differential diagnosis Unspecified neurocognitive disorder (family history of Alzheimer's disease) Delirium due to multiple etiologies, resolved Suggestion: 1. Please discontinue Trazodone 12.5 mg qam. 2. Please decrease a.m. Depakote dose to 500 mg. Continue p.m. dose as ordered 3. Continue sitter until patient is able to safely remain in room alone without risk to fall. 4. Please continue bed alarm and chair alarm if not early in place. Provide visual cues for patient to use call acharya prior to getting up. 5. Please continue to avoid benzodiazepines, opioid analgesics, and meds with strong anticholinergic properties as much as possible to prevent further confusion. 6. Please continue the following nonpharmacologic interventions: -Avoid nursing and medical procedures during sleep hours whenever possible - Cluster at night interventions that must be completed as much as possible to minimize sleep disruption - Decrease noise in patient area during sleeping hours - Reduce lighting at night - Ensure patient has any sensory aids close by that he regularly uses 7. At this point we believe the patient may be more appropriate for a memory care unit than [facility]. Thank you for including psychiatry in this case we will continue to follow Shiv Watkins APRN, pager [phone] Subjective Subjective: .
[2016-09-13 16:13] VITALS: BP 124/56
[2016-09-13 22:00] VITALS: BP 132/64
[2016-09-14 08:20] VITALS: BP 128/76
--- NOTE | 2016-09-14 12:08 | PN- Att Addend ---
Attending Addendum Attending Brief Note Patient seen and examined, she continues to say that she's feeling tired and wants to sleep. She did not want to talk this morning. Vital Signs Date Time Temp Pulse Resp B/P Pulse O2 O2 Flow FiO2 Ox Delivery Rate 09/14 0820 98.0 80 20 128/76 95 Room Air 09/13 2200 98.1 83 18 132/64 92 Room Air 09/13 2142 83 132/64 09/13 2141 83 132/64 09/13 1638 84 124/56 09/13 1613 98.3 84 20 124/56 93 Room Air 09/13 1600 93 Room Air on exam; sleepy but arousable. cv; s1, s2, rrr. resp; clear. abd; soft, nt, bs+ ext; no edema. no labs. A/P; 76 y/o F with past medical history significant for COPD, chronic diastolic CHF, diabetes, hypertension who was admitted with cognitive decline, altered mental state and found to have PRES which has improved as well as uncontrolled hypertension which is now under better control. Secondary to patient sleepy, trazodone dose was decreased as per psychiatry recommendations yesterday. He also went down on her Depakote dose because her levels were high. I will discuss with psych again about any other changes in the management as patient is still sleepy. Continue other current medications. DVT px: Heparin subcutaneous. Next and patient will need to go to rehabilitation upon discharge.
[2016-09-14 15:59] VITALS: BP 138/80
--- NOTE | 2016-09-14 16:13 | PN- Psychiatry ---
Assessment/Plan Impression: Identifying Info: 76-year-old included female admitted to [facility] for diarrhea, and treated for PRES, now resolved. Interviewed on , has been in Hospital since 07/30/2016. SUBJECTIVE Patient states "just leave me alone I don't want to talk." OBJECTIVE Mental Status Exam Presentation/Appearance: Hospital garb. Sleeping in bed, 1:1 continues. Patient declines interview at this time Orientation: Oriented to self, unable to assess other Sensorium: Sedated Eye contact: Poor Affect: Blunted Mood: Irritable Sadness: CARLY Anxiety: CARLY Thought Content: CARLY Thought Process: CARLY Speech: Minimal Language:Albanian fluent Judgment: Poor Insight: Poor Cognition Memory: Short-term deficits, long-term appears more intact Attention/Concentration: CARLY Abstractions: CARLY MMSE: (not completed at this visit) Brief ROS Gait: Increased unsteadiness Sleep: Per report patient has been sleeping most of the day Appetite: Adequate Per staff report patient continues to sleep all day and is presenting much like she did when she originally arrived the hospital with PRES. She has been incontinent of urine and stool. She is also been refusing care where she had been very receptive to all interventions and interactions just a few days ago prior to initiation of trazodone. Lab Valproic Acid 106.2 ug/mL 09/12/16 1017 Case discussed with chief of psychiatry. ASSESSMENT 76-year-old female presenting with cognitive deficits and no mood symptoms post PRES. Continued increased somnolence today is quite irritable Differential diagnosis Unspecified neurocognitive disorder (family history of Alzheimer's disease) Delirium due to multiple etiologies, resolved Suggestion: 1. Please continue psychotropic medications as currently ordered 2. Please draw VPA level in the morning of 09/16/16. 3. Continue sitter until patient is able to safely remain in room alone without risk to fall 4. Please continue bed alarm and chair alarm. 5. Please continue to avoid benzodiazepines, opioid analgesics, and meds with strong anticholinergic properties as much as possible to prevent further confusion. 6. Please continue the following nonpharmacologic interventions: -Avoid nursing and medical procedures during sleep hours whenever possible - Cluster at night interventions that must be completed as much as possible to minimize sleep disruption - Decrease noise in patient area during sleeping hours - Reduce lighting at night - Ensure patient has any sensory aids close by that he regularly uses 7. Continue to recommend patient as more appropriate for memory care unit then previous place of residence. Thank you for including psychiatry in this case we will continue to follow Shiv Watkins APRN, pager [phone] Subjective Subjective: .
--- NOTE | 2016-09-14 23:30 | NUR ---
MST WAS TAKING VITAL SIGNS MST INFORMED ME THAT O2 SAT WAS 85% ON RA. MST INFORMED ME THAT MULTIPLE FINGERS WERE TRIED AND WAS ABLE TO GET A SAT OF 90% ON PTS LEFT MIDDLE FINGER AND THEN THE SAT DROPPED DOWN TO 85% AGAIN. THIS RN TRIED CHECKING O2 SAT ON PTS LEFT TOE AND GOT O2 SAT OF 86%. PT HAD ALSO JUST WALKED BACK TO BED FROM BATHROOM AND APPEARED IN DISTRESS. PT WAS PLACED ON 2L NC AND ENCOURAGED TO TAKE DEEP BREATHS. O2 SAT WAS RECHECKED AND O2 SAT CAME BACK TO 95%. PT STATES SHE IS NOT FEELING SOB. PT WAS TOLD TO KEEP THE O2 ON FOR THE REMAINDER OF THE NIGHT AND THE PSM WAS TOLD TO MAKE SURE SHE KEEPS HER O2 ON HER. PATIENT RESTING IN BED. PSM IN PLACE. WILL CONTINUE TO MONITOR.
[2016-09-14 23:52] VITALS: BP 124/70
--- NOTE | 2016-09-15 12:13 | PN- Att Addend ---
Attending Addendum Attending Brief Note Patient seen and examined, said that she was feeling tired. Reportedly last evening she got up and took a shower. Vital Signs Date Time Temp Pulse Resp B/P Pulse O2 O2 Flow FiO2 Ox Delivery Rate 09/15 0844 70 118/60 09/15 0844 118/60 09/15 0050 21 95 Nasal 2.0L Cannula 09/15 0000 Nasal 2.0L Cannula 09/14 2352 97.7 75 21 124/70 88 Room Air 09/14 2204 85 118/60 09/14 2203 85 118/60 09/14 1657 97.9 90 20 136/80 09/14 1559 97.9 90 20 138/80 92 on exam: She wants to sleep and does not want to talk right now. cv; s1,s2, rrr. resp; clear abd; soft, nt, bs+ ext; no edema. no labs. A/P; 76 y/o F with past medical history significant for COPD, chronic diastolic CHF, diabetes, hypertension who was admitted with cognitive decline, altered mental state and found to have PRES which has improved as well as uncontrolled hypertension which is now under better control. Secondary to patient sleepy, trazodone dose was decreased as per psychiatry recommendations. We also went down on her Depakote dose because her levels were high. Will recheck levels tomorrow morning. Continue other current medications. DVT px: Heparin subcutaneous. Patient will need to go to rehabilitation upon discharge.
--- NOTE | 2016-09-15 12:46 | PN- Psychiatry ---
Assessment/Plan Impression: Identifying Info: 76-year-old included female admitted to [facility] for diarrhea, and treated for PRES, now resolved. Interviewed on , has been in Hospital since 07/30/2016. SUBJECTIVE "I can't talk right now." OBJECTIVE Mental Status Exam Presentation/Appearance: Hospital garb. Sleeping in bed, 1:1 continues. Patient declines interview at this time for second day in a row Orientation: Oriented to self, unable to assess other Sensorium: Sedated Eye contact: Poor Affect: Blunted Mood: Irritable Sadness: CARLY Anxiety: CARLY Thought Content: CARYL Thought Process: CARLY Speech: Minimal Language:South Korean fluent Judgment: Poor Insight: Poor Cognition Memory: Short-term deficits, long-term appears more intact Attention/Concentration: CARLY Abstractions: CARLY MMSE: (not completed at this visit) Brief ROS Gait: Decreased unsteadiness Sleep: Improved Appetite: Adequate Per staff report patient appears to have improved. Today's the first day without trazodone in the a.m. and she is now acting much more like she did prior to initiation of medication. She has been awake and alert, walking on unit, and more cooperative with care. ASSESSMENT 76-year-old female presenting with cognitive deficits and no mood symptoms post PRES. Per report today she appears to be closer to her baseline mental status but does decline interview. Differential diagnosis Unspecified neurocognitive disorder (family history of Alzheimer's disease) Delirium due to multiple etiologies, resolved Suggestion: 1. Please continue psychotropic medications as currently ordered 2. Please draw VPA level in the morning of 09/16/16. There is an order in place. 3. Continue sitter until patient is able to safely remain in room alone without risk to fall 4. Please continue bed alarm and chair alarm. 5. Please continue to avoid benzodiazepines, opioid analgesics, and meds with strong anticholinergic properties as much as possible to prevent further confusion. 6. Please continue the following nonpharmacologic interventions: -Avoid nursing and medical procedures during sleep hours whenever possible - Cluster at night interventions that must be completed as much as possible to minimize sleep disruption - Decrease noise in patient area during sleeping hours - Reduce lighting at night - Ensure patient has any sensory aids close by that he regularly uses 7. Continue to recommend patient as more appropriate for memory care unit then previous place of residence. Thank you for including psychiatry in this case we will continue to follow Shiv Watkins APRN, pager [phone] Subjective Subjective: .
[2016-09-15 16:00] VITALS: BP 124/50
[2016-09-15 23:40] VITALS: BP 141/62
[2016-09-16 07:13] VITALS: BP 132/82
--- NOTE | 2016-09-16 11:33 | PN- Att Addend ---
Attending Addendum Attending Brief Note Patient seen and examined now more awake and talking. She wants to go home and live with her sons. Vital Signs Date Time Temp Pulse Resp B/P Pulse O2 O2 Flow FiO2 Ox Delivery Rate 09/16 0713 97.8 72 20 132/82 97 Room Air 09/15 2340 98.0 71 20 141/62 91 Room Air 09/15 2055 71 120/60 09/15 2054 71 120/60 09/15 1608 77 124/50 09/15 1600 92 Nasal 2.0L Cannula 09/15 1600 97.8 77 20 124/50 92 Nasal 2.0L Cannula on exam awake, nad. cv; s1,s2, rrr. resp; clear abd; soft, nt, bs+ ext; no edema. no labs. A/P; 76 y/o F with past medical history significant for COPD, chronic diastolic CHF, diabetes, hypertension who was admitted with cognitive decline, altered mental state and found to have PRES which has improved as well as uncontrolled hypertension which is now under better control. Patient is more awake and walking and talking today. Her Depakote levels are in the therapeutic range. At this point I'll continue the current dose of Depakote and trazodone. I have reviewed her tramadol. Continue other current medications. DVT px: Heparin subcutaneous. Patient will need to go to rehabilitation upon discharge.
[2016-09-16 16:43] VITALS: BP 138/64
[2016-09-16 23:40] VITALS: BP 117/49
--- NOTE | 2016-09-17 09:00 | NUR ---
ACCUCHECK 62; PATIENT DENIES SYMPTOMS OF HYPOGLYCEMIA; EATING BREAKFAST AT THIS TIME; DR WARD NOTIFIED AND AWARE; WILL RECHECK
[2016-09-17 09:07] VITALS: BP 122/68
--- NOTE | 2016-09-17 13:33 | NUR ---
PATIENT A/OX3; RA 89-91% (DR DALY AWARE); DEEP BREATHING ENCOURAGED AND IST PROVIDED; PATIENT SLEEPING ON/OFF SINCE 8AM AND STATES "I AM SORRY I AM JUST SO TIRED TODAY"; PATIENT SAFETY MONITOR REMAINS IN PLACE FOR HIGH FALL RISK; SEE EMAR FOR ALL MEDS GIVEN; PATIENT TOLERATED BOTH BREAKFAST AND LUNCH WITHOUT DIFFICULTY; WILL CONTINUE TO MONITOR PATIENT;
--- NOTE | 2016-09-17 14:31 | PN- Att Addend ---
Attending Addendum Attending Brief Note Patient seen and examined, denies any complaints. Now has slightly low oxygenation. Vital Signs Date Time Temp Pulse Resp B/P Pulse O2 O2 Flow FiO2 Ox Delivery Rate 09/17 1400 91 Room Air 09/17 1029 78 91 Room Air 09/17 0957 85 122/68 09/17 0957 85 122/68 09/17 0957 85 122/68 09/17 0907 97.9 85 22 122/68 89 Room Air 09/17 0800 91 Room Air 09/16 2340 97.5 77 20 117/49 93 Room Air 09/16 2158 84 120/60 09/16 2157 84 120/60 09/16 1650 78 138/64 09/16 1643 98.4 78 20 138/64 92 Nasal 1.0L Cannula 09/16 1600 92 Nasal 1.0L Cannula on exam awake, nad. cv; s1,s2, rrr. resp; decreased breath sounds at bases. abd; soft, nt, bs+ ext; no edema. no labs. A/P; 76 y/o F with past medical history significant for COPD, chronic diastolic CHF, diabetes, hypertension who was admitted with cognitive decline, altered mental state and found to have PRES which has improved as well as uncontrolled hypertension which is now under better control. I will order a chest x-ray to look for atelectasis. Encourage incentive spirometry. Patient is more awake and walking and talking today. Her Depakote levels are in the therapeutic range. At this point I'll continue the current dose of Depakote and trazodone. I have reviewed her tramadol. Continue other current medications. DVT px: Heparin subcutaneous. Patient will need to go to rehabilitation upon discharge.
--- NOTE | 2016-09-17 15:19 | RADIOLOGY REPORT ---
EXAMINATION: XR PORTABLE CHEST CLINICAL INFORMATION: Atelectasis. Hypoxia COMPARISON: 07/14/16 TECHNIQUE: Upright frontal view of the chest FINDINGS: Lordotic projection. Rotation to the right. Habitus limits assessment. Mediastinum is prominent without interval increase. The cardiac size is within normal limits. There is no large hilar mass. There is no edema. There is no definite new area of focal pneumonia. There is no pneumothorax IMPRESSION: Limited study. Hypoinflation. No new pneumonia.
[2016-09-17 16:09] VITALS: BP 140/54
--- NOTE | 2016-09-18 | NUR ---
PT REFUSED HER VITALS ON 09/17/16 @ 2300.
[2016-09-18 08:01] VITALS: BP 124/63
--- NOTE | 2016-09-18 12:00 | PN- Att Addend ---
Attending Addendum Attending Brief Note Patient seen and examined, she just took her pills all at once and started to cough. Seems like that she was choking that she took the pills not completely sitting upright. Afterwards we checked her oxygen saturations and it was 91% on room air which she has been running. Vital Signs Date Time Temp Pulse Resp B/P Pulse O2 O2 Flow FiO2 Ox Delivery Rate 09/18 0935 68 142/76 09/18 0935 68 142/76 09/18 0934 68 142/76 09/18 0801 97.8 76 20 124/63 91 Room Air 09/18 0600 90 Room Air 09/17 2200 90 Room Air 09/17 2103 80 130/64 09/17 2103 80 130/64 09/17 1609 97.8 78 20 140/54 90 09/17 1549 78 140/54 09/17 1400 91 Room Air on exam; aox3, nad. cv; s1, s2, rrr. resp; clear abd; soft, nt, bs+ ext; no edema. no labs. A/P; 76 y/o F with past medical history significant for COPD, chronic diastolic CHF, diabetes, hypertension who was admitted with cognitive decline, altered mental state and found to have PRES which has improved as well as uncontrolled hypertension which is now under better control. Patient just choked on her pills while taking them half a And half a sitting up. Afterwards she was able to cough and felt okay. We will keep a close eye for development of any aspiration pneumonia/pneumonitis. Yesterday's chest x-ray was consistent with hypoinflation. We will encourage incentive spirometry Her Depakote levels were in the therapeutic range over the weekend. At this point I'll continue the current dose of Depakote and trazodone. Continue other current medications. DVT px: Heparin subcutaneous. Patient will need to go to rehabilitation upon discharge.
[2016-09-19 07:00] VITALS: BP 134/70
--- NOTE | 2016-09-19 13:28 | PN- Att Addend ---
Attending Addendum Attending Brief Note Patient seen and examined, denies any complaints. She wants to get out of here. Vital Signs Date Time Temp Pulse Resp B/P Pulse O2 O2 Flow FiO2 Ox Delivery Rate 09/19 0700 98.2 72 18 134/70 93 Room Air 09/19 0600 93 Room Air 09/18 2113 72 140/72 09/18 2113 72 140/72 09/18 1717 68 108/64 09/18 1600 91 Room Air Room Air 09/18 1554 97.9 70 18 93 on exam; awake, nad. cv; s1,s2, rrr. resp; clear abd; soft, nt, bs+ ext; no edema. no labs. A/P;76 y/o F with past medical history significant for COPD, chronic diastolic CHF, diabetes, hypertension who was admitted with cognitive decline, altered mental state and found to have PRES which has improved as well as uncontrolled hypertension which is now under better control. O2 sats are improved. We will encourage incentive spirometry Her Depakote levels were in the therapeutic range recently. At this point I'll continue the current dose of Depakote and trazodone. Continue other current medications. DVT px: Heparin subcutaneous. Patient will need to go to rehabilitation upon discharge. I will follow up on the meeting quintenn our case managemnet, Psych, nursing as well as [facility] staff. D/W patient's son today who came in to visit Ms Bland.
--- NOTE | 2016-09-20 08:00 | NUR ---
CHARLY NOTE: DURING SHIFT REPORT PT FOUND ON 2L NC. O2 SATS 94% ON 2L NC. DR DALY MADE AWARE, CONT TO MONITOR. PT DENIES COMPLAINTS. CONT TO MONITOR.
[2016-09-20 08:35] VITALS: BP 118/60
--- NOTE | 2016-09-20 11:17 | PN- Att Addend ---
Attending Addendum Attending Brief Note Patient seen and examined, kept on saying that I'm tired and I want to rest. No other acute issues. Vital Signs Date Time Temp Pulse Resp B/P Pulse O2 O2 Flow FiO2 Ox Delivery Rate 09/20 0903 20 92 Room Air 09/20 0835 97.7 76 20 118/60 94 Nasal 2.0L Cannula 09/20 0800 94 Nasal 2.0L Cannula 09/20 0600 Nasal Cannula 09/20 0000 98.1 82 21 90 Room Air 09/19 2226 80 130/60 09/19 2225 80 130/60 09/19 2200 Room Air 09/19 1623 128/62 09/19 1610 97.9 75 19 90 09/19 1400 94 Room Air on exam; awake, nad. cv; s1,s2, rrr. resp; bs at b/l basis. abd; soft, nt, bs+ ext; no edema. no labs. A/P; 76 y/o F with past medical history significant for COPD, chronic diastolic CHF, diabetes, hypertension who was admitted with cognitive decline, altered mental state and found to have PRES which has improved as well as uncontrolled hypertension which is now under better control. And reported that patient's oxygen was low last night therefore she needed oxygen. We checked her O2 sats today and it was 92% without oxygen. Patient does not need oxygen at this time. Her chest x-ray 2 days ago showed hypoinflation. I will encourage incentive spirometry but unfortunately secondary to patient not able to understand much, this could be difficult. Continue all other current medications. According to yesterday as needed, will try to DC deciliter by the end of this week. Ultimately patient will be discharged to rehabilitation. DVT px: Hep sq.
[2016-09-20 16:11] VITALS: BP 124/60
[2016-09-21 08:26] VITALS: BP 134/80
--- NOTE | 2016-09-21 15:17 | PN- Att Addend ---
Attending Addendum Attending Brief Note Patient seen and examined, kept on saying I'm feeling tired, I am feeling tired. Denies any other complaints. Vital Signs Date Time Temp Pulse Resp B/P Pulse O2 O2 Flow FiO2 Ox Delivery Rate 09/21 1400 94 Room Air 09/21 0826 97.8 78 20 134/80 94 Room Air 09/21 0600 Room Air 09/20 2325 91 Room Air 09/20 2121 72 120/64 09/20 2120 72 120/64 09/20 1804 120/60 09/20 1611 97.5 72 20 124/60 90 09/20 1600 94 Nasal 2.0L Cannula 09/20 1600 94 Nasal 2.0L Cannula on exam; NAD. cv; s1,s2 rrr. resp; clear abd; soft, nt, bs+ ext; no edema. no labs. A/P; 76 y/o F with past medical history significant for COPD, chronic diastolic CHF, diabetes, hypertension who was admitted with cognitive decline, altered mental state and found to have PRES which has improved as well as uncontrolled hypertension which is now under better control. We will try to discontinue the sitter. Oxygen saturations are back to normal. Continue all current medications. DVT prophylaxis: Heparin subcutaneous.
[2016-09-21 15:19] VITALS: BP 138/62
--- NOTE | 2016-09-21 20:47 | NUR ---
PATIENT IS ALERT AND ORIENTED TO PERSON AND PLACE. VITAL SIGNS STABLE. ON ROOM AIR. MEDICATION GIVEN FOR DISCOMFORT. PATIENT RESTING AT THIS TIME. WILL CONTINUE TO MONITOR
[2016-09-21 23:23] VITALS: BP 140/62
[2016-09-22 08:00] VITALS: BP 128/78
[2016-09-22] MEDS ORDERED: DIVALPROEX SOD500 M2 PO (10:51)
[2016-09-22] MEDS ORDERED: DIVALPROEX SOD250 M2 PO ×2 (10:51→10:54)
[2016-09-22] MEDS ORDERED: TRAZODONE HCL50 M1 PO ×2 (10:51→11:03)
[2016-09-22] MEDS ORDERED: SLOW-MAG71.5 MG PO (10:51)
[2016-09-22] MEDS ORDERED: ATORVASTATIN CA80 M1 PO (10:54)
--- NOTE | 2016-09-22 11:04 | Discharge Summary ---
Visit Information Visit Dates Admission Date: 07/25/16 Discharge Date: 09/22/16 Hospital Course Course Attending Physician: BELA RODRIGEZ MD Primary Care Physician: SHANAE GARCIA MD Consulting Request: 1 Consulting Specialty: Neurology Consulting Physician: Reason for Consult: Posterior Reversible Encephalopathy Syndrome Consulting Request: 2 Consulting Specialty: Psychiatry Consulting Request: 3 Consulting Specialty: Infectious Disease Consulting Request: 4 Consulting Specialty: Cardiology Consulting Request: 5 Consulting Specialty: Neurosurgery Hospital Course: Hospital Course: Mr. Bland is a 76 year old lady with PMH significant for COPD on 3 L oxygen, CHF (stage II diastolic), DM2, complicated with neuropathy and gastroparesis, arthritis, mood disorders, hyperlipidemia, CRF, GERD, diverticulosis and hypothyroidism, who initially presented to [facility] from [place] on 07/25/16 with persistent diarrhea with acute decompensation and altered mental status. Patient received care under general medicine until 08/01 when she was transferred to tele on due to headaches and BP of 220/110 with MRI findings consistent with PRES. In telemetry unit she developed seizures proceeded by right arm weakness and right eyelid droop. She was subsequently transferred to the ICU for further monitoring and BP control. Upon stabilization, patient was transferred back to telemetery unit where the following problems were managed with the plans as disccused below. # Uncontrolled hypertension - Resolved. During ICU stay her home meds verapamil and losartan were discontinued. Per cardio rec, patient was started on labetalol 50mg PO BID and amlodipine at 7.5 mg which was increased to 10 mg. Patient continued to be hypertensive in tele unit on 08/07 and patient's labetalol was increased to 100mg PO BID, and she started on hydralazine 25mg PO TID. Patient's BP was better controlled with these changes. - ECHO: Normal left ventricular ejection fraction estimated at 60-65%. * Cont labetalol to 100mg PO BID * Cont hydralazine 25mg PO TID * Cont Norvasc 10mg PO daily # Questionable osteomyelitis/discitis of the thoracic spine CT and MRI findings are suggestive of discitis/osteomyelitis at T7-T8 but of unclear signifciace. Patient underwent CT-guided biopsy which was negative, although the sample was not adequate. C&S of the bone biopsy showed no growth. On 08/08, Dr. Julien discussed with Dr. Quiñones about pursuing further workup for patient's possible discitis. Dr. Quiñones recommeneded workup to be done outpatient with MRI in 4 weeks once patient's psychiatric and neurological conditions. 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 In addition, patient carries a history of of anxiety, depression, bipolar disorder and PTSD. According to the records from [place], at home patient takes alprazolam 0.25 mg Q6 PRN, trazodone, and sertraline 50 mg daily. Per psych, trazodone and sertraline may be contributing to her altered mental status. As such her psych meds were discontinued under the ICU service. In telemetery unit, patient continued to be have AMS. Agitated throughout the day and fully awake overnight. Not eating and sleeping well. We have requested psych and neuro to evaluate the patient. We requested psych to re-evaluate the patient but patient was never seen while on tele. Patient's mental status was up and down. After going back and forth on medication adjustments finally patient is on trazodone 12.5 mg at bedtime and Depakote 750 g at bedtime and 500 mg in the morning. With this current regimen patient's mental status is the best ever. She is awake and talkative now. She denies any complaints. She was followed by psychiatry here at [facility]. Please try to keep her on the same regimen. # Posterior Reversible Encephalopathy Syndrome (PRES) Presented with seizure and FND in the setting of elevated BP, s/p CT guided biopsy of the thoracis spine. MRI consistent with PRES, which seems to have resolved now. She is currently able to move her right arm. Also her right-sided eyelid droop and left-sided hemispacial neglect are no longer present. - Doppler US of the carotid arteries: limited exam, no clear hemodynamically significant stenoses are identified. Recommend repeat exam when patient is able to tolerate the procedure. - EEG: Normal in wake state * Adequate BP control to keep systolic pressure in 140-160 * Cont Keppra 750 mg at bedtime and 500 mg in am. # Bruising on the right shoulder Patient initially had a bruise on the right shoulder, in addition to pain, decreased ROM, tenderness. She was unable to obtain complete history regarding possible trauma due to mental status. - Xray of the right shoulder did not show dislocation, fracture or hematoma, however reported widened acromioclavicular joint space to 1.2 cm wide, which was also widened on the recent chest radiograph of 07/14/2016. Patient is currently able to move her right arm, does not complain of any pain. # SOCORRO on CKD Patient received hydration with appropriate response. Kidney US showed simple cysts, and no further workup was deemed necessary per Urology. Resolved * Continue monitor Cr daily * Avoid nephrotoxins # DM type 2 with gastroparesis and neuropathy * Accuchecks * Novolog SSI # Hypomagnesemia * Mg continues to run low * Patient getting Slow mag. # History of stage II CHF Murmur in aortic area in exam, consistent with ECHO findings for aortic stenosis. Echo also showed normal left ventricular ejection fraction estimated at 60-65%. * Continue aspirin and statin # History of COPD * Currently stable resp status. # History of GCA * Continued 1.5 mg PO prednisone daily # Hypothyroidism Multilobular left thyroid enlargement. Thyroid function tests are within normal limits. * continue levothyroxine at 0.025 mg daily * Patient can follow up outpatient after discharge for further management # Pain management * Tylenol for mild-mod pain * Tramadol 50mg Q6 PRN for moderate pain # DVT px * ALPS # Diet * Heart healthy, chopped and thin liquids # Mild pain pathway # FULL CODE Complications: Please see hospital course. Allergies: Coded Allergies: oxycodone (RASH 12/08/15) lactose (09/11/16) Significant Procedures: SERVICE DATE: 07/25/16640 EXAM TYPE: CAT - CT CHEST ABD & PELVIS W/O IV CONTRAS; CT CHEST WO IV CONTRAST. IMPRESSION: 1. Normal appearance of the biliary system in a post cholecystectomy patient. 2. Small airways disease in both lungs. (Subsegmental was a groundglass opacities). 3. Renal cysts. Perinephric stranding right greater than left. 4. Multinodular enlargement of the left lobe of the thyroid gland. 5. Significant discitis at T7-T8 with vertebral plana at T8 and endplate bone destruction involving T7. A T-spine x-ray in 2012 was normal. SERVICE DATE: 07/26/16- EXAM TYPE: MRI - MRI-THORACIC SPINE When compared to the CT study from 07/25/2016, collapse of the superior endplate of T8 is again visible with bony retropulsion and erosion of the T7-T8 endplates from presumed age indeterminate discitis/osteomyelitis. The marrow signal is heterogeneous with fatty endplate changes. Thoracic kyphosis noted. SERVICE DATE: 07/26/16-1200 EXAM TYPE: US - US-RENAL/KIDNEY IMPRESSION: Bilateral renal simple cysts are redemonstrated, consistent with the CT findings dated 07/25/2016. Of note, these are of fluid attenuation on the CT examination. The cysts are somewhat suboptimally evaluated on the present ultrasound examination secondary to body habitus. SERVICE DATE: 07/28/16- EXAM TYPE: MRI - MRI-THORACIC SPINE IMPRESSION: - Severe superior endplate compression deformity at T8 with mild superior endplate retropulsion and marrow edema throughout the T8 vertebral body. As noted on the recent chest CT there are opposing endplate erosive changes at T7-T8 concerning for the presence of superimposed osteomyelitis discitis. No paravertebral collections are identified and there is no epidural abscess. - Superior endplate retropulsion at T8 contributes to mild to moderate central canal stenosis and severe bilateral foraminal stenosis at the T7-T8 level. No cord compression. - There is a partially imaged large cyst or nodule within the left thyroid lobe measuring up to 2.8 cm in diameter that should be further assessed with a thyroid ultrasound. SERVICE DATE: 07/28/1608 EXAM TYPE: CAT - CT BONE BIOPSY IMPRESSION: Successful CT guided bone/disc biopsy at T7/T8 BONE CHIPS FROM T7/T8 DISC SPACE: IRREGULAR FRAGMENTS OF CARTILAGE AND FIBROVASCULAR TISSUE. NEGATIVE FOR EVIDENCE OF MALIGNANCY. SERVICE DATE: 07/30/16- EXAM TYPE: US - US-COMPLETE ABDOMEN IMPRESSION: 1. There is generalized increase in hepatic echotexture, consistent with fatty infiltration or hepatocellular disease. Please correlate clinically. No focal hepatic mass or intrahepatic biliary dilatation is seen. 2. Simple left renal cysts are incidentally noted. 3. Limited ultrasound examination of the pancreas and common bile duct. SERVICE DATE: 07/31/16- EXAM TYPE: CAT - CT HEAD WO IV CONTRAST IMPRESSION: Vague hypoattenuation in the right lateral occipital lobe, new from 2012. New asymmetric hypoattenuation in the subcortical high left frontoparietal lobe. If there is concern for acute brain ischemia, further evaluation with MRI of the brain is suggested. Mild chronic microangiopathy and volume loss. No intracranial hemorrhage. SERVICE DATE: 07/31/16- EXAM TYPE: MRI - MRI-HEAD W & W/O VINNIE IMPRESSION: Imaging findings suspected to be due to posterior reversible encephalopathy syndrome. Please note that postcontrast imaging is fairly motion degraded and limited for evaluation. SERVICE DATE: 08/01/16- EXAM TYPE: CARD - ECHOCARDIOGRAM CONCLUSIONS Suboptimal Echo window. Normal left and right ventricular systolic function. No significant valvular abnormalities. SERVICE DATE: 08/01/16 EXAM TYPE: CAT - CT HEAD WO IV CONTRAST IMPRESSION: No evidence for acute intracranial injury. Stable age-appropriate appearance of the brain. SERVICE DATE: 08/01/16 EXAM TYPE: US - JI-QAAPKIZ-TNSLOETJT DOPPLER IMPRESSION: Limited exam due to patient's inability to tolerate the procedure. No clear hemodynamically significant stenoses are identified on this limited exam. Recommend repeat exam when patient is able to tolerate the procedure. SERVICE DATE: 08/01/16 EXAM TYPE: RAD - XRY-SHOULDER COMPLETE-RIGHT IMPRESSION: 1. Mild osteoarthritis of the glenohumeral joint. 2. Acromioclavicular joint space measures up to 1.2 cm wide, and it was also widened on the recent chest radiograph of 07/14/2016, which raises the question regarding its significance on the current presentation. ELECTROENCEPHALOGRAM RESULTS IMPRESSION: Normal EEG in wake state SERVICE DATE: 08/09/161436 EXAM TYPE: MRI - MRI-HEAD W & W/O VINNIE IMPRESSION: Improved signal abnormality in the left frontal, as well as both parietal and occipital lobes relative to 07/31/2016. There remains no restricted diffusion nor abnormal enhancement. Findings are compatible with improving posterior reversible encephalopathy syndrome. Background of moderate generalized volume loss and mild to moderate chronic microangiopathy. SERVICE DATE: 08/14/16 EXAM TYPE: CAT - CT HEAD WO IV CONTRAST IMPRESSION: No evidence for acute intracranial injury. Stable age-appropriate appearance of the brain. SERVICE DATE: 09/17/16- EXAM TYPE: RAD - XRY-PORTABLE CHEST XRAY IMPRESSION: Limited study. Hypoinflation. No new pneumonia. Pertinent Lab Results: Laboratory Tests 09/22 810 Toxicology Valproic Acid (50 - 120 ug/mL) 74.0 Disposition Summary Disposition Principal Diagnosis: PRES syndrome. Uncontrolled HTN [place]>> resolved. Altered mental state. Additional Diagnosis: COPD on 3 L of home oxygen, stage II diastolic CHF, type 2 diabetes mellitus complicated with neuropathy and gastroparesis, hypothyroidism, arthritis, depression, hyperlipidemia, chronic renal failure, GERD, diverticulosis Discharge Disposition: SNF Discharge Instructions General Discharge Information Code Status: Full Code Patient's Diet: herat healthy Patient's Activity: as tolerated Follow-Up Instructions/Appts: Follow up with PCP, neurology, cardiology, endocrinology and psychitry as outpatient. Needs f/u MRI spine inn 4 weeks. Medications at Discharge Discharge Medications: Stop taking the following medications: Losartan Potassium (Losartan Potassium) 100 MG TABLET ORAL DAILY Qty = 30 Verapamil HCl (Verapamil HCl) 120 MG TABLET ORAL DAILY Qty = 30 Sertraline HCl (Sertraline HCl) 50 MG TABLET ORAL DAILY Qty = 30 Insulin Detemir (Levemir) 100 UNIT/ML VIAL Inject into fatty tissue Every Morning Trazodone HCl (Trazodone HCl) 50 MG TABLET ORAL DAILY @8 AM Metformin HCl (Metformin HCl) 500 MG TABLET ORAL THREE TIMES DAILY Qty = 90 Pregabalin (Lyrica) 75 MG CAPSULE ORAL THREE TIMES DAILY Trazodone HCl (Trazodone HCl) 100 MG TABLET ORAL Every night Simvastatin (Zocor*) 10 MG TABLET ORAL Every night Sitagliptin Phosphate (Januvia) 100 MG TABLET ORAL DAILY Alprazolam (Xanax) 0.25 MG TABLET ORAL EVERY SIX HOURS NEEDED as needed for AGITATION AND ANXIETY Augmentin (Augmentin 500-125 Tablet) 500 MG-125 MG TABLET ORAL TWICE DAILY Qty = 20 Lactobacillus Acidophilus (Acidophilus) 1 EACH CAPSULE ORAL TWICE DAILY Continue taking these medications: Insulin Aspart (Novolog) 100 UNIT/ML VIAL Units Inject into fatty tissue THREE TIMES DAILY Instructions: BEFORE MEALS <200 - NO COVERAGE 201- 250 - 2 UNIT 251 - 300 - 4 UNIT 301 - 350 - 6 UNIT 351 - 400 - 8 UNIT > 400 - 10 UNIT Comments: Last Taken: 09/18/16 Time: 1700PM Omeprazole (Omeprazole) 20 MG CAPSULE.DR 1 Capsule ORAL DAILY Qty = 30 Comments: Last Taken: 09/22/16 Time: 0600AM Levothyroxine Sodium (Levothyroxine Sodium) 25 MCG TABLET 1 Tablet ORAL DAILY BEFORE BREAKFAST Qty = 14 Comments: Last Taken: 09/22/16 Time: 0630AM Montelukast Sodium (Montelukast Sodium) 10 MG TABLET 1 Tablet ORAL DAILY Qty = 30 Comments: Last Taken: 09/22/16 Time:0900AM Tiotropium [place] (Spiriva) 18 MCG CAP.W.DEV 1 Capsule Inhale through mouth DAILY Qty = 30 Comments: NOT GIVEN IN HOSPITAL Cholecalciferol (Vitamin D3) (Vitamin D3) 400 UNIT TABLET 1 Tablet ORAL DAILY Comments: NOT GIVEN IN HOSPITAL Ferrous Sulfate (Ferrous Sulfate) 325 MG (65 MG IRON) TABLET 1 Tablet ORAL DAILY Comments: Last Taken: 09/22/16 Time: 0900AM Prednisone (Prednisone) 1 MG TABLET 1.5 Tablet ORAL Every other day Comments: Last Taken: 09/21/16 Time: 9AM Acetaminophen (Acephen) 650 MG SUPP.RECT 1 SUPPOSITORY RECTALLY Q4H as needed for PAIN/TEMP>/100 Comments: NOT GIVEN IN HOSPITAL Acetaminophen (Athenol) 325 MG TABLET 2 Tablet ORAL Q4H as needed for PAIN/TEMP>/100 Comments: Last Taken:09/22/16 Time: 0300AM Na Phos,M-B/Na Phos,Di-Ba (Fleet Enema) 19 GRAM-7 GRAM/118 ML ENEMA 1 Enema RECTAL DAILY as needed for CONSTIPATION Comments: NOT GIVEN IN HOSPITAL Bisacodyl (Bisacodyl) 10 MG SUPP.RECT 1 Suppository RECTAL as needed for CONSTIPATION Comments: NOT GIVEN IN HOSPITAL Magnesium Hydroxide (Milk Of Magnesia) 400 MG/5 ML ORAL.SUSP 30 Milliliters ORAL DAILY as needed for CONSTIPATION Comments: NOT GIVEN IN HOSPITAL Meclizine HCl (Meclizine HCl) 12.5 MG TABLET 1 Tablet ORAL Q6H as needed for VERTIGO Comments: NOT GIVEN IN HOSPITAL Ipratropium/Albuterol Sulfate (Iprat-Albut 0.5-3(2.5) MG/3 Ml) 0.5 MG-3 MG (2.5 MG BASE)/3 ML AMPUL.NEB 3 Milliliters Inhale through mouth Q4H as needed for SOB/WHEEZE Comments: NOT GIVEN IN HOSPITAL Simethicone (Gas Relief) 125 MG TAB.CHEW 1 Tablet ORAL Q4-6H as needed for ABD BLOATING & PAIN Comments: NOT GIVEN IN HOSPITAL Glucagon,Human Recombinant (Glucagon Emergency Kit) 1 MG KIT 1 Milligram INTRAMUSC GIVE ONCE as needed for HYPOGLYCEMIA Comments: NOT GIVEN IN HOSPITAL Start taking the following new medications: Divalproex Sodium (Divalproex Sodium) 250 MG TABLET.DR 3 Tablet ORAL AT BEDTIME Days = 30 No Refills Comments: Last Taken: 09/21/16 Time: 2200PM Hydralazine HCl (Hydralazine HCl) 25 MG TABLET 25 Milligram ORAL THREE TIMES DAILY Days = 30 No Refills Comments: Last Taken: 09/22/16 Time: 0900AM Labetalol HCl (Labetalol HCl) 100 MG TABLET 100 Milligram ORAL TWICE DAILY Days = 30 No Refills Comments: Last Taken: 09/22/16 Time: 0900AM Amlodipine Besylate (Norvasc) 10 MG TABLET 10 Milligram ORAL DAILY Days = 30 No Refills Comments: Last Taken: 09/22/16 Time: 0900AM Tramadol HCl (Tramadol HCl) 50 MG TABLET 50 Milligram ORAL EVERY SIX HOURS as needed for arthritis pain Qty = 10 No Refills Comments: Last Taken: 09/22/16 Time: 0630AM Albuterol Sulfate (Albuterol Sulfate) 2.5 MG/3 ML (0.083 %) VIAL.NEB 3 Milliliters Inhale through mouth EVERY 4 HOURS NEEDED as needed for WHEEZING Qty = 30 No Refills Comments: NOT GIVEN Gabapentin (Gabapentin) 300 MG CAPSULE 300 Milligram ORAL THREE TIMES DAILY Qty = 30 No Refills Comments: Last Taken: 09/22/16 Time:0900AM Divalproex Sodium (Divalproex Sodium) 500 MG TABLET.DR 1 Tablet ORAL DAILY @8 AM Days = 30 No Refills Comments: Last Taken: 09/22/16 Time: 0900AM Atorvastatin Calcium (Atorvastatin Calcium) 80 MG TABLET 1 Tablet ORAL 5 PM Days = 30 No Refills Magnesium Chloride (Slow-Mag) 71.5 MG TABLET.DR 2 Tablet ORAL DAILY Days = 30 No Refills Comments: Last Taken: 09/22/16 Time: 0900AM The following medications have been changed: Old: Trazodone HCl (Trazodone HCl) 50 MG TABLET 12.5 Milligram ORAL Q8H as needed for ANXIETY Days = 30 New: Trazodone HCl (Trazodone HCl) 50 MG TABLET 12.5 Milligram ORAL Every night Days = 30 Comments: Last Taken: 09/21/16 Time: 220PM Copies To: JOANNE ANDREWS,SHAUN; KANDY ANDREWS,CHRIS Styles; JOSE ANDREWS,[facility] [place]; MEG ANDREWS,ADITYA Attending MD Review Statement Documenting Attending: ELIA ANDREWS,BELA
--- NOTE | 2016-09-22 11:10 | PN- Att Addend ---
Attending Addendum Attending Brief Note Patient seen and examined, and said that she wants to sleep. Denies any complaints. Vital Signs Date Time Temp Pulse Resp B/P Pulse O2 O2 Flow FiO2 Ox Delivery Rate 09/22 0800 98.4 76 20 128/78 94 Room Air 09/22 0800 94 Room Air 09/21 2323 98.4 70 20 140/62 94 Room Air 09/21 2228 70 145/60 09/21 2228 70 145/60 09/21 2200 94 Room Air 09/21 1545 60 140/60 09/21 1519 98.6 78 18 138/62 93 09/21 1400 94 Room Air on exam; sleepy but srousable. cv; s1,s2, rrr. resp; clear abd; soft, nt, bs+ ext; no edema. no labs. A/P; 76 y/o F with past medical history significant for COPD, chronic diastolic CHF, diabetes, hypertension who was admitted with cognitive decline, altered mental state and found to have PRES which has improved as well as uncontrolled hypertension which is now under better control. Sitter was discontinued. Oxygen saturations are back to normal. Continue all current medications. DVT prophylaxis: Heparin subcutaneous.
[2016-09-22 12:22] VITALS: BP 128/78
--- NOTE | 2016-09-22 14:20 | NUR ---
NURSING NOTE: ATTEMPTED TO CALL NURSE TO NURSE REPORT AT [facility], NURSE FROM [facility] STATES, "I NEED TO CHECK WITH MY SUPERVISIOR BEFORE I TAKE REPORT" NURSE AT [facility] MADE AWARE THAT PILLOW FILLER TIME IS 1430PM; CUSHION STUFFER AND COBBLER SOLE AWARE
== END 2016-09-22 14:45 | DRG 987 ==
LOC: ERH 11:01 → 2NB 17:47 → CRI 17:47 → ERHI 17:47 → ENPENDDIS 17:47 → 1NO 17:47 → 2NB 20:40 → 1NO 07-26 15:21 → 2NB 07-29 22:04 → 1NO 08-01 02:00 → CRI 08-01 02:57 → 1NO 08-04 21:46 → 2NB 08-08 16:44
PROVIDERS: Hospitalist; Internal Medicine; Ophthalmology; Physician Assistant; Preventive Medicine Public Health & General Preventive Medicine; Radiology Diagnostic Radiology; Student in an Organized Health Care Education/Training Program; ADMIT Internal Medicine
PROC: 0PB43ZX Excision of Thoracic Vertebra, Percutaneous Approach, Diagnostic (ICD-10-PCS; principal; 2016-07-28)
DX: I13.0 Hypertensive heart and chronic kidney disease with heart failure and stage 1 through stage 4 chronic kidney disease, or unspecified chronic kidney disease (principal); I67.83 Posterior reversible encephalopathy syndrome; N17.9 Acute kidney failure, unspecified; J96.10 Chronic respiratory failure, unspecified whether with hypoxia or hypercapnia; K31.84 Gastroparesis; E11.43 Type 2 diabetes mellitus with diabetic autonomic (poly)neuropathy; I50.32 Chronic diastolic (congestive) heart failure; F13.231 Sedative, hypnotic or anxiolytic dependence with withdrawal delirium; E87.5 Hyperkalemia; E11.69 Type 2 diabetes mellitus with other specified complication; M46.44 Discitis, unspecified, thoracic region; R19.7 Diarrhea, unspecified; N18.3 Chronic kidney disease, stage 3 (moderate); J44.9 Chronic obstructive pulmonary disease, unspecified; R56.9 Unspecified convulsions; E66.01 Morbid (severe) obesity due to excess calories; Z68.30 Body mass index [BMI] 30.0-30.9, adult; E03.9 Hypothyroidism, unspecified; F32.9 Major depressive disorder, single episode, unspecified; E78.5 Hyperlipidemia, unspecified; K21.9 Gastro-esophageal reflux disease without esophagitis
CPT/HCPCS: 1NP; 1NSP; 2NBP; 2NBSP; 2NSBP; 70552; 72146; 87070; 87075; CCU; 36415; 70553; 73030-RT; 74176; 76775; 77012; 81001; 82436; 87040; 87045; 87086; 87088; 88307; 90662; 90732; 93005; 93010; 93306; 94799; 95816; 96374; 96375; 99232; A9579; J0131; J0360; J0456; J0696; J1630; J1644; J1885; J1953; J2060; J3010; J3101; J3250; J3490; J7040; J7042; J7060